=== PATIENT | female | born 1950 | race Caucasian/White ===

== ENCOUNTER 2017-09-07 11:28 | Inpatient (IN) ==
[2017-09-07 14:06] VITALS: BMI 48.9
--- NOTE | 2017-09-07 14:07 | History & Physical Report ---
History of Present Illness Date: 09/07/17 Chief complaint: Blood in stools HPI: Pt is a 67 yo female with blood in stool since 1 pm yest. Progressively worsened yesterday evening. No stools overnight or today. Started feeling dizzy /lightheaded yesterday. "I've been sick for 3-4 weeks. Coughing, sick on my stomach." Queasy stomach - thought it was r/t coumadin. Bright red blood noted with BM's - in toilet and with wiping and stools were black. Pain in mid to lower abd since yesterday. H/o PUD years ago. Thinks she may have had a colonoscopy >13 yrs ago, no EGD. Seen by PCP today, maroon colored blood on rectal exam, no Hemoccult performed in office. Hgb 20.0 (ave mid-upper teens) this am, CMP neg, INR 2.7. No NSAIDS. Last coumadin dose was yesterday. During ROS, pt admits to CP in the L side of her chest. States she gets it occasionally. Has never had it worked up. Uses a lidocaine patch and sometimes that helps. Not currently SOA or diaphoretic. Currently 35 days into a 90 day Rx of doxy. Pt reports she is on it b/c she has recurrent pneumonia. 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) Hx pulmonary embolism (Chronic) Chronic lumbosacral pain (Chronic) Obstructive sleep apnea hypopnea, severe AAA (abdominal aortic aneurysm) Anticoagulated on warfarin HTN (hypertension) Hiatal hernia Low back pain Obesity Surgical History: D&C for uterine bleeding 1974, Unilateral oophorectomy, Removal of bone chip in leg 1977, Tonsillectomy 1957, Family History: Family History Father , 62 Throat Cancer Mother , 92 Mental disability Sister , 72 AML (acute myeloid leukemia) Family History: As Above - Social History Smoking status: Current every day smoker (1ppd+(cigars)) Substance use type: does not use Alcohol intake frequency: holidays/special occasions only (for medicinal use) Housing: house Household members: none Current occupational status: retired 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 Coronel-PCP Medications Home Medications Medication Instructions Recorded Confirmed Type Ultram (Tramadol) 50 mg tablet 50 mg PO Q6H PRN #120 tab 10/07/16 09/07/17 Rx potassium chloride ER 10 mEq 10 meq PO BID PRN #30 tab 01/11/17 09/07/17 Rx tablet,extended release Voltaren (Diclofenac) 1 % topical 4 g TOP BID PRN #100 g 03/05/17 09/07/17 Rx gel doxycycline hyclate 100 mg capsule 100 mg PO BID #180 cap 05/10/17 09/07/17 Rx Neurontin (gabapentin) 600 mg 600 mg PO TID #90 tab 06/24/17 09/07/17 Rx tablet Claritin (Loratadine) 10 mg tablet 10 mg PO BID #60 tab 08/03/17 09/07/17 Rx Pulmicort (Budesonide) 0.5 mg/2 mL 2 ml INH Q12H #60 ml 08/03/17 09/07/17 Rx suspension for nebulization ipratropium-albuterol 0.5 mg-3 3 ml INH QID #180 ml 08/03/17 09/07/17 Rx mg(2.5 mg base)/3 mL nebulization soln warfarin 2 mg tablet 7 mg PO DAILY tab 08/03/17 09/07/17 History Allergies Allergy/AdvReac Type Severity Reaction Status Date / Time Iodinated Contrast- Oral and Allergy Intermediate Itching Verified 09/07/17 09: 49 IV Dye propoxyphene Allergy Mild GORE Verified 09/07/17 09:49 Penicillins Allergy Unknown RASH Verified 09/07/17 09:49 aspirin AdvReac Unknown FLU-LIKE SX Verified 09/07/17 09:49 nitroglycerin AdvReac Unknown HEADACHE/NECK Verified 09/07/17 09:49 PAIN acetaminophen [From Percocet] AdvReac Verified 09/07/17 09:49 clindamycin AdvReac Diarrhea Verified 09/07/17 09:49 oxycodone [From Percocet] AdvReac Verified 09/07/17 09:49 Exam - Constitutional Present: no acute distress, well nourished, well developed - Routine HEENT Exam Head: Present: normocephalic, atraumatic Eye: Present: EOMI, PERRL ENT: Present: mucous membranes moist, oropharynx clear Comments: facial erythema - Routine Neck Exam Present: supple. Absent: lymphadenopathy, thyromegaly - Routine Respiratory Exam Present: decreased breath sounds, CTA bilaterally. Absent: wheezes - Routine Cardiovascular Exam Present: RRR, murmur - Routine Abdominal Exam Present: soft, normoactive bowel sounds, tenderness (diffuse - mostly across lower abd). Absent: distended Comments: exam limited d/t obesity - Routine Rectal Exam Visual: Present: normal rectal tone. Absent: tenderness Digital: Present: external hemorrhoid (nonthrombosed), blood (dark blood noted around anus and on gloved finger following exam) - Routine Extremities Exam Present: edema, normal capillary refill Comments: LE's-chronic vascular changes, edema, b/l erythema - chronic - Routine Skin Exam Present: dry, warm Comments: healing boil L lateral buttock - Routine Neurological Exam Present: alert, oriented X3, CN II-XII intact - Routine Psychiatric Exam Present: normal affect, cooperative Results - Labs CBC & Chem 7: 09/07/17 15:38 Labs: Laboratory Tests 09/07/17 15:30 Stool Occult Blood Positive A Labs performed in [place] office WBC- 9.3, RBC 6.36, hemoglobin 20, hematocrit 59.3, platelet 179 CMP- sodium 142, potassium 4.2, chloride 106, CO2 25, BUN 12, creatinine 0.86, glucose 136, calcium 9.3, bilirubin 0.9, alkaline phosphatase 77, AST 16, ALT 13 , total protein 6.6, albumin 3.5, globulin 3.1 INR 2.7 Assessment and Plan (1) GI bleed Current visit: Yes Status: Acute Assessment and Plan: Assessment GI bleed Dizzy/lightheaded Abdominal pain - acute Chest pain -POA Aortic dissection -chronic Pedal edema -chronic COPD (chronic obstructive pulmonary disease) with chronic bronchitis Hx pulmonary embolism - warfarin (Goal 2-3) Chronic lumbosacral pain Abdominal aortic aneurysm- (follows with Dr. Villanueva) HTN Hiatal hernia Low back pain Morbid Obesity BMI 49.0 Obstructive sleep apnea, CPAP Plan Admit, IP. Stay will exceed 2 overnights to treat with Vit K to bring INR down so pt can by scoped to ID cause of bleeding. Consult Dr. Flynn. He will see pt tomorrow and hopes to scope on . Clear liquids for now. Protonix 40mg BID IV GI ppx and tx for GI bleed Hold coumadin. Vit K 5mg IV now. Repeat INR in am. Check EKG, CXR and Troponin given her chest pain. Repeat CBC now and again in am. Hemoccult positive. Check orthostatic pressures. IVF's NS at 100cc/hr. Tobacco cessation consult. Nicotine patch prn. Duonebs and Pulmicort for COPD - home meds. SCD's VTE ppx Nabila Momin MULCHER OPERATOR - PCP Full code. DVT Prophylaxis: SCD's GI Prophylaxis: Protonix Resuscitation Status: Full Code - Physician Narrative Physician: Enedina Russell MD Narrative: Date: 09/07/17 Time: 1899 I have independently evaluated and examined this patient. I reviewed the chart, the patient's history, and the MULCHER OPERATOR/PA's documented findings as above. We discussed and formulated the assessment and plan as above with additions as below: Mrs. Brown developed onset of rectal bleeding yesterday with black stools coated with bright red blood. Stools were semi-formed and associated with an upset stomach and spasms along the left lower quadrant laterally. She reports her stomach has been bothering her for about a week and she's been having reflux for several days. She describes heartburn which she attributes to dietary indiscretion. Maroon stool reported on office rectal exam today prompting hospitalization for further evaluation. History PE, remote history of peptic disease, recent diagnosis obstructive sleep apnea with initiation CPAP. NAD, alert Breath sounds diminished throughout anteriorly but no focal findings on pulmonary exam Regular rhythm, S1-S2 Abdomen soft, obese, nontender, bowel sounds present CMP unremarkable other than glucose 136 (obtained in the office today) Hemoccult positive Hemoglobin 20 this morning dropping to 19.6 this afternoon; 19.8 one year ago today. GI bleed-likely upper based on recent dyspeptic symptoms, PPI initiated, surgical consultation for EGD. Warfarin being reversed. Repeat hemoglobin at 9:00 tonight. Continued CPAP discussed with patient-she does not have her unit with her and does not believe anyone can bring it in; does not wish to use Hospital equipment and reports she can do without it for a few days. Discussed with Nabila Momin, discussed with Dr. Flynn. Hospital Course Summary Disclaimer: The visit summary below is not to be considered part of the above Progress Note. Hospital Course: 09/07/17 Admit, IP. Stay will exceed 2 overnights to treat with Vit K to bring INR down so pt can by scoped to ID cause of bleeding. Consult Dr. Flynn. He will see pt tomorrow and hopes to scope on . Clear liquids for now. Protonix 40mg BID IV GI ppx and tx for GI bleed Hold coumadin. Vit K 5mg IV now. Repeat INR in am. Check EKG, CXR and Troponin given her chest pain. Repeat CBC now and again in am. Hemoccult positive. Check orthostatic pressures. IVF's NS at 100cc/hr. Tobacco cessation consult. Nicotine patch prn. Duonebs and Pulmicort for COPD - home meds. SCD's VTE ppx Reid Momin, MULCHER OPERATOR - PCP Full cod
[2017-09-07] MEDS ORDERED: PHYTONADIONE (Adult) INJ 5 MG in NS 50 ML IV ONE (15:34)
[2017-09-07] MEDS: NS 1,000 ML IV SCH (15:51)
[2017-09-07] MEDS ORDERED: NICOTINE PATCH REMOVAL TD PRN (16:11)
[2017-09-07] MEDS: ALBUTEROL/IPRATROPIUM 2.5mg-0.5mg/3ml NEB AEROSOL SCH ×2 (16:57→20:17)
[2017-09-07] MEDS: BUDESONIDE INH.SOLN 0.5mg/2ml NEB AEROSOL SCH (20:17)
[2017-09-07] MEDS: GABAPENTIN 600 MG TABLET PO SCH (22:20)
[2017-09-07] MEDS: PANTOPRAZOLE 40 MG INJECTION IVP SCH (22:21)
[2017-09-08] MEDS: SALINE FLUSH 10ml SYRINGE IV PRN (02:19)
[2017-09-08] MEDS: NS 1,000 ML IV SCH ×2 (02:21→11:26)
[2017-09-08] MEDS: ACETAMINOPHEN 325 MG TABLET PO PRN ×2 (05:07→22:30)
[2017-09-08] MEDS: PANTOPRAZOLE 40 MG INJECTION IVP SCH ×2 (08:37→21:19)
[2017-09-08] MEDS: GABAPENTIN 600 MG TABLET PO SCH ×3 (08:37→21:19)
[2017-09-08] MEDS: BUDESONIDE INH.SOLN 0.5mg/2ml NEB AEROSOL SCH ×2 (08:46→20:24)
[2017-09-08] MEDS: ALBUTEROL/IPRATROPIUM 2.5mg-0.5mg/3ml NEB AEROSOL SCH ×3 (08:46→20:23)
--- NOTE | 2017-09-08 09:10 | XRay Report ---
Indication: chest pain Procedure: XR chest 2V: Encounter: Initial Comparison: 05/07/2017 Technique: PA and lateral radiographs of the chest were obtained. Findings: Lungs and airways: Normal lung volumes. Unchanged chronic increased interstitial markings within the lung bases. No other/new focal airspace consolidation appreciated. Normal pulmonary vasculature. Pleura: No pleural effusion or pneumothorax. Heart and mediastinum: Cardiomegaly. Aortic tortuosity. Osseous structures and soft tissues: No acute osseous abnormality is seen. Mild degenerative changes of the shoulders and thoracic spine. Impression: No acute cardiopulmonary process appreciated radiographically with grossly unchanged chronic bibasilar increased interstitial markings. .
--- NOTE | 2017-09-08 10:41 | Progress Note ---
- Date 09/08/17 Subjective: Sonya is seen this morning while resting in bed. She reports that she just took her morning dose of gabapentin and is now sleepy. She complains of her chronic back pain which she states is improving with the gabapentin. She denies any chest pain, increased shortness of breath, abdominal pain, nausea, vomiting or dysuria. She is tolerating clear liquids well. Labs today were unremarkable with the exception of her chronically elevated hemoglobin. INR 1.39. Fecal Hemoccult was positive but she denies any acute bleeding currently. Awaiting surgical evaluation by Dr. Flynn. Nursing reports plan to undergo endoscopy tomorrow, 09/09/17. Chest x-ray this morning showed no acute cardiopulmonary changes and unchanged chronic bibasilar scarring. Objective Vital signs: Temperature 97.5 F 09/08/17 07:50 Pulse Rate 70 09/08/17 08:00 Respiratory Rate 20 09/08/17 08:46 Blood Pressure 198/91 H 09/08/17 07:52 Pulse Oximetry 94 09/08/17 08:46 Rhythm: Normal Sinus Rhythm Height/Weight/BMI: Height 5 ft 2 in Weight 269 lb 13.533 oz Body Mass Index 48.9 Comments: Resting in bed. - Constitutional Present: no acute distress, well nourished, well developed, morbidly obese, cooperative Comments: appears tired after taking gabapentin. - Routine HEENT Exam Head: Present: normocephalic, atraumatic Eye: Present: PERRL. Absent: conjunctival icterus ENT: Present: mucous membranes moist, oropharynx clear - Routine Respiratory Exam Present: decreased breath sounds, prolonged expiratory phase, crackles ( bibasilar) Comments: No cough or conversational dyspnea. Breathing easily on 1L NC. - Routine Cardiovascular Exam Present: RRR, S1, S2 - Routine Abdominal Exam Present: soft, normoactive bowel sounds, non tender Comments: obese - Routine Extremities Exam Present: edema, pulses intact Comments: Bilateral darkening of lower extremities consistent with PVD. - Routine Back/Spine/Pelvis Exam Back/Spine: Present: full ROM. Absent: vertebral tenderness - Routine Musculoskeletal Exam Musculoskeletal: Present: moving extremities well - Routine Skin Exam Present: intact, dry, warm Comments: Afebrile. - Routine Neurological Exam Present: alert, moving all extremities, hearing grossly intact, normal speech - Routine Psychiatric Exam Present: cooperative Results - Labs CBC & Chem 7: 09/08/17 04:37 09/08/17 04:37 Assessment and Plan (1) GI bleed Current visit: Yes Status: Acute Assessment and Plan: Assessment GI bleed Dizzy/lightheaded Abdominal pain - acute Chest pain -POA Aortic dissection -chronic Pedal edema -chronic COPD (chronic obstructive pulmonary disease) with chronic bronchitis Hx pulmonary embolism - warfarin (Goal 2-3) Chronic lumbosacral pain Abdominal aortic aneurysm-(follows with Dr. Zuleyka Villanueva) HTN Hiatal hernia Low back pain Morbid Obesity BMI 49.0 Obstructive sleep apnea, CPAP Plan - 09/08/[address] Flynn. Plan for endoscopy on 09/09/17. Continue clear liquid diet today and NPO at midnight in anticipation of endoscopy. INR 1.39. SCDs for DVT prophylaxis. Continue to hold anticoagulation due to upcoming endoscopy. Vit K 5mg given on admission. Continue Protonix 40mg BID IV GI ppx and tx for GI bleed. CXR revealed no acute changes with unchanged chronic bibasilar scarring noted. Continue supplemental oxygen as needed to maintain SAO2 between 90-95%. Orthostatic vital signs stable with noted significant elevation in blood pressure upon standing at 198/91 prior to morning medications. Continue NS 75cc/hr for gentle hydration given limited oral intake with only clear liquids. Tobacco cessation consult. Nicotine patch prn. Duonebs and Pulmicort for COPD - home meds. Recheck labs in AM to monitor blood counts, electrolytes and renal function. Patient may benefit from routine phlebotomy given chronically elevated hemoglobin. DVT Prophylaxis: SCD's GI Prophylaxis: Protonix Resuscitation Status: Full Code - Time spent with patient Time with patient PN: 30 minutes - Physician Narrative Physician: Enedina Russell MD Narrative: Date: 09/08/17 Time: 1819 I have independently evaluated and examined this patient. I reviewed the chart, the patient's history, and the FACS TEACHER/PA's documented findings as above. We discussed and formulated the assessment and plan as above with additions as below: Mrs. Brown reports having only a smear of stool this morning which was slightly blood-tinged; she reports black stool with some associated red blood overnight but no liquid stool. Heartburn is better and she denied dyspnea or lightheadedness in excess of that she associates with use of gabapentin. NAD, alert; blood pressure increases standing Respirations nonlabored, good airflow Abdomen soft, nontender Minor drop in hemoglobin from 20 yesterday morning to 18.3 this morning; repeating hemoglobin now. INR 1.39 following vitamin K yesterday. Continue PPI Surgical consultation pending. Hospital Course Summary Disclaimer: The visit summary below is not to be considered part of the above Progress Note. Hospital Course: 09/07/17 Admit, IP. Stay will exceed 2 overnights to treat with Vit K to bring INR down so pt can by scoped to ID cause of bleeding. Consult Dr. Flynn. He will see pt tomorrow and hopes to scope on . Clear liquids for now. Protonix 40mg BID IV GI ppx and tx for GI bleed Hold coumadin. Vit K 5mg IV now. Repeat INR in am. Check EKG, CXR and Troponin given her chest pain. Repeat CBC now and again in am. Hemoccult positive. Check orthostatic pressures. IVF's NS at 100cc/hr. Tobacco cessation consult. Nicotine patch prn. Duonebs and Pulmicort for COPD - home meds. SCD's VTE ppx Reid Momin APRN - PCP Full cod Plan - 09/08/[address] Flynn. Plan for endoscopy on 09/09/17. Continue clear liquid diet today and NPO at midnight in anticipation of endoscopy. INR 1.39. SCDs for DVT prophylaxis. Continue to hold anticoagulation due to upcoming endoscopy. Vit K 5mg given on admission. Continue Protonix 40mg BID IV GI ppx and tx for GI bleed. CXR revealed no acute changes with unchanged chronic bibasilar scarring noted. Continue supplemental oxygen as needed to maintain SAO2 between 90-95%. Orthostatic vital signs stable with noted significant elevation in blood pressure upon standing at 198/91 prior to morning medications. Continue NS 75cc/hr for gentle hydration given limited oral intake with only clear liquids. Tobacco cessation consult. Nicotine patch prn. Duonebs and Pulmicort for COPD - home meds. Recheck labs in AM to monitor blood counts, electrolytes and renal function. Patient may benefit from routine phlebotomy given chronically elevated hemoglobin.
[2017-09-08] MEDS ORDERED: Bisacodyl EC TAB 5 MG TABLET PO ONE (17:16)
[2017-09-08] MEDS ORDERED: POLYETHYL. GLYCOL 3350 BOTTLE 238 GM PO ONE (18:30)
[2017-09-09] MEDS: NS 1,000 ML IV SCH ×2 (00:22→10:09)
[2017-09-09] MEDS: ALBUTEROL/IPRATROPIUM 2.5mg-0.5mg/3ml NEB AEROSOL SCH ×5 (06:16→20:20)
[2017-09-09] MEDS: BUDESONIDE INH.SOLN 0.5mg/2ml NEB AEROSOL SCH ×2 (07:13→20:21)
[2017-09-09] MEDS ORDERED: NITROGLYCERIN 0.4 MG SUBLINGUAL TABLET SL PRN (08:52)
[2017-09-09] MEDS: GABAPENTIN 600 MG TABLET PO SCH ×3 (09:17→21:49)
[2017-09-09] MEDS: PANTOPRAZOLE 40 MG INJECTION IVP SCH ×2 (09:17→21:49)
--- NOTE | 2017-09-09 09:19 | Progress Note ---
- Date 09/09/17 Subjective: The patient was seen this morning in her room. She is scheduled for EGD and colonoscopy around noon time. I was notified by her nurse that her blood pressure was elevated for 200 with sitting and standing this morning. Anesthesia was requesting cardiac clearance prior to procedures this afternoon. I asked the patient if she took any blood pressure medications at home and she stated that yes she did take a medication twice daily. Her home med rec did not have any antihypertensives listed. The nurse did call [facility] pharmacy and she is on metoprolol tartrate 25 mg twice daily. Patient states she has some left upper chest pain, and points to just below the clavicle. She states she thinks it's musculoskeletal and she puts a lidocaine patch on it at home. She states she has this pain "80% of the time" and has had it for years. She has history of aortic dissection for which she has , thus far, not required surgery. She sees Dr. Asim RALPH. She sees Dr. Mosley for cardiology care. She states she has not had a stent and she is uncertain if she has had heart catheter in the past. She states she has mild shortness of breath and this is chronic. She states she uses 2-2.5 L of oxygen at rest but doesn't use any oxygen with activity, but states that she probably should. She states that yesterday her stools were black but today after an enema, her stools are clear. She has minimal epigastric pain today, which she states is better. She's had no nausea or vomiting. She has been on doxycycline for 35 days for pneumonia. She is uncertain if she started feeling poorly after this was started or not, but states that she has not been feeling well for a long time. She Also describes chronic pruritus Objective Vital signs: Temperature 96.8 F 09/09/17 08:07 Pulse Rate 76 09/09/17 08:18 Respiratory Rate 20 09/09/17 08:07 Blood Pressure 228/109 H 09/09/17 08:18 Pulse Oximetry 92 09/09/17 08:07 Rhythm: Normal Sinus Rhythm Height/Weight/BMI: Height 1.57 m Weight 121.2 kg Body Mass Index 48.9 Comments: Temp 96 8, heart rate 76, respirations 20, O2 sat 92% on 1 L. Blood pressure lying is 160/92, sitting 213/106, standing 228/109 GEN-, oriented, no acute distress. Face is somewhat cornelius colored HEENT-sclera anicteric, pupils are equal, oropharynx is moist NECK-supple CV-regular rate and rhythm, no murmur CHEST-faint occasional wheeze, otherwise clear ABD-soft, obese, nontender with positive bowel sounds -no Rosas EXT-trace nonpitting edema, chronic venous stasis changes with purplish-red discoloration of the skin from the shins down to the feet NEURO-no focal deficits SKIN-as described above under extremities Results - Labs CBC & Chem 7: 09/09/17 03:59 09/09/17 03:59 - Impressions EKG today shows sinus rhythm with rate of 64, possible right ventricular conduction delay. Moderate voltage for LVH. Probably old anterior and inferior LA. No significant change on my read from 09/07/2016 Assessment and Plan (1) GI bleed Current visit: Yes Status: Acute Assessment and Plan: Assessment GI bleed Chronic anticoagulation with Coumadin -Coumadin on hold Dizzy/lightheaded Abdominal pain - acute Chest pain -POA-present 80% of the time per patient (musculoskeletal?) Aortic dissection -chronic -the patient has not required surgery thus far Pedal edema -chronic COPD (chronic obstructive pulmonary disease) with chronic bronchitis Hx pulmonary embolism - warfarin (Goal 2-3) Chronic lumbosacral pain Abdominal aortic aneurysm-(follows with Dr. Zuleyka Villanueva) HTN-on metoprolol 25 mg by mouth twice a day at home, this was not on her home med rec list. Med restarted 09/09/2017 Hiatal hernia Low back pain Morbid Obesity BMI 49.0 Obstructive sleep apnea, CPAP Chronic pruritus Polycythemia-uncertain if this has been evaluated Tobacco use Plan - 09/08/17 Plan for EGD and colonoscopy later today with Dr. Flynn. Blood pressure is quite elevated today, likely secondary to not receiving her usual metoprolol. Restart metoprolol now. Regarding the patient's underlying aortic dissection, poorly controlled blood pressure, and probable coronary artery disease will consult Dr. Mosley to evaluate the patient for cardiac clearance prior to endoscopies. INR 1.39 and 627. SCDs for DVT prophylaxis. Continue to hold anticoagulation due to upcoming endoscopy. Vit K 5mg given on admission. Continue Protonix 40mg BID IV GI ppx and tx for GI bleed. Continue supplemental oxygen as needed to maintain SAO2 between 90-95%-patient states he uses 2-2 and half liters at home chronically Hold IV fluids Continue DuoNeb and Pulmicort for COPD Tobacco cessation education Recheck CBC and renal panel tomorrow Discussed with patient's nurse, patient and with Dr. Mosley DVT Prophylaxis: SCD's GI Prophylaxis: Protonix Resuscitation Status: Full Code - Physician Narrative Narrative: Date: 09/09/17 Time: 09 Hospital Course Summary Disclaimer: The visit summary below is not to be considered part of the above Progress Note. Hospital Course: 09/07/17 Admit, IP. Stay will exceed 2 overnights to treat with Vit K to bring INR down so pt can by scoped to ID cause of bleeding. Consult Dr. Flynn. He will see pt tomorrow and hopes to scope on . Clear liquids for now. Protonix 40mg BID IV GI ppx and tx for GI bleed Hold coumadin. Vit K 5mg IV now. Repeat INR in am. Check EKG, CXR and Troponin given her chest pain. Repeat CBC now and again in am. Hemoccult positive. Check orthostatic pressures. IVF's NS at 100cc/hr. Tobacco cessation consult. Nicotine patch prn. Duonebs and Pulmicort for COPD - home meds. SCD's VTE ppx Reid Momin APRN - PCP Full cod Plan - 09/08/[address] Flynn. Plan for endoscopy on 09/09/17. Continue clear liquid diet today and NPO at midnight in anticipation of endoscopy. INR 1.39. SCDs for DVT prophylaxis. Continue to hold anticoagulation due to upcoming endoscopy. Vit K 5mg given on admission. Continue Protonix 40mg BID IV GI ppx and tx for GI bleed. CXR revealed no acute changes with unchanged chronic bibasilar scarring noted. Continue supplemental oxygen as needed to maintain SAO2 between 90-95%. Orthostatic vital signs stable with noted significant elevation in blood pressure upon standing at 198/91 prior to morning medications. Continue NS 75cc/hr for gentle hydration given limited oral intake with only clear liquids. Tobacco cessation consult. Nicotine patch prn. Duonebs and Pulmicort for COPD - home meds. Recheck labs in AM to monitor blood counts, electrolytes and renal function. Patient may benefit from routine phlebotomy given chronically elevated hemoglobin.
--- NOTE | 2017-09-09 10:30 | Cardiology Consult Note ---
<Tiffany Moss - Last Filed: 09/10/17 13:23> History of Present Illness Consult date: 09/09/17 Requesting physician: Carmina Payne Consult reason: pre-op evaluation Chief complaint: GI bleed History of present illness: Sonya is a 67 year old female who is well known to Dr. Mosley with a history of HTN, Aortic dissection and abdominal aneurysm followed by Dr. Asim Villanueva, pulmonary emboli, COPD and nicotine dependence who reported blood in her stool, started to feel dizzy/lightheaded, with pain in mid to lower abdomen. History of PUD years ago. She is scheduled for EGD and colonoscopy around noon today. Her BP was elevated in the 200s with sitting and standing this morning. Anesthesia was requesting cardiac clearance prior to procedures this afternoon so Dr. Mosley is consulted and we appreciate the consult. She is examined in her room on the Medical floor. She reports left upper chest pain, which she has "80% of the time" and has had it for years. It is reproducible to palpation. She reports chronic mild shortness of breath and uses 2-2.5 L of oxygen at home. She denies bloody stools today, no N/V, abdominal pain is minimal, She reportedly has been on doxycycline for 35 days for recurrent pneumonia. She continue to smoke cigarettes. Last Echo:10/30/16: NWMA, EF 55-60%, LVH, impaired relaxation, LA dilation, EDWARD, trace MR, Ao root, ascending AO and Ao arch are normal. Last Adenosine Stress: 11/05/16: EF 55%, Normal, AWMI, LAFB, RBBB. Review of Systems - Constitutional Constitutional: Absent: chills, fatigue, fever(s), weakness - EENMT Eyes: Absent: change in vision Balance: Absent: vertigo - Cardiovascular Cardiovascular: Present: chest pain, dyspnea on exertion, edema, heart murmur. Absent: palpitations, syncope Rhythm: Absent: abnormal rhythm Vascular: Present: pedal edema - Respiratory Respiratory: Present: as per HPI - Gastrointestinal Gastrointestinal: Present: as per HPI - Genitourinary Genitourinary: Present: urinary frequency, urinary incontinence. Absent: dysuria - Neurological Neurological: Present: as per HPI, dizziness - Endocrine Endocrine: Absent: palpitations PFSH Patient Stated Medical History Migraine Yes Peripheral Neuropathy Yes Transient Ischemic Attacks ( Yes TIA) Cataracts Yes: R eye Dysphagia Yes Other HEENT Yes: bleeding retina Angina Yes Congestive Heart Failure Yes Heart Murmur Yes Hypertension Yes Other Cardiology Yes: heart dislocated from wall tissue Bronchitis Yes Chronic Obstructive Pulmonary Yes Disease (COPD) Pneumonia Yes Pulmonary Embolism Yes Sleep Apnea Yes: just got a cpap machine in July, adjusting Gastrointestinal Bleeding Yes: over 20years ago Hiatal Hernia Yes Ulcer Yes Hx Urinary Tract Infection Yes MRSA Yes: groin Other Yes: full body itching Depression Yes Post Traumatic Stress Disorder Yes Abnormal Pap Yes: fungal infection Ovarian Cysts Yes Post Menopausal Yes Clinic Medical History (Last Updated 09/07/17 @ 19:03 by Enedina Russell MD) Aortic dissection (Chronic Medical) Pedal edema (Chronic Medical) COPD (chronic obstructive pulmonary disease) with chronic bronchitis (Chronic Medical) Hx pulmonary embolism (Chronic Medical) Chronic lumbosacral pain (Chronic Medical) Obstructive sleep apnea hypopnea, severe (Acute Medical) AAA (abdominal aortic aneurysm) (Chronic Medical) Anticoagulated on warfarin (Chronic Medical) HTN (hypertension) (Chronic Medical) Hiatal hernia (Chronic Medical) Low back pain (Chronic Medical) Obesity (Chronic Medical) Surgical History: D&C for uterine bleeding 1974,. Unilateral oophorectomy,. Removal of bone chip in leg 1977,. Tonsillectomy 1957, Family History: Father , 62 Cancer Mother , 92 CHF, Mental disability Sister , 72 AML (acute myeloid leukemia) Brother Unknown Heart condition - Social History Smoking status: Current every day smoker (1ppd+(cigars)) Substance use type: does not use Alcohol intake frequency: holidays/special occasions only (for medicinal use) Housing: house Household members: none Current occupational status: retired Current residence: Apartment/Private Home Medications Home Medications Medication Instructions Recorded Confirmed Type Ultram (Tramadol) 50 mg tablet 50 mg PO Q6H PRN #120 tab 10/07/16 09/07/17 Rx Voltaren (Diclofenac) 1 % topical 4 g TOP BID PRN #100 g 03/05/17 09/08/17 Rx gel doxycycline hyclate 100 mg capsule 100 mg PO BID #180 cap 05/10/17 09/08/17 Rx Neurontin (gabapentin) 600 mg 600 mg PO TID #90 tab 06/24/17 09/08/17 Rx tablet Claritin (Loratadine) 10 mg tablet 10 mg PO BID #60 tab 08/03/17 09/08/17 Rx Pulmicort (Budesonide) 0.5 mg/2 mL 2 ml INH Q12H #60 ml 08/03/17 09/08/17 Rx suspension for nebulization ipratropium-albuterol 0.5 mg-3 3 ml INH QID #180 ml 08/03/17 09/08/17 Rx mg(2.5 mg base)/3 mL nebulization soln Acetaminophen [Tylenol] 650 mg PO Q5H PRN tab 09/13/17 Rx Amlodipine [Norvasc] 5 mg PO DAILY #30 tab 09/13/17 Rx Labetalol [Normodyne] 100 mg PO BID #60 tab 09/13/17 Rx Lisinopril [Prinivil] 20 mg PO DAILY #30 tab 09/13/17 Rx Mag-Al + Sim Oral Liq [Maalox Plus] 30 ml PO Q3H PRN udc 09/13/17 Rx Nicotine Patch [Nicoderm] 21 mg TD DAILY #30 patch 09/13/17 Rx Omeprazole [Prilosec] 20 mg PO ACB #30 cap 09/13/17 Rx Allergies Allergy/AdvReac Type Severity Reaction Status Date / Time Iodinated Contrast- Oral and Allergy Intermediate Itching Verified 09/07/17 09: 49 IV Dye propoxyphene Allergy Mild GORE Verified 09/07/17 09:49 Penicillins Allergy Unknown RASH Verified 09/07/17 09:49 aspirin AdvReac Unknown FLU-LIKE SX Verified 09/07/17 09:49 nitroglycerin AdvReac Unknown HEADACHE/NECK Verified 09/07/17 09:49 PAIN acetaminophen [From Percocet] AdvReac Verified 09/07/17 09:49 clindamycin AdvReac Diarrhea Verified 09/07/17 09:49 oxycodone [From Percocet] AdvReac Verified 09/07/17 09:49 Exam Vital signs: Temperature 96.8 F 09/09/17 08:07 Pulse Rate 76 09/09/17 08:18 Respiratory Rate 20 09/09/17 08:07 Blood Pressure 188/89 H 09/09/17 09:19 Pulse Oximetry 92 09/09/17 08:07 - Constitutional no acute distress, morbidly obese, cooperative - Routine HEENT Exam Head: Present: normocephalic ENT: Present: mucous membranes moist - Routine Neck Exam Absent: JVD, carotid bruit - Routine Chest/Breast/Axilla Exam Chest wall: Present: tenderness (left chest) - Routine Respiratory Exam Present: diminished air movement. Absent: dyspnea, rales - Routine Cardiovascular Exam Present: RRR, murmur (II/) - Routine Abdominal Exam Present: soft, non tender - Routine Extremities Exam Present: edema (trace), pulses intact - Routine Skin Exam Present: intact, dry, warm - Routine Neurological Exam Present: alert, oriented X3 - Routine Psychiatric Exam Present: normal affect, normal thought process Results 09/10/17 01:30 09/10/17 01:30 CBC 09/08/17 09/09/17 Range/Units 18:42 03:59 WBC 10.3 (4.5-11.0) T/MM3 RBC 5.95 H (4.00-5.20) M/MM3 Hgb 18.3 H 17.7 H (12-16) GM/DL Hct 56.3 H 56.3 H (36-46) % Plt Count 157 (130-400) T/MM3 Neut # (Auto) 7.0 (1.8-7.7) T/MM3 Lymph # (Auto) 2.0 (1-4.8) T/MM3 [place] # (Auto) 0.8 (0-0.8) T/MM3 Eos # (Auto) 0.4 (0-0.5) T/MM3 Baso # (Auto) 0.1 (0-0.2) T/MM3 Comprehensive Metabolic Panel 09/09/17 Range/Units 03:59 Sodium 145 (136-146) MEQ/L Potassium 3.9 (3.6-5) MEQ/L Chloride 109 H (98-107) MEQ/L Carbon Dioxide 27 (22-30) MEQ/L BUN 7.0 D (7-17) MG/DL Creatinine 0.7 (0.7-1.2) mg/dL Glucose 88 (65-110) MG/DL Calcium 8.4 (8.4-10.2) MG/DL Intake and Output 09/08/17 09/09/17 09/09/17 22:59 06:59 14:59 Intake Total 956.667 / 956.667 643.333 / 643.333 732.5 / 732.5 Balance 956.667 / 956.667 643.333 / 643.333 732.5 / 732.5 Intake: IV 356.667 / 356.667 643.333 / 643.333 732.5 / 732.5 Ns 1,000 ml @ 75 mls/hr IV . 356.667 / 356.667 643.333 / 643.333 732.5 / 732.5 [id number] ELEAZAR Rx#:[id number] Oral 600 / 600 Other: Urine Appearance Clear Clear Urine Color Yellow Yellow Stool Color Brown Brown Stool Consistency Formed Loose Watery Size of Bowel Movement Moderate Moderate # Voids 1 # Incontinent Voids 1 # Bowel Movements 1 Weight 267 lb 3.204 oz Patient Weight 09/10/17 06:59 Weight 267 lb 3.204 oz - Imaging and Cardiology Imaging & Cardiology Narrative: Date of Exam: 09/07/17 Ordering Provider: Ann Hurtado Type of Exam(s): XR chest 2V Reason for Exam(s): chest pain Indication: chest pain Procedure: XR chest 2V: Encounter: Initial Comparison: 05/07/2017 Technique: PA and lateral radiographs of the chest were obtained. Findings: Lungs and airways: Normal lung volumes. Unchanged chronic increased interstitial markings within the lung bases. No other/new focal airspace consolidation appreciated. Normal pulmonary vasculature. Pleura: No pleural effusion or pneumothorax. Heart and mediastinum: Cardiomegaly. Aortic tortuosity. Osseous structures and soft tissues: No acute osseous abnormality is seen. Mild degenerative changes of the shoulders and thoracic spine. Impression: No acute cardiopulmonary process appreciated radiographically with grossly unchanged chronic bibasilar increased interstitial markings. . Date of Exam: 09/11/16 Ordering Provider: Nabila Momin APRN Type of Exam(s): CT angio chest/aorta wo/w con Reason for Exam(s): J41.1 Mucopurulent chronic bronchitis Indication: J41.1 Mucopurulent chronic bronchitis, aortic aneurysm with dissection PROCEDURE: CT angio chest/aorta wo/w con: Encounter: Initial Comparison: Chest x-ray dated September 07, [address] angiogram of the chest dated June 16, 2013 Technique: Axial CT angiographic imaging of the chest was performed before and after the administration of intravenous contrast. Coronal and sagittal MIP reconstructed images were created and reviewed. Three-dimensional surface shaded volume rendered imaging of the aorta and arterial vasculature was created by the technologist on a dedicated workstation under the direction of the interpreting radiologist and reviewed. Automated Exposure Control and Iterative Reconstruction dose reducing techniques were utilized. Contrast: 75 mL Omnipaque 350 Findings: Noncontrast images show no evidence of an intramural hematoma. Postcontrast images redemonstrate the extensive Wolfgang type B dissection of the thoracic aorta. This shows interval growth at the origin and enlargement of the descending thoracic aorta compared to the prior CT. Aortic arch diameter at the origin of the dissection on axial image #23 is now 5 cm compared to 4 cm on the prior CT. Descending thoracic aorta diameter is enlarged. For example on axial image #44 maximal diameter us 4.7 cm compared to 3.8 cm on the comparison study. Dissection continues into the abdomen with significant mural thrombus. There is narrowing of the true lumen in the lower thoracic section. The celiac, SMA and left renal artery arise from the true lumen while the right renal artery arises from the false lumen. The false lumen is brighter on this phase of contrast for some reason. The upper abdomen shows no acute findings. The lungs show mild emphysema without consolidative pneumonia. No pleural effusion or pneumothorax. The central airways are patent. Bone windows are unremarkable. 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 Overall diameter is approximately 1 cm larger than the 2014 comparison. Vascular surgical evaluation is suggested. . 09/09/17 11:04 EKG interpretations - EKG EKG results cardiology: sinus rhythm - Blocks, axis, hypertrophy, ST abn AV and intraventricular conduction: intraventricular conduction delay Chamber hypertrophy or enlargement: left ventricular hypertrophy or enlargement (LVE) - WV, pacemaker, normal Myocardial infarction: anterior WV (old age or indeterminate) Assessment and Plan - Assessment and Plan (1) GI bleed Status: Acute Patient had normal Adenosine stress test with no evidence of ischemia and stable Echo with the last 10 months. - The patient is aware of the risks and benefits and wishes to proceed. - The proposed procedure in general carries a low risk of cardiac complications , okay to proceed with EGD/ colonoscopy (2) Essential (primary) hypertension Status: Chronic Orthostatic BP: Lying, 160/92, sitting 213/106, standing 228/109 - Change metoprolol to Labetalol 100mg BID - Give Labetalol 10mg IV now - Renal duplex (3) Aortic dissection Status: Chronic CTA 08/2016: Aortic arch diameter at the origin of the dissection is now 5 cm compared to 4 cm on the prior CT. Extensive Wolfgang type B aortic dissection with gradual enlargement and development amount of aortic arch and descending aortic aneurysms. Overall diameter is approximately 1 cm larger than the 2014 comparison. Vascular surgical evaluation is suggested. - Patient was cleared by Dr. Mosley for repair by Dr. Villanueva. Patient reports CT planned for December. - Control BP with medical therapy to keep SBP<180 (4) Abdominal aortic aneurysm without rupture Status: Chronic (5) COPD (chronic obstructive pulmonary disease) with chronic bronchitis Status: Chronic PCP manages (6) Hx pulmonary embolism Status: Chronic Warfarin currently on home due to GI bleed (7) Tobacco use disorder Status: Chronic Continue to smoke cigarettes, instructed on cessation. - Assessment and Plan GI Bleed: Patient had normal Adenosine stress test with no evidence of ischemia and stable Echo with the last 10 months. - The patient is aware of the risks and benefits and wishes to proceed. - The proposed procedure in general carries a low risk of cardiac complications , okay to proceed with EGD/ colonoscopy HTN: Orthostatic BP: Lying, 160/92, sitting 213/106, standing 228/109 - Change metoprolol to Labetalol 100mg BID - Give Labetalol 10mg IV now - Renal duplex Aortic dissection: CTA 08/2016: Aortic arch diameter at the origin of the dissection is now 5 cm compared to 4 cm on the prior CT. Extensive [place] type B aortic dissection with gradual enlargement and development amount of aortic arch and descending aortic aneurysms. Overall diameter is approximately 1 cm larger than the 2014 comparison. Vascular surgical evaluation is suggested. - Patient was cleared by Dr. Mosley for repair by Dr. Villanueva. Patient reports CT planned for December. - Control BP with medical therapy to keep SBP<180 Abdominal aortic aneurysm: Routine monitoring COPD: Chronic, PCP manages Hx PE: Warfarin on hold due to GI bleed. Tobacco use: Continue to smoke cigarettes, instructed on cessation. Thank you for allowing us to participate in the care of this patient we will follow along with you. Hospital Course Summary Disclaimer: The visit summary below is not to be considered part of the above Progress Note. Hospital Course: 09/07/17 Admit, IP. Stay will exceed 2 overnights to treat with Vit K to bring INR down so pt can by scoped to ID cause of bleeding. Consult Dr. Flynn. He will see pt tomorrow and hopes to scope on . Clear liquids for now. Protonix 40mg BID IV GI ppx and tx for GI bleed Hold coumadin. Vit K 5mg IV now. Repeat INR in am. Check EKG, CXR and Troponin given her chest pain. Repeat CBC now and again in am. Hemoccult positive. Check orthostatic pressures. IVF's NS at 100cc/hr. Tobacco cessation consult. Nicotine patch prn. Duonebs and Pulmicort for COPD - home meds. SCD's VTE ppx Reid Momin APRN - PCP Full cod Plan - 09/08/[address] Flynn. Plan for endoscopy on 09/09/17. Continue clear liquid diet today and NPO at midnight in anticipation of endoscopy. INR 1.39. SCDs for DVT prophylaxis. Continue to hold anticoagulation due to upcoming endoscopy. Vit K 5mg given on admission. Continue Protonix 40mg BID IV GI ppx and tx for GI bleed. CXR revealed no acute changes with unchanged chronic bibasilar scarring noted. Continue supplemental oxygen as needed to maintain SAO2 between 90-95%. Orthostatic vital signs stable with noted significant elevation in blood pressure upon standing at 198/91 prior to morning medications. Continue NS 75cc/hr for gentle hydration given limited oral intake with only clear liquids. Tobacco cessation consult. Nicotine patch prn. Duonebs and Pulmicort for COPD - home meds. Recheck labs in AM to monitor blood counts, electrolytes and renal function. Patient may benefit from routine phlebotomy given chronically elevated hemoglobin. <Scotty Mosley - Last Filed: 09/16/17 13:37> [facility] Patient Stated Medical History Migraine Yes Peripheral Neuropathy Yes Transient Ischemic Attacks ( Yes TIA) Cataracts Yes: R eye Dysphagia Yes Other HEENT Yes: bleeding retina Angina Yes Congestive Heart Failure Yes Heart Murmur Yes Hypertension Yes Other Cardiology Yes: heart dislocated from wall tissue Bronchitis Yes Chronic Obstructive Pulmonary Yes Disease (COPD) Pneumonia Yes Pulmonary Embolism Yes Sleep Apnea Yes Gastroesophageal Reflux Yes: controlled with diet Disease Gastrointestinal Bleeding Yes: over 20years ago Hiatal Hernia Yes Ulcer Yes Hx Urinary Tract Infection Yes MRSA Yes: groin Other Yes: full body itching Depression Yes Post Traumatic Stress Disorder Yes Abnormal Pap Yes: fungal infection Ovarian Cysts Yes Post Menopausal Yes Clinic Medical History (Last Updated 09/07/17 @ 19:03 by Enedina Russell MD) Aortic dissection (Chronic Medical) Pedal edema (Chronic Medical) COPD (chronic obstructive pulmonary disease) with chronic bronchitis (Chronic Medical) Hx pulmonary embolism (Chronic Medical) Chronic lumbosacral pain (Chronic Medical) Obstructive sleep apnea hypopnea, severe (Acute Medical) AAA (abdominal aortic aneurysm) (Chronic Medical) Anticoagulated on warfarin (Chronic Medical) HTN (hypertension) (Chronic Medical) Hiatal hernia (Chronic Medical) Low back pain (Chronic Medical) Obesity (Chronic Medical) Family History: Family History (Last Reviewed 08/03/17 @ 15:10 by CAMPBELL Cage) Father , 62 Cancer Mother , 92 Mental disability Sister , 72 AML (acute myeloid leukemia) Exam Vital signs: Temperature 97.7 F 09/13/17 11:50 Pulse Rate 80 09/13/17 11:50 Respiratory Rate 19 09/13/17 11:50 Blood Pressure 128/72 09/13/17 11:50 Pulse Oximetry 94 09/13/17 11:50 Results 09/13/17 04:13 09/13/17 04:13 Assessment and Plan - Attestation Attestation Narrative: 09/16/17 13:37 Recommendation After examining the patient I agree with the above assessment. I am involved in the formulation of the patient's plan of care. - Assessment and Plan (1) Hx pulmonary embolism Status: Chronic (2) COPD (chronic obstructive pulmonary disease) with chronic bronchitis Status: Chronic (3) Aortic dissection Status: Chronic (4) Tobacco use disorder Status: Chronic (5) GI bleed Status: Acute (6) Essential (primary) hypertension Status: Chronic (7) Abdominal aortic aneurysm without rupture Status: Chronic (8) CAD (coronary artery disease), [place] coronary artery Status: Acute Hospital Course Summary Disclaimer: The visit summary below is not to be considered part of the above Progress Note.
[2017-09-09] MEDS ORDERED: LABETALOL 100mg/20ml INJECTION IVP ONE (11:01)
--- NOTE | 2017-09-09 11:35 | Anesthesia Preoperative Report ---
Anesthesia Preoperative Record - Date and Time Date: 09/09/17 Preoperative Diagnosis: GI Bleed NPO Since Date: 09/08/17 NPO Since Time: 17:00 Allergies/Adverse Reactions: Allergies Allergy/AdvReac Type Severity Reaction Status Date / Time Iodinated Contrast- Oral and Allergy Intermediate Itching Verified 09/07/17 09: 49 IV Dye propoxyphene Allergy Mild GORE Verified 09/07/17 09:49 Penicillins Allergy Unknown RASH Verified 09/07/17 09:49 aspirin AdvReac Unknown FLU-LIKE SX Verified 09/07/17 09:49 nitroglycerin AdvReac Unknown HEADACHE/NECK Verified 09/07/17 09:49 PAIN acetaminophen [From Percocet] AdvReac Verified 09/07/17 09:49 clindamycin AdvReac Diarrhea Verified 09/07/17 09:49 oxycodone [From Percocet] AdvReac Verified 09/07/17 09:49 - Vital Signs Vital Signs: Temperature 96.8 F 09/09/17 08:07 Pulse Rate 60 09/09/17 11:17 Respiratory Rate 20 09/09/17 08:07 Blood Pressure 168/85 H 09/09/17 11:17 Pulse Oximetry 92 09/09/17 08:07 Height and Weight: Height 1.57 m Weight 121.2 kg Body Mass Index 48.9 - Medications Inpatient Medications: Current Medications Acetaminophen (Tylenol) 325 - 650 mg PO Q5H PRN PRN Reason: Discomfort Last Admin: 09/08/17 22:30 Dose: 650 mg Albuterol/Ipratropium (Duoneb) 3 ml AEROSOL QID [facility] Last Admin: 09/09/17 11:19 Dose: 3 ml Budesonide (Pulmicort Inhalation) 0.5 mg AEROSOL Q12H [facility] Last Admin: 09/09/17 07:13 Dose: 0.5 mg Gabapentin (Neurontin) 600 mg PO TID [facility] Last Admin: 09/09/17 09:17 Dose: 600 mg Labetalol HCl (Normodyne) 100 mg PO BID [facility] Nicotine (Nicoderm) 21 mg TD DAILY PRN Nicotine (Nicotine Patch Removal) 1 removal TD DAILY PRN Nitroglycerin (Nitrostat) 0.4 mg SL Q5MIN3 PRN PRN Reason: Chest pain Pantoprazole Sodium (Protonix Iv) 40 mg IVP BID [facility] Last Admin: 09/09/17 09:17 Dose: 40 mg Sodium Chloride (Iv Flush) 10 - 80 ml IV PRN PRN PRN Reason: Flushing Last Admin: 09/08/17 02:19 Dose: 20 ml Tramadol HCl (Ultram) 50 mg PO Q6H PRN PRN Reason: pain Home Medications: Home Medications Medication Instructions Recorded Confirmed Type Ultram (Tramadol) 50 mg tablet 50 mg PO Q6H PRN #120 tab 10/07/16 09/07/17 Rx potassium chloride ER 10 mEq 10 meq PO BID PRN #30 tab 01/11/17 09/08/17 Rx tablet,extended release Voltaren (Diclofenac) 1 % topical 4 g TOP BID PRN #100 g 03/05/17 09/08/17 Rx gel doxycycline hyclate 100 mg capsule 100 mg PO BID #180 cap 05/10/17 09/08/17 Rx Neurontin (gabapentin) 600 mg 600 mg PO TID #90 tab 06/24/17 09/08/17 Rx tablet Claritin (Loratadine) 10 mg tablet 10 mg PO BID #60 tab 08/03/17 09/08/17 Rx Pulmicort (Budesonide) 0.5 mg/2 mL 2 ml INH Q12H #60 ml 08/03/17 09/08/17 Rx suspension for nebulization ipratropium-albuterol 0.5 mg-3 3 ml INH QID #180 ml 08/03/17 09/08/17 Rx mg(2.5 mg base)/3 mL nebulization soln warfarin 2 mg tablet 7 mg PO DAILY tab 08/03/17 09/08/17 History Is Patient on Beta Morena?: Yes Beta Morena Last Dose Date/Time: 09/09/17 - Medical History Respiratory: Reports: Bronchitis, Chronic Obstructive Pulmonary Disease (COPD), Pulmonary Embolism, Pneumonia, Sleep Apnea (franklin got a cpap machine in July,) Cardiovascular: Reports: Angina, Congestive Heart Failure, Heart Murmur, Hypertension, High Cholesterol, Other (heart dislocated from wall tissue) Gastrointestional: Reports: Gastroesophageal Reflux Disease (controlled with diet), Gastrointestinal Bleeding (over 20years ago), Hiatal Hernia, Ulcer, Morbid Obesity Neuro/Musculoskeletal: Reports: Back Problems, Depression, Headaches Renal/Endocrine: Reports: Thyroid Disease (hypothyroid) Other History: Reports: Other (full body itching) - Surgical History HEENT Surgeries: Reports: Nose Surgery (papaloma removed), Oral Surgery ( papaloma removed), Tonsillectomy, Other (MONO) Respiratory Surgery/Treatments: Reports: BiPAP Use, Oxygen Administration (when sleeping) GI Surgery/Treatments: Reports: Colonoscopy DENIES: Appendectomy, Cholecystectomy, Hernia Repair Musculoskeletal Surgery/Tx: Reports: Other (l leg fractured chip removed) Reproductive Surgery/Treatment: Reports: Hysterectomy (partial) DENIES: Mastectomy Anesthesia Reactions: None Hx Family Anesthesia Reaction: No History of Motion Sickness: No - Social History Smoking Status: Current every day smoker (1ppd+(cigars)) Packs per day: 1 Pack-years: 45 Hx Chewing Tobacco Use: No Second Hand Exposure: No Substance Use Type: does not use Alcohol Intake Frequency: holidays/special occasions only (for medicinal use) - Pertinent Findings Laboratory: CBC and BMP 09/09/17 03:59 09/09/17 03:59 BMP 09/09/17 03:59 Sodium 145 Potassium 3.9 Chloride 109 H Carbon Dioxide 27 BUN 7.0 D Creatinine 0.7 Glucose 88 Calcium 8.4 EKG: Sinus Rhythm - Physical Exam Respiratory Exam: Present: wheezing, rales, bilateral breath sounds equal Cardiovascular Exam: Present: regular rate and rhythm - Airway Assessment Mallampati Score: II TMD: 3 Fingerbreadths Neck Extension: poor Teeth: other (edentulous) Overall Assessment: may be difficult intubation - ASA ASA Score: 4 - Plan Anesthesia: General TIVA - Discussion Discussion: Discussed risks/options/alternatives of anesthesia and questions answered. Patient consents. Nursing pain assessment noted. Attestation Statement: Prior to the delivery of any anesthetic medication, I examined the patient, developed the plan, obtained the patient's consent and discussed the risk and benefits of the procedure with the patient/guardian. - Additional Information Seen by Anesthesia: Yes
[2017-09-09] MEDS ORDERED: PROPOFOL 500 MG/50 ML VIAL ONE (12:29)
[2017-09-09] MEDS ORDERED: ALFENTANIL 1000mcg/2ml INJECTION IVP ONE (12:29)
[2017-09-09] MEDS ORDERED: LIDOCAINE 2% (100mg/5ml) SYRINGE (PF) IVP ONE (12:29)
[2017-09-09] MEDS ORDERED: LIDOCAINE VISCOUS 2% ORAL LIQUID 15ml ONE (12:34)
[2017-09-09] MEDS ORDERED: PROPOFOL 20 ML ONE (13:43)
--- NOTE | 2017-09-09 14:05 | General Surgery Procedure Note ---
Date of Procedure: 09/09/17 Surgeon: Rina Anesthesia: General TIVA ASA Score: 4 Pre-op diagnosis: GI bleeding, abdominal pain. Postoperative Diagnosis: Mild duodenitis, mild gastritis, short segment of mucosal changes of distal esophagus. Severe patton diverticulosis, multiple colon polyps. Procedure: Esophagogastroduodenoscopy with biopsies Colonoscopy with hot biopsy forceps polypectomy x 10, hot snare polypectomy x2
--- NOTE | 2017-09-09 14:30 | Anesthesia Postoperative Note ---
- Date and Time Date: 09/09/17 Time: 14:30 - Status Patient Participated in Evaluation: Patient Participated in Person Vital Signs: Temperature 97.1 F 09/09/17 14:15 Pulse Rate 75 09/09/17 14:15 Respiratory Rate 23 09/09/17 14:15 Blood Pressure 159/65 H 09/09/17 14:15 Pulse Oximetry 93 09/09/17 14:15 Respiratory Function: Airway Patent, Regular Respirations Cardiovascular Function: Regular Pulse EKG: Sinus Rhythm Mental Status: Alert and Oriented Pain Intensity: 0 Hydration: IV Infusing Complications During Recover: None Apparent - Follow-Up Instructions Instructions: Per Surgeon
--- NOTE | 2017-09-09 16:02 | Ultrasound Report ---
Indication: HTN PROCEDURE: US renal doppler: Encounter: Initial Comparison: None. Findings: Scans of the kidneys demonstrate increased echogenicity of the renal parenchyma suggesting medical renal disease. The right kidney measures 12.9 cm in length. The left kidney measures 12.3 cm in length. There is no collecting system dilatation, contour deforming mass, nephrolithiasis, or abnormal perinephric fluid collection. Color Doppler imaging demonstrates normal vascularization. Duplex Doppler velocities are as follows: Right: Proximal renal artery: Not seen Mid renal artery: 124/29 cm/s - resistive index equals 0.77 Distal renal artery: 233/43 cm/s - resistive index equals 0.82 Left: Proximal renal artery: 88/20 cm/s - resistive index equals 0.77 Mid renal artery: 93/20 cm/s - resistive index equals 0.79 Distal renal artery: 122/31 cm/s - resistive index equals 0.75 Segmental velocities are as follows: Right: Superior: 30/10 - resistive index equals 0.65 Mid: 36/7 - resistive index equals 0.80 Inferior: 33/12 - resistive index equals 0.62 Left: Superior: 27/9 - resistive index equals 0.67 Mid: 41/13 - resistive index equals 629 Inferior: Not seen Resistive indices from the intrarenal arteries in the upper, middle, and lower portions of the right kidney are normal. Resistive indices from the intrarenal arteries in the upper and middle portions of the left kidney are normal. The arterial waveforms demonstrate a high resistance arterial waveform in the proximal renal arteries. The renal artery to aortic ratios are 1.7 on the right and 1.2 on the left. Impression: No evidence of hemodynamically significant renal arterial stenosis. Echogenic renal parenchyma suggesting medical renal disease. Normal ranges: Some advocate a cut off of upper limit of PSV for significant stenosis of greater than 180 cm/s Some advocate a RAR greater than 3 - 3.5 Some advocate for renal artery interlobar renal artery resistive index of greater than five. Some advocate for resistive index difference between the kidneys of greater than 5%. .
[2017-09-09] MEDS ORDERED: GI COCKTAIL 30 ML PO ONE (19:17)
[2017-09-09] MEDS: NICOTINE 21 MG PATCH TD PRN (21:49)
[2017-09-09] MEDS: LABETALOL 100 MG TABLET PO SCH (21:49)
[2017-09-09] MEDS: TRAMADOL 50 MG TABLET PO PRN (22:38)
[2017-09-10] MEDS: ACETAMINOPHEN 325 MG TABLET PO PRN (01:13)
[2017-09-10] MEDS ORDERED: ALBUTEROL 2.5mg/3ml (0.083%) NEB AEROSOL PRN (01:43)
[2017-09-10] MEDS: ALBUTEROL/IPRATROPIUM 2.5mg-0.5mg/3ml NEB AEROSOL SCH ×5 (01:47→21:28)
[2017-09-10] MEDS: TRAMADOL 50 MG TABLET PO PRN ×2 (07:44→19:50)
[2017-09-10] MEDS: BUDESONIDE INH.SOLN 0.5mg/2ml NEB AEROSOL SCH ×2 (08:05→21:28)
[2017-09-10] MEDS: SALINE FLUSH 10ml SYRINGE IV PRN ×2 (09:40→21:18)
[2017-09-10] MEDS: PANTOPRAZOLE 40 MG INJECTION IVP SCH ×2 (09:40→21:18)
[2017-09-10] MEDS: GABAPENTIN 600 MG TABLET PO SCH ×3 (09:40→23:07)
[2017-09-10] MEDS: LABETALOL 100 MG TABLET PO SCH ×2 (09:40→21:19)
--- NOTE | 2017-09-10 13:31 | Cardiology Progress Note ---
<Tiffany Moss M - Last Filed: 09/10/17 16:35> Subjective Principal diagnosis: GI bleed Interval history: Dariela is seen in follow up for HTN and pre-op clearance due to GI bleed. She had 43 beats of V Tach overnight which is concerning. Discussed the risks and benefits of cardiac catheterization with her and she agrees to proceed with Left heart cath later this afternoon. Exam Vital signs: Temperature 97.1 F 09/10/17 11:09 Pulse Rate 67 09/10/17 11:09 Respiratory Rate 22 09/10/17 11:13 Blood Pressure 150/80 H 09/10/17 11:09 Pulse Oximetry 94 09/10/17 11:13 Inpatient Medications: Generic Name Dose Route Start Last Admin Trade Name Freq PRN Reason Stop Dose Admin Acetaminophen 325 - 650 mg 09/08/17 05:05 09/10/17 01:13 Tylenol PO 650 mg Q5H PRN Administration Discomfort Albuterol Sulfate 2.5 mg 09/10/17 01:43 Proventil Neb (0.083%) AEROSOL RTQID PRN Albuterol/Ipratropium 3 ml 09/07/17 17:00 09/10/17 11:13 Duoneb AEROSOL 3 ml QID ELEAZAR Administration Budesonide 0.5 mg 09/07/17 21:00 09/10/17 08:05 Pulmicort Inhalation AEROSOL 0.5 mg Q12H ELEAZAR Administration Gabapentin 600 mg 09/07/17 21:00 09/10/17 09:40 Neurontin PO 600 mg TID ELEAZAR Administration Labetalol HCl 100 mg 09/09/17 21:00 09/10/17 09:40 Normodyne PO 100 mg BID ELEAZAR Administration Nicotine 21 mg 09/07/17 16:11 09/09/17 21:49 Nicoderm TD 21 mg DAILY PRN Administration Nicotine 1 removal 09/07/17 16:11 Nicotine Patch Removal TD DAILY PRN Nitroglycerin 0.4 mg 09/09/17 08:52 Nitrostat SL Q5MIN3 PRN Chest pain Pantoprazole Sodium 40 mg 09/07/17 21:00 09/10/17 09:40 Protonix Iv IVP 40 mg BID ELEAZAR Administration Sodium Chloride 10 - 80 ml 09/08/17 02:16 09/10/17 09:40 Iv Flush IV 10 ml PRN PRN Administration Flushing Tramadol HCl 50 mg 09/07/17 19:10 09/10/17 07:44 Ultram PO 50 mg Q6H PRN Administration pain Discontinued Medications Generic Name Dose Route Start Last Admin Trade Name Dk PRN Reason Stop Dose Admin Bisacodyl 20 mg 09/08/17 17:16 09/08/17 17:35 Dulcolax PO 09/08/17 17:17 20 mg O ONE Administration Sodium Chloride 1,000 mls @ 75 mls/hr 09/07/17 15:15 09/09/17 10:09 Normal Saline IV Not Given .[id number] ELEAZAR Phytonadione 5 mg/ Sodium 50.5 mls @ 150 mls/hr 09/07/17 15:34 09/07/17 17:01 Chloride IV 09/07/17 15:54 Infused O ONE Infusion Sodium Chloride 500 mls @ 30 mls/hr 09/09/17 11:40 09/09/17 14:34 Normal Saline IV 09/10/17 04:19 30 mls/hr .[id number] ONE Infusion Labetalol HCl 10 mg 09/09/17 11:01 09/09/17 11:12 Trandate IVP 09/09/17 11:02 10 mg O ONE Administration Metoprolol Tartrate 25 mg 09/09/17 09:07 09/09/17 09:17 Lopressor PO 25 mg BIDWM ELEAZAR Administration Pharmacy Profile Note 30 ml 09/09/17 19:17 Maalox Plus/Lidocaine Susp PO 09/09/17 19:18 O ONE Polyethylene Glycol 238 gm 09/08/17 18:30 09/08/17 18:30 Miralax PO 09/08/17 18:31 238 gm O ONE Administration - Constitutional no acute distress, morbidly obese, cooperative - Routine HEENT Exam Head: Present: normocephalic ENT: Present: mucous membranes moist - Routine Neck Exam Absent: JVD, carotid bruit - Routine Chest/Breast/Axilla Exam Chest wall: Present: tenderness - Routine Respiratory Exam Present: wheezes, diminished air movement. Absent: dyspnea - Routine Cardiovascular Exam Present: RRR, murmur (II/) - Routine Abdominal Exam Present: soft, non tender - Routine Extremities Exam Present: edema - Routine Skin Exam Present: intact, dry, warm - Routine Neurological Exam Present: alert, oriented X3 - Routine Psychiatric Exam Present: normal affect, normal thought process Results 09/10/17 01:30 09/10/17 01:30 Cardiac Enzymes 09/09/17 09/10/17 Range/Units 18:35 01:30 Troponin I 0.024 0.022 (0-0.12) ng/ml CBC 09/10/17 Range/Units 01:30 WBC 10.0 (4.5-11.0) T/MM3 RBC 5.87 H (4.00-5.20) M/MM3 Hgb 17.8 H (12-16) GM/DL Hct 55.1 H (36-46) % Plt Count 160 (130-400) T/MM3 Neut # (Auto) 6.9 (1.8-7.7) T/MM3 Lymph # (Auto) 1.9 (1-4.8) T/MM3 [place] # (Auto) 0.7 (0-0.8) T/MM3 Eos # (Auto) 0.4 (0-0.5) T/MM3 Baso # (Auto) 0.0 (0-0.2) T/MM3 Comprehensive Metabolic Panel 09/09/17 09/10/17 Range/Units 18:35 01:30 Sodium 146 143 (136-146) MEQ/L Potassium 4.3 4.1 (3.6-5) MEQ/L Chloride 109 H 109 H (98-107) MEQ/L Carbon Dioxide 26 26 (22-30) MEQ/L BUN 8.0 13.0 D (7-17) MG/DL Creatinine 0.8 0.8 (0.7-1.2) mg/dL Glucose 130 H 114 H (65-110) MG/DL Calcium 8.8 8.6 (8.4-10.2) MG/DL Albumin 4.1 3.4 L (3.5-5.0) g/dL Intake and Output 09/09/17 09/10/17 09/10/17 22:59 06:59 14:59 Intake Total 942 / 942 450 / 450 1287 / 1287 Balance 942 / 942 450 / 450 1287 / 1287 Intake: Oral 942 / 942 450 / 450 1287 / 1287 Other: Urine Appearance Clear Urine Color Pale Urine Odor Normal # Voids 1 Weight 268 lb 4.841 oz Patient Weight 09/11/17 06:59 Weight 268 lb 4.841 oz Assessment and Plan - Assessment and Plan (1) GI bleed Status: Acute (2) Essential (primary) hypertension Status: Chronic (3) Aortic dissection Status: Chronic (4) Abdominal aortic aneurysm without rupture Status: Chronic (5) COPD (chronic obstructive pulmonary disease) with chronic bronchitis Status: Chronic (6) Hx pulmonary embolism Status: Chronic (7) Tobacco use disorder Status: Chronic - Assessment and Plan 09/09/17 GI Bleed: Patient had normal Adenosine stress test with no evidence of ischemia and stable Echo with the last 10 months. - The patient is aware of the risks and benefits and wishes to proceed. - The proposed procedure in general carries a low risk of cardiac complications , okay to proceed with EGD/ colonoscopy HTN: Orthostatic BP: Lying, 160/92, sitting 213/106, standing 228/109 - Change metoprolol to Labetalol 100mg BID - Give Labetalol 10mg IV now - Renal duplex Aortic dissection: CTA 08/2016: Aortic arch diameter at the origin of the dissection is now 5 cm compared to 4 cm on the prior CT. Extensive [place] type B aortic dissection with gradual enlargement and development amount of aortic arch and descending aortic aneurysms. Overall diameter is approximately 1 cm larger than the 2014 comparison. Vascular surgical evaluation is suggested. - Patient was cleared by Dr. Mosley for repair by Dr. Villanueva. Patient reports CT planned for December. - Control BP with medical therapy to keep SBP<180 Abdominal aortic aneurysm: Routine monitoring COPD: Chronic, PCP manages Hx PE: Warfarin on hold due to GI bleed. Tobacco use: Continue to smoke cigarettes, instructed on cessation. Thank you for allowing us to participate in the care of this patient we will follow along with you. 09/10/17 She had 43 beats of V Tach overnight which is concerning for ischemia - Discussed the risks and benefits of cardiac catheterization with her and she agrees to proceed with Left heart cath later this afternoon. - No significant CAD found, no interventions. - Increase Labetalol to 150mg bid for better BP control and due to NSVT - Would stop Coumadin for now and continue to monitor Hospital Course Summary Disclaimer: The visit summary below is not to be considered part of the above Progress Note. Hospital Course: 6/26/18 Admit, IP. Stay will exceed 2 overnights to treat with Vit K to bring INR down so pt can by scoped to ID cause of bleeding. Consult Dr. Flynn. He will see pt tomorrow and hopes to scope on . Clear liquids for now. Protonix 40mg BID IV GI ppx and tx for GI bleed Hold coumadin. Vit K 5mg IV now. Repeat INR in am. Check EKG, CXR and Troponin given her chest pain. Repeat CBC now and again in am. Hemoccult positive. Check orthostatic pressures. IVF's NS at 100cc/hr. Tobacco cessation consult. Nicotine patch prn. Duonebs and Pulmicort for COPD - home meds. SCD's VTE ppx Reid Momin APRN - PCP Full cod Plan - 09/08/[address] Flynn. Plan for endoscopy on 09/09/17. Continue clear liquid diet today and NPO at midnight in anticipation of endoscopy. INR 1.39. SCDs for DVT prophylaxis. Continue to hold anticoagulation due to upcoming endoscopy. Vit K 5mg given on admission. Continue Protonix 40mg BID IV GI ppx and tx for GI bleed. CXR revealed no acute changes with unchanged chronic bibasilar scarring noted. Continue supplemental oxygen as needed to maintain SAO2 between 90-95%. Orthostatic vital signs stable with noted significant elevation in blood pressure upon standing at 198/91 prior to morning medications. Continue NS 75cc/hr for gentle hydration given limited oral intake with only clear liquids. Tobacco cessation consult. Nicotine patch prn. Duonebs and Pulmicort for COPD - home meds. Recheck labs in AM to monitor blood counts, electrolytes and renal function. Patient may benefit from routine phlebotomy given chronically elevated hemoglobin. <Scotty Mosley - Last Filed: 09/20/17 16:54> Exam Vital signs: Temperature 98.5 F 09/10/17 15:36 Pulse Rate 63 09/10/17 15:36 Respiratory Rate 22 09/10/17 15:36 Blood Pressure 174/80 H 09/10/17 15:36 Pulse Oximetry 94 09/10/17 15:36 Inpatient Medications: Generic Name Dose Route Start Last Admin Trade Name Freq PRN Reason Stop Dose Admin Acetaminophen 325 - 650 mg 09/08/17 05:05 06/29/18 01:13 Tylenol PO 650 mg Q5H PRN Administration Discomfort Albuterol Sulfate 2.5 mg 09/10/17 01:43 Proventil Neb (0.083%) AEROSOL RTQID PRN Albuterol/Ipratropium 3 ml 09/07/17 17:00 09/10/17 11:13 Duoneb AEROSOL 3 ml QID ELEAZAR Administration Budesonide 0.5 mg 09/07/17 21:00 09/10/17 08:05 Pulmicort Inhalation AEROSOL 0.5 mg Q12H ELEAZAR Administration Gabapentin 600 mg 09/07/17 21:00 09/10/17 09:40 Neurontin PO 600 mg TID ELEAZAR Administration Sodium Chloride 1,000 mls @ 75 mls/hr 09/10/17 14:30 09/10/17 14:50 Normal Saline IV 75 mls/hr .[id number] ELEAZAR Administration Labetalol HCl 100 mg 09/09/17 21:00 09/10/17 09:40 Normodyne PO 100 mg BID ELEAZAR Administration Nicotine 21 mg 09/07/17 16:11 09/09/17 21:49 Nicoderm TD 21 mg DAILY PRN Administration Nicotine 1 removal 09/07/17 16:11 Nicotine Patch Removal TD DAILY PRN Nitroglycerin 0.4 mg 09/09/17 08:52 Nitrostat SL Q5MIN3 PRN Chest pain Pantoprazole Sodium 40 mg 09/07/17 21:00 09/10/17 09:40 Protonix Iv IVP 40 mg BID ELEAZAR Administration Sodium Chloride 10 - 80 ml 09/08/17 02:16 09/10/17 09:40 Iv Flush IV 10 ml PRN PRN Administration Flushing Tramadol HCl 50 mg 09/07/17 19:10 09/10/17 07:44 Ultram PO 50 mg Q6H PRN Administration pain Discontinued Medications Generic Name Dose Route Start Last Admin Trade Name Freq PRN Reason Stop Dose Admin Bisacodyl 20 mg 09/08/17 17:16 09/08/17 17:35 Dulcolax PO 09/08/17 17:17 20 mg O ONE Administration Sodium Chloride 1,000 mls @ 75 mls/hr 09/07/17 15:15 09/09/17 10:09 Normal Saline IV Not Given .[id number] ELEAZAR Phytonadione 5 mg/ Sodium 50.5 mls @ 150 mls/hr 09/07/17 15:34 09/07/17 17:01 Chloride IV 09/07/17 15:54 Infused O ONE Infusion Sodium Chloride 500 mls @ 30 mls/hr 09/09/17 11:40 09/09/17 14:34 Normal Saline IV 09/10/17 04:19 30 mls/hr .[id number] ONE Infusion Labetalol HCl 10 mg 09/09/17 11:01 09/09/17 11:12 Trandate IVP 09/09/17 11:02 10 mg O ONE Administration Metoprolol Tartrate 25 mg 09/09/17 09:07 09/09/17 09:17 Lopressor PO 25 mg BIDWM ELEAZAR Administration Pharmacy Profile Note 30 ml 09/09/17 19:17 Maalox Plus/Lidocaine Susp PO 09/09/17 19:18 O ONE Polyethylene Glycol 238 gm 09/08/17 18:30 09/08/17 18:30 Miralax PO 09/08/17 18:31 238 gm O ONE Administration Results 09/13/17 04:13 09/13/17 04:13 Cardiac Enzymes 09/09/17 09/10/17 Range/Units 18:35 01:30 Troponin I 0.024 0.022 (0-0.12) ng/ml CBC 09/10/17 Range/Units 01:30 WBC 10.0 (4.5-11.0) T/MM3 RBC 5.87 H (4.00-5.20) M/MM3 Hgb 17.8 H (12-16) GM/DL Hct 55.1 H (36-46) % Plt Count 160 (130-400) T/MM3 Neut # (Auto) 6.9 (1.8-7.7) T/MM3 Lymph # (Auto) 1.9 (1-4.8) T/MM3 [place] # (Auto) 0.7 (0-0.8) T/MM3 Eos # (Auto) 0.4 (0-0.5) T/MM3 Baso # (Auto) 0.0 (0-0.2) T/MM3 Comprehensive Metabolic Panel 09/09/17 09/10/17 Range/Units 18:35 01:30 Sodium 146 143 (136-146) MEQ/L Potassium 4.3 4.1 (3.6-5) MEQ/L Chloride 109 H 109 H (98-107) MEQ/L Carbon Dioxide 26 26 (22-30) MEQ/L BUN 8.0 13.0 D (7-17) MG/DL Creatinine 0.8 0.8 (0.7-1.2) mg/dL Glucose 130 H 114 H (65-110) MG/DL Calcium 8.8 8.6 (8.4-10.2) MG/DL Albumin 4.1 3.4 L (3.5-5.0) g/dL Intake and Output 09/10/17 09/10/17 09/10/17 06:59 14:59 22:59 Intake Total 450 / 450 1287 / 1287 Balance 450 / 450 1287 / 1287 Intake: Oral 450 / 450 1287 / 1287 Other: Weight 121.7 kg Patient Weight 09/11/17 06:59 Weight 121.7 kg - Imaging and Cardiology Imaging & Cardiology Narrative: Date of Exam: 09/09/17 Ordering Provider: Tiffany Moss APRN Type of Exam(s): US renal doppler Reason for Exam(s): HTN Indication: HTN PROCEDURE: US renal doppler: Encounter: Initial Comparison: None. Findings: Scans of the kidneys demonstrate increased echogenicity of the renal parenchyma suggesting medical renal disease. The right kidney measures 12.9 cm in length. The left kidney measures 12.3 cm in length. There is no collecting system dilatation, contour deforming mass, nephrolithiasis, or abnormal perinephric fluid collection. Color Doppler imaging demonstrates normal vascularization. Duplex Doppler velocities are as follows: Right: Proximal renal artery: Not seen Mid renal artery: 124/29 cm/s - resistive index equals 0.77 Distal renal artery: 233/43 cm/s - resistive index equals 0.82 Left: Proximal renal artery: 88/20 cm/s - resistive index equals 0.77 Mid renal artery: 93/20 cm/s - resistive index equals 0.79 Distal renal artery: 122/31 cm/s - resistive index equals 0.75 Segmental velocities are as follows: Right: Superior: 30/10 - resistive index equals 0.65 Mid: 36/7 - resistive index equals 0.80 Inferior: 33/12 - resistive index equals 0.62 Left: Superior: 27/9 - resistive index equals 0.67 Mid: 41/13 - resistive index equals 629 Inferior: Not seen Resistive indices from the intrarenal arteries in the upper, middle, and lower portions of the right kidney are normal. Resistive indices from the intrarenal arteries in the upper and middle portions of the left kidney are normal. The arterial waveforms demonstrate a high resistance arterial waveform in the proximal renal arteries. The renal artery to aortic ratios are 1.7 on the right and 1.2 on the left. Impression: No evidence of hemodynamically significant renal arterial stenosis. Echogenic renal parenchyma suggesting medical renal disease. Normal ranges: Some advocate a cut off of upper limit of PSV for significant stenosis of greater than 180 cm/s Some advocate a RAR greater than 3 - 3.5 Some advocate for renal artery interlobar renal artery resistive index of greater than five. Some advocate for resistive index difference between the kidneys of greater than 5%. 09/10/17 16:13 Assessment and Plan - Assessment and Plan (1) Hx pulmonary embolism Status: Chronic (2) COPD (chronic obstructive pulmonary disease) with chronic bronchitis Status: Chronic (3) Aortic dissection Status: Chronic (4) Tobacco use disorder Status: Chronic (5) GI bleed Status: Acute (6) Essential (primary) hypertension Status: Chronic (7) Abdominal aortic aneurysm without rupture Status: Chronic - Attestation Attestation Narrative: 09/20/17 16:54 Recommendation After examining the patient I agree with the above assessment. I am involved in the formulation of the patient's plan of care. Hospital Course Summary Disclaimer: The visit summary below is not to be considered part of the above Progress Note.
--- NOTE | 2017-09-10 14:28 | Operative Note ---
DATE OF OPERATION 09/09/2017 SURGEON Beka Flynn MD PREOPERATIVE DIAGNOSES 1. GI bleeding. 2. Anticoagulation with warfarin - currently on hold. POSTOPERATIVE DIAGNOSES 1. Mild duodenitis of the duodenal bulb. 2. Mild antral gastritis. 3. Short segment of mucosal changes of the distal esophagus - possible Blackwell' s, pathology pending. 4. Severe pandiverticulosis - likely source of bleeding, no active bleeding. 5. 0.5 cm sessile polyp of the transverse colon. 6. Multiple 0.5 cm or less sessile polyps of the sigmoid colon - five polyps removed. 7. 0.7 cm sessile polyps of the rectum x 2. 8. Multiple 0.5 cm or less sessile polyps of the rectum - 4 removed. PROCEDURE 1. Esophagogastroduodenoscopy with antral biopsy for SCARLETT testing and biopsies of the duodenum, antrum, and GE junction for histology. 2. Colonoscopy with hot snare polypectomy x 2 and hot biopsy forceps polypectomy x 10. ANESTHESIA TIVA ASA CLASS 4 INDICATIONS The patient is a 67-year-old female with a history of severe lung disease who had developed some GI bleeding. She is chronically on warfarin due to a history of pulmonary embolus and also possibly due to her aortic dissection. She had had multiple stools with hematochezia that later became melanotic. It had been over 13 years since her colonoscopy. She also reported some upper abdominal symptoms and it was felt that esophagogastroduodenoscopy should also be performed. FINDINGS The stomach showed mild irritation but no source of bleeding. The duodenum was also mildly inflamed in the duodenal bulb. The GE junction showed a short segment of mucosal changes consistent with Blackwell's esophagus but pathology is pending. The colon showed extensive severe diverticulosis throughout the colon. This is most likely the source of her prior bleeding. She also had multiple polyps. The majority of her polyps were in the distal sigmoid colon and rectum. Since there were so many polyps, tour sales representative samples of the larger polyps were taken but some polyps remained in position. DESCRIPTION OF PROCEDURE After informed consent was obtained the patient was taken to the endoscopy suite and placed in left lateral decubitus position. IV anesthesia was administered by the anesthesia team. A bite block was inserted followed by an Olympus video gastroscope. The gastroscope was advanced down to the third portion of the duodenum under direct vision. The scope was slowly withdrawn examining the mucosa circumferentially. In the duodenal bulb there was mild irritation. The scope was withdrawn to the antrum and a biopsy was taken for SCARLETT testing. The scope was returned to the duodenal bulb and biopsies of the duodenum were taken and were sent to pathology. Additional biopsies were also taken of the antrum and these were sent to pathology as well. The scope was retroflexed to examine the cardiac and fundic portions of the stomach. The carbon dioxide insufflation was evacuated from the stomach and the scope was withdrawn into the distal esophagus. Biopsies of the areas of mucosal changes at the GE junction were taken. The insufflation was again evacuated from the stomach and the scope was withdrawn while examining the remainder of the esophagus. The patient was repositioned for colonoscopy. A digital rectal exam was performed and it was normal. An [employer] video colonoscope with an AmplifEYE device was inserted and was retroflexed to examine the distal rectum. The scope was returned to a neutral position. It was advanced to the level of cecum without difficulty. The cecum was identified by the appendiceal orifice and ileocecal valve. The bowel prep was good with some residual liquid contents of the colon in the region of the cecum and ascending colon. All of the contents were able to be irrigated and evacuated via the colonoscope. The scope was slowly withdrawn examining the mucosa circumferentially. In the transverse colon a small polyp was encountered. It was grasped with hot biopsy forceps and the mucosa was tented. Cautery was applied to destroy the base of the polyp and the polyp was removed. The polyp was sent to pathology for analysis. The scope was withdrawn to the sigmoid colon where more polyps were encountered. The five largest polyps in the area were removed with hot biopsy forceps polypectomy technique and were sent to pathology. The scope was withdrawn to the rectum where four of the 0.5 cm polyps were removed with the hot biopsy forceps polypectomy technique. These were also sent to pathology. There were two larger polyps that were amenable to snare polypectomy. Both of these were encircled with the polypectomy snare. The mucosa was tented and cautery was applied to divide the base of the polyp. The polyps were retrieved with biopsy forceps through the colonoscope and were sent to pathology. Some polyps did remain in position in the distal sigmoid colon and rectum. The carbon dioxide insufflation was evacuated and the scope was removed. RECOMMENDATIONS 1. Await pathology results to determine the appropriate time interval for repeat colonoscopy. 2. Consult with vascular surgery regarding need for anticoagulation given the aortic dissection. I would wait at least a week to try to prevent repeat GI bleeding since no clear etiology was discovered and treated. ANATOLIY
[2017-09-10] MEDS: NS 1,000 ML IV SCH (14:50)
[2017-09-10] MEDS ORDERED: LIDOCAINE 1% (10mg/ml) 30ml SDV INJ ONE (15:32)
[2017-09-10] MEDS ORDERED: HEPARIN 1,000 UNITS/500 ML PREMIX (*CVL ONLY*) IV ONE (15:32)
[2017-09-10] MEDS ORDERED: METHYLPREDNISOLONE SOD SUCC 125mg/2ml INJECTION ONE (16:08)
[2017-09-10] MEDS ORDERED: FentaNYL 100 MCG/2 ML INJECTION ONE (16:08)
[2017-09-10] MEDS ORDERED: DiphenhydrAMINE 50 MG/ML INJECTION ONE (16:08)
[2017-09-10] MEDS ORDERED: MIDAZOLAM 2mg/2ml INJECTION ONE (16:09)
[2017-09-10] MEDS ORDERED: IOHEXOL 350mg/ml 200ml BOTTLE ONE (16:09)
[2017-09-10] MEDS ORDERED: Verapamil 5 MG/2 ML VIAL ONE (16:19)
[2017-09-10] MEDS ORDERED: NITROGLYCERIN 50MG INJECTION IV ONE (16:19)
[2017-09-10] MEDS ORDERED: HEPARIN 1,000unit/ml INJECTION 10ml ONE (16:20)
[2017-09-10] MEDS ORDERED: ONDANSETRON 4 MG/2 ML INJECTION IVP PRN (16:28)
[2017-09-10] MEDS ORDERED: METOCLOPRAMIDE 10mg/2ml INJECTION IVP PRN (16:28)
[2017-09-10] MEDS ORDERED: ATROPINE 1 MG/ML INJECTION IVP PRN (16:28)
[2017-09-10] MEDS ORDERED: MAG-AL + SIM ORAL LIQUID 30ml PO PRN (16:28)
[2017-09-10] MEDS ORDERED: Bisacodyl EC TAB 5 MG TABLET PO PRN (16:28)
[2017-09-10] MEDS ORDERED: LORazepam 0.5 MG TABLET PO PRN (16:28)
[2017-09-10] MEDS ORDERED: PROMETHAZINE 25 MG INJECTION IVP PRN (16:28)
[2017-09-10] MEDS ORDERED: BISACODYL 10 MG SUPPOSITORY RECTALLY PRN (16:28)
[2017-09-10] MEDS ORDERED: FALL RISK - PHARMACY CONSULT MC ONE (16:45)
[2017-09-10] MEDS: AMLODIPINE 5 MG TABLET PO SCH (19:50)
--- NOTE | 2017-09-10 19:59 | Progress Note ---
- Date 09/10/17 Subjective: The patient was seen earlier today in her room. She stated she was feeling better. She had no further bowel movements. She was wearing her oxygen intermittently. She denied any chest pain. She denied any palpitations. She did have a 43 beat run of nonsustained V. tach yesterday. Dr. Mosley was consulted and recommended heart catheterization. The patient's Coumadin is currently on hold with recent GI bleed, thought to be secondary to a diverticular bleed which has stopped at this point. The patient was on Coumadin for history of PE several years ago. She had had no other DVT or PE. She had had 2 TIAs in the past. Objective Vital signs: Temperature 98.5 F 09/10/17 15:36 Pulse Rate 58 L 09/10/17 18:30 Respiratory Rate 22 09/10/17 18:30 Blood Pressure 179/96 H 09/10/17 18:31 Pulse Oximetry 96 09/10/17 18:30 Rhythm: Normal Sinus Rhythm Height/Weight/BMI: Height 1.57 m Weight 121.7 kg Body Mass Index 48.9 Comments: GEN-alert, oriented, no acute distress HEENT-sclera anicteric, oropharynx is moist NECK-supple CV-regular rate and rhythm CHEST-clear to auscultation bilaterally ABD-soft, nontender with positive bowel sounds -no Rosas EXT-no edema NEURO-no focal deficits SKIN-warm and dry, chronic purplish discoloration of the feet and lower legs bilaterally Results - Labs CBC & Chem 7: 09/10/17 01:30 09/10/17 01:30 Labs: Troponin normal 2 Microbiology Results: Microbiology 09/09/17 12:42 Gastric Biopsy Helicobacter pylori Rapid Urease - Final - negative Assessment and Plan (1) GI bleed Current visit: Yes Status: Acute Assessment and Plan: Assessment GI bleed-most likely diverticular, this has stopped Chronic anticoagulation with Coumadin -Coumadin on hold Dizzy/lightheaded Abdominal pain - acute Chest pain -POA-present 80% of the time per patient (musculoskeletal?) Aortic dissection -chronic -the patient has not required surgery thus far Pedal edema -chronic COPD (chronic obstructive pulmonary disease) with chronic bronchitis Hx pulmonary embolism - warfarin (Goal 2-3) Chronic lumbosacral pain Abdominal aortic aneurysm-(follows with Dr. Zuleyka Villanueva) HTN-on metoprolol 25 mg by mouth twice a day at home, this was not on her home med rec list. Med restarted 09/09/2017 Hiatal hernia Low back pain Morbid Obesity BMI 49.0 Obstructive sleep apnea, CPAP Chronic pruritus Elevated hemoglobin-uncertain if this has been evaluated-likely related to tobacco use and hypoxia Tobacco use Plan - 09/10/17 I discussed with the patient that with her recent GI bleed, likely secondary to a diverticular bleed, I would recommend that she stay off of Coumadin at this time. I am not aware of an indication for chronic anticoagulation since she is only had PE once and no history of DVT. She does not require anticoagulation for her aortic dissection. Dr. Mosley is okay with her being off of Coumadin for now. Regarding the patient's nonsustained V. tach, Dr. Mosley did recommend heart catheterization. This was performed today and the patient had mild to moderate disease and plan was for medical management. Labetalol was increased today for hypertension. Recommend continued oxygen as needed to keep saturations above 90%. Recommend smoking cessation, but the patient states she is not able to quit. She may need hematology consultation as an outpatient regarding elevated hemoglobin. Would recommend continuous use of oxygen and see if this will help improve her elevated hemoglobin. Discussed with patient's nurse, patient and with Dr. Mosley - Physician Narrative Narrative: Date: 09/10/17 Time: 1955 Hospital Course Summary Disclaimer: The visit summary below is not to be considered part of the above Progress Note. Hospital Course: 09/07/17 Admit, IP. Stay will exceed 2 overnights to treat with Vit K to bring INR down so pt can by scoped to ID cause of bleeding. Consult Dr. Flynn. He will see pt tomorrow and hopes to scope on . Clear liquids for now. Protonix 40mg BID IV GI ppx and tx for GI bleed Hold coumadin. Vit K 5mg IV now. Repeat INR in am. Check EKG, CXR and Troponin given her chest pain. Repeat CBC now and again in am. Hemoccult positive. Check orthostatic pressures. IVF's NS at 100cc/hr. Tobacco cessation consult. Nicotine patch prn. Duonebs and Pulmicort for COPD - home meds. SCD's VTE ppx KKarla Liliane, [employer] - PCP Full cod Plan - 09/08/[address] Flynn. Plan for endoscopy on 09/09/17. Continue clear liquid diet today and NPO at midnight in anticipation of endoscopy. INR 1.39. SCDs for DVT prophylaxis. Continue to hold anticoagulation due to upcoming endoscopy. Vit K 5mg given on admission. Continue Protonix 40mg BID IV GI ppx and tx for GI bleed. CXR revealed no acute changes with unchanged chronic bibasilar scarring noted. Continue supplemental oxygen as needed to maintain SAO2 between 90-95%. Orthostatic vital signs stable with noted significant elevation in blood pressure upon standing at 198/91 prior to morning medications. Continue NS 75cc/hr for gentle hydration given limited oral intake with only clear liquids. Tobacco cessation consult. Nicotine patch prn. Duonebs and Pulmicort for COPD - home meds. Recheck labs in AM to monitor blood counts, electrolytes and renal function. Patient may benefit from routine phlebotomy given chronically elevated hemoglobin. Plan - 09/09/17 Plan for EGD and colonoscopy later today with Dr. Flynn. Blood pressure is quite elevated today, likely secondary to not receiving her usual metoprolol. Restart metoprolol now. Regarding the patient's underlying aortic dissection, poorly controlled blood pressure, and probable coronary artery disease will consult Dr. Mosley to evaluate the patient for cardiac clearance prior to endoscopies. INR 1.39 and 627. SCDs for DVT prophylaxis. Continue to hold anticoagulation due to upcoming endoscopy. Vit K 5mg given on admission. Continue Protonix 40mg BID IV GI ppx and tx for GI bleed. Continue supplemental oxygen as needed to maintain SAO2 between 90-95%-patient states he uses 2-2 and half liters at home chronically Hold IV fluids Continue DuoNeb and Pulmicort for COPD Tobacco cessation education Recheck CBC and renal panel tomorrow Plan - 09/10/17 I discussed with the patient that with her recent GI bleed, likely secondary to a diverticular bleed, I would recommend that she stay off of Coumadin at this time. I am not aware of an indication for chronic anticoagulation since she is only had PE once and no history of DVT. She does not require anticoagulation for her aortic dissection. Dr. Mosley is okay with her being off of Coumadin for now. Regarding the patient's nonsustained V. tach, Dr. Mosley did recommend heart catheterization. This was performed today and the patient had mild to moderate disease and plan was for medical management. Labetalol was increased today for hypertension. Recommend continued oxygen as needed to keep saturations above 90%. Recommend smoking cessation, but the patient states she is not able to quit. She may need hematology consultation as an outpatient regarding elevated hemoglobin. Would recommend continuous use of oxygen and see if this will help improve her elevated hemoglobin.
[2017-09-11] MEDS: ACETAMINOPHEN 325 MG TABLET PO PRN (01:27)
[2017-09-11] MEDS: TRAMADOL 50 MG TABLET PO PRN ×4 (01:53→23:14)
[2017-09-11] MEDS: NS 1,000 ML IV SCH (07:30)
[2017-09-11] MEDS: LABETALOL 100 MG TABLET PO SCH (08:03)
[2017-09-11] MEDS: PANTOPRAZOLE 40 MG INJECTION IVP SCH (08:04)
[2017-09-11] MEDS: GABAPENTIN 600 MG TABLET PO SCH ×3 (08:04→21:01)
[2017-09-11] MEDS: AMLODIPINE 5 MG TABLET PO SCH (08:04)
--- NOTE | 2017-09-11 10:51 | Cardiology Progress Note ---
<Namita Pearson - Last Filed: 09/12/17 16:01> Subjective Principal diagnosis: GI bleed Interval history: Dariela is seen in follow up for HTN and cardiac cath follow up. Her right radial artery access site is intact. She denies chest pain or near syncope. She does experience mild dyspnea with activity. She has many questions regarding her cardiac cath results. Exam Vital signs: Temperature 97.6 F 09/11/17 07:18 Pulse Rate 71 09/11/17 08:22 Respiratory Rate 18 09/11/17 07:18 Blood Pressure 154/68 H 09/11/17 07:18 Pulse Oximetry 91 09/11/17 07:18 Inpatient Medications: Generic Name Dose Route Start Last Admin Trade Name Freq PRN Reason Stop Dose Admin Acetaminophen 325 - 650 mg 09/08/17 05:05 09/11/17 01:27 Tylenol PO 325 mg Q5H PRN Administration Discomfort Al Hydroxide/Mg Hydroxide 30 ml 09/10/17 16:28 Maalox Plus PO Q3H PRN Indigestion Albuterol Sulfate 2.5 mg 09/10/17 01:43 Proventil Neb (0.083%) AEROSOL RTQID PRN Albuterol/Ipratropium 3 ml 09/07/17 17:00 09/10/17 21:28 Duoneb AEROSOL 3 ml QID ELEAZAR Administration Amlodipine Besylate 5 mg 09/10/17 19:30 09/11/17 08:04 Norvasc PO 5 mg DAILY ELEAZAR Administration Atropine Sulfate 0.5 mg 09/10/17 16:28 Atropine IVP Q5M PRN Bradycardia Bisacodyl 5 - 10 mg 09/10/17 16:28 Dulcolax PO DAILY PRN Constipation Bisacodyl 10 mg 09/10/17 16:28 Dulcolax RECTALLY DAILY PRN Constipation Budesonide 0.5 mg 09/07/17 21:00 09/10/17 21:28 Pulmicort Inhalation AEROSOL 0.5 mg Q12H ELEAZAR Administration Gabapentin 600 mg 09/07/17 21:00 09/11/17 08:04 Neurontin PO 600 mg TID ELEAZAR Administration Labetalol HCl 150 mg 09/10/17 21:00 09/11/17 08:03 Normodyne PO 150 mg BID ELEAZAR Administration Labetalol HCl 200 mg 09/11/17 21:00 Normodyne PO BID ELEAZAR Lorazepam 0.5 - 1 mg 09/10/17 16:28 Ativan PO Q4H PRN Anxiety Lorazepam 0.5 - 1 mg 09/10/17 16:28 Ativan Inj IVP Q4H PRN Anxiety Magnesium Hydroxide 30 ml 09/10/17 16:28 Mom PO DAILY PRN Constipation Metoclopramide HCl 5 - 10 mg 09/10/17 16:28 Reglan IVP Q6H PRN Nausea &/or vomiting Nicotine 21 mg 09/07/17 16:11 09/09/17 21:49 Nicoderm TD 21 mg DAILY PRN Administration Nicotine 1 removal 09/07/17 16:11 Nicotine Patch Removal TD DAILY PRN Nitroglycerin 0.4 mg 09/09/17 08:52 Nitrostat SL Q5MIN3 PRN Chest pain Ondansetron HCl 4 mg 09/10/17 16:28 Zofran IVP Q6H PRN Nausea &/or vomiting Pantoprazole Sodium 40 mg 09/07/17 21:00 09/11/17 08:04 Protonix Iv IVP 40 mg BID ELEAZAR Administration Promethazine HCl 12.5 - 25 mg 09/10/17 16:28 Phenergan Inj IVP Q6HR PRN Nausea &/or vomiting Sodium Chloride 10 - 80 ml 09/08/17 02:16 09/10/17 21:18 Iv Flush IV 20 ml PRN PRN Administration Flushing Tramadol HCl 50 mg 09/07/17 19:10 09/11/17 01:53 Ultram PO 50 mg Q6H PRN Administration pain Discontinued Medications Generic Name Dose Route Start Last Admin Trade Name Freq PRN Reason Stop Dose Admin Bisacodyl 20 mg 09/08/17 17:16 09/08/17 17:35 Dulcolax PO 09/08/17 17:17 20 mg O ONE Administration Sodium Chloride 1,000 mls @ 75 mls/hr 09/07/17 15:15 09/09/17 10:09 Normal Saline IV Not Given .[id number] ELEAZAR Phytonadione 5 mg/ Sodium 50.5 mls @ 150 mls/hr 09/07/17 15:34 09/07/17 17:01 Chloride IV 09/07/17 15:54 Infused O ONE Infusion Sodium Chloride 500 mls @ 30 mls/hr 09/09/17 11:40 09/09/17 14:34 Normal Saline IV 09/10/17 04:19 30 mls/hr .[id number] ONE Infusion Sodium Chloride 1,000 mls @ 75 mls/hr 09/10/17 14:30 09/11/17 07:30 Normal Saline IV Not Given .[id number] ELEAZAR Labetalol HCl 100 mg 09/09/17 21:00 09/10/17 09:40 Normodyne PO 100 mg BID ELEAZAR Administration Labetalol HCl 10 mg 09/09/17 11:01 09/09/17 11:12 Trandate IVP 09/09/17 11:02 10 mg O ONE Administration Metoprolol Tartrate 25 mg 09/09/17 09:07 09/09/17 09:17 Lopressor PO 25 mg BIDWM ELEAZAR Administration Pharmacy Consult each 09/10/17 16:45 Pharmacy Consult - Fall Risk 09/10/17 16:46 ONE TIME ONE Pharmacy Profile Note 30 ml 09/09/17 19:17 09/10/17 16:35 Maalox Plus/Lidocaine Susp PO 09/09/17 19:18 Not Given O ONE Polyethylene Glycol 238 gm 09/08/17 18:30 09/08/17 18:30 Miralax PO 09/08/17 18:31 238 gm O ONE Administration - Constitutional no acute distress, morbidly obese, cooperative - Routine HEENT Exam Head: Present: normocephalic, atraumatic Eye: Present: PERRL ENT: Present: mucous membranes moist - Routine Neck Exam Absent: JVD, carotid bruit, thyromegaly - Routine Respiratory Exam Present: CTA bilaterally, diminished air movement - Routine Cardiovascular Exam Present: RRR, no murmur, bradycardia - Routine Skin Exam Present: intact - Routine Neurological Exam Present: alert - Routine Psychiatric Exam Present: normal affect, normal thought process Results 09/12/17 03:55 09/12/17 03:55 CBC 09/11/17 Range/Units 04:47 WBC 9.0 (4.5-11.0) T/MM3 RBC 5.83 H (4.00-5.20) M/MM3 Hgb 17.5 H (12-16) GM/DL Hct 54.2 H (36-46) % Plt Count 154 (130-400) T/MM3 Neut # (Auto) Not performed Lymph # (Auto) Not performed [place] # (Auto) Not performed Eos # (Auto) Not performed Baso # (Auto) Not performed Comprehensive Metabolic Panel 09/11/17 Range/Units 04:47 Sodium 141 (136-146) MEQ/L Potassium 4.5 (3.6-5) MEQ/L Chloride 104 (98-107) MEQ/L Carbon Dioxide 27 (22-30) MEQ/L BUN 14.0 (7-17) MG/DL Creatinine 0.7 (0.7-1.2) mg/dL Glucose 164 H (65-110) MG/DL Calcium 8.6 (8.4-10.2) MG/DL Intake and Output 09/10/17 09/11/17 09/11/17 22:59 06:59 14:59 Intake Total 933.75 / 933.75 400 / 400 1006.25 / 1006.25 Balance 933.75 / 933.75 400 / 400 1006.25 / 1006.25 Intake: IV 233.75 / 233.75 766.25 / 766.25 Ns 1,000 ml @ 75 mls/hr IV . 233.75 / 233.75 766.25 / 766.25 [id number] ELEAZAR Rx#:[id number] Oral 700 / 700 400 / 400 240 / 240 Other: # Voids 1 1 # Incontinent Voids 1 - Imaging and Cardiology Echo: report reviewed Cardiac cath: report reviewed Assessment and Plan - Assessment and Plan (1) CAD (coronary artery disease), [place] coronary artery Status: Acute (2) Essential (primary) hypertension Status: Chronic (3) Hx pulmonary embolism Status: Chronic (4) COPD (chronic obstructive pulmonary disease) with chronic bronchitis Status: Chronic (5) Aortic dissection Status: Chronic (6) Tobacco use disorder Status: Chronic (7) GI bleed Status: Acute (8) Abdominal aortic aneurysm without rupture Status: Chronic - Assessment and Plan 09/09/17 GI Bleed: Patient had normal Adenosine stress test with no evidence of ischemia and stable Echo with the last 10 months. - The patient is aware of the risks and benefits and wishes to proceed. - The proposed procedure in general carries a low risk of cardiac complications , okay to proceed with EGD/ colonoscopy HTN: Orthostatic BP: Lying, 160/92, sitting 213/106, standing 228/109 - Change metoprolol to Labetalol 100mg BID - Give Labetalol 10mg IV now - Renal duplex Aortic dissection: CTA 08/2016: Aortic arch diameter at the origin of the dissection is now 5 cm compared to 4 cm on the prior CT. Extensive Wolfgang type B aortic dissection with gradual enlargement and development amount of aortic arch and descending aortic aneurysms. Overall diameter is approximately 1 cm larger than the 2014 comparison. Vascular surgical evaluation is suggested. - Patient was cleared by Dr. Mosley for repair by Dr. Villanueva. Patient reports CT planned for December. - Control BP with medical therapy to keep SBP<180 Abdominal aortic aneurysm: Routine monitoring COPD: Chronic, PCP manages Hx PE: Warfarin on hold due to GI bleed. Tobacco use: Continue to smoke cigarettes, instructed on cessation. Thank you for allowing us to participate in the care of this patient we will follow along with you. 09/10/17 She had 43 beats of V Tach overnight which is concerning for ischemia - Discussed the risks and benefits of cardiac catheterization with her and she agrees to proceed with Left heart cath later this afternoon. - No significant CAD found, no interventions. - Increase Labetalol to 150mg bid for better BP control and due to NSVT - Would stop Coumadin for now and continue to monitor 09/11/17 - underwent cardiac cath yesterday afternoon, findings of mild CAD - bp continues to run hypertensive, increase labetolol to 200mg bid; continue norvasc 5mg that was started last evening. - continue to hold warfarin for GI bleed - Tele without further VT or arrhythmia Hospital Course Summary Disclaimer: The visit summary below is not to be considered part of the above Progress Note. Hospital Course: 09/07/17 Admit, IP. Stay will exceed 2 overnights to treat with Vit K to bring INR down so pt can by scoped to ID cause of bleeding. Consult Dr. Flynn. He will see pt tomorrow and hopes to scope on . Clear liquids for now. Protonix 40mg BID IV GI ppx and tx for GI bleed Hold coumadin. Vit K 5mg IV now. Repeat INR in am. Check EKG, CXR and Troponin given her chest pain. Repeat CBC now and again in am. Hemoccult positive. Check orthostatic pressures. IVF's NS at 100cc/hr. Tobacco cessation consult. Nicotine patch prn. Duonebs and Pulmicort for COPD - home meds. SCD's VTE ppx Reid Momin APRN - PCP Full cod Plan - 09/08/[address] Flynn. Plan for endoscopy on 09/09/17. Continue clear liquid diet today and NPO at midnight in anticipation of endoscopy. INR 1.39. SCDs for DVT prophylaxis. Continue to hold anticoagulation due to upcoming endoscopy. Vit K 5mg given on admission. Continue Protonix 40mg BID IV GI ppx and tx for GI bleed. CXR revealed no acute changes with unchanged chronic bibasilar scarring noted. Continue supplemental oxygen as needed to maintain SAO2 between 90-95%. Orthostatic vital signs stable with noted significant elevation in blood pressure upon standing at 198/91 prior to morning medications. Continue NS 75cc/hr for gentle hydration given limited oral intake with only clear liquids. Tobacco cessation consult. Nicotine patch prn. Duonebs and Pulmicort for COPD - home meds. Recheck labs in AM to monitor blood counts, electrolytes and renal function. Patient may benefit from routine phlebotomy given chronically elevated hemoglobin. Plan - 09/09/17 Plan for EGD and colonoscopy later today with Dr. Flynn. Blood pressure is quite elevated today, likely secondary to not receiving her usual metoprolol. Restart metoprolol now. Regarding the patient's underlying aortic dissection, poorly controlled blood pressure, and probable coronary artery disease will consult Dr. Mosley to evaluate the patient for cardiac clearance prior to endoscopies. INR 1.39 and 627. SCDs for DVT prophylaxis. Continue to hold anticoagulation due to upcoming endoscopy. Vit K 5mg given on admission. Continue Protonix 40mg BID IV GI ppx and tx for GI bleed. Continue supplemental oxygen as needed to maintain SAO2 between 90-95%-patient states he uses 2-2 and half liters at home chronically Hold IV fluids Continue DuoNeb and Pulmicort for COPD Tobacco cessation education Recheck CBC and renal panel tomorrow Plan - 09/10/17 I discussed with the patient that with her recent GI bleed, likely secondary to a diverticular bleed, I would recommend that she stay off of Coumadin at this time. I am not aware of an indication for chronic anticoagulation since she is only had PE once and no history of DVT. She does not require anticoagulation for her aortic dissection. Dr. Mosley is okay with her being off of Coumadin for now. Regarding the patient's nonsustained V. tach, Dr. Mosley did recommend heart catheterization. This was performed today and the patient had mild to moderate disease and plan was for medical management. Labetalol was increased today for hypertension. Recommend continued oxygen as needed to keep saturations above 90%. Recommend smoking cessation, but the patient states she is not able to quit. She may need hematology consultation as an outpatient regarding elevated hemoglobin. Would recommend continuous use of oxygen and see if this will help improve her elevated hemoglobin. <Scotty Mosley - Last Filed: 09/20/17 16:57> Exam Vital signs: Temperature 97.7 F 09/13/17 11:50 Pulse Rate 80 09/13/17 11:50 Respiratory Rate 19 09/13/17 11:50 Blood Pressure 128/72 09/13/17 11:50 Pulse Oximetry 94 09/13/17 11:50 Inpatient Medications: Discontinued Medications Generic Name Dose Route Start Last Admin Trade Name Freq PRN Reason Stop Dose Admin Acetaminophen 325 - 650 mg 09/08/17 05:05 09/13/17 06:41 Tylenol PO 650 mg Q5H PRN Administration Discomfort Al Hydroxide/Mg Hydroxide 30 ml 09/10/17 16:28 Maalox Plus PO Q3H PRN Indigestion Albuterol Sulfate 2.5 mg 09/10/17 01:43 Proventil Neb (0.083%) AEROSOL RTQID PRN Albuterol/Ipratropium 3 ml 09/07/17 17:00 09/13/17 15:32 Duoneb AEROSOL Not Given QID ELEAZAR Amlodipine Besylate 5 mg 09/10/17 19:30 09/13/17 08:10 Norvasc PO 5 mg DAILY ELEAZAR Administration Atropine Sulfate 0.5 mg 09/10/17 16:28 Atropine IVP Q5M PRN Bradycardia Bisacodyl 20 mg 09/08/17 17:16 09/08/17 17:35 Dulcolax PO 09/08/17 17:17 20 mg O ONE Administration Bisacodyl 5 - 10 mg 09/10/17 16:28 Dulcolax PO DAILY PRN Constipation Bisacodyl 10 mg 09/10/17 16:28 Dulcolax RECTALLY DAILY PRN Constipation Budesonide 0.5 mg 09/07/17 21:00 09/13/17 10:05 Pulmicort Inhalation AEROSOL 0.5 mg Q12H ELEAZAR Administration Gabapentin 600 mg 09/07/17 21:00 09/13/17 15:01 Neurontin PO 600 mg TID ELEAZAR Administration Sodium Chloride 1,000 mls @ 75 mls/hr 09/07/17 15:15 09/09/17 10:09 Normal Saline IV Not Given .[id number] ELEAZAR Phytonadione 5 mg/ Sodium 50.5 mls @ 150 mls/hr 09/07/17 15:34 09/07/17 17:01 Chloride IV 09/07/17 15:54 Infused O ONE Infusion Sodium Chloride 500 mls @ 30 mls/hr 09/09/17 11:40 09/09/17 14:34 Normal Saline IV 09/10/17 04:19 30 mls/hr .[id number] ONE Infusion Sodium Chloride 1,000 mls @ 75 mls/hr 09/10/17 14:30 09/11/17 07:30 Normal Saline IV Not Given .[id number] ELEAZAR Labetalol HCl 100 mg 09/09/17 21:00 09/10/17 09:40 Normodyne PO 100 mg BID ELEAZAR Administration Labetalol HCl 10 mg 09/09/17 11:01 09/09/17 11:12 Trandate IVP 09/09/17 11:02 10 mg O ONE Administration Labetalol HCl 150 mg 09/10/17 21:00 09/11/17 08:03 Normodyne PO 150 mg BID ELEAZAR Administration Labetalol HCl 200 mg 09/11/17 21:00 09/11/17 21:00 Normodyne PO 200 mg BID ELEAZAR Administration Labetalol HCl 50 mg 09/11/17 12:00 09/11/17 12:39 Normodyne PO 09/11/17 12:01 50 mg O ONE Administration Labetalol HCl 100 mg 09/12/17 09:00 09/13/17 08:10 Normodyne PO 100 mg BID ELEAZAR Administration Lisinopril 10 mg 09/12/17 09:00 09/13/17 08:10 Prinivil PO 10 mg DAILY ELEAZAR Administration Lorazepam 0.5 - 1 mg 09/10/17 16:28 Ativan PO Q4H PRN Anxiety Lorazepam 0.5 - 1 mg 09/10/17 16:28 Ativan Inj IVP Q4H PRN Anxiety Magnesium Hydroxide 30 ml 09/10/17 16:28 Mom PO DAILY PRN Constipation Metoclopramide HCl 5 - 10 mg 09/10/17 16:28 Reglan IVP Q6H PRN Nausea &/or vomiting Metoprolol Tartrate 25 mg 09/09/17 09:07 09/09/17 09:17 Lopressor PO 25 mg BIDWM ELEAZAR Administration Nicotine 21 mg 09/07/17 16:11 09/12/17 06:59 Nicoderm TD 21 mg DAILY PRN Administration Nicotine 1 removal 09/07/17 16:11 Nicotine Patch Removal TD DAILY PRN Nitroglycerin 0.4 mg 09/09/17 08:52 Nitrostat SL Q5MIN3 PRN Chest pain Omeprazole 20 mg 09/12/17 06:30 09/13/17 05:31 Prilosec PO 20 mg ACB ELEAZAR Administration Ondansetron HCl 4 mg 09/10/17 16:28 Zofran IVP Q6H PRN Nausea &/or vomiting Pantoprazole Sodium 40 mg 09/07/17 21:00 09/11/17 08:04 Protonix Iv IVP 40 mg BID ELEAZAR Administration Pharmacy Consult each 09/10/17 16:45 Pharmacy Consult - Fall Risk 09/10/17 16:46 ONE TIME ONE Pharmacy Profile Note 30 ml 09/09/17 19:17 09/10/17 16:35 Maalox Plus/Lidocaine Susp PO 09/09/17 19:18 Not Given O ONE Polyethylene Glycol 238 gm 09/08/17 18:30 09/08/17 18:30 Miralax PO 09/08/17 18:31 238 gm O ONE Administration Promethazine HCl 12.5 - 25 mg 09/10/17 16:28 Phenergan Inj IVP Q6HR PRN Nausea &/or vomiting Sodium Chloride 10 - 80 ml 09/08/17 02:16 09/10/17 21:18 Iv Flush IV 20 ml PRN PRN Administration Flushing Tramadol HCl 50 mg 09/07/17 19:10 09/13/17 10:19 Ultram PO 50 mg Q6H PRN Administration pain Results 09/13/17 04:13 09/13/17 04:13 Assessment and Plan - Assessment and Plan (1) Hx pulmonary embolism Status: Chronic (2) COPD (chronic obstructive pulmonary disease) with chronic bronchitis Status: Chronic (3) Aortic dissection Status: Chronic (4) Tobacco use disorder Status: Chronic (5) GI bleed Status: Acute (6) Essential (primary) hypertension Status: Chronic (7) Abdominal aortic aneurysm without rupture Status: Chronic - Attestation Attestation Narrative: 09/20/17 16:57 Recommendation After examining the patient I agree with the above assessment. I am involved in the formulation of the patient's plan of care. Hospital Course Summary Disclaimer: The visit summary below is not to be considered part of the above Progress Note.
[2017-09-11] MEDS: ALBUTEROL/IPRATROPIUM 2.5mg-0.5mg/3ml NEB AEROSOL SCH ×3 (10:58→19:11)
[2017-09-11] MEDS: BUDESONIDE INH.SOLN 0.5mg/2ml NEB AEROSOL SCH ×2 (10:58→19:12)
--- NOTE | 2017-09-11 11:26 | Cardiac Catheterization Report ---
DATE OF PROCEDURE September 10, 2017 The patient is a pleasant 67-year-old lady with run of nonsustained ventricular tachycardia and was referred for further evaluation by cardiac catheterization and possible intervention. Informed consent was obtained after explaining the procedure and the potential risks to the patient who agreed to proceed with the procedure. PROCEDURE 1. Left heart catheterization. 2. Coronary angiography. 3. Left ventriculography. TECHNIQUE The patient was prepped and draped in the usual sterile techniques. Conscious sedation was performed using Versed and fentanyl. 1% lidocaine was used for local anesthesia. Using modified Seldinger technique, arterial access was obtained into the right radial artery with placement of a 6-Micronesian arterial sheath. 3000 units of heparin, 300 mcg of nitroglycerin and 1 mg of verapamil were given through the arterial sheath. LEFT VENTRICULOGRAPHY Left ventriculography in single-plane BARNEY shallow projection showed normal LV systolic function with ejection fraction of about 65% with no mitral regurgitation or gradient across the aortic valve. LVEDP was about 20. CORONARY ANGIOGRAPHY Left main was free of significant lesions and bifurcated into left anterior descending and left circumflex arteries. The left anterior descending artery was a [id number] caliber vessel which had about 30%-40% stenosis just distal to the first diagonal. First diagonal was a medium-caliber vessel with no significant lesions. The other diagonals were [id number]-hc-[id number] caliber vessels with no significant lesions. Left circumflex artery had about 40% eccentric lesion distally at the junction of the second marginal. Right coronary artery had diffuse irregularities with no stenosis greater than 30%. The patient tolerated the procedure well with no complications. IMPRESSION 1. Normal LV systolic function with ejection fraction of 65%. 2. Mild coronary artery disease as described above. PLAN Medical management. ANATOLIY
[2017-09-11] MEDS ORDERED: LABETALOL 100 MG TABLET PO ONE (12:00)
--- NOTE | 2017-09-11 16:34 | Progress Note ---
- Date 09/11/17 Subjective: The patient was seen this afternoon in her room accompanied by her grandchildren and great-grandchildren. She states she's feeling okay. She denies any pain. She is breathing well. She underwent heart catheterization yesterday revealed mild coronary artery disease and ejection fraction of 65%. She is eating and drinking well. Objective Vital signs: Temperature 97.4 F 09/11/17 15:00 Pulse Rate 62 09/11/17 15:00 Respiratory Rate 20 09/11/17 15:00 Blood Pressure 157/74 H 09/11/17 15:00 Pulse Oximetry 93 09/11/17 15:00 Rhythm: Normal Sinus Rhythm Height/Weight/BMI: Height 1.57 m Weight 121.7 kg Body Mass Index 48.9 Comments: Afebrile, heart rate 62 blood pressure up to 208/100 yesterday, but this afternoon is down to 157/74. 2 sat is 93% on 1.5 L GEN-alert, oriented, no acute distress HEENT-oropharynx is moist NECK-supple CV-regular rate and rhythm CHEST-clear to auscultation bilaterally ABD-soft, nontender with positive bowel sounds -no Rosas EXT-trace edema NEURO-no focal deficits SKIN-chronic purplish discoloration of the feet and calves Results - Labs CBC & Chem 7: 09/11/17 04:47 09/11/17 04:47 Microbiology Results: Microbiology 09/09/17 12:42 Gastric Biopsy Helicobacter pylori Rapid Urease - Final- negative Assessment and Plan (1) GI bleed Current visit: Yes Status: Acute Assessment and Plan: Assessment GI bleed-most likely diverticular, this has stopped Chronic anticoagulation with Coumadin for remote history of PE x 1 -Coumadin on hold Dizzy/lightheaded-resolved Abdominal pain - acute-resolved Chest pain -POA-present 80% of the time per patient (musculoskeletal?) Aortic dissection -chronic -the patient has not required surgery thus far Pedal edema -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 Zuleyka Villanueva) HTN-on metoprolol 25 mg by mouth twice a day at home-meds adjusted this hospitalization Low back pain Morbid Obesity BMI 49.0 Obstructive sleep apnea, CPAP Chronic pruritus Elevated hemoglobin-uncertain if this has been evaluated-likely related to tobacco use and hypoxia Tobacco use-recommend nicotine replacement and complete tobacco cessation Coronary artery disease on heart catheterization 09/10/2017 Blackwell's esophagus seen on EGD Sigmoid diverticuli Multiple colonic hyperplastic polyps Nonsustained V. tach Plan - 09/10/17 I discussed with the patient that with her recent GI bleed, likely secondary to a diverticular bleed, I would recommend that she stay off of Coumadin at this time. I am not aware of an indication for chronic anticoagulation since she is only had PE once and no history of DVT. She does not require anticoagulation for her aortic dissection. Dr. Mosley is okay with her being off of Coumadin for now. I discussed these recommendations again today with the patient. Labetalol was increased again today for hypertension and Norvasc was also added. Recommend continued oxygen as needed to keep saturations above 90%.. Would recommend follow-up of hemoglobin as an outpatient. Regarding mild coronary artery disease, medical management per Dr. Gilbert. She may need Plavix and aspirin in the future. I will leave this session up to Dr. Gilbert. She need follow-up hemoglobin as an outpatient, and may need hematology consultation as an outpatient regarding elevated hemoglobin. Would recommend continuous use of oxygen and complete cessation of smoking. Command faithful use of CPAP at night Discontinue IV Protonix and start oral omeprazole for Blackwell's esophagus Monitor blood pressure. Possible discharge soon if blood pressure is better controlled and she is otherwise doing well. Check CBC and basic metabolic profile tomorrow. DVT Prophylaxis: SCD's GI Prophylaxis: Omeprazole Resuscitation Status: Full Code - Physician Narrative Narrative: Date: 09/11/17 Time: 1631 Hospital Course Summary Disclaimer: The visit summary below is not to be considered part of the above Progress Note. Hospital Course: 09/07/17 Admit, IP. Stay will exceed 2 overnights to treat with Vit K to bring INR down so pt can by scoped to ID cause of bleeding. Consult Dr. Flynn. He will see pt tomorrow and hopes to scope on . Clear liquids for now. Protonix 40mg BID IV GI ppx and tx for GI bleed Hold coumadin. Vit K 5mg IV now. Repeat INR in am. Check EKG, CXR and Troponin given her chest pain. Repeat CBC now and again in am. Hemoccult positive. Check orthostatic pressures. IVF's NS at 100cc/hr. Tobacco cessation consult. Nicotine patch prn. Duonebs and Pulmicort for COPD - home meds. SCD's VTE ppx Reid Momin APRN - PCP Full cod Plan - 09/08/[address] Flynn. Plan for endoscopy on 09/09/17. Continue clear liquid diet today and NPO at midnight in anticipation of endoscopy. INR 1.39. SCDs for DVT prophylaxis. Continue to hold anticoagulation due to upcoming endoscopy. Vit K 5mg given on admission. Continue Protonix 40mg BID IV GI ppx and tx for GI bleed. CXR revealed no acute changes with unchanged chronic bibasilar scarring noted. Continue supplemental oxygen as needed to maintain SAO2 between 90-95%. Orthostatic vital signs stable with noted significant elevation in blood pressure upon standing at 198/91 prior to morning medications. Continue NS 75cc/hr for gentle hydration given limited oral intake with only clear liquids. Tobacco cessation consult. Nicotine patch prn. Duonebs and Pulmicort for COPD - home meds. Recheck labs in AM to monitor blood counts, electrolytes and renal function. Patient may benefit from routine phlebotomy given chronically elevated hemoglobin. Plan - 09/09/17 Plan for EGD and colonoscopy later today with Dr. Flynn. Blood pressure is quite elevated today, likely secondary to not receiving her usual metoprolol. Restart metoprolol now. Regarding the patient's underlying aortic dissection, poorly controlled blood pressure, and probable coronary artery disease will consult Dr. Mosley to evaluate the patient for cardiac clearance prior to endoscopies. INR 1.39 and 627. SCDs for DVT prophylaxis. Continue to hold anticoagulation due to upcoming endoscopy. Vit K 5mg given on admission. Continue Protonix 40mg BID IV GI ppx and tx for GI bleed. Continue supplemental oxygen as needed to maintain SAO2 between 90-95%-patient states he uses 2-2 and half liters at home chronically Hold IV fluids Continue DuoNeb and Pulmicort for COPD Tobacco cessation education Recheck CBC and renal panel tomorrow Plan - 09/10/17 I discussed with the patient that with her recent GI bleed, likely secondary to a diverticular bleed, I would recommend that she stay off of Coumadin at this time. I am not aware of an indication for chronic anticoagulation since she is only had PE once and no history of DVT. She does not require anticoagulation for her aortic dissection. Dr. Mosley is okay with her being off of Coumadin for now. Regarding the patient's nonsustained V. tach, Dr. Mosley did recommend heart catheterization. This was performed today and the patient had mild to moderate disease and plan was for medical management. Labetalol was increased today for hypertension. Recommend continued oxygen as needed to keep saturations above 90%. Recommend smoking cessation, but the patient states she is not able to quit. She may need hematology consultation as an outpatient regarding elevated hemoglobin. Would recommend continuous use of oxygen and see if this will help improve her elevated hemoglobin.
[2017-09-11] MEDS ORDERED: LABETALOL 100 MG TABLET PO SCH (21:00)
[2017-09-12] MEDS: ALBUTEROL/IPRATROPIUM 2.5mg-0.5mg/3ml NEB AEROSOL SCH ×5 (00:19→19:53)
[2017-09-12] MEDS: ACETAMINOPHEN 325 MG TABLET PO PRN (02:25)
[2017-09-12] MEDS: OMEPRAZOLE 20 MG CAPSULE PO SCH (06:36)
[2017-09-12] MEDS: TRAMADOL 50 MG TABLET PO PRN ×2 (06:37→20:35)
[2017-09-12] MEDS: NICOTINE 21 MG PATCH TD PRN (06:59)
[2017-09-12] MEDS: BUDESONIDE INH.SOLN 0.5mg/2ml NEB AEROSOL SCH ×2 (07:13→19:53)
[2017-09-12] MEDS: AMLODIPINE 5 MG TABLET PO SCH (09:08)
[2017-09-12] MEDS: LISINOPRIL 10 MG TABLET PO SCH (09:08)
[2017-09-12] MEDS: LABETALOL 100 MG TABLET PO SCH ×2 (09:08→20:35)
[2017-09-12] MEDS: GABAPENTIN 600 MG TABLET PO SCH ×3 (09:08→20:35)
--- NOTE | 2017-09-12 11:56 | Progress Note ---
- Date 09/12/17 Subjective: The patient was seen this morning in her room. She was noted to have heart rate down into the 40s. Cardiology was notified and decreased her labetalol from 200 mg twice daily down to 100 mg twice daily. Cipro 10 mg once daily was started to help with blood pressure control. The patient states she's been having chronic back pain and the tramadol has been helpful. She had an episode of chest discomfort morning but it was short lasting. She denies any lightheadedness but states that the [place] makes her a little sleepy. She denied shortness of breath with walking to the bathroom today. She is chronically on oxygen at home but does not have a portable concentrator and states that it's hard to leave the house because the portable oxygen bottles are so cumbersome and short lasting. Objective Vital signs: Temperature 97.5 F 09/12/17 06:48 Pulse Rate 56 L 09/12/17 11:07 Respiratory Rate 17 09/12/17 07:23 Blood Pressure 181/87 H 09/12/17 11:07 Pulse Oximetry 95 09/12/17 07:23 Rhythm: Normal Sinus Rhythm Height/Weight/BMI: Height 1.57 m Weight 123.5 kg Body Mass Index 48.9 Comments: Heart rate in the 40s overnight, but currently up to 56. Blood pressure lying 127/74, sitting 152/81, standing 181/87. GEN-alert, oriented, no acute distress HEENT-clear anicteric, oropharynx is moist NECK-supple CV cardiac rate with irregular rhythm, occasional ectopy CHEST-clear to auscultation bilaterally ABD-soft, positive bowel sounds -no Rosas EXT-trace edema, feet and shins are cornelius but warm. Pedal pulses are palpable. Capillary refill in the toes is brisk. Legs and feet were more purplish and cyanotic appearing yesterday when she had her feet and legs dependent NEURO-no focal deficit SKIN-no rashes Results - Labs CBC & Chem 7: 09/12/17 03:55 09/12/17 03:55 Microbiology Results: Microbiology 09/09/17 12:42 Gastric Biopsy Helicobacter pylori Rapid Urease - Final Assessment and Plan (1) GI bleed Current visit: Yes Status: Acute Assessment and Plan: Assessment GI bleed-most likely diverticular, this has stopped Chronic anticoagulation with Coumadin for remote history of PE x 1 -Coumadin on hold, consider off of Coumadin indefinitely Dizzy/lightheaded-resolved Abdominal pain - acute-resolved Chest pain -POA-present 80% of the time per patient (musculoskeletal?)-Mild coronary artery disease seen on heart catheterization 09/10/2017 Aortic dissection -chronic -the patient has not required surgery thus far Pedal edema -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 Zuleyka Villanueva) HTN-on metoprolol 25 mg by mouth twice a day at home-meds adjusted this hospitalization Morbid Obesity BMI 49.0 Obstructive sleep apnea, CPAP Chronic pruritus Elevated hemoglobin and RBCs since 2012-uncertain if this has been evaluated- likely related to tobacco use and hypoxia-we'll check erythropoietin level Tobacco use-recommend nicotine replacement and complete tobacco cessation Coronary artery disease on heart catheterization 09/10/2017 Blackwell's esophagus seen on EGD Sigmoid diverticuli Multiple colonic hyperplastic polyps Nonsustained V. tach-no recurrence Plan - 09/11/17 No recurrence of GI bleed at this time Continue to monitor hemoglobin off of Coumadin Re: Chronically elevated hemoglobin, hematocrit, RBCs-recommend tobacco cessation, chronic oxygen use, erythropoietin level, she may benefit from hematology consultation as well. Regarding hypertension, she developed bradycardia with labetalol 200 mg by mouth twice a day. This was decreased back to 100 mg by mouth twice a day this morning. Lisinopril 10 mg once daily was added. Earlier this hospitalization, she was started on amlodipine 5 mg by mouth daily. Her home medication of metoprolol was discontinued. Regarding coronary artery disease, plan is for medical management. She may benefit from Plavix for coronary artery disease and elevated hemoglobin levels. We'll not initiate at this time because of recent GI bleed. Recommend faithful use of CPAP at night Continue oral omeprazole for Blackwell's esophagus A.m. lab- CBC regarding elevated hemoglobin and recent GI bleed and basic metabolic profile regarding initiation of lisinopril Erythropoietin level will be sent to [facility] -currently pending - Physician Narrative Narrative: Date: 09/12/17 Time: 1152 Hospital Course Summary Disclaimer: The visit summary below is not to be considered part of the above Progress Note. Hospital Course: 09/07/17 Admit, IP. Stay will exceed 2 overnights to treat with Vit K to bring INR down so pt can by scoped to ID cause of bleeding. Consult Dr. Flynn. He will see pt tomorrow and hopes to scope on . Clear liquids for now. Protonix 40mg BID IV GI ppx and tx for GI bleed Hold coumadin. Vit K 5mg IV now. Repeat INR in am. Check EKG, CXR and Troponin given her chest pain. Repeat CBC now and again in am. Hemoccult positive. Check orthostatic pressures. IVF's NS at 100cc/hr. Tobacco cessation consult. Nicotine patch prn. Duonebs and Pulmicort for COPD - home meds. SCD's VTE ppx Reid Momin APRN - PCP Full cod Plan - 09/08/[address] Flynn. Plan for endoscopy on 09/09/17. Continue clear liquid diet today and NPO at midnight in anticipation of endoscopy. INR 1.39. SCDs for DVT prophylaxis. Continue to hold anticoagulation due to upcoming endoscopy. Vit K 5mg given on admission. Continue Protonix 40mg BID IV GI ppx and tx for GI bleed. CXR revealed no acute changes with unchanged chronic bibasilar scarring noted. Continue supplemental oxygen as needed to maintain SAO2 between 90-95%. Orthostatic vital signs stable with noted significant elevation in blood pressure upon standing at 198/91 prior to morning medications. Continue NS 75cc/hr for gentle hydration given limited oral intake with only clear liquids. Tobacco cessation consult. Nicotine patch prn. Duonebs and Pulmicort for COPD - home meds. Recheck labs in AM to monitor blood counts, electrolytes and renal function. Patient may benefit from routine phlebotomy given chronically elevated hemoglobin. Plan - 09/09/17 Plan for EGD and colonoscopy later today with Dr. Flynn. Blood pressure is quite elevated today, likely secondary to not receiving her usual metoprolol. Restart metoprolol now. Regarding the patient's underlying aortic dissection, poorly controlled blood pressure, and probable coronary artery disease will consult Dr. Mosley to evaluate the patient for cardiac clearance prior to endoscopies. INR 1.39 and 627. SCDs for DVT prophylaxis. Continue to hold anticoagulation due to upcoming endoscopy. Vit K 5mg given on admission. Continue Protonix 40mg BID IV GI ppx and tx for GI bleed. Continue supplemental oxygen as needed to maintain SAO2 between 90-95%-patient states he uses 2-2 and half liters at home chronically Hold IV fluids Continue DuoNeb and Pulmicort for COPD Tobacco cessation education Recheck CBC and renal panel tomorrow Plan - 09/10/17 I discussed with the patient that with her recent GI bleed, likely secondary to a diverticular bleed, I would recommend that she stay off of Coumadin at this time. I am not aware of an indication for chronic anticoagulation since she is only had PE once and no history of DVT. She does not require anticoagulation for her aortic dissection. Dr. Mosley is okay with her being off of Coumadin for now. Regarding the patient's nonsustained V. tach, Dr. Mosley did recommend heart catheterization. This was performed today and the patient had mild to moderate disease and plan was for medical management. Labetalol was increased today for hypertension. Recommend continued oxygen as needed to keep saturations above 90%. Recommend smoking cessation, but the patient states she is not able to quit. She may need hematology consultation as an outpatient regarding elevated hemoglobin. Would recommend continuous use of oxygen and see if this will help improve her elevated hemoglobin. Plan - 09/11/17 I discussed with the patient that with her recent GI bleed, likely secondary to a diverticular bleed, I would recommend that she stay off of Coumadin at this time. I am not aware of an indication for chronic anticoagulation since she is only had PE once and no history of DVT. She does not require anticoagulation for her aortic dissection. Dr. Mosley is okay with her being off of Coumadin for now. I discussed these recommendations again today with the patient. Labetalol was increased again today for hypertension and Norvasc was also added. Recommend continued oxygen as needed to keep saturations above 90%.. Would recommend follow-up of hemoglobin as an outpatient. Regarding mild coronary artery disease, medical management per Dr. Gilbert. She may need Plavix and aspirin in the future. I will leave this session up to Dr. Gilbert. She need follow-up hemoglobin as an outpatient, and may need hematology consultation as an outpatient regarding elevated hemoglobin. Would recommend continuous use of oxygen and complete cessation of smoking. Recommend faithful use of CPAP at night Discontinue IV Protonix and start oral omeprazole for Blackwell's esophagus Monitor blood pressure. Possible discharge soon if blood pressure is better controlled and she is otherwise doing well. Check CBC and basic metabolic profile tomorrow.
--- NOTE | 2017-09-12 15:58 | Cardiology Progress Note ---
<Namita Pearson L - Last Filed: 09/12/17 16:07> Subjective Principal diagnosis: GI bleed Interval history: Dariela is seen in follow up for HTN and cardiac cath 09/10. Her bp is improved, she reports feeling well. Denies chest pain or near syncope. Exam Vital signs: Temperature 97.5 F 09/12/17 06:48 Pulse Rate 51 L 09/12/17 15:00 Respiratory Rate 16 09/12/17 15:00 Blood Pressure 120/66 09/12/17 15:00 Pulse Oximetry 93 09/12/17 15:00 Inpatient Medications: Generic Name Dose Route Start Last Admin Trade Name Freq PRN Reason Stop Dose Admin Acetaminophen 325 - 650 mg 09/08/17 05:05 09/12/17 02:25 Tylenol PO 650 mg Q5H PRN Administration Discomfort Al Hydroxide/Mg Hydroxide 30 ml 09/10/17 16:28 Maalox Plus PO Q3H PRN Indigestion Albuterol Sulfate 2.5 mg 09/10/17 01:43 Proventil Neb (0.083%) AEROSOL RTQID PRN Albuterol/Ipratropium 3 ml 09/07/17 17:00 09/12/17 12:44 Duoneb AEROSOL 3 ml QID ELEAZAR Administration Amlodipine Besylate 5 mg 09/10/17 19:30 09/12/17 09:08 Norvasc PO 5 mg DAILY ELEAZAR Administration Atropine Sulfate 0.5 mg 09/10/17 16:28 Atropine IVP Q5M PRN Bradycardia Bisacodyl 5 - 10 mg 09/10/17 16:28 Dulcolax PO DAILY PRN Constipation Bisacodyl 10 mg 09/10/17 16:28 Dulcolax RECTALLY DAILY PRN Constipation Budesonide 0.5 mg 09/07/17 21:00 09/12/17 07:13 Pulmicort Inhalation AEROSOL 0.5 mg Q12H ELEAZAR Administration Gabapentin 600 mg 09/07/17 21:00 09/12/17 15:15 Neurontin PO 600 mg TID ELEAZAR Administration Labetalol HCl 100 mg 09/12/17 09:00 09/12/17 09:08 Normodyne PO 100 mg BID ELEAZAR Administration Lisinopril 10 mg 09/12/17 09:00 09/12/17 09:08 Prinivil PO 10 mg DAILY ELEAZAR Administration Lorazepam 0.5 - 1 mg 09/10/17 16:28 Ativan PO Q4H PRN Anxiety Lorazepam 0.5 - 1 mg 09/10/17 16:28 Ativan Inj IVP Q4H PRN Anxiety Magnesium Hydroxide 30 ml 09/10/17 16:28 Mom PO DAILY PRN Constipation Metoclopramide HCl 5 - 10 mg 09/10/17 16:28 Reglan IVP Q6H PRN Nausea &/or vomiting Nicotine 21 mg 09/07/17 16:11 09/12/17 06:59 Nicoderm TD 21 mg DAILY PRN Administration Nicotine 1 removal 09/07/17 16:11 Nicotine Patch Removal TD DAILY PRN Nitroglycerin 0.4 mg 09/09/17 08:52 Nitrostat SL Q5MIN3 PRN Chest pain Omeprazole 20 mg 09/12/17 06:30 09/12/17 06:36 Prilosec PO 20 mg ACB ELEAZAR Administration Ondansetron HCl 4 mg 09/10/17 16:28 Zofran IVP Q6H PRN Nausea &/or vomiting Promethazine HCl 12.5 - 25 mg 09/10/17 16:28 Phenergan Inj IVP Q6HR PRN Nausea &/or vomiting Sodium Chloride 10 - 80 ml 09/08/17 02:16 09/10/17 21:18 Iv Flush IV 20 ml PRN PRN Administration Flushing Tramadol HCl 50 mg 09/07/17 19:10 09/12/17 06:37 Ultram PO 50 mg Q6H PRN Administration pain Discontinued Medications Generic Name Dose Route Start Last Admin Trade Name Navin PRN Reason Stop Dose Admin Bisacodyl 20 mg 09/08/17 17:16 09/08/17 17:35 Dulcolax PO 09/08/17 17:17 20 mg O ONE Administration Sodium Chloride 1,000 mls @ 75 mls/hr 09/07/17 15:15 09/09/17 10:09 Normal Saline IV Not Given .[id number] ELEAZAR Phytonadione 5 mg/ Sodium 50.5 mls @ 150 mls/hr 09/07/17 15:34 09/07/17 17:01 Chloride IV 09/07/17 15:54 Infused O ONE Infusion Sodium Chloride 500 mls @ 30 mls/hr 09/09/17 11:40 09/09/17 14:34 Normal Saline IV 09/10/17 04:19 30 mls/hr .[id number] ONE Infusion Sodium Chloride 1,000 mls @ 75 mls/hr 09/10/17 14:30 09/11/17 07:30 Normal Saline IV Not Given .[id number] ELEAZAR Labetalol HCl 100 mg 09/09/17 21:00 09/10/17 09:40 Normodyne PO 100 mg BID ELEAZAR Administration Labetalol HCl 10 mg 09/09/17 11:01 09/09/17 11:12 Trandate IVP 09/09/17 11:02 10 mg O ONE Administration Labetalol HCl 150 mg 09/10/17 21:00 09/11/17 08:03 Normodyne PO 150 mg BID ELEAZAR Administration Labetalol HCl 200 mg 09/11/17 21:00 09/11/17 21:00 Normodyne PO 200 mg BID ELEAZAR Administration Labetalol HCl 50 mg 09/11/17 12:00 09/11/17 12:39 Normodyne PO 09/11/17 12:01 50 mg O ONE Administration Metoprolol Tartrate 25 mg 09/09/17 09:07 09/09/17 09:17 Lopressor PO 25 mg BIDWM ELEAZAR Administration Pantoprazole Sodium 40 mg 09/07/17 21:00 09/11/17 08:04 Protonix Iv IVP 40 mg BID ELEAZAR Administration Pharmacy Consult each 09/10/17 16:45 Pharmacy Consult - Fall Risk 09/10/17 16:46 ONE TIME ONE Pharmacy Profile Note 30 ml 09/09/17 19:17 09/10/17 16:35 Maalox Plus/Lidocaine Susp PO 09/09/17 19:18 Not Given O ONE Polyethylene Glycol 238 gm 09/08/17 18:30 09/08/17 18:30 Miralax PO 09/08/17 18:31 238 gm O ONE Administration - Constitutional no acute distress - Routine HEENT Exam Head: Present: normocephalic Eye: Present: PERRL ENT: Present: mucous membranes moist - Routine Neck Exam Absent: JVD, carotid bruit - Routine Cardiovascular Exam Present: RRR, bradycardia - Routine Abdominal Exam Present: normoactive bowel sounds - Routine Extremities Exam Present: no edema - Routine Skin Exam Present: intact - Routine Neurological Exam Present: alert, oriented X3 - Routine Psychiatric Exam Present: normal affect Results 09/12/17 03:55 09/12/17 03:55 CBC 09/12/17 Range/Units 03:55 WBC 12.1 H (4.5-11.0) T/MM3 RBC 5.70 H (4.00-5.20) M/MM3 Hgb 16.8 H (12-16) GM/DL Hct 53.4 H (36-46) % Plt Count 164 (130-400) T/MM3 Comprehensive Metabolic Panel 09/12/17 Range/Units 03:55 Sodium 143 (136-146) MEQ/L Potassium 4.0 (3.6-5) MEQ/L Chloride 103 (98-107) MEQ/L Carbon Dioxide 31 H (22-30) MEQ/L BUN 16.0 (7-17) MG/DL Creatinine 0.7 (0.7-1.2) mg/dL Glucose 140 H (65-110) MG/DL Calcium 8.4 (8.4-10.2) MG/DL Intake and Output 09/12/17 09/12/17 09/12/17 06:59 14:59 22:59 Intake Total 1040 / 1040 Balance 1040 / 1040 Intake: Oral 1040 / 1040 Other: # Voids 1 1 Weight 123.5 kg Patient Weight 09/13/17 06:59 Weight 123.5 kg - Imaging and Cardiology Cardiac cath: report reviewed Imaging & Cardiology Narrative: 09/12/17 15:59 CORONARY ANGIOGRAPHY Left main was free of significant lesions and bifurcated into left anterior descending and left circumflex arteries. The left anterior descending artery was a [id number] caliber vessel which had about 30%-40% stenosis just distal to the first diagonal. First diagonal was a medium-caliber vessel with no significant lesions. The other diagonals were [id number] caliber vessels with no significant lesions. Left circumflex artery had about 40% eccentric lesion distally at the junction of the second marginal. Right coronary artery had diffuse irregularities with no stenosis greater than 30%. The patient tolerated the procedure well with no complications. IMPRESSION 1. Normal LV systolic function with ejection fraction of 65%. 2. Mild coronary artery disease as described above. PLAN Medical management. Assessment and Plan - Assessment and Plan (1) CAD (coronary artery disease), [place] coronary artery Status: Acute (2) Essential (primary) hypertension Status: Chronic (3) Hx pulmonary embolism Status: Chronic (4) COPD (chronic obstructive pulmonary disease) with chronic bronchitis Status: Chronic (5) Aortic dissection Status: Chronic (6) Tobacco use disorder Status: Chronic (7) GI bleed Status: Acute (8) Abdominal aortic aneurysm without rupture Status: Chronic - Assessment and Plan 09/09/17 GI Bleed: Patient had normal Adenosine stress test with no evidence of ischemia and stable Echo with the last 10 months. - The patient is aware of the risks and benefits and wishes to proceed. - The proposed procedure in general carries a low risk of cardiac complications , okay to proceed with EGD/ colonoscopy HTN: Orthostatic BP: Lying, 160/92, sitting 213/106, standing 228/109 - Change metoprolol to Labetalol 100mg BID - Give Labetalol 10mg IV now - Renal duplex Aortic dissection: CTA 08/2016: Aortic arch diameter at the origin of the dissection is now 5 cm compared to 4 cm on the prior CT. Extensive [place] type B aortic dissection with gradual enlargement and development amount of aortic arch and descending aortic aneurysms. Overall diameter is approximately 1 cm larger than the 2014 comparison. Vascular surgical evaluation is suggested. - Patient was cleared by Dr. Mosley for repair by Dr. Villanueva. Patient reports CT planned for December. - Control BP with medical therapy to keep SBP<180 Abdominal aortic aneurysm: Routine monitoring COPD: Chronic, PCP manages Hx PE: Warfarin on hold due to GI bleed. Tobacco use: Continue to smoke cigarettes, instructed on cessation. Thank you for allowing us to participate in the care of this patient we will follow along with you. 09/10/17 She had 43 beats of V Tach overnight which is concerning for ischemia - Discussed the risks and benefits of cardiac catheterization with her and she agrees to proceed with Left heart cath later this afternoon. - No significant CAD found, no interventions. - Increase Labetalol to 150mg bid for better BP control and due to NSVT - Would stop Coumadin for now and continue to monitor 09/11/17 - underwent cardiac cath yesterday afternoon, findings of mild CAD - bp continues to run hypertensive, increase labetolol to 200mg bid; continue norvasc 5mg that was started last evening. - continue to hold warfarin for GI bleed - Tele without further VT or arrhythmia 09/12/17 15:59 - Tele showed bradycardia into the 40's of labetolol 200mg bid, decreased down to 100mg bid - Remain on Norvasc 10mg and initiate lisinopril 10mg daily today - follow bmp tomorrow - Tele stable - Attestation Attestation Narrative: 09/12/17 16:08 Hospital Course Summary Disclaimer: The visit summary below is not to be considered part of the above Progress Note. Hospital Course: 09/07/17 Admit, IP. Stay will exceed 2 overnights to treat with Vit K to bring INR down so pt can by scoped to ID cause of bleeding. Consult Dr. Flynn. He will see pt tomorrow and hopes to scope on . Clear liquids for now. Protonix 40mg BID IV GI ppx and tx for GI bleed Hold coumadin. Vit K 5mg IV now. Repeat INR in am. Check EKG, CXR and Troponin given her chest pain. Repeat CBC now and again in am. Hemoccult positive. Check orthostatic pressures. IVF's NS at 100cc/hr. Tobacco cessation consult. Nicotine patch prn. Duonebs and Pulmicort for COPD - home meds. SCD's VTE ppx Reid Momin APRN - PCP Full cod Plan - 09/08/[address] Flynn. Plan for endoscopy on 09/09/17. Continue clear liquid diet today and NPO at midnight in anticipation of endoscopy. INR 1.39. SCDs for DVT prophylaxis. Continue to hold anticoagulation due to upcoming endoscopy. Vit K 5mg given on admission. Continue Protonix 40mg BID IV GI ppx and tx for GI bleed. CXR revealed no acute changes with unchanged chronic bibasilar scarring noted. Continue supplemental oxygen as needed to maintain SAO2 between 90-95%. Orthostatic vital signs stable with noted significant elevation in blood pressure upon standing at 198/91 prior to morning medications. Continue NS 75cc/hr for gentle hydration given limited oral intake with only clear liquids. Tobacco cessation consult. Nicotine patch prn. Duonebs and Pulmicort for COPD - home meds. Recheck labs in AM to monitor blood counts, electrolytes and renal function. Patient may benefit from routine phlebotomy given chronically elevated hemoglobin. Plan - 09/09/17 Plan for EGD and colonoscopy later today with Dr. Flynn. Blood pressure is quite elevated today, likely secondary to not receiving her usual metoprolol. Restart metoprolol now. Regarding the patient's underlying aortic dissection, poorly controlled blood pressure, and probable coronary artery disease will consult Dr. Mosley to evaluate the patient for cardiac clearance prior to endoscopies. INR 1.39 and 627. SCDs for DVT prophylaxis. Continue to hold anticoagulation due to upcoming endoscopy. Vit K 5mg given on admission. Continue Protonix 40mg BID IV GI ppx and tx for GI bleed. Continue supplemental oxygen as needed to maintain SAO2 between 90-95%-patient states he uses 2-2 and half liters at home chronically Hold IV fluids Continue DuoNeb and Pulmicort for COPD Tobacco cessation education Recheck CBC and renal panel tomorrow Plan - 09/10/17 I discussed with the patient that with her recent GI bleed, likely secondary to a diverticular bleed, I would recommend that she stay off of Coumadin at this time. I am not aware of an indication for chronic anticoagulation since she is only had PE once and no history of DVT. She does not require anticoagulation for her aortic dissection. Dr. Mosley is okay with her being off of Coumadin for now. Regarding the patient's nonsustained V. tach, Dr. Mosley did recommend heart catheterization. This was performed today and the patient had mild to moderate disease and plan was for medical management. Labetalol was increased today for hypertension. Recommend continued oxygen as needed to keep saturations above 90%. Recommend smoking cessation, but the patient states she is not able to quit. She may need hematology consultation as an outpatient regarding elevated hemoglobin. Would recommend continuous use of oxygen and see if this will help improve her elevated hemoglobin. Plan - 09/11/17 I discussed with the patient that with her recent GI bleed, likely secondary to a diverticular bleed, I would recommend that she stay off of Coumadin at this time. I am not aware of an indication for chronic anticoagulation since she is only had PE once and no history of DVT. She does not require anticoagulation for her aortic dissection. Dr. Mosley is okay with her being off of Coumadin for now. I discussed these recommendations again today with the patient. Labetalol was increased again today for hypertension and Norvasc was also added. Recommend continued oxygen as needed to keep saturations above 90%.. Would recommend follow-up of hemoglobin as an outpatient. Regarding mild coronary artery disease, medical management per Dr. Gilbert. She may need Plavix and aspirin in the future. I will leave this session up to Dr. Gilbert. She need follow-up hemoglobin as an outpatient, and may need hematology consultation as an outpatient regarding elevated hemoglobin. Would recommend continuous use of oxygen and complete cessation of smoking. Recommend faithful use of CPAP at night Discontinue IV Protonix and start oral omeprazole for Blackwell's esophagus Monitor blood pressure. Possible discharge soon if blood pressure is better controlled and she is otherwise doing well. Check CBC and basic metabolic profile tomorrow. <Scotty Mosley - Last Filed: 09/20/17 16:58> Exam Vital signs: Temperature 97.7 F 09/13/17 11:50 Pulse Rate 80 09/13/17 11:50 Respiratory Rate 19 09/13/17 11:50 Blood Pressure 128/72 09/13/17 11:50 Pulse Oximetry 94 09/13/17 11:50 Inpatient Medications: Discontinued Medications Generic Name Dose Route Start Last Admin Trade Name Freq PRN Reason Stop Dose Admin Acetaminophen 325 - 650 mg 09/08/17 05:05 09/13/17 06:41 Tylenol PO 650 mg Q5H PRN Administration Discomfort Al Hydroxide/Mg Hydroxide 30 ml 09/10/17 16:28 Maalox Plus PO Q3H PRN Indigestion Albuterol Sulfate 2.5 mg 09/10/17 01:43 Proventil Neb (0.083%) AEROSOL RTQID PRN Albuterol/Ipratropium 3 ml 09/07/17 17:00 09/13/17 15:32 Duoneb AEROSOL Not Given QID ELEAZAR Amlodipine Besylate 5 mg 09/10/17 19:30 09/13/17 08:10 Norvasc PO 5 mg DAILY ELEAZAR Administration Atropine Sulfate 0.5 mg 09/10/17 16:28 Atropine IVP Q5M PRN Bradycardia Bisacodyl 20 mg 09/08/17 17:16 09/08/17 17:35 Dulcolax PO 09/08/17 17:17 20 mg O ONE Administration Bisacodyl 5 - 10 mg 09/10/17 16:28 Dulcolax PO DAILY PRN Constipation Bisacodyl 10 mg 09/10/17 16:28 Dulcolax RECTALLY DAILY PRN Constipation Budesonide 0.5 mg 09/07/17 21:00 09/13/17 10:05 Pulmicort Inhalation AEROSOL 0.5 mg Q12H ELEAZAR Administration Gabapentin 600 mg 09/07/17 21:00 09/13/17 15:01 Neurontin PO 600 mg TID ELEAZAR Administration Sodium Chloride 1,000 mls @ 75 mls/hr 09/07/17 15:15 09/09/17 10:09 Normal Saline IV Not Given .[id number] ELEAZAR Phytonadione 5 mg/ Sodium 50.5 mls @ 150 mls/hr 09/07/17 15:34 09/07/17 17:01 Chloride IV 09/07/17 15:54 Infused O ONE Infusion Sodium Chloride 500 mls @ 30 mls/hr 09/09/17 11:40 09/09/17 14:34 Normal Saline IV 09/10/17 04:19 30 mls/hr .[id number] ONE Infusion Sodium Chloride 1,000 mls @ 75 mls/hr 09/10/17 14:30 09/11/17 07:30 Normal Saline IV Not Given .[id number] ELEAZAR Labetalol HCl 100 mg 09/09/17 21:00 09/10/17 09:40 Normodyne PO 100 mg BID ELEAZAR Administration Labetalol HCl 10 mg 09/09/17 11:01 09/09/17 11:12 Trandate IVP 09/09/17 11:02 10 mg O ONE Administration Labetalol HCl 150 mg 09/10/17 21:00 09/11/17 08:03 Normodyne PO 150 mg BID ELEAZAR Administration Labetalol HCl 200 mg 09/11/17 21:00 09/11/17 21:00 Normodyne PO 200 mg BID ELEAZAR Administration Labetalol HCl 50 mg 09/11/17 12:00 09/11/17 12:39 Normodyne PO 09/11/17 12:01 50 mg O ONE Administration Labetalol HCl 100 mg 09/12/17 09:00 09/13/17 08:10 Normodyne PO 100 mg BID ELEAZAR Administration Lisinopril 10 mg 09/12/17 09:00 09/13/17 08:10 Prinivil PO 10 mg DAILY ELEAZAR Administration Lorazepam 0.5 - 1 mg 09/10/17 16:28 Ativan PO Q4H PRN Anxiety Lorazepam 0.5 - 1 mg 09/10/17 16:28 Ativan Inj IVP Q4H PRN Anxiety Magnesium Hydroxide 30 ml 09/10/17 16:28 Mom PO DAILY PRN Constipation Metoclopramide HCl 5 - 10 mg 09/10/17 16:28 Reglan IVP Q6H PRN Nausea &/or vomiting Metoprolol Tartrate 25 mg 09/09/17 09:07 09/09/17 09:17 Lopressor PO 25 mg BIDWM ELEAZAR Administration Nicotine 21 mg 09/07/17 16:11 09/12/17 06:59 Nicoderm TD 21 mg DAILY PRN Administration Nicotine 1 removal 09/07/17 16:11 Nicotine Patch Removal TD DAILY PRN Nitroglycerin 0.4 mg 09/09/17 08:52 Nitrostat SL Q5MIN3 PRN Chest pain Omeprazole 20 mg 09/12/17 06:30 09/13/17 05:31 Prilosec PO 20 mg ACB ELEAZAR Administration Ondansetron HCl 4 mg 09/10/17 16:28 Zofran IVP Q6H PRN Nausea &/or vomiting Pantoprazole Sodium 40 mg 09/07/17 21:00 09/11/17 08:04 Protonix Iv IVP 40 mg BID ELEAZAR Administration Pharmacy Consult each 09/10/17 16:45 Pharmacy Consult - Fall Risk 09/10/17 16:46 ONE TIME ONE Pharmacy Profile Note 30 ml 09/09/17 19:17 09/10/17 16:35 Maalox Plus/Lidocaine Susp PO 09/09/17 19:18 Not Given O ONE Polyethylene Glycol 238 gm 09/08/17 18:30 09/08/17 18:30 Miralax PO 09/08/17 18:31 238 gm O ONE Administration Promethazine HCl 12.5 - 25 mg 09/10/17 16:28 Phenergan Inj IVP Q6HR PRN Nausea &/or vomiting Sodium Chloride 10 - 80 ml 09/08/17 02:16 09/10/17 21:18 Iv Flush IV 20 ml PRN PRN Administration Flushing Tramadol HCl 50 mg 09/07/17 19:10 09/13/17 10:19 Ultram PO 50 mg Q6H PRN Administration pain Results 09/13/17 04:13 09/13/17 04:13 Assessment and Plan - Assessment and Plan (1) Hx pulmonary embolism Status: Chronic (2) COPD (chronic obstructive pulmonary disease) with chronic bronchitis Status: Chronic (3) Aortic dissection Status: Chronic (4) Tobacco use disorder Status: Chronic (5) GI bleed Status: Acute (6) Essential (primary) hypertension Status: Chronic (7) Abdominal aortic aneurysm without rupture Status: Chronic - Attestation Attestation Narrative: Recommendation After examining the patient I agree with the above assessment. I am involved in the formulation of the patient's plan of care. 09/20/17 16:57 Hospital Course Summary Disclaimer: The visit summary below is not to be considered part of the above Progress Note.
[2017-09-13] MEDS: TRAMADOL 50 MG TABLET PO PRN ×2 (03:53→10:19)
[2017-09-13] MEDS: OMEPRAZOLE 20 MG CAPSULE PO SCH (05:31)
[2017-09-13] MEDS: ACETAMINOPHEN 325 MG TABLET PO PRN (06:41)
[2017-09-13] MEDS: GABAPENTIN 600 MG TABLET PO SCH ×2 (08:10→15:01)
[2017-09-13] MEDS: LABETALOL 100 MG TABLET PO SCH (08:10)
[2017-09-13] MEDS: AMLODIPINE 5 MG TABLET PO SCH (08:10)
[2017-09-13] MEDS: LISINOPRIL 10 MG TABLET PO SCH (08:10)
--- NOTE | 2017-09-13 09:03 | Progress Note ---
DATE OF VISIT 09/10/2017 REASON FOR VISIT Discuss endoscopy findings. MO Hassan has done well since her esophagogastroduodenoscopy and colonoscopy yesterday. She has not had any further bloody stools. OBJECTIVE VITALS: Afebrile with stable vitals on room air. GENERAL: The patient is awake and alert. She is seated on the side of the bed in no acute distress. ABDOMEN: Soft, obese, nontender. IMPRESSION 1. Mild duodenitis. 2. Mild antral gastritis. 3. Short segment of mucosal changes in the distal esophagus consistent with Blackwell's. 4. Severe pandiverticulosis - likely source of GI bleeding. 5. GI bleeding - resolved. 6. Multiple colon polyps with pending pathology. PLAN 1. Decision for restarting of blood thinners could be made by the hospitalist team. I would recommend delay of reinitiation of anticoagulation for at least two weeks given the recent bleeding. 2. Continue regular diet. 3. My office will contact her when pathology results are available. ANATOLIY
--- NOTE | 2017-09-13 10:03 | Consultation ---
DATE OF CONSULTATION 09/08/2017 CONSULTING PHYSICIAN Beka Flynn MD REQUESTING PROVIDER JUAN C Peoples REASON FOR CONSULTATION GI bleeding. IMPRESSION 1. GI bleeding with hematochezia. 2. Anticoagulation with warfarin - currently reversed and on hold. 3. COPD with chronic bronchitis an oxygen dependence. 4. History of pulmonary embolism. 5. Aortic dissection. PLAN 1. Continue to hold Coumadin. 2. I do think that Sonya is in need of a colonoscopy given that her last colonoscopy was over 10 years ago. 3. With the need to consider restarting her anticoagulation, I do think that an esophagogastroduodenoscopy should also be performed. She has a history of some upper abdominal symptoms. 4. Monitor hemoglobin. HISTORY OF PRESENT ILLNESS Dariela is a 67-year-old female with severe lung disease who was admitted to the hospital yesterday for GI bleeding. On 09/06/2017, she had developed bright red blood per rectum. Her stools are now tarry. Since her stools were ongoing at home and she had started feeling dizzy and lightheaded, she presented to the emergency department. Her hemoglobin is high due to her lung disease. She is on warfarin due to a history of pulmonary embolus and her aortic dissection. She does not use any chronic anticoagulation but uses antacids as needed. The patient reports abdominal pain for the last 5-6 months. She notices pain that is worse if she lies on her right side. She describes it as some left- sided spasms that she rates 3/10 in severity. She feels the symptoms have been bad in the upper abdomen lately (for the last two months). PAST MEDICAL HISTORY 1. Aortic dissection. 2. Pedal edema. 3. COPD with oxygen dependence and chronic bronchitis. 4. Pulmonary embolism. 5. Chronic lumbosacral pain. 6. Obstructive sleep apnea - severe. 7. Abdominal aortic aneurysm. 8. Chronic anticoagulation. 9. Hypertension. 10. Hiatal hernia. 11. Low back pain. 12. Obesity. PAST SURGICAL HISTORY 1. D&C for uterine bleeding - 1974. 2. Unilateral oophorectomy 3. Removal of bone chip in leg - 1977. 4. Tonsillectomy - 1957. 5. Colonoscopy prior to 2004. ALLERGIES Multiple - see EMR. MEDICATIONS The patient's home medications were reviewed. Her medication list includes warfarin. SOCIAL HISTORY The patient is a current smoker who smokes one pack per day of cigarettes plus cigars. She rarely drinks alcohol and does not use illicit drugs. FAMILY HISTORY Father () - throat cancer. Mother () - mental disability. Sister () - acute myeloid leukemia. REVIEW OF SYSTEMS 10-point review of systems was negative except for History of Present Illness and the following. GENERAL: She reports some low grade fever and chills. RESPIRATORY: She is on home oxygen via a concentrator at night. CARDIOVASCULAR: She reports some left-sided chest pain. She does have symptoms daily but it has been improving lately. GASTROINTESTINAL: She reports constipation that she relates to tramadol. MUSCULOSKELETAL: She reports back pain, neck pain and joint pain. HEMATOLOGIC: She does have a history of pulmonary embolism in the past. She is on chronic warfarin anticoagulation. PHYSICAL EXAMINATION VITAL SIGNS: Temperature 97.5, pulse 64, blood pressure 159/90, respiratory rate 16, oxygen saturation 93% on 1 liter nasal cannula. GENERAL: The patient is awake and alert. She is in no acute distress and is seated in bed. HEENT: Sclerae clear. Extraocular muscles intact. NECK: Supple with a midline trachea. No lymphadenopathy or thyromegaly are noted. HEART: Regular rate and rhythm. LUNGS: Clear to auscultation anteriorly. ABDOMEN: Soft, obese, nontender, nondistended. EXTREMITIES: No clubbing, cyanosis or edema. NEURO: Cranial nerves II-XII are grossly intact. PSYCHIATRIC: Normal mood and affect. LABORATORY DATA Hemoglobin was 19.6 on admission and was 18.3 this morning. PATIENT EDUCATION The details, risks and benefits of esophagogastroduodenoscopy and colonoscopy were discussed with the patient. Discussion included, but was not limited to, bleeding, perforation requiring surgical repair, complications of anesthesia, missed lesions, and aspiration. Following discussion of the procedures, she did wish to proceed with esophagogastroduodenoscopy and colonoscopy. ANATOLIY
[2017-09-13] MEDS: BUDESONIDE INH.SOLN 0.5mg/2ml NEB AEROSOL SCH (10:05)
[2017-09-13] MEDS: ALBUTEROL/IPRATROPIUM 2.5mg-0.5mg/3ml NEB AEROSOL SCH ×2 (10:05→15:32)
[2017-09-13 11:57] VITALS: BP 128/72; PULSE 80; RESP 19; TEMP 97.7; O2SAT 94
--- NOTE | 2017-09-13 12:06 | Discharge Summary ---
Discharge Information Date of admission: 09/07/17 14:13 Anticipated date of discharge: 09/13/17 Attending Physician: Carmina Payne MD Primary care physician: Nabila Momin APRN Consults: 09/07/17 15:35 Physician Consult [CONS] Consulting Provider: Beka Flynn Reason For Exam: GI bleeding 09/09/17 09:09 Physician Consult [CONS] Consulting Provider: Scotty Mosley Reason For Exam: aortic dissection, htn, CAD?/chest pain, clearance - Discharge Diagnosis (1) GI bleed Status: Acute GI bleed-most likely diverticular, this has stopped Chronic anticoagulation with Coumadin for remote history of PE x 1 -Coumadin on hold, consider off of Coumadin indefinitely Dizzy/lightheaded-resolved Abdominal pain - acute-resolved Chest pain -POA-present 80% of the time per patient (musculoskeletal?)-Mild coronary artery disease seen on heart catheterization 09/10/2017 Aortic dissection -chronic -the patient has not required surgery thus far Pedal edema -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 tach-no recurrence - Procedures Procedures: DATE OF OPERATION 09/09/2017 SURGEON Beka Flynn MD PREOPERATIVE DIAGNOSES 1. GI bleeding. 2. Anticoagulation with warfarin - currently on hold. POSTOPERATIVE DIAGNOSES 1. Mild duodenitis of the duodenal bulb. 2. Mild antral gastritis. 3. Short segment of mucosal changes of the distal esophagus - possible Blackwell' s, pathology pending. 4. Severe pandiverticulosis - likely source of bleeding, no active bleeding. 5. 0.5 cm sessile polyp of the transverse colon. 6. Multiple 0.5 cm or less sessile polyps of the sigmoid colon - five polyps removed. 7. 0.7 cm sessile polyps of the rectum x 2. 8. Multiple 0.5 cm or less sessile polyps of the rectum - 4 removed. PROCEDURE 1. Esophagogastroduodenoscopy with antral biopsy for SCARLETT testing and biopsies of the duodenum, antrum, and GE junction for histology. 2. Colonoscopy with hot snare polypectomy x 2 and hot biopsy forceps polypectomy x 10. ANESTHESIA TIVA ASA CLASS 4 INDICATIONS The patient is a 67-year-old female with a history of severe lung disease who had developed some GI bleeding. She is chronically on warfarin due to a history of pulmonary embolus and also possibly due to her aortic dissection. She had had multiple stools with hematochezia that later became melanotic. It had been over 13 years since her colonoscopy. She also reported some upper abdominal symptoms and it was felt that esophagogastroduodenoscopy should also be performed. FINDINGS The stomach showed mild irritation but no source of bleeding. The duodenum was also mildly inflamed in the duodenal bulb. The GE junction showed a short segment of mucosal changes consistent with Blackwell's esophagus but pathology is pending. The colon showed extensive severe diverticulosis throughout the colon. This is most likely the source of her prior bleeding. She also had multiple polyps. The majority of her polyps were in the distal sigmoid colon and rectum. Since there were so many polyps, authorization representative samples of the larger polyps were taken but some polyps remained in position. DESCRIPTION OF PROCEDURE After informed consent was obtained the patient was taken to the endoscopy suite and placed in left lateral decubitus position. IV anesthesia was administered by the anesthesia team. A bite block was inserted followed by an Olympus video gastroscope. The gastroscope was advanced down to the third portion of the duodenum under direct vision. The scope was slowly withdrawn examining the mucosa circumferentially. In the duodenal bulb there was mild irritation. The scope was withdrawn to the antrum and a biopsy was taken for SCARLETT testing. The scope was returned to the duodenal bulb and biopsies of the duodenum were taken and were sent to pathology. Additional biopsies were also taken of the antrum and these were sent to pathology as well. The scope was retroflexed to examine the cardiac and fundic portions of the stomach. The carbon dioxide insufflation was evacuated from the stomach and the scope was withdrawn into the distal esophagus. Biopsies of the areas of mucosal changes at the GE junction were taken. The insufflation was again evacuated from the stomach and the scope was withdrawn while examining the remainder of the esophagus. The patient was repositioned for colonoscopy. A digital rectal exam was performed and it was normal. An Olympus video colonoscope with an AmplifEYE device was inserted and was retroflexed to examine the distal rectum. The scope was returned to a neutral position. It was advanced to the level of cecum without difficulty. The cecum was identified by the appendiceal orifice and ileocecal valve. The bowel prep was good with some residual liquid contents of the colon in the region of the cecum and ascending colon. All of the contents were able to be irrigated and evacuated via the colonoscope. The scope was slowly withdrawn examining the mucosa circumferentially. In the transverse colon a small polyp was encountered. It was grasped with hot biopsy forceps and the mucosa was tented. Cautery was applied to destroy the base of the polyp and the polyp was removed. The polyp was sent to pathology for analysis. The scope was withdrawn to the sigmoid colon where more polyps were encountered. The five largest polyps in the area were removed with hot biopsy forceps polypectomy technique and were sent to pathology. The scope was withdrawn to the rectum where four of the 0.5 cm polyps were removed with the hot biopsy forceps polypectomy technique. These were also sent to pathology. There were two larger polyps that were amenable to snare polypectomy. Both of these were encircled with the polypectomy snare. The mucosa was tented and cautery was applied to divide the base of the polyp. The polyps were retrieved with biopsy forceps through the colonoscope and were sent to pathology. Some polyps did remain in position in the distal sigmoid colon and rectum. The carbon dioxide insufflation was evacuated and the scope was removed. RECOMMENDATIONS 1. Await pathology results to determine the appropriate time interval for repeat colonoscopy. 2. Consult with vascular surgery regarding need for anticoagulation given the aortic dissection. I would wait at least a week to try to prevent repeat GI bleeding since no clear etiology was discovered and treated. ------ Date of Exam: 09/10/17 Type of Exam(s): CA heart cath LT DATE OF PROCEDURE September 10, 2017 The patient is a pleasant 67-year-old lady with run of nonsustained ventricular tachycardia and was referred for further evaluation by cardiac catheterization and possible intervention. Informed consent was obtained after explaining the procedure and the potential risks to the patient who agreed to proceed with the procedure. PROCEDURE 1. Left heart catheterization. 2. Coronary angiography. 3. Left ventriculography. TECHNIQUE The patient was prepped and draped in the usual sterile techniques. Conscious sedation was performed using Versed and fentanyl. 1% lidocaine was used for local anesthesia. Using modified Seldinger technique, arterial access was obtained into the right radial artery with placement of a 6-Romanian arterial sheath. 3000 units of heparin, 300 mcg of nitroglycerin and 1 mg of verapamil were given through the arterial sheath. LEFT VENTRICULOGRAPHY Left ventriculography in single-plane BARNEY shallow projection showed normal LV systolic function with ejection fraction of about 65% with no mitral regurgitation or gradient across the aortic valve. LVEDP was about 20. CORONARY ANGIOGRAPHY Left main was free of significant lesions and bifurcated into left anterior descending and left circumflex arteries. The left anterior descending artery was a [id number] caliber vessel which had about 30%-40% stenosis just distal to the first diagonal. First diagonal was a medium-caliber vessel with no significant lesions. The other diagonals were kycrv-[id number]-ilqdai caliber vessels with no significant lesions. Left circumflex artery had about 40% eccentric lesion distally at the junction of the second marginal. Right coronary artery had diffuse irregularities with no stenosis greater than 30%. The patient tolerated the procedure well with no complications. IMPRESSION 1. Normal LV systolic function with ejection fraction of 65%. 2. Mild coronary artery disease as described above. PLAN Medical management. ------ - Laboratory Labs: 09/07/2017 09/08/2017 09/08/2017 09/08/2017 09/09/2017 09/09/2017 09/09/2017201709/10/2017 09/11/2017 09/12/2017 09/13/2017 15:29 21:24 4:37 18:42 3:59 18:35 18:35 1:30 1:30 4:47 3:55 4:13 WBC 11 9.5 10.3 10 9 12.1 H 10.5 RBC 6.33 H 6.03 H 5.95 H 5.87 H 5.83 H 5.70 H 5.84 H Hgb 19.6 H 19.6 H 18.3 H 18.3 H 17.7 H 17.8 H 17.5 H 16.8 H 17.5 H Hct 58.7 H 57.2 H 56.2 H 56.3 H 56.3 H 55.1 H 54.2 H 53.4 H 55.5 H MCV 92.7 93.2 94.6 93.9 93 93.7 95 MCH 31 30.3 29.7 30.3 30 29.5 30 MCHC 33.4 32.6 31.4 32.3 32.3 31.5 31.5 RDW Std Deviation 50.6 H 50.1 50.3 H 49.7 48.4 48.5 50.4 H Plt Count 170 157 157 160 154 164 150 MPV 10.8 10.8 10.8 10.3 11 11.3 11.6 Immature Gran % (Auto) 0.4 0.2 0.4 0.3 Not performed 0.2 Neut % (Auto) 73.6 H 65.5 68.0 H 69.0 H Not performed 69.4 H Lymph % (Auto) 16.2 L 23.4 19.9 L 19.4 L Not performed 17.2 L [place] % (Auto) 7.2 7.5 7.6 7.4 Not performed 8.9 Eos % (Auto) 2.1 2.9 3.5 3.5 Not performed 3.6 Baso % (Auto) 0.5 0.5 0.6 0.4 Not performed 0.7 Neut # (Auto) 8.1 H 6.2 7 6.9 Not performed 7.3 Lymph # (Auto) 1.8 2.2 2 1.9 Not performed 1.8 [place] # (Auto) 0.8 0.7 0.8 0.7 Not performed 0.9 H Eos # (Auto) 0.2 0.3 0.4 0.4 Not performed 0.4 Baso # (Auto) 0.1 0.1 0.1 0 Not performed 0.1 Abs Immat Gran (auto) 0.04 H 0.02 0.04 H 0.03 Not performed 0.02 Neutrophils % (Manual) 85.0 H Band Neutrophils % 3 Lymphocytes % (Manual) 11.0 L Basophils % (Manual) 1 Neutrophils # (Manual) 7.7 Band Neutrophils # 0.3 Lymphocytes # (Manual) 1 Basophils # (Manual) 0.1 RBC Morph Comment Normal INR 1.39 H Turbidity < 20 < 20 < 20 < 20 < 20 < 20 < 20 Sodium 144 145 146 143 141 143 143 Potassium 4.3 3.9 4.3 4.1 4.5 4 3.8 Chloride 107 109 H 109 H 109 H 104 103 101 Carbon Dioxide 31 H 27 26 26 27 31 H 35 H Anion Gap 6 9 11 8 10 9 7 BUN 13 7.0 D 8 13.0 D 14 16 16 Creatinine 0.8 0.7 0.8 0.8 0.7 0.7 0.7 GFR Calculation 72 83 72 72 83 83 83 BUN/Creatinine Ratio 16 10 10 16 20 23 23 Glucose 85 88 130 H 114 H 164 H 140 H 102 Calculated Osmolality 276 276 281 H 276 276 278 276 Calcium 8.3 L 8.4 8.8 8.6 8.6 8.4 8.9 Phosphorus 3.6 3.5 Magnesium 2.2 Icterus Index < 2 < 2 < 2 < 2 < 2 < 2 < 2 Troponin I 0.019 0.024 0.022 Albumin 4.1 3.4 L Specimen Hemolysis 39 H < 15 18 24 25 < 15 < 15 18 71 H < 15 Stool Occult Blood Positive A - Microbiology Microbiology 09/09/17 12:42 Gastric Biopsy Helicobacter pylori Rapid Urease - Final - Radiology Radiology: Date of Exam: 09/07/17 Type of Exam(s): XR chest 2V Reason for Exam(s): chest pain Findings: Lungs and airways: Normal lung volumes. Unchanged chronic increased interstitial markings within the lung bases. No other/new focal airspace consolidation appreciated. Normal pulmonary vasculature. Pleura: No pleural effusion or pneumothorax. Heart and mediastinum: Cardiomegaly. Aortic tortuosity. Osseous structures and soft tissues: No acute osseous abnormality is seen. Mild degenerative changes of the shoulders and thoracic spine. Impression: No acute cardiopulmonary process appreciated radiographically with grossly unchanged chronic bibasilar increased interstitial markings. Date of Exam: 09/09/17 Type of Exam(s): US renal doppler Reason for Exam(s): HTN Findings: Scans of the kidneys demonstrate increased echogenicity of the renal parenchyma suggesting medical renal disease. The right kidney measures 12.9 cm in length. The left kidney measures 12.3 cm in length. There is no collecting system dilatation, contour deforming mass, nephrolithiasis, or abnormal perinephric fluid collection. Color Doppler imaging demonstrates normal vascularization. Duplex Doppler velocities are as follows: Right: Proximal renal artery: Not seen Mid renal artery: 124/29 cm/s - resistive index equals 0.77 Distal renal artery: 233/43 cm/s - resistive index equals 0.82 Left: Proximal renal artery: 88/20 cm/s - resistive index equals 0.77 Mid renal artery: 93/20 cm/s - resistive index equals 0.79 Distal renal artery: 122/31 cm/s - resistive index equals 0.75 Segmental velocities are as follows: Right: Superior: 30/10 - resistive index equals 0.65 Mid: 36/7 - resistive index equals 0.80 Inferior: 33/12 - resistive index equals 0.62 Left: Superior: 27/9 - resistive index equals 0.67 Mid: 41/13 - resistive index equals 629 Inferior: Not seen Resistive indices from the intrarenal arteries in the upper, middle, and lower portions of the right kidney are normal. Resistive indices from the intrarenal arteries in the upper and middle portions of the left kidney are normal. The arterial waveforms demonstrate a high resistance arterial waveform in the proximal renal arteries. The renal artery to aortic ratios are 1.7 on the right and 1.2 on the left. Impression: No evidence of hemodynamically significant renal arterial stenosis. Echogenic renal parenchyma suggesting medical renal disease. Normal ranges: Some advocate a cut off of upper limit of PSV for significant stenosis of greater than 180 cm/s Some advocate a RAR greater than 3 - 3.5 Some advocate for renal artery interlobar renal artery resistive index of greater than five. Some advocate for resistive index difference between the kidneys of greater than 5%. --- - Pathology 09/09/17 - Diagnosis: A. Small bowel mucosa, biopsies (duodenal bulb): Intact villous architecture without significant intraepithelial lymphocytosis. Minimal nonspecific chronic mucosal inflammation wiht mild William's gland hyperplasia. No atrophia or neoplasm identified. No parasites identified. B. Gastric mucosa, biopsy (antrum): Minimal superficial chronic mucosal inflammation. No metaplasia, dysplasia or malignant neoplasm identified. Mild reactive features suggestive of mild reactive gastropathy. No Helicobacter organisms identified. C. Fragments of squamous and gastric mucosa, biopsies (GE junction): Mild chronic mucosal inflammation and mild reactive epithelial changes suggestive of gastroesophageal reflux disease. Focal intestinal metaplasia, compatible with Blackwell's type epithelium. No dysplasia or malignant neoplasm identified. No significant eosinophilic inflammatory infiltrates present. D. Colonic mucosa, biopsies and polypectomies, multiple Mildly hyperplastic colonic mucosa. History of Present Illness HPI: Pt is a 67 yo female with blood in stool since 1 pm yest. Progressively worsened yesterday evening. No stools overnight or today. Started feeling dizzy /lightheaded yesterday. "I've been sick for 3-4 weeks. Coughing, sick on my stomach." Queasy stomach - thought it was r/t coumadin. Bright red blood noted with BM's - in toilet and with wiping and stools were black. Pain in mid to lower abd since yesterday. H/o PUD years ago. Thinks she may have had a colonoscopy >13 yrs ago, no EGD. Seen by PCP today, maroon colored blood on rectal exam, no Hemoccult performed in office. Hgb 20.0 (ave mid-upper teens) this am, CMP neg, INR 2.7. No NSAIDS. Last coumadin dose was yesterday. During ROS, pt admits to CP in the L side of her chest. States she gets it occasionally. Has never had it worked up. Uses a lidocaine patch and sometimes that helps. Not currently SOA or diaphoretic. Currently 35 days into a 90 day Rx of doxy. Pt reports she is on it b/c she has recurrent pneumonia. Objective Vital signs: Temperature 97.7 F 09/13/17 11:50 Pulse Rate 80 09/13/17 11:50 Respiratory Rate 19 09/13/17 11:50 Blood Pressure 128/72 09/13/17 11:50 Pulse Oximetry 94 09/13/17 11:50 Rhythm: Sinus Bradycardia Height/Weight/BMI: Height 5 ft 2 in Weight 276 lb 14.409 oz Body Mass Index 48.9 Comments: Patient is seen while sitting on the edge of her bed, working on word search puzzles. Breathing easily on chronic oxygen. - Constitutional Present: no acute distress, well nourished, well developed, morbidly obese, cooperative - Routine HEENT Exam Head: Present: normocephalic, atraumatic Eye: Present: PERRL. Absent: conjunctival icterus ENT: Present: mucous membranes moist, oropharynx clear - Routine Respiratory Exam Present: decreased breath sounds, prolonged expiratory phase, wheezes, diminished air movement - Routine Cardiovascular Exam Present: S1, S2, bradycardia - Routine Abdominal Exam Present: soft, normoactive bowel sounds, non distended - Routine Extremities Exam Present: edema (trace) Comments: Feet and shins are cornelius but warm; Pedal pulses palpable. cap refill brisk bilaterally; legs and feet are more purplish and cyanotic appearing as she has had her feet and legs dependent. - Routine Back/Spine/Pelvis Exam Back/Spine: Present: full ROM. Absent: vertebral tenderness - Routine Musculoskeletal Exam Musculoskeletal: Present: moving extremities well - Routine Skin Exam Present: dry, warm Comments: Afebrile. - Routine Neurological Exam Present: alert, oriented X3, moving all extremities, hearing grossly intact, normal speech - Routine Lymphatic Exam Lymphatic: Absent: lymphedema - Routine Psychiatric Exam Present: cooperative Hospital Course This is a general summary of the patient's hospital course. For more details refer to the complete medical record. Hospital course: 09/07/17 Admit, IP. Stay will exceed 2 overnights to treat with Vit K to bring INR down so pt can by scoped to ID cause of bleeding. Consult Dr. Flynn. He will see pt tomorrow and hopes to scope on . Clear liquids for now. Protonix 40mg BID IV GI ppx and tx for GI bleed Hold coumadin. Vit K 5mg IV now. Repeat INR in am. Check EKG, CXR and Troponin given her chest pain. Repeat CBC now and again in am. Hemoccult positive. Check orthostatic pressures. IVF's NS at 100cc/hr. Tobacco cessation consult. Nicotine patch prn. Duonebs and Pulmicort for COPD - home meds. SCD's VTE ppx Repeat hemoglobin at 9:00 tonight. Continued CPAP-discussed with patient-she does not have her unit with her and does not believe anyone can bring it in; does not wish to use Hospital equipment and reports she can do without it for a few days. Plan - 09/08/[address] Flynn. Plan for endoscopy on 09/09/17. Continue clear liquid diet today and NPO at midnight in anticipation of endoscopy. INR 1.39. SCDs for DVT prophylaxis. Continue to hold anticoagulation due to upcoming endoscopy. Vit K 5mg given on admission. Continue Protonix 40mg BID IV GI ppx and tx for GI bleed. CXR revealed no acute changes with unchanged chronic bibasilar scarring noted. Continue supplemental oxygen as needed to maintain SAO2 between 90-95%. Orthostatic vital signs stable with noted significant elevation in blood pressure upon standing at 198/91 prior to morning medications. Continue NS 75cc/hr for gentle hydration given limited oral intake with only clear liquids. Tobacco cessation consult. Nicotine patch prn. Duonebs and Pulmicort for COPD - home meds. Recheck labs in AM to monitor blood counts, electrolytes and renal function. Patient may benefit from routine phlebotomy given chronically elevated hemoglobin. Minor drop in hemoglobin from 20 yesterday morning to 18.3 this morning; repeating hemoglobin now. INR 1.39 following vitamin K yesterday. Plan - 09/09/17 Blood pressure is quite elevated today, likely secondary to not receiving her usual metoprolol. Restart metoprolol now. Dr. Mosley consulted regarding the patient's underlying aortic dissection, poorly controlled blood pressure, and probable coronary artery disease. Cardiac clearance obtained prior to surgery. Per Dr. Mosley - changed metoprolol to labetalol 100mg BID and labetalol 10mg IV given. Renal ultrasound obtained and revealed echogenic renal parenchyma suggesting medical renal diseased and otherwise unremarkable. Endoscopies performed by Dr. Flynn - EGD showed some mild gastritis and diverticulitis-not thought to be a cause of bleeding. Colonoscopy showed patton diverticulosis and multiple hyperplastic appearing polyps. Approximately 10-12 polyps were removed without difficulty. Multiple polyps were left in place. Dr. Flynn felt that the cause of her GI bleed was likely secondary to a diverticular bleed which appears to have stopped. He recommended being off of Coumadin for at least 1 week if not longer[address] Dr. Asim Martinez was consulted regarding patients Coumadin and recent aortic dissection, stated she did not need to be on Coumadin and from his standpoint Coumadin could be discontinued. He stated that she was not a surgical candidate regarding her aortic dissection and he states that he has discussed this with her in the past, and she is aware. Patient had also been taking Coumadin for remote history of PE. Consider remaining off of Coumadin indefinitely if she has only had the one episode of PE and no other DVT and if okay with Dr. Mosley. INR 1.39 and 627. SCDs for DVT prophylaxis. Continue to hold anticoagulation due to upcoming endoscopy. Vit K 5mg given on admission. Continue Protonix 40mg BID IV GI ppx and tx for GI bleed. Continue supplemental oxygen as needed to maintain SAO2 between 90-95%-patient states he uses 2-2 and half liters at home chronically Hold IV fluids Continue DuoNeb and Pulmicort for COPD Tobacco cessation education Recheck CBC and renal panel tomorrow Per Dr. Mosley - Changed metoprolol to labetalol 100mg BID and labetalol 10mg IV given. Renal ultrasound obtained and revealed echogenic renal parenchyma suggesting medical renal diseased and otherwise unremarkable. CTA 08/2016: Aortic arch diameter at the origin of the dissection is now 5 cm compared to 4 cm on the prior CT. Extensive Wolfgagn type B aortic dissection with gradual enlargement and development amount of aortic arch and descending aortic aneurysms. Overall diameter is approximately 1 cm larger than the 2014 comparison. Vascular surgical evaluation is suggested. Patient was cleared by Dr. Mosley for repair by Dr. Villanueva. Patient reports CT planned for December. Control BP with medical therapy to keep SBP<180 Plan - 09/10/17 Patient underwent heart cath with Dr. Mosley after 43 beat V-tach. No significant CAD found with no interventions. I discussed with the patient that with her recent GI bleed, likely secondary to a diverticular bleed, I would recommend that she stay off of Coumadin at this time. I am not aware of an indication for chronic anticoagulation since she is only had PE once and no history of DVT. She does not require anticoagulation for her aortic dissection. Dr. Mosley is okay with her being off of Coumadin for now. Regarding the patient's nonsustained V. tach, Dr. Mosley did recommend heart catheterization. This was performed today and the patient had mild to moderate disease and plan was for medical management. Labetalol was increased today for hypertension. Recommend continued oxygen as needed to keep saturations above 90%. Recommend smoking cessation, but the patient states she is not able to quit. She may need hematology consultation as an outpatient regarding elevated hemoglobin. Would recommend continuous use of oxygen and see if this will help improve her elevated hemoglobin. Gastric Biopsy Helicobacter pylori Rapid Urease - Final -negative Per Dr. Mosley - She had 43 beats of V Tach overnight which is concerning for ischemia - Discussed the risks and benefits of cardiac catheterization with her and she agrees to proceed with Left heart cath later this afternoon. - No significant CAD found, no interventions. - Increase Labetalol to 150mg bid for better BP control and due to NSVT - Would stop Coumadin for now and continue to monitor Plan - 09/11/17 I discussed with the patient that with her recent GI bleed, likely secondary to a diverticular bleed, I would recommend that she stay off of Coumadin at this time. I am not aware of an indication for chronic anticoagulation since she is only had PE once and no history of DVT. She does not require anticoagulation for her aortic dissection. Dr. Mosley is okay with her being off of Coumadin for now. I discussed these recommendations again today with the patient. Labetalol was increased again today for hypertension and Norvasc was also added. Recommend continued oxygen as needed to keep saturations above 90%.. Would recommend follow-up of hemoglobin as an outpatient. Regarding mild coronary artery disease, medical management per Dr. Gilbret. She may need Plavix and aspirin in the future. I will leave this session up to Dr. Gilbert. She need follow-up hemoglobin as an outpatient, and may need hematology consultation as an outpatient regarding elevated hemoglobin. Would recommend continuous use of oxygen and complete cessation of smoking. Recommend faithful use of CPAP at night Discontinue IV Protonix and start oral omeprazole for Blackwell's esophagus Monitor blood pressure. Possible discharge soon if blood pressure is better controlled and she is otherwise doing well. Check CBC and basic metabolic profile tomorrow. Per Dr. Mosley - - Underwent cardiac cath yesterday afternoon, findings of mild CAD - bp continues to run hypertensive, increase labetolol to 200mg bid; continue norvasc 5mg that was started last evening. - continue to hold warfarin for GI bleed - Tele without further VT or arrhythmia Plan - 09/12/17 No recurrence of GI bleed at this time Continue to monitor hemoglobin off of Coumadin Re: Chronically elevated hemoglobin, hematocrit, RBCs-recommend tobacco cessation, chronic oxygen use, erythropoietin level, she may benefit from hematology consultation as well. Regarding hypertension, she developed bradycardia with labetalol 200 mg by mouth twice a day. This was decreased back to 100 mg by mouth twice a day this morning. Lisinopril 10 mg once daily was added. Earlier this hospitalization, she was started on amlodipine 5 mg by mouth daily. Her home medication of metoprolol was discontinued. Regarding coronary artery disease, plan is for medical management. We'll not initiate at this time because of recent GI bleed. Recommend faithful use of CPAP at night Continue oral omeprazole for Blackwell's esophagus A.m. lab- CBC regarding elevated hemoglobin and recent GI bleed and basic metabolic profile regarding initiation of lisinopril Erythropoietin level will be sent to [facility] -currently pending Per Dr. Mosley - - Tele showed bradycardia into the 40's of labetolol 200mg bid, decreased down to 100mg bid - Remain on Norvasc 10mg and initiate lisinopril 10mg daily today - follow bmp tomorrow - Tele stable Plan - 09/13/17 Overall, patient is feeling better and eager for discharge home. Case management to assist with patient obtaining and portable oxygen tank to increase her mobility out of the house. Telemetry continues to reveal bradycardia with heart rate between 48-90. Discussed with LAUREN Mcpherson with Dr. Mosley, who recommended maintaining the decreased dose of labetalol 100mg BID and increasing lisinopril to 20mg daily. Patient encouraged to follow up with Dr. Mosley next week for re- evaluation. Hemoglobin stable at 17.5. Erythropoietin level pending. - Dr. Haley recommended patient wearing oxygen at all times, stop smoking and set up an appointment to see him in clinic in 2-3 weeks to evaluate for possible phlebotomy. Normally, would recommend aspirin or Plavix for coronary artery disease, but the patient has had recent GI bleed, and also has intolerance to aspirin. 09/13/2017-3 PM-I examined the patient independently. I reviewed this chart, the patient history, and the TENTER FEEDER's/PA's documented findings as above. We discussed and formulated the assessment and plan as above with the additions below.-Dr. Payne The patient states she's feeling well and is ready for dismissal. She is tolerating adjustments in her blood pressure medication. She is stable up and walking. On exam she is alert and oriented and in no acute distress. Chest is clear to auscultation. Cardiovascular reveals a regular rate and rhythm. Abdomen is soft and nontender. Extremities reveal trace edema. She has chronic cyanotic appearing feet and lower legs. The feet and lower legs appear more cyanotic when her legs are dependent. She does have good pulses and good capillary refill. This may improve if her hemoglobin returns to normal level. At this time, I would recommend that she discontinue Coumadin. She was on this for a remote history of PE. She reports only one episode of PE and denies history of DVT. She had recent GI bleed likely secondary to diverticuli. Regarding hypoxia, she needs 2 L of oxygen at rest and 3 L of oxygen with activity. The case coordinator has talked with her oxygen company, and they will see if she qualifies for a portable oxygen concentrator. The patient is to restart her usual home dose of doxycycline for chronic suppression. The patient is to use her CPAP for sleep apnea Patient is strongly urged to discontinue tobacco use and this may help improve her hemoglobin level as well as decrease her risk for stroke and coronary artery disease. Patient needs follow-up with Dr. Haley in 2-3 weeks, she will follow-up with Dr. Gilbert in 1 week, and will follow-up with Nabila Momin in 1 week. Erythropoietin level was ordered regarding elevated hemoglobin. She has had an elevated hemoglobin for the past several years. Erythropoietin level is pending and will need to be followed up on as an outpatient. I will call and discussed hospital findings and discharge plans with Nabila Momin. Time spent with patient: greater than 35 minutes Resuscitation Status: Full Code Discharge Plan - Discharge Disposition Discharge Date: 09/13/17 Disposition: Discharged Home, Self-Care *Condition: Stable Reason For Visit (Visit label in EMR): GI Bleed - Discharge Medications Medication Comments: Home Medications Ultram (Tramadol) 50 mg tablet 50 mg PO Q6H PRN #120 tab Potassium chloride ER 10 mEq tablet,extended release 10 meq PO BID PRN #30 tab - DISCONTINUED Voltaren (Diclofenac) 1 % topical gel 4 g TOP BID PRN #100 g Doxycycline hyclate 100 mg capsule 100 mg PO BID #180 cap Neurontin (gabapentin) 600 mg tablet 600 mg PO TID #90 tab Claritin (Loratadine) 10 mg tablet 10 mg PO BID #60 tab Pulmicort (Budesonide) 0.5 mg/2 mL suspension for nebulization 2 ml INH Q12H # 60 ml Ipratropium-albuterol 0.5 mg-3 mg(2.5 mg base)/3 mL nebulization soln 3 ml INH QID #180 ml warfarin 2 mg tablet 7 mg PO DAILY tab - DISCONTINUED due to GI bleeding Metoprolol Tartrate [Lopressor] 25 mg PO BIDWM - DISCONTINUED due to bradycardia Current Hospital Medications Prior to Discharge Acetaminophen (Tylenol) 325 - 650 mg PO Q5H PRN Al Hydroxide/Mg Hydroxide (Maalox Plus) 30 ml PO Q3H PRN Albuterol Sulfate (Proventil Neb (0.083%)) 2.5 mg AEROSOL RTQID PRN Albuterol/Ipratropium (Duoneb) 3 ml AEROSOL QID ELEAZAR Atropine Sulfate (Atropine) 0.5 mg IVP Q5M PRN Bisacodyl (Dulcolax) 5 - 10 mg PO DAILY PRN Bisacodyl (Dulcolax) 10 mg RECTALLY DAILY PRN Budesonide (Pulmicort Inhalation) 0.5 mg AEROSOL Q12H ELEAZAR Lorazepam (Ativan) 0.5 - 1 mg PO Q4H PRN Lorazepam (Ativan Inj) 0.5 - 1 mg IVP Q4H PRN Magnesium Hydroxide (Mom) 30 ml PO DAILY PRN Metoclopramide HCl (Reglan) 5 - 10 mg IVP Q6H PRN Neurontin (gabapentin) 600 mg tablet 600 mg PO TID Nicotine (Nicoderm) 21 mg TD DAILY PRN Nicotine (Nicotine Patch Removal) 1 removal TD DAILY PRN Nitroglycerin (Nitrostat) 0.4 mg SL Q5MIN3 PRN Omeprazole (Prilosec) 20 mg PO ACB ELEAZAR Ondansetron HCl (Zofran) 4 mg IVP Q6H PRN Promethazine HCl (Phenergan Inj) 12.5 - 25 mg IVP Q6HR PRN Sodium Chloride (Iv Flush) 10 - 80 ml IV PRN PRN Tramadol HCl (Ultram) 50 mg PO Q6H PRN Amlodipine Besylate (Norvasc) 5 mg PO DAILY ELEAZAR - ADDED during hospitalization Labetalol HCl (Normodyne) 100 mg PO BID ELEAZAR - ADDED during hospitalization Lisinopril (Prinivil) 20 mg PO DAILY ELEAZAR - ADDED during hospitalization *Discharge Medications: New Mag-Al + Sim Oral Liq [Maalox Plus] 30 ml PO Q3H PRN udc PRN Reason: Indigestion Acetaminophen [Tylenol] 650 mg PO Q5H PRN tab PRN Reason: Discomfort Amlodipine [Norvasc] 5 mg PO DAILY #30 tab Labetalol [Normodyne] 100 mg PO BID #60 tab Lisinopril [Prinivil] 20 mg PO DAILY #30 tab Omeprazole [Prilosec] 20 mg PO ACB #30 cap Nicotine Patch [Nicoderm] 21 mg TD DAILY #30 patch Continue Voltaren (Diclofenac) 1 % topical gel 4 g TOP BID PRN #100 g PRN Reason: pain Neurontin (gabapentin) 600 mg tablet 600 mg PO TID #90 tab Pulmicort (Budesonide) 0.5 mg/2 mL suspension for nebulization 2 ml INH Q12H #60 ml ipratropium-albuterol 0.5 mg-3 mg(2.5 mg base)/3 mL nebulization soln 3 ml INH QID #180 ml Ultram (Tramadol) 50 mg tablet 50 mg PO Q6H PRN #120 tab PRN Reason: pain doxycycline hyclate 100 mg capsule 100 mg PO BID #180 cap Claritin (Loratadine) 10 mg tablet 10 mg PO BID #60 tab Discontinued Metoprolol Tartrate [Lopressor] 25 mg PO BIDWM warfarin 2 mg tablet 7 mg PO DAILY tab potassium chloride ER 10 mEq tablet,extended release 10 meq PO BID PRN #30 tab PRN Reason: lasix - Discharge Packet/Instructions *Diet: Resume heart healthy diet. *Activity: Limit activity for 2 days. No lifting more than 10 pounds, no pushing or pulling for [address], operate machinery or drink alcohol for 2 days. *Pain Management/Treatment: Over the counter pain medication if needed. *Wound Care: Remove dressing after 24 hours. Keep site clean and dry. No tub baths or swimming for 1 week. You may shower. Additional Instructions: Follow up with Dr. Mosley within the next week. Call the office to schedule an appoitment to address recent medication changes. You blood pressures medications have been adjusted during your hospitalization - see updated medication list above. Your metoprolol was discontinued and you were started on labetalol, amlodipine and lisinopril. Monitor blood pressure closely which should be below 180 systolic. Continue to work on smoking cessation. Follow up with Dr. Escobar (hematology) for further evaluation of your elevated hemoglobin in 2-3 weeks. Use your home oxygen continuously which may assist with improving your hemoglobin. Continue faithful use of CPAP at night. Erythropoietin level is pending at the time of discharge. Follow up with PCP for results. *Expected Signs/Symptoms: Bruising and tenderness at the site. *Notify Physician if: Site is bleeding, abnormal drainage, increased pain or fever of 101.5 or more. Notify your doctor if you have systolic blood pressure less than 100 (top number), or if your feeling lightheaded. *During Business Hours Contact: Call Dr. Mosley's office at [phone]. *After Business Hours Contact: Please call [phone] and have the board operator page the physician. *Pending Lab/Results: Follow up w/Provider (erythropoietin level is pending) - Referrals/Follow Up *Referrals/Follow Up: Scotty Mosley MD [Physician] - 1 Week (Follow up in 1 week. Call to schedule appointment to review medication changes and monitor blood pressure and heart rate.) Kash Haley MD [Physician] - 2 Weeks (Follow up to establish care regarding elevated hemoglobin and possible need for phlebotomy. Patient to call to schedule appointment.) Nabila Momin APRN [Primary Care Provider] - 1 Week (Patient to call and schedule appointment for post hospitalization evaluation and review of medication changes. Dr. Haley would recommend initation of aspirin 325mg daily for stroke prevention given her elevated hemoglobin. Initiation of aspirin was delayed at this time due to her recent GI bleed. Leave to the discretion of the investor relations specialist.) - Patient Handouts Patient Handouts: Gastrointestinal Bleeding (GEN) - Dismissal Complete Discharge Instructions are:: Complete Physician Narrative - Narrative Attestation Narrative: Date: 09/13/17 Time: 1201
== END 2017-09-13 16:20 | disposition home or self-care (01) | DRG 377 ==
LOC: MED → SUATTDRO 14:13 → SRG 09-10 16:45
PROVIDERS: ADMIT Internal Medicine; ATTEND Internal Medicine
PROC: END.EGD (2017-09-09 12:30)

== ENCOUNTER 2017-10-17 01:57 | Inpatient (IN) ==
[2017-10-17] MEDS ORDERED: ALBUTEROL/IPRATROPIUM 2.5mg-0.5mg/3ml NEB AEROSOL ONE (02:10)
[2017-10-17] MEDS ORDERED: NITROGLYCERIN 0.4 MG SUBLINGUAL TABLET SL PRN (02:12)
[2017-10-17] MEDS ORDERED: SALINE FLUSH 10ml SYRINGE IVF PRN (02:12)
--- NOTE | 2017-10-17 02:27 | Emergency Department Report ---
SOB HPI - General Chief Complaint: Shortness of Breath/Dyspnea Stated Complaint: cp,soa,coughing up blood Time Seen by Provider: 10/17/17 02:12 - History of Present Illness 67-year-old female presents with acute shortness of breath and chronic chest pain. She has had frequent chest pain left-sided, especially worse with deep breathing. She does have history of COPD due to cigarette smoking, CHF and hypoxemia. She was seen, admitted and discharged in early September with GI bleed and elevated INR. She was discharged home on 3 L oxygen, but has had to increase it to 5 L over the last 2 weeks. She presents at 87% on 5 L nasal cannula. She does continue to smoke, has had to decrease the smoking over the last few weeks and is now only smoking about 5 cigarettes a day as she is felt to sick to smoke anymore than that. She does not take Lasix as it makes her urinate "too much". Does not wear compression stockings as they're too uncomfortable. She did have an angiogram but states that there were no vascular issues. - Related Data Previous Rx's Medication Instructions Recorded Ultram (Tramadol) 50 mg tablet 50 mg PO Q6H PRN #120 tab 10/07/16 Voltaren (Diclofenac) 1 % topical 4 g TOP BID PRN #100 g 03/05/17 gel doxycycline hyclate 100 mg capsule 100 mg PO BID #180 cap 05/10/17 Neurontin (gabapentin) 600 mg 600 mg PO TID #90 tab 06/24/17 tablet Claritin (Loratadine) 10 mg tablet 10 mg PO BID #60 tab 08/03/17 Pulmicort (Budesonide) 0.5 mg/2 mL 2 ml INH Q12H #60 ml 08/03/17 suspension for nebulization ipratropium-albuterol 0.5 mg-3 3 ml INH QID #180 ml 08/03/17 mg(2.5 mg base)/3 mL nebulization soln Acetaminophen [Tylenol] 650 mg PO Q5H PRN tab 09/13/17 Amlodipine [Norvasc] 5 mg PO DAILY #30 tab 09/13/17 Labetalol [Normodyne] 100 mg PO BID #60 tab 09/13/17 Lisinopril [Prinivil] 20 mg PO DAILY #30 tab 09/13/17 Mag-Al + Sim Oral Liq [Maalox Plus] 30 ml PO Q3H PRN udc 09/13/17 Omeprazole [Prilosec] 20 mg PO ACB #30 cap 09/13/17 Allergies Allergy/AdvReac Type Severity Reaction Status Date / Time aspirin Allergy Verified 10/17/17 02:28 Iodinated Contrast- Oral and Allergy Verified 10/17/17 02:28 IV Dye oxycodone Allergy Verified 10/17/17 02:28 Penicillins Allergy Verified 10/17/17 02:28 propoxyphene [From Darvon] Allergy Verified 10/17/17 02:28 nitroglycerin AdvReac Intermediate Headache Verified 10/17/17 02:28 [From Nitro-Bid] Review of Systems All systems: reviewed and negative except as stated PFSH Patient Stated Medical History Migraine Yes Peripheral Neuropathy Yes Transient Ischemic Attacks ( Yes TIA) Cataracts Yes: R eye Dysphagia Yes Other HEENT Yes: bleeding retina Angina Yes Congestive Heart Failure Yes Heart Murmur Yes Hypertension Yes Other Cardiology Yes: heart dislocated from wall tissue Bronchitis Yes Chronic Obstructive Pulmonary Yes Disease (COPD) Pneumonia Yes Pulmonary Embolism Yes Sleep Apnea Yes Gastroesophageal Reflux Yes: controlled with diet Disease Gastrointestinal Bleeding Yes: over 20years ago Hiatal Hernia Yes Ulcer Yes Hx Urinary Tract Infection Yes MRSA Yes: groin Other Yes: full body itching Depression Yes Post Traumatic Stress Disorder Yes Abnormal Pap Yes: fungal infection Ovarian Cysts Yes Post Menopausal Yes Clinic Medical History (Last Updated 09/07/17 @ 19:03 by Enedina Russell MD) Aortic dissection (Chronic Medical) Pedal edema (Chronic Medical) COPD (chronic obstructive pulmonary disease) with chronic bronchitis (Chronic Medical) Hx pulmonary embolism (Chronic Medical) Chronic lumbosacral pain (Chronic Medical) Obstructive sleep apnea hypopnea, severe (Acute Medical) AAA (abdominal aortic aneurysm) (Chronic Medical) Anticoagulated on warfarin (Chronic Medical) HTN (hypertension) (Chronic Medical) Hiatal hernia (Chronic Medical) Low back pain (Chronic Medical) Obesity (Chronic Medical) Surgical History: D&C for uterine bleeding 1974,. Unilateral oophorectomy,. Removal of bone chip in leg 1977,. Tonsillectomy 1957, Family History: Family History (Last Reviewed 08/03/17 @ 15:10 by CAMPBELL Cage) Father , 62 Cancer Mother , 92 Mental disability Sister , 72 AML (acute myeloid leukemia) - Social History Smoking status: Current every day smoker Packs-years: 45 second hand exposure: No Substance use type: does not use Alcohol intake frequency: holidays/special occasions only Housing: house Household members: none Current occupational status: retired Does patient use chewing tobacco?: No Current residence: Apartment/Private Home Physical Exam - Limitations Limitations: no limitations - General General appearance: alert, anxious, in distress (SOA) - Normal Exams: Head:: Normocephalic without trauma Cardiovascular:: Regular rate and rhythm, without murmur or gallop, Pulses 2+ all extremities, capillary refill, <2 seconds all extremities Abdomen:: Bowel sounds positive, soft, non-tender, non-distended, no hepatosplenomegaly, masses or bruits noted (obese) Neurological:: Patient is alert, and oriented, cranial nerves, motor/sensory/ cerebellar, exams w/o gross deficits, to observation - Respiratory Respiratory exam: Present: wheezes (minimal), crackles (minimal) Course Vital Signs Pulse Rate 70 10/17/17 02:00 Respiratory Rate 22 10/17/17 02:00 Blood Pressure 138/78 10/17/17 02:00 Pulse Oximetry 92 10/17/17 02:00 Pulse Rate 70 10/17/17 02:00 Respiratory Rate 24 10/17/17 02:10 Blood Pressure 138/78 10/17/17 02:00 Pulse Oximetry 94 10/17/17 02:10 Shortness of Breath/Dyspnea - [facility] Narrative Medical decision making narrative: IV with NS 100ml/hr ordered. Duoneb x 1, lung sounds cleared but still requiring 5-6 L/min O2. Solumedrol 62.5mg IV x 1. Cardiac labs and cxr as well. IV contrast allergy, so DDImer ordered instead of CT PE. EKG shows prev RBBB. Trop elevated at .17 with elevated DDIMER [id number]. Chest x-ray shows pulmonary congestion. INR 1.18. Discussed with rhonda Bautista for Dr Mosley, pt will be admitted for obs with rpt trop in 2 hours. Planning for reeval in am , possible VQ if needed. Lovenox 1mg/kg. Currently Pain free. - Differential Diagnosis Likely: acute exacerbation of chronic obstructive airways disease, community acquired pneumonia, asthma with exacerbation, pulmonary embolism - Lab Data Result diagrams: 10/17/17 02:23 10/17/17 02:23 Lab Results 10/17/17 10/17/17 10/17/17 Range/Units 02:22 02:23 02:23 WBC 12.7 H (4.5-11.0) T/MM3 RBC 5.70 H (4.00-5.20) M/MM3 Hgb 17.1 H (12-16) GM/DL Hct 52.1 H (36-46) % MCV 91.4 (80-100) UM3 MCH 30.0 (26-34) UUG MCHC 32.8 (31-37) GM/DL RDW Std Deviation 47.0 (36.9-50.2) FL Plt Count 181 D (130-400) T/MM3 MPV 10.6 (9.4-12.4) UM3 Immature Gran % (Auto) 0.2 (0.0-0.5) % Neut % (Auto) 74.5 H (33-66) % Lymph % (Auto) 15.3 L (23-45) % Newberry % (Auto) 7.0 (0-9.0) % Eos % (Auto) 2.5 (0-4) % Baso % (Auto) 0.5 (0-2) % Neut # (Auto) 9.5 H (1.8-7.7) T/MM3 Lymph # (Auto) 1.9 (1-4.8) T/MM3 [place]berry # (Auto) 0.9 H (0-0.8) T/MM3 Eos # (Auto) 0.3 (0-0.5) T/MM3 Baso # (Auto) 0.1 (0-0.2) T/MM3 Abs Immat Gran (auto) 0.03 (0.00-0.03) T/MM3 INR (0.92-1.18) D-Dimer 3569 H (0-230) NG/ML Turbidity < 20 (0-20) Sodium 142 (136-146) MEQ/L Potassium 4.1 (3.6-5) MEQ/L Chloride 106 (98-107) MEQ/L Carbon Dioxide 27 (22-30) MEQ/L Anion Gap 9 (5-15) meq/L BUN 11.0 (7-17) MG/DL Creatinine 0.7 (0.7-1.2) mg/dL Estimated Creat Clear 71 (>50) mL/min GFR Calculation 83 (>60) mL/min BUN/Creatinine Ratio 16 (6-26) RATIO Glucose 145 H (65-110) MG/DL Calculated Osmolality 275 (261-280) MOSM/KG Calcium 9.1 (8.4-10.2) MG/DL Total Bilirubin 1.60 H (0.20-1.30) MG/DL Icterus Index < 2 (0-7) AST 36 (14-36) U/L ALT 21 (1-35) U/L Alkaline Phosphatase 66 (38-126) U/L Troponin I 0.174 H (0-0.12) ng/ml NT-Pro-B Natriuret Pep 5340 H (0-175) pg/mL Total Protein 6.9 (6.3-8.2) g/dL Albumin 3.7 (3.5-5.0) g/dL Globulin 3.2 (2.4-3.6) G/DL Albumin/Globulin Ratio 1.2 (1.1-2.2) RATIO Specimen Hemolysis < 15 (0-25) //18 Range/Units 02:23 WBC (4.5-11.0) T/MM3 RBC (4.00-5.20) M/MM3 Hgb (12-16) GM/DL Hct (36-46) % MCV (80-100) UM3 MCH (26-34) UUG MCHC (31-37) GM/DL RDW Std Deviation (36.9-50.2) FL Plt Count (130-400) T/MM3 MPV (9.4-12.4) UM3 Immature Gran % (Auto) (0.0-0.5) % Neut % (Auto) (33-66) % Lymph % (Auto) (23-45) % Newberry % (Auto) (0-9.0) % Eos % (Auto) (0-4) % Baso % (Auto) (0-2) % Neut # (Auto) (1.8-7.7) T/MM3 Lymph # (Auto) (1-4.8) T/MM3 Newberry # (Auto) (0-0.8) T/MM3 Eos # (Auto) (0-0.5) T/MM3 Baso # (Auto) (0-0.2) T/MM3 Abs Immat Gran (auto) (0.00-0.03) T/MM3 INR 1.18 (0.92-1.18) D-Dimer (0-230) NG/ML Turbidity (0-20) Sodium (136-146) MEQ/L Potassium (3.6-5) MEQ/L Chloride (98-107) MEQ/L Carbon Dioxide (22-30) MEQ/L Anion Gap (5-15) meq/L BUN (7-17) MG/DL Creatinine (0.7-1.2) mg/dL Estimated Creat Clear (>50) mL/min GFR Calculation (>60) mL/min BUN/Creatinine Ratio (6-26) RATIO Glucose (65-110) MG/DL Calculated Osmolality (261-280) MOSM/KG Calcium (8.4-10.2) MG/DL Total Bilirubin (0.20-1.30) MG/DL Icterus Index (0-7) AST (14-36) U/L ALT (1-35) U/L Alkaline Phosphatase (38-126) U/L Troponin I (0-0.12) ng/ml NT-Pro-B Natriuret Pep (0-175) pg/mL Total Protein (6.3-8.2) g/dL Albumin (3.5-5.0) g/dL Globulin (2.4-3.6) G/DL Albumin/Globulin Ratio (1.1-2.2) RATIO Specimen Hemolysis (0-25) - Radiology Data Attestation: I reviewed the patient's radiology results. - EKG Data EKG #1 EKG attestation: Yes: I reviewed and interpreted this EKG. EKG results narrative: Heart rate 83 bpm, right bundle branch block noted and is seen on previous EKG. Rate: normal Rhythm: junctional [place]/QRS: normal, RBBB Interpretation: no acute changes Disposition Clinical Impression: Congestive heart failure, Elevated troponin, Elevated d-dimer, COPD (chronic obstructive pulmonary disease) Disposition: 02 To OBS [facility] Condition: Stable Prescriptions: No Action Mag-Al + Sim Oral Liq [Maalox Plus] 30 ml PO Q3H PRN udc PRN Reason: Indigestion Acetaminophen [Tylenol] 650 mg PO Q5H PRN tab PRN Reason: Discomfort Amlodipine [Norvasc] 5 mg PO DAILY #30 tab Labetalol [Normodyne] 100 mg PO BID #60 tab Lisinopril [Prinivil] 20 mg PO DAILY #30 tab Omeprazole [Prilosec] 20 mg PO ACB #30 cap Voltaren (Diclofenac) 1 % topical gel 4 g TOP BID PRN #100 g PRN Reason: pain Neurontin (gabapentin) 600 mg tablet 600 mg PO TID #90 tab Pulmicort (Budesonide) 0.5 mg/2 mL suspension for nebulization 2 ml INH Q12H #60 ml ipratropium-albuterol 0.5 mg-3 mg(2.5 mg base)/3 mL nebulization soln 3 ml INH QID #180 ml Ultram (Tramadol) 50 mg tablet 50 mg PO Q6H PRN #120 tab PRN Reason: pain doxycycline hyclate 100 mg capsule 100 mg PO BID #180 cap Claritin (Loratadine) 10 mg tablet 10 mg PO BID #60 tab Referrals: Nabila Momin, LOW PRESSURE KETTLE OPERATOR [Primary Care Provider] - Time of Disposition: 03:43 - Seen By: physician
[2017-10-17] MEDS ORDERED: NS 1,000 ML IV SCH (02:30)
[2017-10-17] MEDS ORDERED: ENOXAPARIN 120 MG/0.8 ML INJECTION SQ ONE (03:23)
[2017-10-17] MEDS: METHYLPREDNISOLONE SOD SUCC 125mg/2ml INJECTION IVP SCH (03:52)
[2017-10-17] MEDS ORDERED: ONDANSETRON 4 MG/2 ML INJECTION IVP PRN (05:10)
[2017-10-17] MEDS ORDERED: MAG-AL + SIM ORAL LIQUID 30ml PO PRN (05:15)
[2017-10-17 05:18] VITALS: BMI 44.6
[2017-10-17] MEDS ORDERED: FALL RISK - PHARMACY CONSULT MC ONE (05:54)
[2017-10-17] MEDS: OMEPRAZOLE 20 MG CAPSULE PO SCH (05:55)
[2017-10-17] MEDS: ACETAMINOPHEN 325 MG TABLET PO PRN ×2 (05:55→19:23)
--- NOTE | 2017-10-17 06:37 | Cardiology History & Physical ---
History of Present Illness Chief complaint: Shortness of Breath and Elevated Troponin HPI: Pt is [id number] female well known to Dr. Mosley with PMH including CAD, HTN , Ventricular Tachycardia, chronic Pulmonary Embolism, COPD, Chronic Diastolic Heart Failure, Recurrent Pneumonia, Aortic Dissection, Recent GI Bleed,and Abdominal Aortic Aneurysm who presents with acute shortness of breath and chronic chest pain. She has had frequent chest pain left-sided, especially worse with deep breathing. She does have history of COPD due to cigarette smoking, CHF and hypoxemia. She was seen, admitted and discharged in early September with mild GI bleed and elevated INR. She was discharged home on 3 L oxygen and taken off of her Coumadiin, but has had to increase her oxygen use to 5 L over the last 2 weeks. She presents at 87% on 5 L nasal cannula. She does continue to smoke, has had to decrease the smoking over the last few weeks and is now only smoking about 5 cigarettes a day as she is felt to sick to smoke anymore than that. She does not take Lasix as it makes her urinate "too much". Does not wear compression stockings as they're too uncomfortable. She did have an angiogram but states that there were no vascular issues. In the ER, CXR reveals pulmonary congestion with a BNP of 5340, EKG with known BBB and no acute ischemia, Elevated d-dimer at 3569, and troponin of 0.17. CTA not completed in ER d/t patient reporting allergy to contrast dye. However, it is noted, patient has had previous CTA and recently underwent heart catheterization. Past Procedures/Diagnotics: 09/10/2017 Heart Cath: Left Ventriculography EF 65%, no mitral regurge or gradient across the aortic valve. LVEDP about 20 Coronary Angiography Left main was free of significant lesions and bifurcated into left anterior descending and left circumflex arteries. The left anterior descending artery was a ayyflm-[id number]-fqucn caliber vessel which had about 30-40% stenosis just distal to the first diagonal. First diagonal was a medium-caliber vessel with no significant lesions. The other diagonals were sizop-pr-ncvvcq caliber vessels with no significant lesions. Left circumflex artery had about 40% eccentric lesion distally at the junction of the second marginal. Right coronary artery had diffuse irregularities with no stenosis greater than 30%. 09/09/2017 Upper and Lower GI SURGEON Beka Flynn MD PREOPERATIVE DIAGNOSES 1. GI bleeding. 2. Anticoagulation with warfarin - currently on hold. POSTOPERATIVE DIAGNOSES 1. Mild duodenitis of the duodenal bulb. 2. Mild antral gastritis. 3. Short segment of mucosal changes of the distal esophagus - possible Blackwell' s, pathology pending. 4. Severe pandiverticulosis - likely source of bleeding, no active bleeding. 5. 0.5 cm sessile polyp of the transverse colon. 6. Multiple 0.5 cm or less sessile polyps of the sigmoid colon - five polyps removed. 7. 0.7 cm sessile polyps of the rectum x 2. 8. Multiple 0.5 cm or less sessile polyps of the rectum - 4 removed. PROCEDURE 1. Esophagogastroduodenoscopy with antral biopsy for SCARLETT testing and biopsies of the duodenum, antrum, and GE junction for histology. 2. Colonoscopy with hot snare polypectomy x 2 and hot biopsy forceps polypectomy x 10. 10/30/2016 Echo: * Moderate concentric LVH * EF 55-60% * Impaired relaxation * No WMA * Left atrium mildly dilated * right atrium mildly enlarged * Trace MR 09/11/16 CTA of chest Ordering Provider: Nabila Momin APRN Type of Exam(s): CT angio chest/aorta wo/w con Reason for Exam(s): J41.1 Mucopurulent chronic bronchitis Indication: J41.1 Mucopurulent chronic bronchitis, aortic aneurysm with dissection PROCEDURE: CT angio chest/aorta wo/w con: Encounter: Initial Comparison: Chest x-ray dated September 07, [address] angiogram of the chest dated June 16, 2013 Technique: Axial CT angiographic imaging of the chest was performed before and after the administration of intravenous contrast. Coronal and sagittal MIP reconstructed images were created and reviewed. Three-dimensional surface shaded volume rendered imaging of the aorta and arterial vasculature was created by the technologist on a dedicated workstation under the direction of the interpreting radiologist and reviewed. Automated Exposure Control and Iterative Reconstruction dose reducing techniques were utilized. Contrast: 75 mL Omnipaque 350 Findings: Noncontrast images show no evidence of an intramural hematoma. Postcontrast images redemonstrate the extensive Orrington type B dissection of the thoracic aorta. This shows interval growth at the origin and enlargement of the descending thoracic aorta compared to the prior CT. Aortic arch diameter at the origin of the dissection on axial image #23 is now 5 cm compared to 4 cm on the prior CT. Descending thoracic aorta diameter is enlarged. For example on axial image #44 maximal diameter us 4.7 cm compared to 3.8 cm on the comparison study. Dissection continues into the abdomen with significant mural thrombus. There is narrowing of the true lumen in the lower thoracic section. The celiac, SMA and left renal artery arise from the true lumen while the right renal artery arises from the false lumen. The false lumen is brighter on this phase of contrast for some reason. The upper abdomen shows no acute findings. The lungs show mild emphysema without consolidative pneumonia. No pleural effusion or pneumothorax. The central airways are patent. Bone windows are unremarkable. Impression: Extensive Orrington type B aortic dissection with gradual enlargement and development amount of aortic arch and descending aortic aneurysms. Overall diameter is approximately 1 cm larger than the 2014 comparison. Vascular surgical evaluation is suggested. . Review of Systems - Constitutional Constitutional: Present: daytime sleepiness, malaise - EENMT Balance: Absent: vertigo Mouth/Throat: Absent: sore throat - Cardiovascular Cardiovascular: Present: chest pain, dyspnea on exertion, edema, heart murmur. Absent: palpitations, syncope, orthopnea Vascular: Present: pedal edema, other (Dependent Ruboor) - Respiratory Respiratory: Present: cough, dyspnea, hemoptysis, dyspnea on exertion, excessive phlegm production. Absent: wheezing - Gastrointestinal Gastrointestinal: Present: dyspepsia, early satiety, nausea, vomiting. Absent: coffee ground emesis, hematemesis, hematochezia - Genitourinary Genitourinary: Absent: abnormal vaginal bleeding, dysuria, hematuria - Musculoskeletal Musculoskeletal: Absent: joint swelling, limited range of motion, muscle cramps - Integumentary/Breasts Integumentary: Absent: rash, jaundice - Neurological Neurological: Absent: abnormal gait, abnormal movements, abnormal speech, dizziness, numbness, vertigo - Psychiatric Psychiatric: Present: abnormal sleep pattern. Absent: homicidal ideation, suicidal ideation - Endocrine Endocrine: Absent: excessive sweating, palpitations, polyuria - Hematologic/Lymphatic Hematologic/Lymphatic: Absent: easy bleeding PFSH Patient Stated Medical History Migraine Yes Peripheral Neuropathy Yes Transient Ischemic Attacks ( Yes TIA) Cataracts Yes: R eye Dysphagia Yes Other HEENT Yes: bleeding retina Angina Yes Congestive Heart Failure Yes Heart Murmur Yes Hypertension Yes Other Cardiology Yes: heart dislocated from wall tissue Bronchitis Yes Chronic Obstructive Pulmonary Yes Disease (COPD) Pneumonia Yes Pulmonary Embolism Yes Sleep Apnea Yes Gastroesophageal Reflux Yes: controlled with diet Disease Gastrointestinal Bleeding Yes: over 20years ago Hiatal Hernia Yes Ulcer Yes Hx Urinary Tract Infection Yes MRSA Yes: groin Other Yes: full body itching Depression Yes Post Traumatic Stress Disorder Yes Abnormal Pap Yes: fungal infection Ovarian Cysts Yes Post Menopausal Yes Clinic Medical History (Last Updated 09/07/17 @ 19:03 by Enedina Russell MD) Aortic dissection (Chronic Medical) Pedal edema (Chronic Medical) COPD (chronic obstructive pulmonary disease) with chronic bronchitis (Chronic Medical) Hx pulmonary embolism (Chronic Medical) Chronic lumbosacral pain (Chronic Medical) Obstructive sleep apnea hypopnea, severe (Acute Medical) AAA (abdominal aortic aneurysm) (Chronic Medical) Anticoagulated on warfarin (Chronic Medical) HTN (hypertension) (Chronic Medical) Hiatal hernia (Chronic Medical) Low back pain (Chronic Medical) Obesity (Chronic Medical) Surgical History: D&C for uterine bleeding 1974,. Unilateral oophorectomy,. Removal of bone chip in leg 1977,. Tonsillectomy 1957, Family History: Family History (Last Reviewed 08/03/17 @ 15:10 by CAMPBELL Cage) Father , 62 Cancer Mother , 92 Mental disability Sister , 72 AML (acute myeloid leukemia) - Social History Smoking status: Current every day smoker Packs-years: 45 second hand exposure: No Substance use type: does not use Alcohol intake frequency: holidays/special occasions only Housing: house Household members: none Current occupational status: retired Does patient use chewing tobacco?: No Current residence: Apartment/Private Home Medications Home Medications Medication Instructions Recorded Confirmed Type Ultram (Tramadol) 50 mg tablet 50 mg PO Q6H PRN #120 tab 10/07/16 10/17/17 Rx Voltaren (Diclofenac) 1 % topical 4 g TOP BID PRN #100 g 03/05/17 10/17/17 Rx gel doxycycline hyclate 100 mg capsule 100 mg PO BID #180 cap 05/10/17 10/17/17 Rx Neurontin (gabapentin) 600 mg 600 mg PO TID #90 tab 06/24/17 10/17/17 Rx tablet Claritin (Loratadine) 10 mg tablet 10 mg PO BID #60 tab 08/03/17 10/17/17 Rx Pulmicort (Budesonide) 0.5 mg/2 mL 2 ml INH Q12H #60 ml 08/03/17 10/17/17 Rx suspension for nebulization ipratropium-albuterol 0.5 mg-3 3 ml INH QID #180 ml 08/03/17 10/17/17 Rx mg(2.5 mg base)/3 mL nebulization soln Acetaminophen [Tylenol] 650 mg PO Q5H PRN tab 09/13/17 10/17/17 Rx Labetalol [Normodyne] 100 mg PO BID #60 tab 09/13/17 10/17/17 Rx Lisinopril [Prinivil] 20 mg PO DAILY #30 tab 09/13/17 10/17/17 Rx Mag-Al + Sim Oral Liq [Maalox Plus] 30 ml PO Q3H PRN udc 09/13/17 10/17/17 Rx Furosemide [Lasix 40 mg Tab] 40 mg PO 0900,1700 #60 tab 10/22/17 Rx NIFEdipine [Nifedipine ER] 90 mg PO DAILY #30 tab.er.24 10/22/17 Rx Prilosec (Omeprazole) 20 mg 20 mg PO ACB #30 cap 10/22/17 Rx capsule,delayed release Rivaroxaban [Xarelto] 20 mg PO WS #30 tab 10/22/17 Rx Allergies Allergy/AdvReac Type Severity Reaction Status Date / Time aspirin Allergy Verified 10/17/17 02:28 Iodinated Contrast- Oral and Allergy Verified 10/17/17 02:28 IV Dye oxycodone Allergy Verified 10/17/17 02:28 Penicillins Allergy Verified 10/17/17 02:28 propoxyphene [From Darvon] Allergy Verified 10/17/17 02:28 nitroglycerin AdvReac Intermediate Headache Verified 10/17/17 02:28 [From Nitro-Bid] Exam Vital signs: Temperature 95.3 F L 10/17/17 04:50 Pulse Rate 74 10/17/17 04:50 Respiratory Rate 24 10/17/17 04:50 Blood Pressure 156/76 H 10/17/17 04:50 Pulse Oximetry 93 10/17/17 04:50 - Constitutional mild distress, morbidly obese - Routine HEENT Exam Head: Present: normocephalic, atraumatic Eye: Present: EOMI, PERRL ENT: Present: mucous membranes moist Nose: moist mucous membranes - Routine Neck Exam Present: supple, trachea midline. Absent: JVD - Routine Chest/Breast/Axilla Exam Chest wall: Absent: tenderness - Routine Respiratory Exam Present: dyspnea, crackles, diminished air movement - Routine Cardiovascular Exam Present: RRR, S1, S2, murmur. Absent: JVD - Routine Abdominal Exam Present: normoactive bowel sounds, distended, rigid. Absent: non tender, guarding - Routine Extremities Exam Present: edema, pulses intact. Absent: cyanosis, clubbing Comments: Stasis changes to BLE - Routine Skin Exam Present: dry, warm. Absent: jaundice, rash - Routine Neurological Exam Present: alert, oriented X3, CN II-XII intact, moving all extremities - Routine Psychiatric Exam Present: normal affect, cooperative. Absent: good insight Results 10/22/17 04:35 10/22/17 04:35 Cardiac Enzymes 10/17/17 10/17/17 10/17/17 Range/Units 02:23 04:36 04:36 AST 36 (14-36) U/L Troponin I 0.174 H 0.150 H Cancelled (0-0.12) ng/ml CBC 10/17/17 Range/Units 02:23 WBC 12.7 H (4.5-11.0) T/MM3 RBC 5.70 H (4.00-5.20) M/MM3 Hgb 17.1 H (12-16) GM/DL Hct 52.1 H (36-46) % Plt Count 181 D (130-400) T/MM3 Neut # (Auto) 9.5 H (1.8-7.7) T/MM3 Lymph # (Auto) 1.9 (1-4.8) T/MM3 Crane # (Auto) 0.9 H (0-0.8) T/MM3 Eos # (Auto) 0.3 (0-0.5) T/MM3 Baso # (Auto) 0.1 (0-0.2) T/MM3 Comprehensive Metabolic Panel 10/17/17 Range/Units 02:23 Sodium 142 (136-146) MEQ/L Potassium 4.1 (3.6-5) MEQ/L Chloride 106 (98-107) MEQ/L Carbon Dioxide 27 (22-30) MEQ/L BUN 11.0 (7-17) MG/DL Creatinine 0.7 (0.7-1.2) mg/dL Glucose 145 H (65-110) MG/DL Calcium 9.1 (8.4-10.2) MG/DL AST 36 (14-36) U/L ALT 21 (1-35) U/L Alkaline Phosphatase 66 (38-126) U/L Total Protein 6.9 (6.3-8.2) g/dL Albumin 3.7 (3.5-5.0) g/dL Intake and Output 10/16/17 10/16/17 10/17/17 14:59 22:59 06:59 Intake Total 326.667 / 326.667 Balance 326.667 / 326.667 Intake: IV 326.667 / 326.667 Ns 1,000 ml @ 100 mls/hr IV . 326.667 / 326.667 Q10H [facility] Rx#:[id number] Other: Weight 121.8 kg Patient Weight 10/17/17 06:59 Weight 121.8 kg - Imaging and Cardiology Echo: pending Cardiac cath: report reviewed EKG results: report reviewed - EKG Interpretation EKG: sinus rhythm, no acute changes EKG interpretations - EKG EKG results cardiology: interpreted by JACQUELINE, sinus rhythm Hospital Course This is a general summary of the patient's hospital course. For more details refer to the complete medical record. Resuscitation Status: Do Not Resuscitate Assessment and Plan - Attestation Attestation Narrative: 10/26/17 08:17 Recommendation After examining the patient I agree with the above assessment. I am involved in the formulation of the patient's plan of care. - Assessment and Plan (1) Dyspnea Status: Chronic (2) Chest pain Status: Resolved (3) NSTEMI (non-ST elevated myocardial infarction) Status: Acute (4) Elevated d-dimer Status: Acute (5) Acute on chronic diastolic (congestive) heart failure Status: Acute (6) Acute on chronic respiratory failure with hypoxemia Status: Acute (7) Chronic pulmonary embolism Status: Chronic (8) CAD (coronary artery disease), [id number] coronary artery Status: Chronic (9) Ventricular tachycardia Status: Chronic (10) Hypertension Status: Chronic (11) Abdominal aortic aneurysm without rupture Status: Chronic (12) Heart murmur Status: Chronic (13) COPD (chronic obstructive pulmonary disease) Status: Chronic (14) Obstructive sleep apnea Status: Chronic (15) GERD (gastroesophageal reflux disease) Status: Chronic (16) History of GI bleed Status: Resolved (17) History of TIA (transient ischemic attack) Status: Resolved (18) History of pneumonia Status: Resolved (19) Nicotine dependence Status: Chronic - Assessment and Plan Dyspnea Baseline 3 L O2 per NC Now requiring 5L O2 per NC to maintain sat >90% RCAT CXR: Pulmonary vascular congestion, persistant basilar opacities (may relate to mild edema) EKG: Junctional Rhythm with occasional ventricular premature complexes and occasional supraventricular complexes (pattern consistent with pulmonary disease ), RBBB, inferior NH or undetermined age, No acute ischemia +Cough +Hemoptysis Recently diagnosed with pneumonia CTA of chest pending Followed by Medicine Chest Pain Chronic in nature Allergic to nitro IV morphine prn CXR: Pulmonary vascular congestion, persistant basilar opacities (may relate to mild edema) EKG: Junctional Rhythm with occasional ventricular premature complexes and occasional supraventricular complexes (pattern consistent with pulmonary disease ), RBBB, inferior NH or undetermined age, No acute ischemia Troponin peaked at 0.17 and trended down 10/2016 Echo: EF 55-60%, LVH, Impaired diastolic dysfunction, trace MR, dilated LA, enlarged RA 08/2017 Heart Cath: Mild Coronary Artery Disease (30-40%) Current Echo Pending CTA of Chest pending Continue to monitor on tele NSTEMI - type II Likely related to impaired respiratory status and possible infection? CXR: Pulmonary vascular congestion, persistant basilar opacities (may relate to mild edema) EKG: Junctional Rhythm with occasional ventricular premature complexes and occasional supraventricular complexes (pattern consistent with pulmonary disease ), RBBB, inferior NH or undetermined age, No acute ischemia Troponin peaked at 0.17 and trended down 2016 Echo: EF 55-60%, LVH, Impaired diastolic dysfunction, trace MR, dilated LA , enlarged RA Current Echo Pending Allergic to aspirin Continue BB and MJ Continue to monitor on tele Acute on Chronic Diastolic Heart Failure 2016 Echo: EF 55-60%, LVH, Impaired diastolic dysfunction, trace MR, dilated LA , enlarged RA Patient non-compliant with home lasix Current Echo Pending Continue BB and MJ Lasix 40 mg IV BID Acute on Chronic Hypoxic Respiratory Failure Baseline 3 L O2 per NC Now requiring 5L O2 per NC to maintain sat >90% RCAT CXR: Pulmonary vascular congestion, persistant basilar opacities (may relate to mild edema) EKG: Junctional Rhythm with occasional ventricular premature complexes and occasional supraventricular complexes (pattern consistent with pulmonary disease ), RBBB, inferior NH or undetermined age, No acute ischemia +Cough +Hemoptysis Recently diagnosed with pneumonia CTA of chest pending Followed by Medicine Chronic Pulmonary Embolism Was previously treated with warfarin Warfarin was stopped approximately 1 month ago following hospitalization for GI Bleed Presented with tachycardia and tachypnea, reports hemoptysis INR 1.18 D-Dimer 3569 Received 125 mg of Lovenox in ER CTA of chest pending Followed by Medicine Coronary Artery Disease Allergic to aspirin, Continue BB and MJ-I EKG: Junctional Rhythm with occasional ventricular premature complexes and occasional supraventricular complexes (pattern consistent with pulmonary disease ), RBBB, inferior NH or undetermined age, No acute ischemia Troponin peaked at 0.17 and trended down 10/2016 Echo: EF 55-60%, LVH, Impaired diastolic dysfunction, trace MR, dilated LA, enlarged RA 08/2017 Heart Cath: Mild Coronary Artery Disease (30-40%) Current Echo Pending Continue Risk Management Ventricular Tachycardia Asymptomatic Tolerating Medical Therapy Continue BB Therapy Hypertension Resume home labetolol, lisinopril and Norvasc AAA without rupture 08/2016 CTA of the Chest: Impression: Extensive Wolfgang type B aortic dissection with gradual enlargement and development amount of aortic arch and descending aortic aneurysms. Overall diameter is approximately 1 cm larger than the 2014 comparison. Vascular surgical evaluation is suggested. Followed by Dr. Earl Villanueva, recently seen No intervention at this time Will continue to monitor routinely Patient to be considering stent vs. open repair COPD On Chronic O2 CXR: Pulmonary vascular congestion, persistant basilar opacities (may relate to mild edema) RCAT 1 dose of steroids in the ER Followed by Medicine BARBIE Severe On home CPAP RCAT On chronic O2 therapy GERD Continue home Prilosec History of GI Bleed Hospitalized in September of 2017 Taken off warfarin therapy 08/2017 Upper and Lower GI: Duodenitis of duodenal bulb, mild antral gastritis , possible Blackwell's esophagus, severe pandiverticulosis, 0.5 cm sessile polyp of transverse colon, multiple polyps of the sigmoid colon (5 removed), multiple polyps of the rectum (4 removed) Followed by Medicine History of TIA Recently taken off of Warfarin Allergic to aspirin Continue risk management Followed by medicine History of Pneumonia Pt reports recent treatments with multiple ABX therapy for ongoing pneumonia Currently on Doxycycline 100 mg PO BID Will continue per Dr. Russell Followed by medicine Nicotine Dependence Cessation Counseling Ppx: SQ Lovenox Famotidine
[2017-10-17] MEDS: ALBUTEROL/IPRATROPIUM 2.5mg-0.5mg/3ml NEB AEROSOL SCH ×3 (07:18→18:58)
[2017-10-17] MEDS: BUDESONIDE INH.SOLN 0.5mg/2ml NEB AEROSOL SCH ×2 (07:18→18:58)
[2017-10-17] MEDS ORDERED: PNEUMOCOCCAL 23 VACCINE 0.5ml INJECTION IM ONE (08:03)
[2017-10-17] MEDS: LISINOPRIL 20 MG TABLET PO SCH ×2 (08:11→21:18)
[2017-10-17] MEDS: AMLODIPINE 5 MG TABLET PO SCH (08:11)
[2017-10-17] MEDS: FUROSEMIDE 20 MG/2 ML INJECTION IVP SCH ×2 (08:11→21:18)
[2017-10-17] MEDS: GABAPENTIN 600 MG TABLET PO SCH ×3 (08:12→21:18)
[2017-10-17] MEDS: LABETALOL 100 MG TABLET PO SCH ×2 (08:12→21:18)
[2017-10-17] MEDS: LORATADINE 10 MG TABLET PO SCH ×2 (08:12→16:53)
[2017-10-17] MEDS: SALINE FLUSH 10ml SYRINGE IV PRN ×2 (08:13→21:17)
[2017-10-17] MEDS ORDERED: MORPHINE SULFATE 2mg INJECTION IVP ONE (10:26)
--- NOTE | 2017-10-17 12:08 | Consult Note ---
Consult Information - Data of Consult Consult date: 10/17/17 Requesting Physician: Scotty Mosley MD Primary Care Provider: Nabila Momin APRN - Consult Narrative Reason for consult: Elevated d-dimer History of present illness: Dariela Brown is a 67 year old woman seen in consultation from Dr. Bernabe for further evaluation and treatment of an elevated d-dimer, recent GI bleed ( hospitalized 09/07/17-09/13/17 for suspected diverticular bleed and Coumadin was discontinued - she was on that for a remote history of PE). Dariela states that ever since this time she's had nausea, stomach upset, belching, and diarrhea. Once, her hiatal hernia "acted up". She's felt weak and dizzy. She hasn't been eating well. She denies seeing any blood in her stools. Her chronic cough has changed however, as now she is coughing up specs of blood. 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 She said she went to the ED on 10/17/17 because "I couldn't breathe". She was readmitted to [facility] on 10/17/17 for dyspnea, worsened hypoxia (uses 3L home O2 but even after increasing to 5L at home her saturations were 87%). She also reports left-sided chest pain, which is often present and chronic - she thinks recently this is related to her belching. Her troponin was elevated at 0.17, D-dimer was 3569. BNP was also elevated at 5340 and CXR showed congestive changes. While her medical record reflects an allergy to contrast dye, she recalls having CT scans with contrast in the past, and the last time it was done she felt flushed and hot, as if she had a rash under her skin (similar to how she felt with PCN). 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 Heart catheterization 09/10/17 (Dr. Mosley): mild coronary artery disease, EF 65 %. D&C for uterine bleeding 1974. Unilateral oophorectomy. Removal of bone chip in leg 1977. 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 Does patient use chewing tobacco?: No Current residence: Apartment/Private Home Medications Home Medications Medication Instructions Recorded Confirmed Type Ultram (Tramadol) 50 mg tablet 50 mg PO Q6H PRN #120 tab 10/07/16 10/17/17 Rx Voltaren (Diclofenac) 1 % topical 4 g TOP BID PRN #100 g 03/05/17 10/17/17 Rx gel doxycycline hyclate 100 mg capsule 100 mg PO BID #180 cap 05/10/17 10/17/17 Rx Neurontin (gabapentin) 600 mg 600 mg PO TID #90 tab 06/24/17 10/17/17 Rx tablet Claritin (Loratadine) 10 mg tablet 10 mg PO BID #60 tab 08/03/17 10/17/17 Rx Pulmicort (Budesonide) 0.5 mg/2 mL 2 ml INH Q12H #60 ml 08/03/17 10/17/17 Rx suspension for nebulization ipratropium-albuterol 0.5 mg-3 3 ml INH QID #180 ml 08/03/17 10/17/17 Rx mg(2.5 mg base)/3 mL nebulization soln Acetaminophen [Tylenol] 650 mg PO Q5H PRN tab 07/02/18 08/05/18 Rx Amlodipine [Norvasc] 5 mg PO DAILY #30 tab 09/13/17 10/17/17 Rx Labetalol [Normodyne] 100 mg PO BID #60 tab 09/13/17 10/17/17 Rx Lisinopril [Prinivil] 20 mg PO DAILY #30 tab 09/13/17 10/17/17 Rx Mag-Al + Sim Oral Liq [Maalox Plus] 30 ml PO Q3H PRN udc 09/13/17 10/17/17 Rx Omeprazole [Prilosec] 20 mg PO ACB #30 cap 09/13/17 10/17/17 Rx Allergies Allergy/AdvReac Type Severity Reaction Status Date / Time aspirin Allergy Verified 10/17/17 02:28 Iodinated Contrast- Oral and Allergy Verified 10/17/17 02:28 IV Dye oxycodone Allergy Verified 10/17/17 02:28 Penicillins Allergy Verified 10/17/17 02:28 propoxyphene [From Darvon] Allergy Verified 10/17/17 02:28 nitroglycerin AdvReac Intermediate Headache Verified 10/17/17 02:28 [From Nitro-Bid] Exam Vital Signs: Temperature 97.7 F 10/17/17 08:00 Pulse Rate 78 10/17/17 08:00 Respiratory Rate 22 10/17/17 11:58 Blood Pressure 149/84 H 10/17/17 08:00 Pulse Oximetry 90 10/17/17 08:00 Height/Weight/BMI: Height 1.65 m Weight 121.8 kg Body Mass Index 44.6 - Constitutional Present: no acute distress, well nourished, well developed - Routine HEENT Exam Head: Present: normocephalic Eye: Present: PERRL. Absent: conjunctival icterus, scleral injection ENT: Present: mucous membranes dry - Routine Neck Exam Present: supple - Routine Respiratory Exam Present: decreased breath sounds, wheezes (faint expiratory), crackles (minimal) - Routine Cardiovascular Exam Present: RRR, S1, S2, murmur - Routine Abdominal Exam Present: soft, normoactive bowel sounds, non distended, non tender - Routine Extremities Exam Present: edema (1+ BLE). Absent: calf tenderness - Routine Skin Exam Present: intact, dry, warm Comments: chronic PVD skin changes to BLE - Routine Neurological Exam Present: alert, oriented X3, CN II-XII intact, moving all extremities, vision grossly intact, hearing grossly intact, normal speech. Absent: sensory deficit , motor deficit, altered mental status, facial asymmetry - Routine Psychiatric Exam Present: normal affect, normal thought process, cooperative Results - Labs CBC & Chem 7: 10/17/17 02:23 10/17/17 02:23 Assessment and Plan (1) Acute on chronic respiratory failure with hypoxemia Current visit: Yes Status: Acute Assessment and Plan: Assessment Acute on chronic hypoxia Bilateral pulmonary emboli Elevated troponin Leukocytosis, POA Hyperbilirubinemia, POA GI bleed in August,. Blackwell's esophagus seen on EGD Chronic anticoagulation with Coumadin for remote history of PE x 1 - Coumadin stopped after above GI bleed Chest pain -POA-Mild coronary artery disease seen on heart catheterization 09/10 COPD (chronic obstructive pulmonary disease) with chronic bronchitis Chronic hypoxic respiratory failure - on 3 L of oxygen at home Chronic lumbosacral pain -on gabapentin and Ultram Abdominal aortic aneurysm-(follows with Dr. Zuleyka Villanueva) Aortic dissection - chronic Elevated hgb, chronic HTN Morbid Obesity BMI 44.7 Obstructive sleep apnea, CPAP Chronic pruritus Tobacco use Nonsustained V. tach during last hospitalization in August Erythrocytosis, nl erythropoietin 09/13/17 Plan Cardiac workup per attending team. Being diuresed with Lasix 40 mg IV BID. Renal function is stable. Will obtain CTA to r/o PE and to evaluate aorta - premedicate with Benadryl and Solu-Medrol. Patient approved this plan. BLE venous doppler pending. Received Lovenox 120 mg x1 in the ED. Tobacco cessation ordered. Consider starting Prednisone to treat for possible COPD exacerbation. Agree with doxycycline, DuoNeb QID, and Pulmicort BID. Thank you for this consult. DVT Prophylaxis: Lovenox GI Prophylaxis: Omeprazole Resuscitation Status: Do Not Resuscitate - Physician Narrative Physician: Enedina Russell MD Narrative: Date: 10/17/17 Time: 1720 I have independently evaluated and examined this patient. I reviewed the chart, the patient's history, and the MEAT PACKAGER/PA's documented findings as above. We discussed and formulated the assessment and plan as above with additions as below: Mrs. Brown was seen earlier this afternoon almost immediately after returning to the floor from CTA. Study demonstrated bilateral pulmonary emboli involving both upper lobes, right middle lobe, lingula and branches of the mainstems bilaterally. Patchy infiltrates also described in addition to known aortic dissection and infrarenal AAA. Mrs. Brown describes feeling sick since she left the hospital early this month at which time she had been ill for 3-4 weeks prior to the hospitalization for GI bleed. 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 Exam notable for decreased airflow without wheezing, no rhonchi. Regular cardiac rhythm Abdomen soft, nontender Dusky feet (in dependent position) with +2 edema Hemoglobin 17.1 (has ranged from 16.8-20) over the past year, MCV 91.4. D-dimer 3569 and proBNP 5340. CTA reviewed by myself with proximal PEs evident and minor patchy infiltrate of unclear significance. Chest x-ray also reviewed by myself demonstrating prominence of the proximal aorta and bibasilar opacities with cardiac enlargement. Bilateral PEs-acute. History extensive PEs requiring thrombo-lysis May 2013 ( admission note from via [facility] placed on chart). Continue anticoagulation with Lovenox as initiated overnight. Patient reports that she did not have difficulty with GI blood loss when INR To 2 but when increased to 3 she experienced bleeding prompting admission last month. May benefit from changing to NOAC if insurance coverage available for direct agent. Erythrocytosis-appears to be chronic and probable cause of patient's reported pruritus. Erythropoietin obtained last admission was normal; patient referred to Dr. Haley for further evaluation. May be due to chronic hypoxia. Discussed with cardiology; notified of findings of PE. Agree with diuresis. Hospital Course Summary Disclaimer: The visit summary below is not to be considered part of the above Progress Note. Addendum entered and electronically signed by Ana Silva APRN 10/17/17 14: 49: Phone report from [facility]: Patient has bilateral pulmonary embolies; thoracic dissection observed as well. Discussed with Dr. Russell, she will contact cardiology to discuss anticoagulation options. Looking back at INR trends patient has been under 2 for the last several checks and may benefit from a NOAC if approved by cardiology.
[2017-10-17] MEDS ORDERED: METHYLPREDNISOLONE SOD SUCC 125mg/2ml INJECTION IVP ONE (12:22)
[2017-10-17] MEDS ORDERED: DiphenhydrAMINE 25 MG CAPSULE PO ONE (12:23)
--- NOTE | 2017-10-17 12:43 | XRay Report ---
INDICATION: soa PROCEDURE: CHEST 2-VIEWS UPRIGHT (PA & LAT) Encounter: Initial COMPARISON: September 07, 2017 FINDINGS: Persistent basilar opacities, similar to prior studies. Pulmonary vascular congestion is slightly improved. No pneumothorax or discrete pleural effusion. Cardiac silhouette remains enlarged. Large thoracic aortic aneurysm is redemonstrated with tortuosity. Central pulmonary arteries are prominent. Impression: Persistent basilar opacities may relate to some chronic mild edema. .
[2017-10-17] MEDS ORDERED: IOHEXOL 350mg/ml 100ml INJECTION ONE (13:23)
[2017-10-17] MEDS ORDERED: SALINE FLUSH 10ml SYRINGE ONE (13:24)
--- NOTE | 2017-10-17 14:15 | Ultrasound Report ---
Indication: CP PROCEDURE: US venous doppler LE BI: Encounter: Initial Comparison: None Technique: Color Doppler duplex and grayscale sonographic imaging of both lower extremities was performed. Findings: Nonocclusive deep vein thrombosis in the right popliteal vein. There is no evidence for acute deep venous thrombosis in the left thigh. Specifically, serial graded compression was performed from the inguinal ligament to the popliteal bifurcation, bilaterally, demonstrating appropriate compressibility of the remaining deep venous system. In addition, color and pulsed Doppler demonstrate appropriate spontaneous flow, variation with respiration, and augmentation with calf compression. At the ankle, normal flow is identified in the posterior tibial veins; these vessels are also normal in caliber. Impression: Nonocclusive right popliteal vein thrombosis. There is a preliminary report by virtual radi[facility]. .
[2017-10-17] MEDS: BENZONATATE 100 MG CAPSULE PO SCH ×2 (15:25→21:18)
[2017-10-17] MEDS: ENOXAPARIN 150 MG/ML INJECTION SQ SCH (16:53)
[2017-10-18] MEDS: SALINE FLUSH 10ml SYRINGE IV PRN (04:08)
[2017-10-18] MEDS: METHYLPREDNISOLONE SOD SUCC 125mg/2ml INJECTION IVP SCH (04:08)
[2017-10-18] MEDS: ENOXAPARIN 150 MG/ML INJECTION SQ SCH (04:10)
[2017-10-18] MEDS: OMEPRAZOLE 20 MG CAPSULE PO SCH (05:51)
[2017-10-18] MEDS: LORATADINE 10 MG TABLET PO SCH ×2 (05:51→17:23)
[2017-10-18] MEDS: TRAMADOL 50 MG TABLET PO PRN (05:51)
[2017-10-18] MEDS: DICLOFENAC 1% TOP GEL 100gm TP PRN ×2 (06:37→14:18)
[2017-10-18] MEDS: BUDESONIDE INH.SOLN 0.5mg/2ml NEB AEROSOL SCH ×2 (07:16→20:27)
[2017-10-18] MEDS: ALBUTEROL/IPRATROPIUM 2.5mg-0.5mg/3ml NEB AEROSOL SCH ×5 (07:17→20:27)
--- NOTE | 2017-10-18 08:19 | XRay Report ---
EXAM: XR chest 1V HISTORY: shortness of breath COMPARISON: Prior examination dated five 2017. FINDINGS: The heart is enlarged. The trachea is midline mediastinum is not widened. The pulmonary vascularity is not engorged. The lung schaefer are hypoventilated showing linear subsegmental atelectasis at the lung bases. No dense focal airspace consolidation is seen. No obvious pleural fluid collections are identified. The costophrenic angles are sharp. The bony thorax is stable. There is artifact from cardiac monitoring lead wires of the chest. IMPRESSION: 1. Cardiomegaly without overt congestive changes. 2. Lung schaefer are hypoventilated with bibasilar linear subsegmental atelectasis. 3. No definite acute focal infiltrates are identified. .
[2017-10-18] MEDS ORDERED: ENOXAPARIN 40 MG/0.4 ML INJECTION SQ SCH (09:00)
[2017-10-18] MEDS: LISINOPRIL 20 MG TABLET PO SCH ×2 (09:08→20:50)
[2017-10-18] MEDS: BENZONATATE 100 MG CAPSULE PO SCH ×3 (09:09→20:50)
[2017-10-18] MEDS: AMLODIPINE 5 MG TABLET PO SCH (09:09)
[2017-10-18] MEDS: GABAPENTIN 600 MG TABLET PO SCH ×3 (09:09→20:50)
[2017-10-18] MEDS: LABETALOL 100 MG TABLET PO SCH ×2 (09:09→20:50)
[2017-10-18] MEDS: FUROSEMIDE 20 MG/2 ML INJECTION IVP SCH ×2 (09:10→20:50)
--- NOTE | 2017-10-18 09:13 | CT Scan Report ---
Indication: elevated d-dimer, hx AAA PROCEDURE: CT angio pulm emboli / aorta: Encounter: Initial Technique: Axial CT angiography in the systemic arterial phase was performed through the chest, abdomen and pelvis with contrast. Noncontrast axial CT imaging through the chest, abdomen and pelvis was also performed. Coronal and sagittal MIP reconstructed images were created and reviewed. Three-dimensional surface shaded volume rendered imaging of the aorta and arterial vasculature was created by the technologist on a dedicated workstation under the direction of the interpreting radiologist and reviewed. Axial CT angiography through the chest was also performed in the pulmonary arterial phase with coronal and sagittal MIP reconstructed images created and reviewed. Automated Exposure Control and Iterative Reconstruction dose reducing techniques were utilized. Contrast: 72mL Omnipaque 350 Comparison: None Findings: CT angiogram of the chest for PE: Pulmonary arteries: Exam is diagnostic to the subsegmental pulmonary arterial level. There is a large amount of bilateral segmental and subsegmental emboli seen in all lobes. Other findings: No consolidative pneumonia. Minimal atelectasis or scarring in the lower lobes. No pleural effusion or pneumothorax. There is a new pulmonary nodule in the right middle lobe measuring 1.5 cm in diameter on axial image #34. No axillary or mediastinal lymphadenopathy. Heart size is normal. No pericardial effusion. Please see the upcoming CT angiogram of the aorta report for details of the systemic vasculature. There is right ventricular enlargement and reflux of contrast into the hepatic veins. Impression: 1. Large amount of bilateral pulmonary embolus with evidence of right heart strain. Emergent cardiology consultation is recommended. 2. New 1.5 cm right middle lobe pulmonary nodule suspicious for a primary lung malignancy. Recommend PET/CT or biopsy. CT angiogram of the chest for aorta: Please see the above report for extravascular details. There is redemonstration of the patient's chronic Wolfgang type B aortic dissection with aneurysm of the descending aorta up to 6.3 cm in diameter. There is compression of the true lumen by the false lumen which contains mural thrombus. Noncontrast images show no evidence of intramural hematoma. There is mild right ventricular enlargement. No evidence of pericardial effusion. 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 CT angiogram of the abdomen and pelvis for aorta: Thoracic aortic dissection continues through the entire abdominal aorta into the aortic bifurcation and right common iliac artery. There is a narrowed true lumen with celiac and SMA origin arising from it. There is stenosis at the celiac origin of moderate severity due to the false lumen. Arterial phase liver is unremarkable. Gallbladder is grossly normal. The spleen, pancreas, adrenal glands and kidneys show no acute findings. The left renal artery arises from the true lumen. Right renal artery arises from the false lumen. There may be fenestrations or communication between the true lumen and the false lumen. Aneurysmal dilatation of the abdominal aorta up to 4 cm in diameter, similar to the prior study. The visualized bowel loops show mild colonic diverticulosis but no acute findings. Evaluation is limited due to patient body habitus and beam hardening artifact. Impression: 4 cm abdominal aortic aneurysm with diffuse dissection. This is not significantly changed in the prior study. There is a preliminary report by [facility]. The preliminary report misidentified the true and false lumens. .
--- NOTE | 2017-10-18 10:45 | Progress Note ---
- Date 10/18/17 Subjective: Dariela isn't feeling any better today. She slept rather poorly last night also but states that she typically doesn't sleep more than 4 hours a night at baseline. She is still feeling SOA. Her son from [place] is present. Between the two of them, numerous questions/concerns were addressed. Objective Vital signs: Temperature 97.7 F 10/18/17 07:00 Pulse Rate 73 10/18/17 07:39 Respiratory Rate 24 10/18/17 07:19 Blood Pressure 155/83 H 10/18/17 07:00 Pulse Oximetry 93 10/18/17 07:19 Height/Weight/BMI: Height 1.65 m Weight 119 kg Body Mass Index 44.6 - Constitutional Present: no acute distress, well nourished, well developed - Routine HEENT Exam Head: Present: normocephalic Eye: Present: PERRL. Absent: conjunctival icterus, scleral injection - Routine Respiratory Exam Present: decreased breath sounds, wheezes - Routine Cardiovascular Exam Present: RRR, S1, S2, murmur - Routine Abdominal Exam Present: soft, normoactive bowel sounds, non distended, non tender - Routine Extremities Exam Present: edema (1+ BLE) - Routine Skin Exam Present: intact, dry, warm Comments: venous stasis BLE - Routine Neurological Exam Present: alert, oriented X3, CN II-XII intact, moving all extremities, vision grossly intact, hearing grossly intact, normal speech. Absent: sensory deficit , motor deficit, altered mental status, facial asymmetry - Routine Psychiatric Exam Present: normal affect, normal thought process, cooperative Results - Labs CBC & Chem 7: 10/18/17 04:59 10/18/17 04:59 Assessment and Plan Assessment and Plan: Assessment Acute on chronic hypoxia Bilateral pulmonary emboli DVT of right popliteal vein Elevated troponin Leukocytosis, POA Hyperbilirubinemia, POA GI bleed in August,. 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 Zuleyka Villanueva) Aortic dissection - chronic Elevated hgb, chronic; Erythrocytosis, normal erythropoietin 09/13/17 HTN Chronic pruritus Tobacco use Nonsustained V. tach during last hospitalization in August Nonsustained V TACH with this admission Right lung nodule Morbid Obesity BMI 44.7 Plan Requiring 6L O2. Could consider steroids. Continue DuoNebs, Pulmicort, and doxycycline. Suspect leukocytosis secondary to IV steroids given yesterday prior to contrast for CTA. Diuresis with Lasix 40 mg IV BID - Echo pending. Per cardiology. Anticoagulated with Lovenox BID. Dr. Kimbrough consulted for erythrocytosis (Dr. Haley is not here today). Will also ask him to review the CTA which showed a right pulmonary nodule. CTA impression: 1. Large amount of bilateral pulmonary embolus with evidence of right heart strain. Emergent cardiology consultation is recommended. 2. New 1.5 cm right middle lobe pulmonary nodule suspicious for a primary lung malignancy. Recommend PET/CT or biopsy. 3. Unchanged descending thoracic aortic aneurysm with dissection 4. 4 cm abdominal aortic aneurysm with diffuse dissection. This is not significantly changed in the prior study DVT Prophylaxis: Lovenox GI Prophylaxis: Omeprazole Resuscitation Status: Do Not Resuscitate - Time spent with patient Time with patient PN: 35 minutes - Physician Narrative Physician: Saleem Garcia MD Narrative: Date: 10/18/17 Time: 0 Have independently interviewed and examined pt. Chart reviewed. Case discussed with CM, cardiology, and my LATHING SUPERVISOR. Care plan developed with my supervision; agree with above. Resting in bed. Diffuse/chronic pain very bothersome-unrelenting, wearing her down. Mood very down from the chronic pain. Breathing still short. Discomfortable to breath, notes cough and congestion. One big concern she has is needing a better portable O2 canister--impossible for her to lug the large tanks around. Did discuss her acute and chronic problems for 35 minutes. Lungs: decreased CV: regular AB: soft Obese BS decreased MSE: awake alert, distraught Plan: Will check TSH secondary to fatigue and Obesity. Check B12 due to fatigue. Check Vit D as pt primarily indoors. Have CM check on possibility of better home portable unit--sounds as if she gets a 'run around' of 'will check on it.' Encourage CPAP use-can bring in home unit; until then, RT can set up CPAP with our machines. Continue Neb treatments and Doxycycline. Heme consult place. Active listening performed. Hospital Course Summary Disclaimer: The visit summary below is not to be considered part of the above Progress Note.
--- NOTE | 2017-10-18 10:53 | Cardiology Progress Note ---
<Ro Pang A - Last Filed: 10/18/17 13:49> Subjective Interval history: Today, patient states that she is so short of air that it is difficult for her to ambulate to the restroom She is tired and weak She understands that she will be seen my Hematology for her recurring PE, coagulopathy. Patient states that she feels better when her oxygen level is turned up. When they try to keep her oxygen saturations around 91 she becomes very symptomatic. She understands that she has multiple health concerns and wants to be comfortable if there is nothing that can be done from a medical standpoint. She admits that prior to this admit she was very SOA and does not want to live that way. Exam Vital signs: Temperature 97.7 F 10/18/17 07:00 Pulse Rate 73 10/18/17 07:39 Respiratory Rate 24 10/18/17 07:19 Blood Pressure 155/83 H 10/18/17 07:00 Pulse Oximetry 93 10/18/17 07:19 Inpatient Medications: Generic Name Dose Route Start Last Admin Trade Name Freq PRN Reason Stop Dose Admin Acetaminophen 650 mg 10/17/17 05:15 10/17/17 19:23 Tylenol PO 650 mg Q5H PRN Administration Discomfort Al Hydroxide/Mg Hydroxide 30 ml 10/17/17 05:15 Maalox Plus PO Q3H PRN Indigestion Albuterol/Ipratropium 3 ml 10/17/17 09:00 10/18/17 07:17 Duoneb AEROSOL 3 ml QID ELEAZAR Administration Amlodipine Besylate 5 mg 10/17/17 09:00 10/18/17 09:09 Norvasc PO 5 mg DAILY ELEAZAR Administration Benzonatate 100 mg 10/17/17 15:00 10/18/17 09:09 Tessalon Perles PO 100 mg TID ELEAZAR Administration Budesonide 0.5 mg 10/17/17 05:15 10/18/17 07:16 Pulmicort Inhalation AEROSOL 0.5 mg Q12H ELEAZAR Administration Diclofenac Sodium 1 applic 10/17/17 05:15 10/18/17 06:37 Voltaren TP 1 applic BID PRN Administration pain Doxycycline Hyclate 100 mg 10/17/17 08:00 10/18/17 09:09 Vibramycin PO 100 mg BIDWM ELEAZAR Administration Enoxaparin Sodium 120 mg 10/18/17 17:00 Lovenox 1 mg/kg (120 mg) SQ Q12H ELEAZAR Furosemide 40 mg 10/17/17 09:00 10/18/17 09:10 Lasix 20 Mg/2 Ml IVP 40 mg Q12HR ELEAZAR Administration Gabapentin 600 mg 10/17/17 09:00 10/18/17 09:09 Neurontin PO 600 mg TID ELEAZAR Administration Labetalol HCl 100 mg 10/17/17 09:00 10/18/17 09:09 Normodyne PO 100 mg BID ELEAZAR Administration Lisinopril 20 mg 10/17/17 09:00 10/18/17 09:08 Prinivil PO 20 mg BID ELEAZAR Administration Loratadine 10 mg 10/17/17 06:30 10/18/17 05:51 Claritin PO 10 mg ACBID ELEAZAR Administration Methylprednisolone Sodium Succinate 62.5 mg 10/17/17 03:45 10/18/17 04:08 Solu-Medrol IVP 62.5 mg O ELEAZAR Administration Nitroglycerin 0.4 mg 10/17/17 02:12 Nitrostat SL Q5MIN3 PRN Chest pain Omeprazole 20 mg 10/17/17 06:30 10/18/17 05:51 Prilosec PO 20 mg ACB ELEAZAR Administration Ondansetron HCl 4 mg 10/17/17 05:10 Zofran IVP Q6H PRN Nausea Sodium Chloride 10 - 80 ml 10/17/17 05:10 10/18/17 04:08 Iv Flush IV 10 ml PRN PRN Administration Flushing Tramadol HCl 50 mg 10/17/17 05:15 10/18/17 05:51 Ultram PO 50 mg Q6H PRN Administration pain Discontinued Medications Generic Name Dose Route Start Last Admin Trade Name Freq PRN Reason Stop Dose Admin Albuterol/Ipratropium 3 ml 10/17/17 02:10 10/17/17 02:10 Duoneb AEROSOL 10/17/17 02:11 3 ml O ONE Administration Diphenhydramine HCl 50 mg 10/17/17 12:23 10/17/17 13:06 Benadryl PO 10/17/17 12:24 50 mg O ONE Administration Enoxaparin Sodium 120 mg 10/17/17 03:23 08/05/18 04:33 Lovenox SQ 10/17/17 03:24 120 mg O ONE Administration Enoxaparin Sodium 40 mg 10/18/17 09:00 Lovenox SQ DAILY ELEAZAR Enoxaparin Sodium 120 mg 10/17/17 17:00 10/18/17 04:10 Lovenox 1 mg/kg (120 mg) 120 mg SQ Administration Q12H ELEAZAR Sodium Chloride 500 mls @ 500 mls/hr 10/17/17 02:12 10/17/17 09:31 Normal Saline IV 10/17/17 03:11 Not Given .Q1H ONE Sodium Chloride 1,000 mls @ 100 mls/hr 10/17/17 02:30 10/17/17 05:39 Normal Saline IV Infused .Q10H ELEAZAR Infusion Methylprednisolone Sodium Succinate 125 mg 10/17/17 12:22 10/17/17 13:05 Solu-Medrol IVP 10/17/17 12:23 125 mg O ONE Administration Morphine Sulfate 2 mg 10/17/17 10:26 10/17/17 11:02 Morphine Sulf 2 Mg Inj IVP 10/17/17 10:27 2 mg O ONE Administration Pharmacy Consult 1 each 10/17/17 05:54 10/17/17 09:31 Pharmacy Consult - Fall Risk 10/17/17 05:55 1 each ONE TIME ONE Administration Pneumococcal Polyvalent Vaccine 0.5 ml 10/17/17 08:03 10/17/17 11:05 Pneumovax 23 IM 10/17/17 08:04 0.5 ml .ONCE ONE Administration Sodium Chloride 10 - 80 ml 10/17/17 02:12 10/17/17 02:24 Iv Flush IVF 10 ml PRN PRN Administration Flushing - Constitutional mild distress, morbidly obese, cooperative - Routine HEENT Exam Head: Present: normocephalic, atraumatic. Absent: facial swelling Eye: Present: EOMI, PERRL, conjunctivae pink ENT: Present: mucous membranes moist Comments: dentures in place - Routine Neck Exam Present: trachea midline - Routine Respiratory Exam Present: accessory muscle use, prolonged expiratory phase, rhonchi, wheezes, crackles, distant breath sounds - Routine Cardiovascular Exam Present: RRR - Routine Abdominal Exam Present: normoactive bowel sounds, non distended - Routine Extremities Exam Comments: feet with dark purple discoloration bilat. She has 1+ palpable pedal pulses. Feet are warm bilt - Routine Neurological Exam Present: alert, oriented X3, normal speech, tremors - Routine Psychiatric Exam Present: cooperative Results 10/18/17 04:59 10/18/17 04:59 CBC 10/18/17 Range/Units 04:59 WBC 15.6 H (4.5-11.0) T/MM3 RBC 6.09 H (4.00-5.20) M/MM3 Hgb 18.1 H (12-16) GM/DL Hct 54.0 H (36-46) % Plt Count 191 (130-400) T/MM3 Comprehensive Metabolic Panel 10/18/17 Range/Units 04:59 Sodium 143 (136-146) MEQ/L Potassium 3.9 (3.6-5) MEQ/L Chloride 103 (98-107) MEQ/L Carbon Dioxide 28 (22-30) MEQ/L BUN 15.0 (7-17) MG/DL Creatinine 0.7 (0.7-1.2) mg/dL Glucose 172 H (65-110) MG/DL Calcium 9.1 (8.4-10.2) MG/DL Intake and Output 10/17/17 10/18/17 10/18/17 22:59 06:59 14:59 Intake Total 700 / 700 Output Total 800 / 800 200 / 200 Balance -100 / -100 -200 / -200 Intake: Oral 700 / 700 Output: Urine 600 / 600 200 / 200 Urine Amount (Catheter) 200 / 200 Other: Urine Appearance Clear Clear Urine Color Yellow Yellow Urine Odor Normal # Voids 1 Weight 119 kg Patient Weight 10/19/17 06:59 Weight 119 kg - Imaging and Cardiology Echo: report reviewed Assessment and Plan - Assessment and Plan (1) Abdominal aortic aneurysm without rupture Current visit: Yes Status: Chronic (2) CAD (coronary artery disease), [place] coronary artery Current visit: Yes Status: Chronic (3) Elevated d-dimer Current visit: Yes Status: Acute (4) COPD (chronic obstructive pulmonary disease) Current visit: Yes Status: Chronic (5) Hypertension Current visit: Yes Status: Chronic (6) Heart murmur Current visit: Yes Status: Chronic (7) Obstructive sleep apnea Current visit: Yes Status: Chronic (8) GERD (gastroesophageal reflux disease) Current visit: Yes Status: Acute (9) History of GI bleed Current visit: Yes Status: Chronic (10) Ventricular tachycardia Current visit: Yes Status: Chronic (11) Chronic pulmonary embolism Current visit: Yes Status: Chronic (12) Dyspnea Current visit: Yes Status: Acute (13) Chest pain Current visit: Yes Status: Acute (14) NSTEMI (non-ST elevated myocardial infarction) Current visit: Yes Status: Acute (15) Acute on chronic respiratory failure with hypoxemia Current visit: Yes Status: Acute (16) Acute on chronic diastolic (congestive) heart failure Current visit: Yes Status: Acute (17) Nicotine dependence Current visit: Yes Status: Chronic - Assessment and Plan Dyspnea multifactorial with CHF, PE, COPD exacerbation as contributing factors Baseline 3 L O2 per NC Now requiring 5L to 6L O2 per NC to maintain sat >90% CXR: Pulmonary vascular congestion, persistant basilar opacities (may relate to mild edema) +Cough, +Hemoptysis - Recently diagnosed with pneumonia - being followed by Medicine Chest Pain Chronic in nature Allergic to nitro and Asa IV morphine prn EKG: Junctional Rhythm with occasional ventricular premature complexes and occasional supraventricular complexes (pattern consistent with pulmonary disease ), RBBB, inferior VT or undetermined age, No acute ischemia 10/2016 Echo: EF 55-60%, LVH, Impaired diastolic dysfunction, trace MR, dilated LA, enlarged RA 08/2017 Heart Cath: Mild Coronary Artery Disease (30-40%) Elevated Troponin - most likely Demand Ischemia/Right heart strain Multifactorial Warfarin stopped prior to this admit due to GI Bleed but now tolerating therapeutic dosing of Lovenox Troponin peaked at 0.17 and trended down Continue BB and MJ Acute on Chronic Diastolic Heart Failure 2016 Echo: EF 55-60%, LVH, Impaired diastolic dysfunction, trace MR, dilated LA , enlarged RA Ordered 2 D-Echo this admit results pending Patient non-compliant with home lasix Lasix 40 mg IV BID Acute on Chronic Hypoxic Respiratory Failure - multifactorial due to COPD exacerbation, A/C Diastolic HF, PE Baseline 3 L O2 per NC Now requiring 5L O2 per NC to maintain sat >90% CXR: Pulmonary vascular congestion, persistant basilar opacities (may relate to mild edema) Chronic Pulmonary Embolism DVT Was previously treated with warfarin Warfarin was stopped approximately 1 month ago following hospitalization for GI Bleed Presented with tachycardia and tachypnea, reports hemoptysis INR 1.18 D-Dimer [id number] Currently, On Lovenox therapeutic dosing and tolerating well CTA of chest 10/17/17 revealing 1. Large amount of bilateral pulmonary embolus with evidence of right heart strain. Emergent cardiology consultation is recommended. 2. New 1.5 cm right middle lobe pulmonary nodule suspicious for a primary lung malignancy. Recommend PET/CT or biopsy. Will await recommendations by Hematology Coronary Artery Disease Allergic to aspirin, Continue BB and MJ-I 08/2017 Heart Cath: Mild Coronary Artery Disease (30-40%) Current Echo Pending Ventricular Tachycardia Asymptomatic Tolerating Medical Therapy Continue BB Therapy Hypertension Resume home labetolol, lisinopril and Norvasc Increase Norvasc to 10mg daily AAA with [place] Type B aortic dissection 08/2016 CTA of the Chest: Impression: Extensive Byron type B aortic dissection with gradual enlargement and development amount of aortic arch and descending aortic aneurysms. Overall diameter is approximately 1 cm larger than the 2014 comparison. Vascular surgical evaluation is suggested. Followed by Dr. Earl Villanueva, recently seen No intervention at this time Will continue to monitor routinely Patient to be considering stent vs. open repair Keep bood pressure controlled COPD On Chronic O2 at 3L by SD home doses Followed by Medicine - we appreciate recs Patient on BT/IV steroids BARBIE Severe On home CPAP RCAT On chronic O2 therapy GERD Continue home Prilosec History of GI Bleed Hospitalized in September of 2017 Taken off warfarin therapy 08/2017 Upper and Lower GI: Duodenitis of duodenal bulb, mild antral gastritis , possible Blackwell's esophagus, severe pandiverticulosis, 0.5 cm sessile polyp of transverse colon, multiple polyps of the sigmoid colon (5 removed), multiple polyps of the rectum (4 removed) Followed by Medicine History of TIA Recently taken off of Warfarin Allergic to aspirin Continue risk management Followed by medicine History of Pneumonia Pt reports recent treatments with multiple ABX therapy for ongoing pneumonia Currently on Doxycycline 100 mg PO BID Will continue per Dr. Russell Followed by medicine Nicotine Dependence Cessation Counseling Ppx: SQ Lovenox full dose Famotidine Hospital Course 10/17/17 Consulted Hospitalist for Hypoxia and hx of Pneumonia Has hx of Warfarin use for PE but recent GI bleed and was no longer on Warfarin upon this admit Oncology has been consulted for PE Patient placed on Full dose of Lovenox for PE and tolerating well CTA chest revealing Chronic Aortic dissection 10/18/17 Continued Lovenox awaiting Oncology recommendations Increased Norvasc to 10mg daily 10/18 Hospital Course Summary Disclaimer: The visit summary below is not to be considered part of the above Progress Note. <Scotty Mosley - Last Filed: 10/18/17 18:43> Exam Vital signs: Temperature 97.6 F 10/18/17 16:00 Pulse Rate 67 10/18/17 16:00 Respiratory Rate 22 10/18/17 15:45 Blood Pressure 156/74 H 10/18/17 15:06 Pulse Oximetry 96 10/18/17 15:45 Inpatient Medications: Generic Name Dose Route Start Last Admin Trade Name Freq PRN Reason Stop Dose Admin Acetaminophen 650 mg 10/17/17 05:15 10/17/17 19:23 Tylenol PO 650 mg Q5H PRN Administration Discomfort Al Hydroxide/Mg Hydroxide 30 ml 10/17/17 05:15 Maalox Plus PO Q3H PRN Indigestion Albuterol/Ipratropium 3 ml 10/17/17 09:00 10/18/17 15:44 Duoneb AEROSOL 3 ml QID ELEAZAR Administration Amlodipine Besylate 10 mg 10/18/17 14:00 10/18/17 14:11 Norvasc PO 10 mg DAILY ELEAZAR Administration Benzonatate 100 mg 10/17/17 15:00 10/18/17 14:11 Tessalon Perles PO 100 mg TID ELEAZAR Administration Budesonide 0.5 mg 10/17/17 05:15 10/18/17 07:16 Pulmicort Inhalation AEROSOL 0.5 mg Q12H ELEAZAR Administration Diclofenac Sodium 1 applic 10/17/17 05:15 10/18/17 14:18 Voltaren TP 1 applic BID PRN Administration pain Doxycycline Hyclate 100 mg 10/17/17 08:00 10/18/17 17:23 Vibramycin PO 100 mg BIDWM ELEAZAR Administration Enoxaparin Sodium 120 mg 10/18/17 17:00 10/18/17 17:23 Lovenox 1 mg/kg (120 mg) 120 mg SQ Administration Q12H ELEAZAR Furosemide 40 mg 10/17/17 09:00 10/18/17 09:10 Lasix 20 Mg/2 Ml IVP 40 mg Q12HR ELEAZAR Administration Gabapentin 600 mg 10/17/17 09:00 10/18/17 14:12 Neurontin PO 600 mg TID ELEAZAR Administration Labetalol HCl 100 mg 10/17/17 09:00 10/18/17 09:09 Normodyne PO 100 mg BID ELEAZAR Administration Lisinopril 20 mg 10/17/17 09:00 10/18/17 09:08 Prinivil PO 20 mg BID ELEAZAR Administration Loratadine 10 mg 10/17/17 06:30 10/18/17 17:23 Claritin PO 10 mg ACBID ELEAZAR Administration Methylprednisolone Sodium Succinate 62.5 mg 10/17/17 03:45 10/18/17 04:08 Solu-Medrol IVP 62.5 mg O ELEAZAR Administration Nicotine 14 mg 10/18/17 17:00 10/18/17 16:54 Nicoderm TD 14 mg DAILY [facility] Administration Nitroglycerin 0.4 mg 10/17/17 02:12 Nitrostat SL Q5MIN3 PRN Chest pain Omeprazole 20 mg 10/17/17 06:30 10/18/17 05:51 Prilosec PO 20 mg ACB ELEAZAR Administration Ondansetron HCl 4 mg 10/17/17 05:10 Zofran IVP Q6H PRN Nausea Sodium Chloride 10 - 80 ml 10/17/17 05:10 10/18/17 04:08 Iv Flush IV 10 ml PRN PRN Administration Flushing Tramadol HCl 50 mg 10/17/17 05:15 10/18/17 05:51 Ultram PO 50 mg Q6H PRN Administration pain Discontinued Medications Generic Name Dose Route Start Last Admin Trade Name Freq PRN Reason Stop Dose Admin Albuterol/Ipratropium 3 ml 10/17/17 02:10 10/17/17 02:10 Duoneb AEROSOL 10/17/17 02:11 3 ml O ONE Administration Amlodipine Besylate 5 mg 10/17/17 09:00 10/18/17 09:09 Norvasc PO 5 mg DAILY [facility] Administration Diphenhydramine HCl 50 mg 10/17/17 12:23 10/17/17 13:06 Benadryl PO 10/17/17 12:24 50 mg O ONE Administration Enoxaparin Sodium 120 mg 10/17/17 03:23 10/17/17 04:33 Lovenox SQ 10/17/17 03:24 120 mg O ONE Administration Enoxaparin Sodium 40 mg 10/18/17 09:00 Lovenox SQ DAILY ELEAZAR Enoxaparin Sodium 120 mg 10/17/17 17:00 10/18/17 04:10 Lovenox 1 mg/kg (120 mg) 120 mg SQ Administration Q12H ELEAZAR Sodium Chloride 500 mls @ 500 mls/hr 10/17/17 02:12 10/17/17 09:31 Normal Saline IV 10/17/17 03:11 Not Given .Q1H ONE Sodium Chloride 1,000 mls @ 100 mls/hr 10/17/17 02:30 10/17/17 05:39 Normal Saline IV Infused .Q10H ELEAZAR Infusion Methylprednisolone Sodium Succinate 125 mg 10/17/17 12:22 10/17/17 13:05 Solu-Medrol IVP 10/17/17 12:23 125 mg O ONE Administration Morphine Sulfate 2 mg 10/17/17 10:26 10/17/17 11:02 Morphine Sulf 2 Mg Inj IVP 10/17/17 10:27 2 mg O ONE Administration Pharmacy Consult 1 each 10/17/17 05:54 10/17/17 09:31 Pharmacy Consult - Fall Risk 10/17/17 05:55 1 each ONE TIME ONE Administration Pneumococcal Polyvalent Vaccine 0.5 ml 10/17/17 08:03 10/17/17 11:05 Pneumovax 23 IM 10/17/17 08:04 0.5 ml .ONCE ONE Administration Sodium Chloride 10 - 80 ml 10/17/17 02:12 10/17/17 02:24 Iv Flush IVF 10 ml PRN PRN Administration Flushing Results 10/18/17 04:59 10/18/17 04:59 CBC 10/18/17 Range/Units 04:59 WBC 15.6 H (4.5-11.0) T/MM3 RBC 6.09 H (4.00-5.20) M/MM3 Hgb 18.1 H (12-16) GM/DL Hct 54.0 H (36-46) % Plt Count 191 (130-400) T/MM3 Comprehensive Metabolic Panel 10/18/17 Range/Units 04:59 Sodium 143 (136-146) MEQ/L Potassium 3.9 (3.6-5) MEQ/L Chloride 103 (98-107) MEQ/L Carbon Dioxide 28 (22-30) MEQ/L BUN 15.0 (7-17) MG/DL Creatinine 0.7 (0.7-1.2) mg/dL Glucose 172 H (65-110) MG/DL Calcium 9.1 (8.4-10.2) MG/DL Intake and Output 10/18/17 10/18/17 10/18/17 06:59 14:59 22:59 Intake Total 540 / 540 Output Total 200 / 200 Balance -200 / -200 540 / 540 Intake: Oral 540 / 540 Output: Urine 200 / 200 Other: Urine Appearance Clear Urine Color Yellow Weight 119 kg Patient Weight 10/19/17 06:59 Weight 119 kg Assessment and Plan - Assessment and Plan (1) Abdominal aortic aneurysm without rupture Current visit: Yes Status: Chronic (2) CAD (coronary artery disease), [place] coronary artery Current visit: Yes Status: Chronic (3) Elevated d-dimer Current visit: Yes Status: Acute (4) COPD (chronic obstructive pulmonary disease) Current visit: Yes Status: Chronic (5) Hypertension Current visit: Yes Status: Chronic (6) Heart murmur Current visit: Yes Status: Chronic (7) Obstructive sleep apnea Current visit: Yes Status: Chronic (8) GERD (gastroesophageal reflux disease) Current visit: Yes Status: Acute (9) History of GI bleed Current visit: Yes Status: Chronic (10) Ventricular tachycardia Current visit: Yes Status: Chronic (11) Chronic pulmonary embolism Current visit: Yes Status: Chronic (12) Dyspnea Current visit: Yes Status: Acute (13) Chest pain Current visit: Yes Status: Acute (14) NSTEMI (non-ST elevated myocardial infarction) Current visit: Yes Status: Acute (15) Acute on chronic respiratory failure with hypoxemia Current visit: Yes Status: Acute (16) Acute on chronic diastolic (congestive) heart failure Current visit: Yes Status: Acute (17) Nicotine dependence Current visit: Yes Status: Chronic - Assessment and Plan I have seen and evaluated the patient today. I have reviewed existing records, radiology, Telemetry, EKG findings, etc. I have discussed with the patient that she is in need of an IVC filter given her hx of DVT/PE Patient and son ok with proceeding with IVC filter placement Will consider placing the IVC in 1 to 2 days - before discharge I will discuss my plans with and we will make a determination on best anticoagulation for her given her hx of GI Bleed We could consider NOAC as an alternative to Warfarin to keep her anticoagulation at a steady state - will discuss with Dr. Blancas. We appreciate all consultants assistance on this complex patient. Patient has abnormal CTA chest - will need follow up once discharged I have reviewed telemetry and EKG today revealing an episode of atrial fibrillation with aberrancy - continue same Hospital Course Summary Disclaimer: The visit summary below is not to be considered part of the above Progress Note.
[2017-10-18] MEDS: AMLODIPINE 10 MG TABLET PO SCH (14:11)
[2017-10-18] MEDS: NICOTINE 14 MG PATCH TD SCH (16:54)
[2017-10-18] MEDS: ENOXAPARIN 120 MG/0.8 ML INJECTION SQ SCH (17:23)
--- NOTE | 2017-10-18 17:29 | Consult Note ---
Oncology HPI - Data of Consult Patient: new to practice Consult date: 10/18/17 Requesting Physician: Scotty Mosley MD Primary Care Provider: Nabila Momin APRN Family Provider: Dr. Leahy - Consult Narrative Reason for consult: rule out hypercoagulable state, lung nodule, elevated hemoglobin History of present illness: Patient has had multiple medical problems with repeated hospitalizations over the last several months including both here and at [facility]. These problems include congestive heart failure, pulmonary embolism, GI bleed, hypoxemia with respiratory failure, she was admitted most recently on 10/16/17 with increasing shortness of breath and inability to catch her breath. 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 Absent: hoarseness - Cardiovascular Cardiovascular: Present: chest pain, dyspnea on exertion, orthopnea, edema - Respiratory Respiratory: Present: cough, dyspnea, hemoptysis (present approximately 4 days prior to admission) - Gastrointestinal Gastrointestinal: Present: diarrhea, melena (with hospitalization at the end of August), nausea, vomiting - Genitourinary Genitourinary: Present: genital pruritus, urinary incontinence. Absent: hematuria - Musculoskeletal Musculoskeletal: Present: back pain, myalgias, stiffness - Integumentary/Breasts Integumentary: Present: pruritus (generalized worsened by hot shower) - Neurological Neurological: Present: headache(s) - Hematologic/Lymphatic Hematologic/Lymphatic: Present: lymphadenopathy (swollen right submandibular gland) - Allergic/Immunologic Allergic/Immunologic: Present: urticaria PFSH Patient Stated Medical History Migraine Yes Peripheral Neuropathy Yes Transient Ischemic Attacks ( Yes TIA) Cataracts Yes: R eye Dysphagia Yes Other HEENT Yes: bleeding retina Angina Yes Congestive Heart Failure Yes Heart Murmur Yes Hypertension Yes Other Cardiology Yes: heart dislocated from wall tissue Bronchitis Yes Chronic Obstructive Pulmonary Yes Disease (COPD) Pneumonia Yes Pulmonary Embolism Yes Sleep Apnea Yes Gastroesophageal Reflux Yes: controlled with diet Disease Gastrointestinal Bleeding Yes: over 20years ago Hiatal Hernia Yes Ulcer Yes Hx Urinary Tract Infection Yes MRSA Yes: groin Other Yes: full body itching Depression Yes Post Traumatic Stress Disorder Yes Abnormal Pap Yes: fungal infection Ovarian Cysts Yes Post Menopausal Yes Clinic Medical History (Last Updated 10/17/17 @ 12:34 by Ana Silva APRN) Agree with below. GDN Aortic dissection (Chronic Medical) Pedal edema (Chronic Medical) COPD (chronic obstructive pulmonary disease) with chronic bronchitis (Chronic Medical) Hx pulmonary embolism (Chronic Medical) Chronic lumbosacral pain (Chronic Medical) Barretts esophagus (Acute Medical) Obstructive sleep apnea hypopnea, severe (Acute Medical) AAA (abdominal aortic aneurysm) (Chronic Medical) Anticoagulated on warfarin (Chronic Medical) HTN (hypertension) (Chronic Medical) Hiatal hernia (Chronic Medical) Low back pain (Chronic Medical) Obesity (Chronic Medical) Surgical History: EGD and colonoscopy 09/09/17 (Rina): mild duodenitis, mild antral gastritis, pandiverticulosis, pathology compatible with Blackwell's. Heart catheterization 09/10/17 (Dr. Mosley): mild coronary artery disease, EF 65 %. D&C for uterine bleeding 1974. Unilateral oophorectomy. Removal of bone chip in leg 1977. 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, 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 Does patient use chewing tobacco?: No Current residence: Apartment/Private Home Medications Home Medications Medication Instructions Recorded Confirmed Type Ultram (Tramadol) 50 mg tablet 50 mg PO Q6H PRN #120 tab 10/07/16 10/17/17 Rx Voltaren (Diclofenac) 1 % topical 4 g TOP BID PRN #100 g 03/05/17 10/17/17 Rx gel doxycycline hyclate 100 mg capsule 100 mg PO BID #180 cap 05/10/17 10/17/17 Rx Neurontin (gabapentin) 600 mg 600 mg PO TID #90 tab 06/24/17 10/17/17 Rx tablet Claritin (Loratadine) 10 mg tablet 10 mg PO BID #60 tab 08/03/17 10/17/17 Rx Pulmicort (Budesonide) 0.5 mg/2 mL 2 ml INH Q12H #60 ml 08/03/17 10/17/17 Rx suspension for nebulization ipratropium-albuterol 0.5 mg-3 3 ml INH QID #180 ml 08/03/17 10/17/17 Rx mg(2.5 mg base)/3 mL nebulization soln Acetaminophen [Tylenol] 650 mg PO Q5H PRN tab 09/13/17 10/17/17 Rx Labetalol [Normodyne] 100 mg PO BID #60 tab 09/13/17 10/17/17 Rx Lisinopril [Prinivil] 20 mg PO DAILY #30 tab 09/13/17 10/17/17 Rx Mag-Al + Sim Oral Liq [Maalox Plus] 30 ml PO Q3H PRN udc 09/13/17 10/17/17 Rx Furosemide [Lasix 40 mg Tab] 40 mg PO 0900,1700 #60 tab 10/22/17 Rx NIFEdipine [Nifedipine ER] 90 mg PO DAILY #30 tab.er.24 10/22/17 Rx Prilosec (Omeprazole) 20 mg 20 mg PO ACB #30 cap 10/22/17 Rx capsule,delayed release Rivaroxaban [Xarelto] 20 mg PO WS #30 tab 10/22/17 Rx Allergies Allergy/AdvReac Type Severity Reaction Status Date / Time aspirin Allergy Verified 10/17/17 02:28 Iodinated Contrast- Oral and Allergy Verified 10/17/17 02:28 IV Dye oxycodone Allergy Verified 10/17/17 02:28 Penicillins Allergy Verified 10/17/17 02:28 propoxyphene [From Darvon] Allergy Verified 10/17/17 02:28 nitroglycerin AdvReac Intermediate Headache Verified 10/17/17 02:28 [From Nitro-Bid] Exam Vital signs: Temperature 97.6 F 10/18/17 16:00 Pulse Rate 67 10/18/17 16:00 Respiratory Rate 22 10/18/17 15:45 Blood Pressure 156/74 H 10/18/17 15:06 Pulse Oximetry 96 10/18/17 15:45 - Constitutional mild distress, obese - Routine HEENT Exam Head: Present: normocephalic Eye: Present: EOMI, PERRL ENT: Present: mucous membranes moist - Routine Neck Exam Present: supple, lymphadenopathy (Right cervical) - Routine Respiratory Exam Present: decreased breath sounds, wheezes - Routine Cardiovascular Exam Present: RRR, murmur - Routine Abdominal Exam Present: soft, non distended. Absent: rebound - Routine Extremities Exam Present: edema (3+ with erythema) - Routine Skin Exam Present: dry, warm - Routine Neurological Exam Present: CN II-XII intact - Routine Psychiatric Exam Present: normal affect, normal thought process Oncology Results - Labs CBC & Chem 7: 10/22/17 04:35 10/22/17 04:35 Labs: Short CBC 10/18/17 Range/Units 04:59 WBC 15.6 H (4.5-11.0) T/MM3 Hgb 18.1 H (12-16) GM/DL Hct 54.0 H (36-46) % Plt Count 191 (130-400) T/MM3 [facility] 10/18/17 04:59 Sodium 143 Potassium 3.9 Chloride 103 Carbon Dioxide 28 BUN 15.0 Creatinine 0.7 Glucose 172 H Calcium 9.1 - Impressions Leukocytosis with elevated hemoglobin Assessment and Plan Assessment and Plan: 1. Recurrent pulmonary embolism rule out hypercoagulable state. Elevated hemoglobin raises concern for polycythemia rubra vera. She has itching after hot shower that also raises the concern of polycythemia rubra vera. Will obtain CAITLYN 2 mutation and erythropoietin level. In addition we will check for factor V Leiden, prothrombin 71466 A/Ggene mutation and anti-cardiolipin antibody IgG and IgM. Currently on anticoagulation with Lovenox 1 mg/kg. 2. Lung nodule on CT scan this is indeterminate finding would best be evaluated by PET scan when breathing status is improved. It is more central and biopsy would be difficult in the face of her anticoagulation. 3. Elevated hemoglobin with associated itching and leukocytosis this could be secondary to hypoxemia with excess erythropoietin production or from polycythemia rubra vera with her excessive itching after hot shower. It is associated with elevated white count that can be associated with polycythemia rubra vera can also be associated with chronic hypoxemia from her COPD and from tobacco use. 4. Neutrophilic leukocytosis with mild elevation of white blood cell count probably secondary to steroids. His results and emargination of the white blood cells causing the neutrophil count to be elevated 5. Right submandibular lymphadenopathy of uncertain etiology. No enlarged lymph nodes noticed on CT scan of the chest. Will consider further evaluation with PET scan and LDH. 6. Chronic obstructive pulmonary disease with acute on chronic respiratory failure 7. Congestive heart failure with elevated proBNP, chronic edema, dilated vessels 8. 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 Marked obesity 10. Tobacco use Recommendations Erythropoietin, JAK2 [id number] Anticardiolipin antibody IgG and IgM Factor V Leiden Prothrombin 23936 A/G mutation analysis LDH Consider PET scan as outpatient Consider CT of abdomen and pelvis with cervical lymph node
[2017-10-19] MEDS: DICLOFENAC 1% TOP GEL 100gm TP PRN (03:43)
[2017-10-19] MEDS: TRAMADOL 50 MG TABLET PO PRN (03:50)
[2017-10-19] MEDS: METHYLPREDNISOLONE SOD SUCC 125mg/2ml INJECTION IVP SCH (03:51)
[2017-10-19] MEDS: SALINE FLUSH 10ml SYRINGE IV PRN (03:54)
[2017-10-19] MEDS: ENOXAPARIN 120 MG/0.8 ML INJECTION SQ SCH ×2 (03:59→16:30)
[2017-10-19] MEDS: LORATADINE 10 MG TABLET PO SCH ×2 (06:26→16:31)
[2017-10-19] MEDS: OMEPRAZOLE 20 MG CAPSULE PO SCH (06:26)
[2017-10-19] MEDS: BUDESONIDE INH.SOLN 0.5mg/2ml NEB AEROSOL SCH ×2 (07:50→20:53)
[2017-10-19] MEDS: ALBUTEROL/IPRATROPIUM 2.5mg-0.5mg/3ml NEB AEROSOL SCH ×4 (07:50→20:54)
[2017-10-19] MEDS: LISINOPRIL 20 MG TABLET PO SCH ×2 (08:19→20:27)
[2017-10-19] MEDS: GABAPENTIN 600 MG TABLET PO SCH ×3 (08:19→20:26)
[2017-10-19] MEDS: AMLODIPINE 10 MG TABLET PO SCH (08:19)
[2017-10-19] MEDS: BENZONATATE 100 MG CAPSULE PO SCH ×3 (08:19→20:28)
[2017-10-19] MEDS: LABETALOL 100 MG TABLET PO SCH ×2 (08:19→20:26)
[2017-10-19] MEDS: FUROSEMIDE 20 MG/2 ML INJECTION IVP SCH ×2 (08:20→20:27)
[2017-10-19] MEDS: NICOTINE 14 MG PATCH TD SCH (08:21)
--- NOTE | 2017-10-19 09:11 | Progress Note ---
- Date 10/19/17 Subjective: Sonya was in the middle of a nebulized treatment. She was sitting on the side of the bed. She feels a little better this morning, but breathing is still short. She can't tolerate her oxygen flow rate going below 5L. She is pleased with the team of providers, and very complimentary. She denies abdominal pain or GI symptoms and has been eating well. Objective Vital signs: Temperature 96.0 F L 10/19/17 04:00 Pulse Rate 64 10/19/17 08:00 Respiratory Rate 20 10/19/17 08:00 Blood Pressure 151/82 H 10/19/17 08:00 Pulse Oximetry 94 10/19/17 08:00 Height/Weight/BMI: Height 1.65 m Weight 119 kg Body Mass Index 44.6 - Constitutional Present: no acute distress, well nourished, well developed, morbidly obese - Routine HEENT Exam Head: Present: normocephalic Eye: Present: PERRL. Absent: conjunctival icterus, scleral injection - Routine Respiratory Exam Present: decreased breath sounds, wheezes (scattered, very few) - Routine Cardiovascular Exam Present: RRR, S1, S2 - Routine Abdominal Exam Present: soft, normoactive bowel sounds, non distended, non tender - Routine Extremities Exam Present: edema (2+ B:E) - Routine Musculoskeletal Exam Musculoskeletal: Present: moving extremities well - Routine Skin Exam Present: intact, dry, warm Comments: venous stasis BLE - Routine Neurological Exam Present: alert, oriented X3, CN II-XII intact, moving all extremities - Routine Psychiatric Exam Present: normal affect, normal thought process, cooperative Results - Labs CBC & Chem 7: 10/19/17 04:36 10/19/17 04:37 Microbiology Results: Microbiology 10/18/17 17:39 Sputum, Expectorated Gram Stain - Final 10/18/17 17:39 Sputum, Expectorated Sputum Culture - Preliminary Early growth Assessment and Plan Assessment and Plan: Assessment Acute on chronic hypoxia Bilateral pulmonary emboli DVT of right popliteal vein Elevated troponin Leukocytosis, POA Hyperbilirubinemia, POA GI bleed in August,. 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 Zuleyka Villanueva) Aortic dissection - chronic Elevated hgb, chronic; Erythrocytosis, normal erythropoietin 09/13/17 HTN Chronic pruritus Tobacco use Nonsustained V. tach during last hospitalization in August Nonsustained V TACH with this admission Right lung nodule Morbid Obesity BMI 44.7 Plan On 5L O2. Continue DuoNebs, Pulmicort, and doxycycline (day #3). Dr. Kimbrough ordered labs to r/o hypercoagulable state; concerned for polycythemia rubra vera. Evaluate lung nodule when respiratory status improves, recommending PET scan. Biopsy would be difficult given location and anticoagulation. Continue Lovenox 1 mg/kg BID. Pt having runs of VT. Also had NSVT during previous admission. Cardiology aware. Diuresis with Lasix 40 mg IV BID - Echo pending. BUN increasing (24) & CO2 up to 31 -- consider reducing diuresis. Per cardiology. Jose RT to work on CPAP tonight-feel this is critical in light of her polycythemia. Continue with current respiratory medications and treatment. With no wheezing, feel can hold on steroids for now. Will place PT/OT eval/treat for Cardiopulmonary debility and OA/gait instability. Dr Haley has discussed at length with Dr Mosley about possible phlebotomy to help her pruritics-after extensive discussion plans to proceed. DVT Prophylaxis: Lovenox GI Prophylaxis: Omeprazole Resuscitation Status: Do Not Resuscitate - Time spent with patient Time with patient PN: 35 minutes - Physician Narrative Physician: Saleem Garcia MD Narrative: Date: 10/19/17 Time: 1614 Have independently interviewed and examined pt. Chart reviewed. Case discussed with Ying and my HOSPITAL WELLNESS COORDINATOR. Care plan developed with my supervision; agree with above. Doing about the same. Yesterday at my visit was a very emotionally draining day- -increased pain, increased frustration. Still with 'frustration' about many things, but dealing with them better. We discusses the emotional stresses she has been under for the past many years. Is open to trying our CPAP, as not able to get hers from home. Still SOA. Chronic pain about the same. Does feels is able to eat better. Bowels slow. Lungs: Decreased, no wheezes or rhonchi CV: distant, regular MSE: awake alert appropriate. Plan: Provided active listening for patient. RT to work on CPAP tonight-feel this is critical in light of her polycythemia. Continue with current respiratory medications and treatment. With no wheezing, feel can hold on steroids for now. Will place PT/OT eval/treat for Cardiopulmonary debility and OA/gait instability. Dr Haley has discussed at length with Dr Mosley about possible phlebotomy to help her pruritics-after extensive discussion plans to proceed. Hospital Course Summary Disclaimer: The visit summary below is not to be considered part of the above Progress Note.
[2017-10-19] MEDS: POLYETHYL GLYCOL 3350 17gm PACKET PO SCH (09:51)
--- NOTE | 2017-10-19 11:15 | Echocardiogram ---
DATE OF PROCEDURE: October 18, 2017 This is a two-dimensional echo with spectral Doppler, color-flow and M-mode. It was obtained in a patient with elevated troponin. Left atrial dimension is normal. Left ventricle end-diastolic dimension is normal. Left ventricular wall thickness increased with asymmetrical septal hypertrophy with septal thickness of 2.7 cm with posterior wall thickness of 1.4 cm. There is no outflow obstruction. LV systolic function is normal with ejection fraction of about 55%. Right atrium is dilated. Right ventricle is dilated. Aortic root dimension is normal. Mitral annulus is calcified. Mitral valve leaflets are normal with mild mitral regurgitation. Aortic valve shows fibrocalcific changes with no stenosis or insufficiency. Tricuspid valve shows mild tricuspid regurgitation with severe pulmonary hypertension with estimated pulmonary artery systolic pressure of 73. Pulmonary valve shows trace of pulmonary insufficiency. There is no pericardial effusion. IMPRESSION 1. Normal LV systolic function with ejection fraction of 55%. 2. Asymmetrical septal hypertrophy with no outflow obstruction. 3. Mitral annulus calcification with mild mitral regurgitation. 4. Aortic sclerosis. 5. Mild tricuspid regurgitation with severe pulmonary hypertension with estimated pulmonary artery systolic pressure of 73. 6. Trace of pulmonary insufficiency. 7. Right atrial dilation. 8. Right ventricular dilation. MTDD
[2017-10-19] MEDS: CYANOCOBALAMIN (B-12) 1,000mcg/ml INJECTION IM SCH (12:03)
--- NOTE | 2017-10-19 14:00 | Progress Note ---
<Vero Burch - Last Filed: 10/19/17 13:57> Oncology Subjective Sitting on bedside, alone in room. Alert and oriented. Answers questions appropriately. Chief complaint is shortness of air, feels breathing has improved in the past 24 hours. Denies pain currently. No nausea or vomiting, no diarrhea. States no BM for past 2 days; feels she may be getting constipated. General: No fever, no night sweats Eyes: No redness, no pain, no diplopia ENT: No mouth sores, no trouble swallowing Cardiac: No chest pain no palpitations Pulmonary: + cough, + shortness of breath, no wheezing Abdomen: No pain, no nausea vomiting, no diarrhea -no BM 2 days. : No urgency, frequency, dysuria, or hematuria Musculoskeletal: No arthritis, no myalgias Neurological: No headaches, no focal weakness Skin: No rash, no sores Psychiatric: No anxiety, no depression Exam Vital signs: Temperature 98.4 F 10/19/17 12:00 Pulse Rate 58 L 10/19/17 12:00 Respiratory Rate 18 10/19/17 12:00 Blood Pressure 139/73 10/19/17 12:00 Pulse Oximetry 93 10/19/17 12:00 Narrative: Generic Name Dose Route Start Last Admin Trade Name Freq PRN Reason Stop Dose Admin Acetaminophen 650 mg 10/17/17 05:15 10/17/17 19:23 Tylenol PO 650 mg Q5H PRN Administration Discomfort Al Hydroxide/Mg Hydroxide 30 ml 10/17/17 05:15 Maalox Plus PO Q3H PRN Indigestion Albuterol/Ipratropium 3 ml 10/17/17 09:00 10/19/17 11:05 Duoneb AEROSOL Not Given QID ELEAZAR Amlodipine Besylate 10 mg 10/18/17 14:00 10/19/17 08:19 Norvasc PO 10 mg DAILY ELEAZAR Administration Benzonatate 100 mg 10/17/17 15:00 10/19/17 08:19 Tessalon Perles PO 100 mg TID ELEAZAR Administration Budesonide 0.5 mg 10/17/17 05:15 10/19/17 07:50 Pulmicort Inhalation AEROSOL 0.5 mg Q12H ELEAZAR Administration Cholecalciferol 5,000 unit 10/19/17 10:15 08/07/18 12:03 Vit. D-3 PO 5,000 unit DAILY ELEAZAR Administration Cyanocobalamin 1,000 mcg 10/19/17 10:15 10/19/17 12:03 Vit. B-12 IM 1,000 mcg DAILY ELEAZAR Administration Diclofenac Sodium 1 applic 10/17/17 05:15 10/19/17 03:43 Voltaren TP 1 applic BID PRN Administration pain Doxycycline Hyclate 100 mg 10/17/17 08:00 10/19/17 08:18 Vibramycin PO 100 mg BIDWM ELEAZAR Administration Enoxaparin Sodium 120 mg 10/18/17 17:00 10/19/17 03:59 Lovenox 1 mg/kg (120 mg) 120 mg SQ Administration Q12H ELEAZAR Furosemide 40 mg 10/17/17 09:00 10/19/17 08:20 Lasix 20 Mg/2 Ml IVP 40 mg Q12HR ELEAZAR Administration Gabapentin 600 mg 10/17/17 09:00 10/19/17 08:19 Neurontin PO 600 mg TID [facility] Administration Labetalol HCl 100 mg 10/17/17 09:00 10/19/17 08:19 Normodyne PO 100 mg BID ELEAZAR Administration Lisinopril 20 mg 10/17/17 09:00 10/19/17 08:19 Prinivil PO 20 mg BID [facility] Administration Loratadine 10 mg 10/17/17 06:30 10/19/17 06:26 Claritin PO 10 mg ACBID [facility] Administration Magnesium Hydroxide 30 ml 10/19/17 09:13 Mom PO DAILY PRN Constipation Methylprednisolone Sodium Succinate 62.5 mg 10/17/17 03:45 10/19/17 03:51 Solu-Medrol IVP 62.5 mg O [facility] Administration Nicotine 14 mg 10/18/17 17:00 10/19/17 08:21 Nicoderm TD 14 mg DAILY [facility] Administration Nitroglycerin 0.4 mg 10/17/17 02:12 Nitrostat SL Q5MIN3 PRN Chest pain Omeprazole 20 mg 10/17/17 06:30 10/19/17 06:26 Prilosec PO 20 mg ACB [facility] Administration Ondansetron HCl 4 mg 10/17/17 05:10 Zofran IVP Q6H PRN Nausea Polyethylene Glycol 17 gm 10/19/17 09:15 10/19/17 09:51 Miralax PO Not Given DAILY ELEAZAR Senna/Docusate Sodium 1 tab 10/19/17 21:00 Senna Plus Tablet PO BID ELEAZAR Sodium Chloride 10 - 80 ml 10/17/17 05:10 10/19/17 03:54 Iv Flush IV 20 ml PRN PRN Administration Flushing Tramadol HCl 50 mg 10/17/17 05:15 10/19/17 03:50 Ultram PO 50 mg Q6H PRN Administration pain Discontinued Medications Generic Name Dose Route Start Last Admin Trade Name Dk PRN Reason Stop Dose Admin Albuterol/Ipratropium 3 ml 10/17/17 02:10 10/17/17 02:10 Duoneb AEROSOL 10/17/17 02:11 3 ml O ONE Administration Amlodipine Besylate 5 mg 10/17/17 09:00 10/18/17 09:09 Norvasc PO 5 mg DAILY ELEAZAR Administration Diphenhydramine HCl 50 mg 10/17/17 12:23 10/17/17 13:06 Benadryl PO 10/17/17 12:24 50 mg O ONE Administration Enoxaparin Sodium 120 mg 10/17/17 03:23 10/17/17 04:33 Lovenox SQ 10/17/17 03:24 120 mg O ONE Administration Enoxaparin Sodium 40 mg 10/18/17 09:00 Lovenox SQ DAILY ELEAZAR Enoxaparin Sodium 120 mg 10/17/17 17:00 10/18/17 04:10 Lovenox 1 mg/kg (120 mg) 120 mg SQ Administration Q12H [facility] Sodium Chloride 500 mls @ 500 mls/hr 10/17/17 02:12 10/17/17 09:31 Normal Saline IV 10/17/17 03:11 Not Given .Q1H ONE Sodium Chloride 1,000 mls @ 100 mls/hr 10/17/17 02:30 10/17/17 05:39 Normal Saline IV Infused .Q10H ELEAZAR Infusion Methylprednisolone Sodium Succinate 125 mg 10/17/17 12:22 10/17/17 13:05 Solu-Medrol IVP 10/17/17 12:23 125 mg O ONE Administration Morphine Sulfate 2 mg 10/17/17 10:26 10/17/17 11:02 Morphine Sulf 2 Mg Inj IVP 10/17/17 10:27 2 mg O ONE Administration Pharmacy Consult 1 each 10/17/17 05:54 10/17/17 09:31 Pharmacy Consult - Fall Risk 10/17/17 05:55 1 each ONE TIME ONE Administration Pneumococcal Polyvalent Vaccine 0.5 ml 10/17/17 08:03 10/17/17 11:05 Pneumovax 23 IM 10/17/17 08:04 0.5 ml .ONCE ONE Administration Sodium Chloride 10 - 80 ml 10/17/17 02:12 10/17/17 02:24 Iv Flush IVF 10 ml PRN PRN Administration Flushing - Constitutional no acute distress, obese, cooperative - Routine HEENT Exam Head: Present: normocephalic Eye: Present: EOMI ENT: Present: mucous membranes moist - Routine Neck Exam Present: supple. Absent: lymphadenopathy - Routine Respiratory Exam Present: decreased breath sounds. Absent: wheezes, crackles - Routine Cardiovascular Exam Present: RRR, no murmur - Routine Abdominal Exam Present: soft, non tender. Absent: mass (difficult to assess secondary to body habitus) - Routine Extremities Exam Present: cyanosis (bilateral feet dark red/cyanotic appearance), no edema, full ROM - Routine Back/Spine/Pelvis Exam Back/Spine: Absent: vertebral tenderness - Routine Skin Exam Present: intact, dry, warm - Routine Neurological Exam Present: alert, oriented X3 - Routine Psychiatric Exam Present: normal affect, cooperative Oncology Results - Labs CBC & Chem 7: 10/19/17 04:36 10/19/17 04:37 Labs: Short CBC 10/19/17 Range/Units 04:36 WBC 16.3 H (4.5-11.0) T/MM3 Hgb 17.0 H (12-16) GM/DL Hct 52.6 H (36-46) % Plt Count 203 (130-400) T/MM3 BMP 10/19/17 04:37 Sodium 144 Potassium 3.8 Chloride 102 Carbon Dioxide 31 H BUN 24.0 H D Creatinine 0.8 Glucose 115 H Calcium 8.9 Liver Function 10/19/17 Range/Units 04:37 Total Bilirubin 0.60 (0.20-1.30) MG/DL AST 26 (14-36) U/L ALT 25 (1-35) U/L Alkaline Phosphatase 74 (38-126) U/L Albumin 3.3 L (3.5-5.0) g/dL Urine 10/18/17 Range/Units 19:42 Urine Color Yellow (YELLOW) Urine Clarity Clear Urine pH 6.0 (5.0-8.0) Ur Specific [place] 1.025 (1.015-1.025) Urine Protein Negative (NEGATIVE) Urine Glucose (UA) Negative (NEGATIVE) Assessment and Plan Assessment and Plan: 1. Recurrent pulmonary embolism rule out hypercoagulable state. Elevated hemoglobin raises concern for polycythemia rubra vera. Currently on anticoagulation with Lovenox 1 mg/kg. planning IVC filter. 2. Lung nodule on CT scan this is indeterminate finding would best be evaluated by PET scan when breathing status is improved. It is more central and biopsy would be difficult in the face of anticoagulation. 3. Elevated hemoglobin with associated itching and leukocytosis this could be secondary to hypoxemia with excess erythropoietin production or from polycythemia rub[place]a with her excessive itching after hot shower. It is associated with elevated white count that can be associated with polycythemia rub[place] can also be associated with chronic hypoxemia from her COPD and from tobacco use. 4. Neutrophilic leukocytosis with mild elevation of white blood cell count probably secondary to steroids. 5. Right submandibular lymphadenopathy of uncertain etiology. No enlarged lymph nodes noticed on CT scan of the chest. Will consider further evaluation with PET scan and LDH. 6. Chronic obstructive pulmonary disease with acute on chronic respiratory failure 7. Congestive heart failure with elevated proBNP, chronic edema, dilated vessels 8. 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 Marked obesity 10. Tobacco use Plan Dr. Haley had long discussion with patient; concern with primary or secondary polycythemia rub[place]; this can contribute to ineffective circulation/ oxygenation. Discussed feel she would benefit from phlebotomy. Discussed quitting smoking. Patient thinks about it; does not have definite quit date. Reinforced benefits for improved breathing, reduce risk for heart attack and decreased cough. Accepts paper "You can quit smoking." Continue supportive care. Consider PET scan as outpatient Consider CT of abdomen and pelvis with cervical lymph node - Time Spent With Patient Total time spent is greater than 50% in coordination of care (as documented) at patient's floor/unit and/or counseling patient: 25 - 35 minutes <Kash Haley - Last Filed: 10/19/17 22:54> Exam Vital signs: Temperature 97.0 F 10/19/17 22:00 Pulse Rate 59 L 10/19/17 22:00 Respiratory Rate 22 10/19/17 22:00 Blood Pressure 162/79 H 10/19/17 22:00 Pulse Oximetry 96 10/19/17 22:00 Oncology Results - Labs CBC & Chem 7: 10/19/17 04:36 10/19/17 04:37 Labs: Short CBC 10/19/17 Range/Units 04:36 WBC 16.3 H (4.5-11.0) T/MM3 Hgb 17.0 H (12-16) GM/DL Hct 52.6 H (36-46) % Plt Count 203 (130-400) T/MM3 BMP 10/19/17 04:37 Sodium 144 Potassium 3.8 Chloride 102 Carbon Dioxide 31 H BUN 24.0 H D Creatinine 0.8 Glucose 115 H Calcium 8.9 Liver Function 10/19/17 Range/Units 04:37 Total Bilirubin 0.60 (0.20-1.30) MG/DL AST 26 (14-36) U/L ALT 25 (1-35) U/L Alkaline Phosphatase 74 (38-126) U/L Albumin 3.3 L (3.5-5.0) g/dL Assessment and Plan Assessment and Plan: I have interviewed and examined the patient with Ying Burch. I recommend for patient phlebotomy to lower hct. I discussed with Dr. Rowell the switch to DAOT and we agreed for IVC filter. - Time Spent With Patient Total time spent is greater than 50% in coordination of care (as documented) at patient's floor/unit and/or counseling patient:
[2017-10-19] MEDS: SENNA + DOCUSATE TABLET PO SCH (20:26)
[2017-10-20] MEDS: METHYLPREDNISOLONE SOD SUCC 125mg/2ml INJECTION IVP SCH (04:20)
[2017-10-20] MEDS: SALINE FLUSH 10ml SYRINGE IV PRN ×2 (04:20→21:31)
[2017-10-20] MEDS: TRAMADOL 50 MG TABLET PO PRN (04:26)
[2017-10-20] MEDS: ENOXAPARIN 120 MG/0.8 ML INJECTION SQ SCH ×2 (04:27→17:38)
[2017-10-20] MEDS: LORATADINE 10 MG TABLET PO SCH ×2 (05:42→17:38)
[2017-10-20] MEDS: OMEPRAZOLE 20 MG CAPSULE PO SCH (05:42)
[2017-10-20] MEDS: DICLOFENAC 1% TOP GEL 100gm TP PRN (05:42)
--- NOTE | 2017-10-20 06:05 | Cardiology Progress Note ---
<Namita Pearson - Last Filed: 10/20/17 06:09> Subjective Principal diagnosis: PE Interval history: Pt is up at bedside today, having hematology blood drawn. Her SOA is improved. Dr. Mosley and she discussed IVC filter placement likely in next 2 days, she agrees with plan. Melany and Rodger Aguayo discussed case over the phone. Exam Vital signs: Temperature 96.8 F 10/20/17 00:16 Pulse Rate 60 10/20/17 00:16 Respiratory Rate 20 10/20/17 00:16 Blood Pressure 160/78 H 10/20/17 00:16 Pulse Oximetry 94 10/20/17 00:16 Inpatient Medications: Generic Name Dose Route Start Last Admin Trade Name Freq PRN Reason Stop Dose Admin Acetaminophen 650 mg 10/17/17 05:15 10/17/17 19:23 Tylenol PO 650 mg Q5H PRN Administration Discomfort Al Hydroxide/Mg Hydroxide 30 ml 10/17/17 05:15 10/19/17 19:13 Maalox Plus PO 30 ml Q3H PRN Administration Indigestion Albuterol/Ipratropium 3 ml 10/17/17 09:00 10/19/17 20:54 Duoneb AEROSOL 3 ml QID [facility] Administration Amlodipine Besylate 10 mg 10/18/17 14:00 10/19/17 08:19 Norvasc PO 10 mg DAILY [facility] Administration Benzonatate 100 mg 10/17/17 15:00 10/19/17 20:28 Tessalon Perles PO 100 mg TID [facility] Administration Budesonide 0.5 mg 10/17/17 05:15 10/19/17 20:53 Pulmicort Inhalation AEROSOL 0.5 mg Q12H [facility] Administration Cholecalciferol 5,000 unit 10/19/17 10:15 10/19/17 12:03 Vit. D-3 PO 5,000 unit DAILY [facility] Administration Cyanocobalamin 1,000 mcg 10/19/17 10:15 10/19/17 12:03 Vit. B-12 IM 1,000 mcg DAILY [facility] Administration Diclofenac Sodium 1 applic 10/17/17 05:15 10/20/17 05:42 Voltaren TP 1 applic BID PRN Administration pain Doxycycline Hyclate 100 mg 10/17/17 08:00 10/19/17 16:30 Vibramycin PO 100 mg BIDWM [facility] Administration Enoxaparin Sodium 120 mg 10/18/17 17:00 10/20/17 04:27 Lovenox 1 mg/kg (120 mg) 120 mg SQ Administration Q12H [facility] Furosemide 40 mg 10/17/17 09:00 10/19/17 20:27 Lasix 20 Mg/2 Ml IVP 40 mg Q12HR [facility] Administration Gabapentin 600 mg 10/17/17 09:00 10/19/17 20:26 Neurontin PO 600 mg TID [facility] Administration Labetalol HCl 100 mg 10/17/17 09:00 10/19/17 20:26 Normodyne PO 100 mg BID [facility] Administration Lisinopril 20 mg 10/17/17 09:00 10/19/17 20:27 Prinivil PO 20 mg BID [facility] Administration Loratadine 10 mg 10/17/17 06:30 10/20/17 05:42 Claritin PO 10 mg ACBID [facility] Administration Magnesium Hydroxide 30 ml 10/19/17 09:13 Mom PO DAILY PRN Constipation Methylprednisolone Sodium Succinate 62.5 mg 10/17/17 03:45 10/20/17 04:20 Solu-Medrol IVP 62.5 mg O [facility] Administration Nicotine 14 mg 10/18/17 17:00 10/19/17 08:21 Nicoderm TD 14 mg DAILY [facility] Administration Nitroglycerin 0.4 mg 10/17/17 02:12 Nitrostat SL Q5MIN3 PRN Chest pain Omeprazole 20 mg 10/17/17 06:30 10/20/17 05:42 Prilosec PO 20 mg ACB [facility] Administration Ondansetron HCl 4 mg 10/17/17 05:10 Zofran IVP Q6H PRN Nausea Polyethylene Glycol 17 gm 10/19/17 09:15 10/19/17 09:51 Miralax PO Not Given DAILY [facility] Senna/Docusate Sodium 1 tab 10/19/17 21:00 10/19/17 20:26 Senna Plus Tablet PO 1 tab BID [facility] Administration Sodium Chloride 10 - 80 ml 10/17/17 05:10 10/20/17 04:20 Iv Flush IV 40 ml PRN PRN Administration Flushing Tramadol HCl 50 mg 10/17/17 05:15 10/20/17 04:26 Ultram PO 50 mg Q6H PRN Administration pain Discontinued Medications Generic Name Dose Route Start Last Admin Trade Name Dk PRN Reason Stop Dose Admin Albuterol/Ipratropium 3 ml 10/17/17 02:10 10/17/17 02:10 Duoneb AEROSOL 10/17/17 02:11 3 ml O ONE Administration Amlodipine Besylate 5 mg 10/17/17 09:00 10/18/17 09:09 Norvasc PO 5 mg DAILY [facility] Administration Diphenhydramine HCl 50 mg 10/17/17 12:23 10/17/17 13:06 Benadryl PO 10/17/17 12:24 50 mg O ONE Administration Enoxaparin Sodium 120 mg 10/17/17 03:23 10/17/17 04:33 Lovenox SQ 10/17/17 03:24 120 mg O ONE Administration Enoxaparin Sodium 40 mg 10/18/17 09:00 Lovenox SQ DAILY [facility] Enoxaparin Sodium 120 mg 10/17/17 17:00 10/18/17 04:10 Lovenox 1 mg/kg (120 mg) 120 mg SQ Administration Q12H [facility] Sodium Chloride 500 mls @ 500 mls/hr 10/17/17 02:12 10/17/17 09:31 Normal Saline IV 10/17/17 03:11 Not Given .Q1H ONE Sodium Chloride 1,000 mls @ 100 mls/hr 10/17/17 02:30 10/17/17 05:39 Normal Saline IV Infused .Q10H [facility] Infusion Methylprednisolone Sodium Succinate 125 mg 10/17/17 12:22 10/17/17 13:05 Solu-Medrol IVP 10/17/17 12:23 125 mg O ONE Administration Morphine Sulfate 2 mg 10/17/17 10:26 10/17/17 11:02 Morphine Sulf 2 Mg Inj IVP 10/17/17 10:27 2 mg O ONE Administration Pharmacy Consult 1 each 10/17/17 05:54 10/17/17 09:31 Pharmacy Consult - Fall Risk 10/17/17 05:55 1 each ONE TIME ONE Administration Pneumococcal Polyvalent Vaccine 0.5 ml 10/17/17 08:03 10/17/17 11:05 Pneumovax 23 IM 10/17/17 08:04 0.5 ml .ONCE ONE Administration Sodium Chloride 10 - 80 ml 10/17/17 02:12 10/17/17 02:24 Iv Flush IVF 10 ml PRN PRN Administration Flushing - Constitutional no acute distress, morbidly obese, cooperative - Routine HEENT Exam Head: Present: normocephalic Eye: Present: PERRL, conjunctivae pink ENT: Present: mucous membranes moist - Routine Neck Exam Absent: JVD, carotid bruit - Routine Respiratory Exam Present: decreased breath sounds - Routine Extremities Exam Present: edema - Routine Psychiatric Exam Present: normal affect, cooperative Results 10/20/17 03:56 10/20/17 03:56 10/19/17 10/19/17 10/20/17 04:37 04:37 03:56 WBC 14.5 H RBC 5.58 H Hgb 16.6 H Hct 51.2 H MCV 91.8 MCH 29.7 MCHC 32.4 RDW Std Deviation 46.7 Plt Count 177 MPV 11.0 Immature Gran % (Auto) 0.2 Neut % (Auto) 78.9 H Lymph % (Auto) 14.5 L Evangeline % (Auto) 6.1 Eos % (Auto) 0.3 Baso % (Auto) 0.0 Neut # (Auto) 11.5 H Lymph # (Auto) 2.1 Evangeline # (Auto) 0.9 H Eos # (Auto) 0.1 Baso # (Auto) 0.0 Abs Immat Gran (auto) 0.03 Neutrophils % (Manual) Band Neutrophils % Lymphocytes % (Manual) Monocytes % (Manual) Neutrophils # (Manual) Band Neutrophils # Lymphocytes # (Manual) Monocytes # (Manual) RBC Morph Comment Factor V Leiden Mutat Negative Factor V Mutat Interp - Turbidity Sodium Potassium Chloride Carbon Dioxide Anion Gap BUN Creatinine Estimated Creat Clear GFR Calculation BUN/Creatinine Ratio Glucose Calculated Osmolality Calcium Plasma Magnesium RBC Magnesium Icterus Index 25-OH Vitamin D Total < 12.8 L TSH 0.53 Specimen Hemolysis Prothrombin [id number] Mut Negative Prothrombin Mut Interp - Specimen Comment Tests Not Done Reason Tests Not Done 10/20/17 03:56 WBC RBC Hgb Hct MCV MCH MCHC RDW Std Deviation Plt Count MPV Immature Gran % (Auto) Neut % (Auto) Lymph % (Auto) Evangeline % (Auto) Eos % (Auto) Baso % (Auto) Neut # (Auto) Lymph # (Auto) Evangeline # (Auto) Eos # (Auto) Baso # (Auto) Abs Immat Gran (auto) Neutrophils % (Manual) Band Neutrophils % Lymphocytes % (Manual) Monocytes % (Manual) Neutrophils # (Manual) Band Neutrophils # Lymphocytes # (Manual) Monocytes # (Manual) RBC Morph Comment Factor V Leiden Mutat Factor V Mutat Interp Turbidity < 20 Sodium 142 Potassium 4.3 Chloride 97 L Carbon Dioxide 36 H Anion Gap 9 BUN 26.0 H Creatinine 0.7 Estimated Creat Clear 70 GFR Calculation 83 BUN/Creatinine Ratio 37 H Glucose 91 Calculated Osmolality 278 Calcium 9.1 Plasma Magnesium RBC Magnesium Icterus Index < 2 25-OH Vitamin D Total TSH Specimen Hemolysis 73 H Prothrombin [id number] Mut Prothrombin Mut Interp Specimen Comment Tests Not Done Reason Tests Not Done Assessment and Plan - Assessment and Plan (1) Abdominal aortic aneurysm without rupture Status: Chronic (2) CAD (coronary artery disease), [place] coronary artery Status: Chronic (3) Elevated d-dimer Status: Acute (4) COPD (chronic obstructive pulmonary disease) Status: Chronic (5) Hypertension Status: Chronic (6) Heart murmur Status: Chronic (7) Obstructive sleep apnea Status: Chronic (8) GERD (gastroesophageal reflux disease) Status: Acute (9) History of GI bleed Status: Chronic (10) Ventricular tachycardia Status: Chronic (11) Chronic pulmonary embolism Status: Chronic (12) Dyspnea Status: Acute (13) Chest pain Status: Acute (14) NSTEMI (non-ST elevated myocardial infarction) Status: Acute (15) Acute on chronic respiratory failure with hypoxemia Status: Acute (16) Acute on chronic diastolic (congestive) heart failure Status: Acute (17) Nicotine dependence Status: Chronic - Assessment and Plan 10/17/17 Consulted Hospitalist for Hypoxia and hx of Pneumonia Has hx of Warfarin use for PE but recent GI bleed and was no longer on Warfarin upon this admit Oncology has been consulted for PE Patient placed on Full dose of Lovenox for PE and tolerating well CTA chest revealing Chronic Aortic dissection 10/18/17 Continued Lovenox awaiting Oncology recommendations Increased Norvasc to 10mg daily 10/1810/19/17 bp control improved Hematology is working up for coagulation disorder Plan for IVC filter placement /wednesday of this week Remain on lovenox, will need oral anticoagulation after IVC placed Hospital Course Summary Disclaimer: The visit summary below is not to be considered part of the above Progress Note. <Amirani,Scotty - Last Filed: 10/28/17 13:47> Exam Vital signs: Temperature 97.3 F 10/22/17 16:00 Pulse Rate 59 L 10/22/17 16:00 Respiratory Rate 18 10/22/17 16:00 Blood Pressure 148/73 H 10/22/17 16:00 Pulse Oximetry 90 10/22/17 16:00 Inpatient Medications: Discontinued Medications Generic Name Dose Route Start Last Admin Trade Name Freq PRN Reason Stop Dose Admin Acetaminophen 650 mg 10/17/17 05:15 10/22/17 03:52 Tylenol PO 650 mg Q5H PRN Administration Discomfort Acetaminophen 325 - 650 mg 10/21/17 13:34 Tylenol PO Q5H PRN Pain Al Hydroxide/Mg Hydroxide 30 ml 10/17/17 05:15 10/19/17 19:13 Maalox Plus PO 30 ml Q3H PRN Administration Indigestion Al Hydroxide/Mg Hydroxide 30 ml 10/21/17 13:34 Maalox Plus PO Q3H PRN Indigestion Albuterol/Ipratropium 3 ml 10/17/17 02:10 10/17/17 02:10 Duoneb AEROSOL 10/17/17 02:11 3 ml O ONE Administration Albuterol/Ipratropium 3 ml 10/17/17 09:00 10/22/17 13:00 Duoneb AEROSOL 3 ml QID [facility] Administration Amlodipine Besylate 5 mg 10/17/17 09:00 10/18/17 09:09 Norvasc PO 5 mg DAILY [facility] Administration Amlodipine Besylate 10 mg 10/18/17 14:00 10/20/17 08:50 Norvasc PO 10 mg DAILY [facility] Administration Atropine Sulfate 0.5 mg 10/21/17 13:34 Atropine IVP Q5M PRN Bradycardia Benzonatate 100 mg 10/17/17 15:00 10/22/17 14:36 Tessalon Perles PO 100 mg TID [facility] Administration Bisacodyl 5 - 10 mg 10/21/17 13:34 Dulcolax PO DAILY PRN Constipation Bisacodyl 10 mg 10/21/17 13:34 Dulcolax RECTALLY DAILY PRN Constipation Budesonide 0.5 mg 10/17/17 05:15 10/22/17 07:13 Pulmicort Inhalation AEROSOL 0.5 mg Q12H [facility] Administration Cholecalciferol 5,000 unit 10/19/17 10:15 10/22/17 08:24 Vit. D-3 PO 5,000 unit DAILY [facility] Administration Cyanocobalamin 1,000 mcg 10/19/17 10:15 10/22/17 08:25 Vit. B-12 IM 1,000 mcg DAILY [facility] Administration Diclofenac Sodium 1 applic 10/17/17 05:15 10/21/17 08:06 Voltaren TP 1 applic BID PRN Administration pain Diphenhydramine HCl 50 mg 10/17/17 12:23 10/17/17 13:06 Benadryl PO 10/17/17 12:24 50 mg O ONE Administration Doxycycline Hyclate 100 mg 10/17/17 08:00 10/22/17 08:24 Vibramycin PO 100 mg BIDWM [facility] Administration Enoxaparin Sodium 120 mg 10/17/17 03:23 10/17/17 04:33 Lovenox SQ 10/17/17 03:24 120 mg O ONE Administration Enoxaparin Sodium 40 mg 10/18/17 09:00 Lovenox SQ DAILY [facility] Enoxaparin Sodium 120 mg 10/17/17 17:00 10/18/17 04:10 Lovenox 1 mg/kg (120 mg) 120 mg SQ Administration Q12H [facility] Enoxaparin Sodium 120 mg 10/18/17 17:00 10/20/17 17:38 Lovenox 1 mg/kg (120 mg) 120 mg SQ Administration Q12H [facility] Furosemide 40 mg 10/17/17 09:00 10/22/17 08:33 Lasix 20 Mg/2 Ml IVP 40 mg Q12HR [facility] Administration Furosemide 40 mg 10/22/17 17:00 Lasix 40 Mg Tab PO 0900,1700 [facility] Gabapentin 600 mg 10/17/17 09:00 10/22/17 14:36 Neurontin PO 600 mg TID [facility] Administration Sodium Chloride 500 mls @ 500 mls/hr 10/17/17 02:12 10/17/17 09:31 Normal Saline IV 10/17/17 03:11 Not Given .Q1H ONE Sodium Chloride 1,000 mls @ 100 mls/hr 10/17/17 02:30 10/17/17 05:39 Normal Saline IV Infused .Q10H [facility] Infusion Labetalol HCl 100 mg 10/17/17 09:00 10/22/17 08:24 Normodyne PO 100 mg BID [facility] Administration Lisinopril 20 mg 10/17/17 09:00 10/22/17 08:24 Prinivil PO 20 mg BID [facility] Administration Loratadine 10 mg 10/17/17 06:30 10/22/17 05:43 Claritin PO 10 mg ACBID [facility] Administration Lorazepam 0.5 - 1 mg 10/21/17 13:34 Ativan PO Q4H PRN Anxiety Lorazepam 0.5 - 1 mg 10/21/17 13:34 Ativan Inj IVP Q4H PRN Anxiety Magnesium Hydroxide 30 ml 10/19/17 09:13 Mom PO DAILY PRN Constipation Magnesium Hydroxide 30 ml 10/21/17 13:34 Mom PO DAILY PRN Constipation Methylprednisolone Sodium Succinate 62.5 mg 10/17/17 03:45 10/21/17 04:38 Solu-Medrol IVP 62.5 mg O [facility] Administration Methylprednisolone Sodium Succinate 125 mg 10/17/17 12:22 10/17/17 13:05 Solu-Medrol IVP 10/17/17 12:23 125 mg O ONE Administration Metoclopramide HCl 5 - 10 mg 10/21/17 13:34 Reglan IVP Q6H PRN Nausea &/or vomiting Morphine Sulfate 2 mg 10/17/17 10:26 10/17/17 11:02 Morphine Sulf 2 Mg Inj IVP 10/17/17 10:27 2 mg O ONE Administration Nicotine 14 mg 10/18/17 17:00 10/22/17 08:25 Nicoderm TD 14 mg DAILY [facility] Administration Nifedipine 60 mg 10/21/17 09:00 10/22/17 08:24 Procardia Xl PO 60 mg DAILY [facility] Administration Nifedipine 90 mg 10/23/17 09:00 Procardia Xl PO DAILY [facility] Nifedipine 30 mg 10/22/17 14:15 10/22/17 14:45 Procardia Xl PO 30 mg ONE TIME [facility] Administration Nitroglycerin 0.4 mg 10/17/17 02:12 10/21/17 14:48 Nitrostat SL 0.4 mg Q5MIN3 PRN Administration Chest pain Omeprazole 20 mg 10/17/17 06:30 10/22/17 05:43 Prilosec PO 20 mg ACB [facility] Administration Ondansetron HCl 4 mg 10/17/17 05:10 Zofran IVP Q6H PRN Nausea Ondansetron HCl 4 mg 10/21/17 13:34 Zofran IVP Q6H PRN Nausea &/or vomiting Pharmacy Consult 1 each 10/17/17 05:54 10/17/17 09:31 Pharmacy Consult - Fall Risk 10/17/17 05:55 1 each ONE TIME ONE Administration Pneumococcal Polyvalent Vaccine 0.5 ml 10/17/17 08:03 10/17/17 11:05 Pneumovax 23 IM 10/17/17 08:04 0.5 ml .ONCE ONE Administration Polyethylene Glycol 17 gm 10/19/17 09:15 10/22/17 08:25 Miralax PO 17 gm DAILY [facility] Administration Promethazine HCl 12.5 - 25 mg 10/21/17 13:34 Phenergan Inj IVP Q6H PRN Nausea &/or vomiting Rivaroxaban 15 mg 10/21/17 17:30 10/22/17 08:24 Xarelto PO 11/11/17 08:01 15 mg BIDWM [facility] Administration Rivaroxaban 20 mg 11/12/17 17:30 Xarelto PO WS [facility] Senna/Docusate Sodium 1 tab 10/19/17 21:00 10/22/17 08:24 Senna Plus Tablet PO 1 tab BID [facility] Administration Sodium Chloride 10 - 80 ml 10/17/17 02:12 10/17/17 02:24 Iv Flush IVF 10 ml PRN PRN Administration Flushing Sodium Chloride 10 - 80 ml 10/17/17 05:10 10/21/17 21:26 Iv Flush IV 10 ml PRN PRN Administration Flushing Tramadol HCl 50 mg 10/17/17 05:15 10/22/17 15:35 Ultram PO 50 mg Q6H PRN Administration pain Results 10/22/17 04:35 10/22/17 04:35 Assessment and Plan - Assessment and Plan (1) Dyspnea Status: Chronic (2) NSTEMI (non-ST elevated myocardial infarction) Status: Acute (3) Elevated d-dimer Status: Acute (4) Acute on chronic diastolic (congestive) heart failure Status: Acute (5) Acute on chronic respiratory failure with hypoxemia Status: Acute (6) Chronic pulmonary embolism Status: Chronic (7) CAD (coronary artery disease), [place] coronary artery Status: Chronic (8) Ventricular tachycardia Status: Chronic (9) Hypertension Status: Chronic (10) Abdominal aortic aneurysm without rupture Status: Chronic (11) Heart murmur Status: Chronic (12) COPD (chronic obstructive pulmonary disease) Status: Chronic (13) Obstructive sleep apnea Status: Chronic (14) GERD (gastroesophageal reflux disease) Status: Chronic (15) Nicotine dependence Status: Chronic - Attestation Attestation Narrative: 10/28/17 13:47 Recommendation After examining the patient I agree with the above assessment. I am involved in the formulation of the patient's plan of care. Hospital Course Summary Disclaimer: The visit summary below is not to be considered part of the above Progress Note.
[2017-10-20] MEDS: BUDESONIDE INH.SOLN 0.5mg/2ml NEB AEROSOL SCH ×2 (08:20→20:30)
[2017-10-20] MEDS: ALBUTEROL/IPRATROPIUM 2.5mg-0.5mg/3ml NEB AEROSOL SCH ×4 (08:20→20:30)
[2017-10-20] MEDS: CYANOCOBALAMIN (B-12) 1,000mcg/ml INJECTION IM SCH (08:50)
[2017-10-20] MEDS: SENNA + DOCUSATE TABLET PO SCH ×2 (08:50→20:13)
[2017-10-20] MEDS: BENZONATATE 100 MG CAPSULE PO SCH ×3 (08:50→20:13)
[2017-10-20] MEDS: FUROSEMIDE 20 MG/2 ML INJECTION IVP SCH ×2 (08:50→21:31)
[2017-10-20] MEDS: GABAPENTIN 600 MG TABLET PO SCH ×3 (08:50→20:13)
[2017-10-20] MEDS: LISINOPRIL 20 MG TABLET PO SCH ×2 (08:50→20:13)
[2017-10-20] MEDS: LABETALOL 100 MG TABLET PO SCH ×2 (08:50→20:12)
[2017-10-20] MEDS: AMLODIPINE 10 MG TABLET PO SCH (08:50)
[2017-10-20] MEDS: POLYETHYL GLYCOL 3350 17gm PACKET PO SCH (08:51)
[2017-10-20] MEDS: NICOTINE 14 MG PATCH TD SCH (08:51)
--- NOTE | 2017-10-20 10:16 | Cardiology Progress Note ---
<JessicaNakia K - Last Filed: 10/20/17 14:11> Subjective Principal diagnosis: PE Interval history: Pt is sitting up on side of bed working with RT, receiving nebulizer treatment. Pt states she is feeling better today. Denies any cardiac complaints and verbalizes readiness for placement of IVC which is planned for 12:30 tomorrow. Exam Vital signs: Temperature 97.8 F 10/20/17 08:00 Pulse Rate 59 L 10/20/17 08:00 Respiratory Rate 22 10/20/17 08:20 Blood Pressure 152/87 H 10/20/17 08:00 Pulse Oximetry 97 10/20/17 08:20 Inpatient Medications: Generic Name Dose Route Start Last Admin Trade Name Freq PRN Reason Stop Dose Admin Acetaminophen 650 mg 10/17/17 05:15 10/17/17 19:23 Tylenol PO 650 mg Q5H PRN Administration Discomfort Al Hydroxide/Mg Hydroxide 30 ml 10/17/17 05:15 10/19/17 19:13 Maalox Plus PO 30 ml Q3H PRN Administration Indigestion Albuterol/Ipratropium 3 ml 10/17/17 09:00 10/20/17 08:20 Duoneb AEROSOL 3 ml QID ELEAZAR Administration Benzonatate 100 mg 10/17/17 15:00 10/20/17 08:50 Tessalon Perles PO 100 mg TID ELEAZAR Administration Budesonide 0.5 mg 10/17/17 05:15 10/20/17 08:20 Pulmicort Inhalation AEROSOL 0.5 mg Q12H ELEAZAR Administration Cholecalciferol 5,000 unit 10/19/17 10:15 10/20/17 08:50 Vit. D-3 PO 5,000 unit DAILY ELEAZAR Administration Cyanocobalamin 1,000 mcg 10/19/17 10:15 10/20/17 08:50 Vit. B-12 IM 1,000 mcg DAILY ELEAZAR Administration Diclofenac Sodium 1 applic 10/17/17 05:15 10/20/17 05:42 Voltaren TP 1 applic BID PRN Administration pain Doxycycline Hyclate 100 mg 10/17/17 08:00 10/20/17 08:50 Vibramycin PO 100 mg BIDWM ELEAZAR Administration Enoxaparin Sodium 120 mg 10/18/17 17:00 10/20/17 04:27 Lovenox 1 mg/kg (120 mg) 120 mg SQ Administration Q12H ELEAZAR Furosemide 40 mg 10/17/17 09:00 10/20/17 08:50 Lasix 20 Mg/2 Ml IVP 40 mg Q12HR ELEAZAR Administration Gabapentin 600 mg 10/17/17 09:00 10/20/17 08:50 Neurontin PO 600 mg TID ELEAZAR Administration Labetalol HCl 100 mg 10/17/17 09:00 10/20/17 08:50 Normodyne PO 100 mg BID ELEAZAR Administration Lisinopril 20 mg 10/17/17 09:00 10/20/17 08:50 Prinivil PO 20 mg BID ELEAZAR Administration Loratadine 10 mg 10/17/17 06:30 10/20/17 05:42 Claritin PO 10 mg ACBID ELEAZAR Administration Magnesium Hydroxide 30 ml 10/19/17 09:13 Mom PO DAILY PRN Constipation Methylprednisolone Sodium Succinate 62.5 mg 10/17/17 03:45 10/20/17 04:20 Solu-Medrol IVP 62.5 mg O [facility] Administration Nicotine 14 mg 10/18/17 17:00 10/20/17 08:51 Nicoderm TD 14 mg DAILY [facility] Administration Nifedipine 60 mg 10/21/17 09:00 Procardia Xl PO DAILY [facility] Nitroglycerin 0.4 mg 10/17/17 02:12 Nitrostat SL Q5MIN3 PRN Chest pain Omeprazole 20 mg 10/17/17 06:30 10/20/17 05:42 Prilosec PO 20 mg ACB ELEAZAR Administration Ondansetron HCl 4 mg 10/17/17 05:10 Zofran IVP Q6H PRN Nausea Polyethylene Glycol 17 gm 10/19/17 09:15 10/20/17 08:51 Miralax PO 17 gm DAILY [facility] Administration Senna/Docusate Sodium 1 tab 10/19/17 21:00 10/20/17 08:50 Senna Plus Tablet PO 1 tab BID [facility] Administration Sodium Chloride 10 - 80 ml 10/17/17 05:10 10/20/17 04:20 Iv Flush IV 40 ml PRN PRN Administration Flushing Tramadol HCl 50 mg 10/17/17 05:15 10/20/17 04:26 Ultram PO 50 mg Q6H PRN Administration pain Discontinued Medications Generic Name Dose Route Start Last Admin Trade Name Freq PRN Reason Stop Dose Admin Albuterol/Ipratropium 3 ml 10/17/17 02:10 10/17/17 02:10 Duoneb AEROSOL 10/17/17 02:11 3 ml O ONE Administration Amlodipine Besylate 5 mg 10/17/17 09:00 10/18/17 09:09 Norvasc PO 5 mg DAILY ELEAZAR Administration Amlodipine Besylate 10 mg 10/18/17 14:00 10/20/17 08:50 Norvasc PO 10 mg DAILY ELEAZAR Administration Diphenhydramine HCl 50 mg 10/17/17 12:23 10/17/17 13:06 Benadryl PO 10/17/17 12:24 50 mg O ONE Administration Enoxaparin Sodium 120 mg 10/17/17 03:23 10/17/17 04:33 Lovenox SQ 10/17/17 03:24 120 mg O ONE Administration Enoxaparin Sodium 40 mg 10/18/17 09:00 Lovenox SQ DAILY ELEAZAR Enoxaparin Sodium 120 mg 10/17/17 17:00 10/18/17 04:10 Lovenox 1 mg/kg (120 mg) 120 mg SQ Administration Q12H [facility] Sodium Chloride 500 mls @ 500 mls/hr 10/17/17 02:12 10/17/17 09:31 Normal Saline IV 10/17/17 03:11 Not Given .Q1H ONE Sodium Chloride 1,000 mls @ 100 mls/hr 10/17/17 02:30 10/17/17 05:39 Normal Saline IV Infused .Q10H ELEAZAR Infusion Methylprednisolone Sodium Succinate 125 mg 10/17/17 12:22 10/17/17 13:05 Solu-Medrol IVP 10/17/17 12:23 125 mg O ONE Administration Morphine Sulfate 2 mg 10/17/17 10:26 10/17/17 11:02 Morphine Sulf 2 Mg Inj IVP 10/17/17 10:27 2 mg O ONE Administration Pharmacy Consult 1 each 10/17/17 05:54 10/17/17 09:31 Pharmacy Consult - Fall Risk 10/17/17 05:55 1 each ONE TIME ONE Administration Pneumococcal Polyvalent Vaccine 0.5 ml 10/17/17 08:03 10/17/17 11:05 Pneumovax 23 IM 10/17/17 08:04 0.5 ml .ONCE ONE Administration Sodium Chloride 10 - 80 ml 10/17/17 02:12 10/17/17 02:24 Iv Flush IVF 10 ml PRN PRN Administration Flushing - Constitutional no acute distress, morbidly obese, cooperative - Routine HEENT Exam Head: Present: normocephalic, atraumatic Eye: Present: EOMI, PERRL ENT: Present: mucous membranes moist - Routine Neck Exam Present: supple, trachea midline. Absent: JVD, carotid bruit - Routine Chest/Breast/Axilla Exam Chest wall: Absent: tenderness - Routine Respiratory Exam Present: accessory muscle use, CTA bilaterally. Absent: rhonchi, stridor, wheezes, crackles - Routine Cardiovascular Exam Present: RRR, S1, S2. Absent: no murmur, JVD - Routine Abdominal Exam Present: soft, normoactive bowel sounds, non tender, distended - Routine Extremities Exam Present: no edema, pulses intact, normal capillary refill. Absent: cyanosis, clubbing - Routine Skin Exam Present: intact, dry, warm. Absent: wounds, rash - Routine Neurological Exam Present: alert, oriented X3, CN II-XII intact, moving all extremities, normal speech - Routine Psychiatric Exam Present: normal affect, cooperative Results 10/20/17 03:56 10/20/17 03:56 CBC 10/20/17 Range/Units 03:56 WBC 14.5 H (4.5-11.0) T/MM3 RBC 5.58 H (4.00-5.20) M/MM3 Hgb 16.6 H (12-16) GM/DL Hct 51.2 H (36-46) % Plt Count 177 (130-400) T/MM3 Neut # (Auto) 11.5 H (1.8-7.7) T/MM3 Lymph # (Auto) 2.1 (1-4.8) T/MM3 [place] # (Auto) 0.9 H (0-0.8) T/MM3 Eos # (Auto) 0.1 (0-0.5) T/MM3 Baso # (Auto) 0.0 (0-0.2) T/MM3 Comprehensive Metabolic Panel 10/20/17 Range/Units 03:56 Sodium 142 (136-146) MEQ/L Potassium 4.3 (3.6-5) MEQ/L Chloride 97 L (98-107) MEQ/L Carbon Dioxide 36 H (22-30) MEQ/L BUN 26.0 H (7-17) MG/DL Creatinine 0.7 (0.7-1.2) mg/dL Glucose 91 (65-110) MG/DL Calcium 9.1 (8.4-10.2) MG/DL Intake and Output 10/19/17 10/20/17 10/20/17 22:59 06:59 14:59 Intake Total 100 / 100 100 / 100 Output Total 1400 / 1400 1350 / 1350 450 / 450 Balance -1300 / -1300 -1250 / -1250 -450 / -450 Intake: Oral 100 / 100 100 / 100 Output: Urine 1400 / 1400 1050 / 1050 450 / 450 Urine Amount (Catheter) 300 / 300 Other: Urine Appearance Clear Clear Clear Urine Color Pale Dark Yellow Dark Yellow Urine Odor Foul Foul Strong # Voids 1 1 Weight 118 kg Patient Weight 10/21/17 06:59 Weight 118 kg Assessment and Plan - Assessment and Plan (1) Abdominal aortic aneurysm without rupture Status: Chronic (2) CAD (coronary artery disease), [place] coronary artery Status: Chronic (3) Elevated d-dimer Status: Acute (4) COPD (chronic obstructive pulmonary disease) Status: Chronic (5) Hypertension Status: Chronic (6) Heart murmur Status: Chronic (7) Obstructive sleep apnea Status: Chronic (8) GERD (gastroesophageal reflux disease) Status: Chronic (9) History of GI bleed Status: Resolved (10) Ventricular tachycardia Status: Chronic (11) Chronic pulmonary embolism Status: Chronic (12) Dyspnea Status: Chronic (13) Chest pain Status: Resolved (14) NSTEMI (non-ST elevated myocardial infarction) Status: Acute (15) Acute on chronic respiratory failure with hypoxemia Status: Acute (16) Acute on chronic diastolic (congestive) heart failure Status: Acute (17) Nicotine dependence Status: Chronic - Assessment and Plan Dyspnea Baseline 3 L O2 per NC Now requiring 5L O2 per NC to maintain sat >90% RCAT Initial CXR: Pulmonary vascular congestion, persistant basilar opacities (may relate to mild edema) 10/18/2017 CXR: Cardiomegaly without overt congestive changes. Lung schaefer are hypoventilated with bibasilar linear subsegmental atelectasis. No definite acute focal infiltrates are identified. EKG: Junctional Rhythm with occasional ventricular premature complexes and occasional supraventricular complexes (pattern consistent with pulmonary disease ), RBBB, inferior MN or undetermined age, No acute ischemia +Cough +Hemoptysis Recently diagnosed with pneumonia CTA of chest as below Followed by Medicine Chest Pain Chronic in nature Allergic to nitro IV morphine prn CXR: Pulmonary vascular congestion, persistant basilar opacities (may relate to mild edema) EKG: Junctional Rhythm with occasional ventricular premature complexes and occasional supraventricular complexes (pattern consistent with pulmonary disease ), RBBB, inferior MN or undetermined age, No acute ischemia Troponin peaked at 0.17 and trended down 10/2016 Echo: EF 55-60%, LVH, Impaired diastolic dysfunction, trace MR, dilated LA, enlarged RA 08/2017 Heart Cath: Mild Coronary Artery Disease (30-40%) Current Echo Pending CTA of Chest as below Continue to monitor on tele NSTEMI - type II Likely related to impaired respiratory status and possible infection? CXR: Pulmonary vascular congestion, persistant basilar opacities (may relate to mild edema) EKG: Junctional Rhythm with occasional ventricular premature complexes and occasional supraventricular complexes (pattern consistent with pulmonary disease ), RBBB, inferior MN or undetermined age, No acute ischemia Troponin peaked at 0.17 and trended down 2016 Echo: EF 55-60%, LVH, Impaired diastolic dysfunction, trace MR, dilated LA , enlarged RA Current Echo Pending Allergic to aspirin Continue BB and MJ Continue to monitor on tele Acute on Chronic Diastolic Heart Failure 2016 Echo: EF 55-60%, LVH, Impaired diastolic dysfunction, trace MR, dilated LA , enlarged RA Patient non-compliant with home lasix Current Echo Pending Continue BB and MJ Lasix 40 mg IV BID Acute on Chronic Hypoxic Respiratory Failure Baseline 3 L O2 per NC Now requiring 5L O2 per NC to maintain sat >90% RCAT Initial CXR: Pulmonary vascular congestion, persistant basilar opacities (may relate to mild edema) 10/18/2017 CXR: Cardiomegaly without overt congestive changes. Lung schaefer are hypoventilated with bibasilar linear subsegmental atelectasis. No definite acute focal infiltrates are identified. EKG: Junctional Rhythm with occasional ventricular premature complexes and occasional supraventricular complexes (pattern consistent with pulmonary disease ), RBBB, inferior MN or undetermined age, No acute ischemia +Cough +Hemoptysis Recently diagnosed with pneumonia CTA of chest: Impression: 1. Large amount of bilateral pulmonary embolus with evidence of right heart strain. Emergent cardiology consultation is recommended. 2. New 1.5 cm right middle lobe pulmonary nodule suspicious for a primary lung malignancy. Recommend PET/CT or biopsy. CT angiogram of the chest for aorta: Please see the above report for extravascular details. 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 There is compression of the true lumen by the false lumen which contains mural thrombus. Noncontrast images show no evidence of intramural hematoma. There is mild right ventricular enlargement. No evidence of pericardial effusion. 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 CT angiogram of the abdomen and pelvis for aorta: Thoracic aortic dissection continues through the entire abdominal aorta into the aortic bifurcation and right common iliac artery. There is a narrowed true lumen with celiac and SMA origin arising from it. There is stenosis at the celiac origin of moderate severity due to the false lumen. Arterial phase liver is unremarkable. Gallbladder is grossly normal. The spleen, pancreas, adrenal glands and kidneys show no acute findings. The left renal artery arises from the true lumen. Right renal artery arises from the false lumen. There may be fenestrations or communication between the true lumen and the false lumen. Aneurysmal dilatation of the abdominal aorta up to 4 cm in diameter, similar to the prior study. The visualized bowel loops show mild colonic diverticulosis but no acute findings. Evaluation is limited due to patient body habitus and beam hardening artifact. Impression: 4 cm abdominal aortic aneurysm with diffuse dissection. This is not significantly changed in the prior study. 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 Treated with phlebotomy Coronary Artery Disease Allergic to aspirin, Continue BB and MJ-I EKG: Junctional Rhythm with occasional ventricular premature complexes and occasional supraventricular complexes (pattern consistent with pulmonary disease ), RBBB, inferior MN or undetermined age, No acute ischemia Troponin peaked at 0.17 and trended down 10/2016 Echo: EF 55-60%, LVH, Impaired diastolic dysfunction, trace MR, dilated LA, enlarged RA 08/2017 Heart Cath: Mild Coronary Artery Disease (30-40%) Echo: EF 55%, assymetrical septal hypertrophy without outflow obstruction, mild MR, aortic sclerosis, severe PAP (73 mm Hg), trace PI, R atrial and R ventricular dilation. Continue Risk Management Ventricular Tachycardia Asymptomatic Tolerating Medical Therapy Continue BB Therapy Hypertension Continue Labetalol 100 mg PO BID Continue lisinopril 20 BID Discontinue amlodipine Start nifedipine 60 mg daily AAA without rupture 08/2016 CTA of the Chest: Impression: Extensive Horse Branch type B aortic dissection with gradual enlargement and development amount of aortic arch and descending aortic aneurysms. Overall diameter is approximately 1 cm larger than the 2014 comparison. Vascular surgical evaluation is suggested. Followed by Dr. Earl Villanueva, recently seen No intervention at this time Will continue to monitor routinely Patient to be considering stent vs. open repair COPD On Chronic O2 Initial CXR: Pulmonary vascular congestion, persistant basilar opacities (may relate to mild edema) 10/18/2017 CXR: Cardiomegaly without overt congestive changes. Lung schaefer are hypoventilated with bibasilar linear subsegmental atelectasis. No definite acute focal infiltrates are identified. RCAT 1 dose of steroids in the ER Followed by Medicine BARBIE Severe Patient non-compliant with home CPAP RCAT On chronic O2 therapy GERD Continue home Prilosec History of GI Bleed Hospitalized in September of 2017 Taken off warfarin therapy 08/2017 Upper and Lower GI: Duodenitis of duodenal bulb, mild antral gastritis , possible Blackwell's esophagus, severe pandiverticulosis, 0.5 cm sessile polyp of transverse colon, multiple polyps of the sigmoid colon (5 removed), multiple polyps of the rectum (4 removed) Followed by Medicine History of TIA Recently taken off of Warfarin Allergic to aspirin Continue risk management Followed by medicine History of Pneumonia Pt reports recent treatments with multiple ABX therapy for ongoing pneumonia Currently on Doxycycline 100 mg PO BID Will continue per Dr. Russell Followed by medicine Nicotine Dependence Cessation Counseling Ppx: SQ Lovenox Famotidine Hospital Course Summary Disclaimer: The visit summary below is not to be considered part of the above Progress Note. <Scotty Mosley - Last Filed: 10/28/17 13:51> Exam Vital signs: Temperature 97.3 F 08/10/18 16:00 Pulse Rate 59 L 10/22/17 16:00 Respiratory Rate 18 10/22/17 16:00 Blood Pressure 148/73 H 10/22/17 16:00 Pulse Oximetry 90 10/22/17 16:00 Inpatient Medications: Discontinued Medications Generic Name Dose Route Start Last Admin Trade Name Freq PRN Reason Stop Dose Admin Acetaminophen 650 mg 10/17/17 05:15 10/22/17 03:52 Tylenol PO 650 mg Q5H PRN Administration Discomfort Acetaminophen 325 - 650 mg 10/21/17 13:34 Tylenol PO Q5H PRN Pain Al Hydroxide/Mg Hydroxide 30 ml 10/17/17 05:15 10/19/17 19:13 Maalox Plus PO 30 ml Q3H PRN Administration Indigestion Al Hydroxide/Mg Hydroxide 30 ml 10/21/17 13:34 Maalox Plus PO Q3H PRN Indigestion Albuterol/Ipratropium 3 ml 10/17/17 02:10 10/17/17 02:10 Duoneb AEROSOL 10/17/17 02:11 3 ml O ONE Administration Albuterol/Ipratropium 3 ml 10/17/17 09:00 10/22/17 13:00 Duoneb AEROSOL 3 ml QID ELEAZAR Administration Amlodipine Besylate 5 mg 10/17/17 09:00 10/18/17 09:09 Norvasc PO 5 mg DAILY ELEAZAR Administration Amlodipine Besylate 10 mg 10/18/17 14:00 10/20/17 08:50 Norvasc PO 10 mg DAILY ELEAZAR Administration Atropine Sulfate 0.5 mg 10/21/17 13:34 Atropine IVP Q5M PRN Bradycardia Benzonatate 100 mg 10/17/17 15:00 10/22/17 14:36 Tessalon Perles PO 100 mg TID ELEAZAR Administration Bisacodyl 5 - 10 mg 10/21/17 13:34 Dulcolax PO DAILY PRN Constipation Bisacodyl 10 mg 10/21/17 13:34 Dulcolax RECTALLY DAILY PRN Constipation Budesonide 0.5 mg 10/17/17 05:15 10/22/17 07:13 Pulmicort Inhalation AEROSOL 0.5 mg Q12H ELEAZAR Administration Cholecalciferol 5,000 unit 10/19/17 10:15 10/22/17 08:24 Vit. D-3 PO 5,000 unit DAILY ELEAZAR Administration Cyanocobalamin 1,000 mcg 10/19/17 10:15 10/22/17 08:25 Vit. B-12 IM 1,000 mcg DAILY ELEAZAR Administration Diclofenac Sodium 1 applic 10/17/17 05:15 10/21/17 08:06 Voltaren TP 1 applic BID PRN Administration pain Diphenhydramine HCl 50 mg 10/17/17 12:23 10/17/17 13:06 Benadryl PO 10/17/17 12:24 50 mg O ONE Administration Doxycycline Hyclate 100 mg 10/17/17 08:00 10/22/17 08:24 Vibramycin PO 100 mg BIDWM ELEAZAR Administration Enoxaparin Sodium 120 mg 10/17/17 03:23 10/17/17 04:33 Lovenox SQ 10/17/17 03:24 120 mg O ONE Administration Enoxaparin Sodium 40 mg 10/18/17 09:00 Lovenox SQ DAILY ELEAZAR Enoxaparin Sodium 120 mg 10/17/17 17:00 10/18/17 04:10 Lovenox 1 mg/kg (120 mg) 120 mg SQ Administration Q12H ELEAZAR Enoxaparin Sodium 120 mg 10/18/17 17:00 10/20/17 17:38 Lovenox 1 mg/kg (120 mg) 120 mg SQ Administration Q12H ELEAZAR Furosemide 40 mg 10/17/17 09:00 10/22/17 08:33 Lasix 20 Mg/2 Ml IVP 40 mg Q12HR ELEAZAR Administration Furosemide 40 mg 10/22/17 17:00 Lasix 40 Mg Tab PO 0900,1700 ELEAZAR Gabapentin 600 mg 10/17/17 09:00 10/22/17 14:36 Neurontin PO 600 mg TID ELEAZAR Administration Sodium Chloride 500 mls @ 500 mls/hr 10/17/17 02:12 10/17/17 09:31 Normal Saline IV 10/17/17 03:11 Not Given .Q1H ONE Sodium Chloride 1,000 mls @ 100 mls/hr 10/17/17 02:30 10/17/17 05:39 Normal Saline IV Infused .Q10H ELEAZAR Infusion Labetalol HCl 100 mg 10/17/17 09:00 08/10/18 08:24 Normodyne PO 100 mg BID ELEAZAR Administration Lisinopril 20 mg 10/17/17 09:00 10/22/17 08:24 Prinivil PO 20 mg BID ELEAZAR Administration Loratadine 10 mg 10/17/17 06:30 10/22/17 05:43 Claritin PO 10 mg ACBID ELEAZAR Administration Lorazepam 0.5 - 1 mg 10/21/17 13:34 Ativan PO Q4H PRN Anxiety Lorazepam 0.5 - 1 mg 10/21/17 13:34 Ativan Inj IVP Q4H PRN Anxiety Magnesium Hydroxide 30 ml 10/19/17 09:13 Mom PO DAILY PRN Constipation Magnesium Hydroxide 30 ml 10/21/17 13:34 Mom PO DAILY PRN Constipation Methylprednisolone Sodium Succinate 62.5 mg 10/17/17 03:45 10/21/17 04:38 Solu-Medrol IVP 62.5 mg O ELEAZAR Administration Methylprednisolone Sodium Succinate 125 mg 10/17/17 12:22 10/17/17 13:05 Solu-Medrol IVP 10/17/17 12:23 125 mg O ONE Administration Metoclopramide HCl 5 - 10 mg 10/21/17 13:34 Reglan IVP Q6H PRN Nausea &/or vomiting Morphine Sulfate 2 mg 10/17/17 10:26 10/17/17 11:02 Morphine Sulf 2 Mg Inj IVP 10/17/17 10:27 2 mg O ONE Administration Nicotine 14 mg 10/18/17 17:00 10/22/17 08:25 Nicoderm TD 14 mg DAILY ELEAZAR Administration Nifedipine 60 mg 10/21/17 09:00 10/22/17 08:24 Procardia Xl PO 60 mg DAILY ELEAZAR Administration Nifedipine 90 mg 10/23/17 09:00 Procardia Xl PO DAILY ELEAZAR Nifedipine 30 mg 10/22/17 14:15 10/22/17 14:45 Procardia Xl PO 30 mg ONE TIME ELEAZAR Administration Nitroglycerin 0.4 mg 10/17/17 02:12 10/21/17 14:48 Nitrostat SL 0.4 mg Q5MIN3 PRN Administration Chest pain Omeprazole 20 mg 10/17/17 06:30 10/22/17 05:43 Prilosec PO 20 mg ACB ELEAZAR Administration Ondansetron HCl 4 mg 10/17/17 05:10 Zofran IVP Q6H PRN Nausea Ondansetron HCl 4 mg 10/21/17 13:34 Zofran IVP Q6H PRN Nausea &/or vomiting Pharmacy Consult 1 each 10/17/17 05:54 10/17/17 09:31 Pharmacy Consult - Fall Risk 10/17/17 05:55 1 each ONE TIME ONE Administration Pneumococcal Polyvalent Vaccine 0.5 ml 10/17/17 08:03 10/17/17 11:05 Pneumovax 23 IM 10/17/17 08:04 0.5 ml .ONCE ONE Administration Polyethylene Glycol 17 gm 10/19/17 09:15 10/22/17 08:25 Miralax PO 17 gm DAILY ELEAZAR Administration Promethazine HCl 12.5 - 25 mg 10/21/17 13:34 Phenergan Inj IVP Q6H PRN Nausea &/or vomiting Rivaroxaban 15 mg 10/21/17 17:30 10/22/17 08:24 Xarelto PO 11/11/17 08:01 15 mg BIDWM ELEAZAR Administration Rivaroxaban 20 mg 11/12/17 17:30 Xarelto PO WS ELEAZAR Senna/Docusate Sodium 1 tab 10/19/17 21:00 10/22/17 08:24 Senna Plus Tablet PO 1 tab BID ELEAZAR Administration Sodium Chloride 10 - 80 ml 10/17/17 02:12 10/17/17 02:24 Iv Flush IVF 10 ml PRN PRN Administration Flushing Sodium Chloride 10 - 80 ml 10/17/17 05:10 10/21/17 21:26 Iv Flush IV 10 ml PRN PRN Administration Flushing Tramadol HCl 50 mg 10/17/17 05:15 10/22/17 15:35 Ultram PO 50 mg Q6H PRN Administration pain Results 10/22/17 04:35 10/22/17 04:35 Assessment and Plan - Assessment and Plan (1) Dyspnea Status: Chronic (2) NSTEMI (non-ST elevated myocardial infarction) Status: Acute (3) Elevated d-dimer Status: Acute (4) Acute on chronic diastolic (congestive) heart failure Status: Acute (5) Acute on chronic respiratory failure with hypoxemia Status: Acute (6) Chronic pulmonary embolism Status: Chronic (7) CAD (coronary artery disease), [place] coronary artery Status: Chronic (8) Ventricular tachycardia Status: Chronic (9) Hypertension Status: Chronic (10) Abdominal aortic aneurysm without rupture Status: Chronic (11) Heart murmur Status: Chronic (12) COPD (chronic obstructive pulmonary disease) Status: Chronic (13) Obstructive sleep apnea Status: Chronic (14) GERD (gastroesophageal reflux disease) Status: Chronic (15) Nicotine dependence Status: Chronic - Attestation Attestation Narrative: 10/28/17 13:51 Recommendation After examining the patient I agree with the above assessment. I am involved in the formulation of the patient's plan of care. Hospital Course Summary Disclaimer: The visit summary below is not to be considered part of the above Progress Note.
--- NOTE | 2017-10-20 18:46 | Progress Note ---
Oncology Subjective She is sitting at the site of the bed, feeling a lot better since the phlebotomy yesterday. She has no bleeding. Hematocrit is still 51%. All in all she is doing better. She is scheduled for IVC filter placement tomorrow by Dr. Mosley. Exam Vital signs: Temperature 96.5 F L 10/20/17 15:59 Pulse Rate 63 10/20/17 15:59 Respiratory Rate 20 10/20/17 16:30 Blood Pressure 138/84 10/20/17 15:59 Pulse Oximetry 94 10/20/17 16:30 - Constitutional no acute distress, cooperative - Routine Respiratory Exam Present: rhonchi. Absent: rales, stridor, wheezes, crackles - Routine Cardiovascular Exam Present: RRR, no murmur - Routine Abdominal Exam Present: soft - Routine Extremities Exam Present: edema, joint swelling, extremity cold to touch Oncology Results - Labs CBC & Chem 7: 10/20/17 03:56 10/20/17 03:56 Labs: Short CBC 10/20/17 Range/Units 03:56 WBC 14.5 H (4.5-11.0) T/MM3 Hgb 16.6 H (12-16) GM/DL Hct 51.2 H (36-46) % Plt Count 177 (130-400) T/MM3 BMP 10/20/17 03:56 Sodium 142 Potassium 4.3 Chloride 97 L Carbon Dioxide 36 H BUN 26.0 H Creatinine 0.7 Glucose 91 Calcium 9.1 Assessment and Plan Assessment and Plan: Assessment 1. Symptomatic polycythemia most likely secondary due to Hypoxemia due to chronic pulmonary and cardiovascular disease. However, I cannot rule out polycythemia vera. Symptoms improved with phlebotomy. 2. Recurrent pulmonary embolism on heparin. 3. History of GI bleed while on Coumadin. Recommendation and plan 1. Repeat phlebotomy to keep hematocrit between 45-50% until workup is complete. 2. Follow-up on the hematology workup ordered by Dr. Kimbrough. 3. The patient is scheduled for IVC filter tomorrow. 4. May start patient on DOAT upon discharge. - Time Spent With Patient Total time spent is greater than 50% in coordination of care (as documented) at patient's floor/unit and/or counseling patient: 25 - 35 minutes
[2017-10-20] MEDS: ACETAMINOPHEN 325 MG TABLET PO PRN (20:12)
[2017-10-21] MEDS: SALINE FLUSH 10ml SYRINGE IV PRN ×2 (04:38→21:26)
[2017-10-21] MEDS: METHYLPREDNISOLONE SOD SUCC 125mg/2ml INJECTION IVP SCH (04:38)
[2017-10-21] MEDS: OMEPRAZOLE 20 MG CAPSULE PO SCH (06:10)
[2017-10-21] MEDS: LORATADINE 10 MG TABLET PO SCH ×2 (06:10→17:06)
[2017-10-21] MEDS: FUROSEMIDE 20 MG/2 ML INJECTION IVP SCH ×2 (08:03→21:26)
[2017-10-21] MEDS: CYANOCOBALAMIN (B-12) 1,000mcg/ml INJECTION IM SCH (08:03)
[2017-10-21] MEDS: SENNA + DOCUSATE TABLET PO SCH ×2 (08:04→21:26)
[2017-10-21] MEDS: LISINOPRIL 20 MG TABLET PO SCH ×2 (08:04→21:26)
[2017-10-21] MEDS: GABAPENTIN 600 MG TABLET PO SCH ×3 (08:05→21:25)
[2017-10-21] MEDS: LABETALOL 100 MG TABLET PO SCH ×2 (08:05→21:25)
[2017-10-21] MEDS: DICLOFENAC 1% TOP GEL 100gm TP PRN (08:06)
[2017-10-21] MEDS: POLYETHYL GLYCOL 3350 17gm PACKET PO SCH (08:07)
[2017-10-21] MEDS: NICOTINE 14 MG PATCH TD SCH (08:07)
[2017-10-21] MEDS: BENZONATATE 100 MG CAPSULE PO SCH ×3 (08:09→21:26)
[2017-10-21] MEDS: ALBUTEROL/IPRATROPIUM 2.5mg-0.5mg/3ml NEB AEROSOL SCH ×4 (09:17→20:02)
[2017-10-21] MEDS: BUDESONIDE INH.SOLN 0.5mg/2ml NEB AEROSOL SCH ×2 (09:17→20:02)
[2017-10-21] MEDS: ACETAMINOPHEN 325 MG TABLET PO PRN (11:02)
[2017-10-21] MEDS ORDERED: HEPARIN 1,000 UNITS/500 ML PREMIX (*CVL ONLY*) IV ONE (11:15)
[2017-10-21] MEDS ORDERED: LIDOCAINE 1% (10mg/ml) 30ml SDV INJ ONE (11:15)
--- NOTE | 2017-10-21 11:44 | Cardiology Progress Note ---
Subjective Principal diagnosis: PE Interval history: Pt is sitting up on side of bed working with RT, receiving nebulizer treatment. Pt states she is feeling better today. Denies any cardiac complaints and verbalizes readiness for placement of IVC which is planned for 12:30 tomorrow. Exam Vital signs: Temperature 98.3 F 10/21/17 09:00 Pulse Rate 58 L 10/21/17 09:00 Respiratory Rate 18 10/21/17 09:19 Blood Pressure 148/67 H 10/21/17 09:00 Pulse Oximetry 94 10/21/17 09:19 Inpatient Medications: Generic Name Dose Route Start Last Admin Trade Name Freq PRN Reason Stop Dose Admin Acetaminophen 650 mg 10/17/17 05:15 10/21/17 11:02 Tylenol PO 650 mg Q5H PRN Administration Discomfort Al Hydroxide/Mg Hydroxide 30 ml 10/17/17 05:15 10/19/17 19:13 Maalox Plus PO 30 ml Q3H PRN Administration Indigestion Albuterol/Ipratropium 3 ml 10/17/17 09:00 10/21/17 09:17 Duoneb AEROSOL 3 ml QID ELEAZAR Administration Benzonatate 100 mg 10/17/17 15:00 10/21/17 08:09 Tessalon Perles PO 100 mg TID ELEAZAR Administration Budesonide 0.5 mg 10/17/17 05:15 10/21/17 09:17 Pulmicort Inhalation AEROSOL 0.5 mg Q12H ELEAZAR Administration Cholecalciferol 5,000 unit 10/19/17 10:15 10/21/17 08:04 Vit. D-3 PO 5,000 unit DAILY ELEAZAR Administration Cyanocobalamin 1,000 mcg 10/19/17 10:15 10/21/17 08:03 Vit. B-12 IM 1,000 mcg DAILY ELEAZAR Administration Diclofenac Sodium 1 applic 10/17/17 05:15 10/21/17 08:06 Voltaren TP 1 applic BID PRN Administration pain Doxycycline Hyclate 100 mg 10/17/17 08:00 10/21/17 08:09 Vibramycin PO 100 mg BIDWM ELEAZAR Administration Enoxaparin Sodium 120 mg 10/18/17 17:00 10/20/17 17:38 Lovenox 1 mg/kg (120 mg) 120 mg SQ Administration Q12H ELEAZAR Furosemide 40 mg 10/17/17 09:00 10/21/17 08:03 Lasix 20 Mg/2 Ml IVP 40 mg Q12HR ELEAZAR Administration Gabapentin 600 mg 10/17/17 09:00 10/21/17 08:05 Neurontin PO 600 mg TID ELEAZAR Administration Labetalol HCl 100 mg 10/17/17 09:00 10/21/17 08:05 Normodyne PO 100 mg BID ELEAZAR Administration Lisinopril 20 mg 10/17/17 09:00 10/21/17 08:04 Prinivil PO 20 mg BID ELEAZAR Administration Loratadine 10 mg 10/17/17 06:30 10/21/17 06:10 Claritin PO 10 mg ACBID [facility] Administration Magnesium Hydroxide 30 ml 10/19/17 09:13 Mom PO DAILY PRN Constipation Methylprednisolone Sodium Succinate 62.5 mg 10/17/17 03:45 10/21/17 04:38 Solu-Medrol IVP 62.5 mg O [facility] Administration Nicotine 14 mg 10/18/17 17:00 10/21/17 08:07 Nicoderm TD 14 mg DAILY [facility] Administration Nifedipine 60 mg 10/21/17 09:00 10/21/17 08:04 Procardia Xl PO 60 mg DAILY [facility] Administration Nitroglycerin 0.4 mg 10/17/17 02:12 Nitrostat SL Q5MIN3 PRN Chest pain Omeprazole 20 mg 10/17/17 06:30 10/21/17 06:10 Prilosec PO 20 mg ACB E[facility] Administration Ondansetron HCl 4 mg 10/17/17 05:10 Zofran IVP Q6H PRN Nausea Polyethylene Glycol 17 gm 10/19/17 09:15 10/21/17 08:07 Miralax PO Not Given DAILY [facility] Senna/Docusate Sodium 1 tab 10/19/17 21:00 10/21/17 08:04 Senna Plus Tablet PO 1 tab BID [facility] Administration Sodium Chloride 10 - 80 ml 10/17/17 05:10 10/21/17 04:38 Iv Flush IV 10 ml PRN PRN Administration Flushing Tramadol HCl 50 mg 10/17/17 05:15 10/20/17 04:26 Ultram PO 50 mg Q6H PRN Administration pain Discontinued Medications Generic Name Dose Route Start Last Admin Trade Name Freq PRN Reason Stop Dose Admin Albuterol/Ipratropium 3 ml 08/05/18 02:10 10/17/17 02:10 Duoneb AEROSOL 10/17/17 02:11 3 ml O ONE Administration Amlodipine Besylate 5 mg 10/17/17 09:00 10/18/17 09:09 Norvasc PO 5 mg DAILY E[facility] Administration Amlodipine Besylate 10 mg 10/18/17 14:00 10/20/17 08:50 Norvasc PO 10 mg DAILY [facility] Administration Diphenhydramine HCl 50 mg 10/17/17 12:23 10/17/17 13:06 Benadryl PO 10/17/17 12:24 50 mg O ONE Administration Enoxaparin Sodium 120 mg 10/17/17 03:23 10/17/17 04:33 Lovenox SQ 10/17/17 03:24 120 mg O ONE Administration Enoxaparin Sodium 40 mg 10/18/17 09:00 Lovenox SQ DAILY E[facility] Enoxaparin Sodium 120 mg 10/17/17 17:00 10/18/17 04:10 Lovenox 1 mg/kg (120 mg) 120 mg SQ Administration Q12H [facility] Sodium Chloride 500 mls @ 500 mls/hr 10/17/17 02:12 10/17/17 09:31 Normal Saline IV 10/17/17 03:11 Not Given .Q1H ONE Sodium Chloride 1,000 mls @ 100 mls/hr 10/17/17 02:30 10/17/17 05:39 Normal Saline IV Infused .Q10H ELEAZ[facility] Infusion Methylprednisolone Sodium Succinate 125 mg 10/17/17 12:22 10/17/17 13:05 Solu-Medrol IVP 10/17/17 12:23 125 mg O ONE Administration Morphine Sulfate 2 mg 10/17/17 10:26 10/17/17 11:02 Morphine Sulf 2 Mg Inj IVP 10/17/17 10:27 2 mg O ONE Administration Pharmacy Consult 1 each 10/17/17 05:54 10/17/17 09:31 Pharmacy Consult - Fall Risk 10/17/17 05:55 1 each ONE TIME ONE Administration Pneumococcal Polyvalent Vaccine 0.5 ml 10/17/17 08:03 10/17/17 11:05 Pneumovax 23 IM 10/17/17 08:04 0.5 ml .ONCE ONE Administration Sodium Chloride 10 - 80 ml 10/17/17 02:12 10/17/17 02:24 Iv Flush IVF 10 ml PRN PRN Administration Flushing Results 10/21/17 10:39 10/21/17 10:39 CBC 10/21/17 Range/Units 10:39 WBC 11.3 H (4.5-11.0) T/MM3 RBC 5.71 H (4.00-5.20) M/MM3 Hgb 16.9 H (12-16) GM/DL Hct 52.3 H (36-46) % Plt Count 199 (130-400) T/MM3 Neut # (Auto) Not performed Lymph # (Auto) Not performed Rogers # (Auto) Not performed Eos # (Auto) Not performed Baso # (Auto) Not performed Comprehensive Metabolic Panel 10/21/17 Range/Units 10:39 Sodium 141 (136-146) MEQ/L Potassium 4.1 (3.6-5) MEQ/L Chloride 97 L (98-107) MEQ/L Carbon Dioxide 33 H (22-30) MEQ/L BUN 30.0 H (7-17) MG/DL Creatinine 0.8 (0.7-1.2) mg/dL Glucose 180 H (65-110) MG/DL Calcium 8.9 (8.4-10.2) MG/DL Intake and Output 10/20/17 10/21/17 10/21/17 22:59 06:59 14:59 Intake Total 800 / 800 570 / 570 Output Total 700 / 700 600 / 600 1200 / 1200 Balance 100 / 100 -30 / -30 -1200 / -1200 Intake: Oral 800 / 800 570 / 570 Output: Urine 700 / 700 600 / 600 1200 / 1200 Other: Urine Appearance Clear Clear Clear Urine Color Yellow Yellow Yellow Urine Odor Normal Normal # Voids 1 Weight 121.5 kg Patient Weight 10/22/17 06:59 Weight 121.5 kg Assessment and Plan - Assessment and Plan (1) Abdominal aortic aneurysm without rupture Current visit: Yes Status: Chronic (2) CAD (coronary artery disease), [place] coronary artery Current visit: Yes Status: Chronic (3) Elevated d-dimer Current visit: Yes Status: Acute (4) COPD (chronic obstructive pulmonary disease) Current visit: Yes Status: Chronic (5) Hypertension Current visit: Yes Status: Chronic (6) Heart murmur Current visit: Yes Status: Chronic (7) Obstructive sleep apnea Current visit: Yes Status: Chronic (8) GERD (gastroesophageal reflux disease) Current visit: Yes Status: Chronic (9) History of GI bleed Current visit: No Status: Resolved (10) Ventricular tachycardia Current visit: Yes Status: Chronic (11) Chronic pulmonary embolism Current visit: Yes Status: Chronic (12) Dyspnea Current visit: Yes Status: Chronic (13) Chest pain Current visit: Yes Status: Resolved (14) NSTEMI (non-ST elevated myocardial infarction) Current visit: Yes Status: Acute (15) Acute on chronic respiratory failure with hypoxemia Current visit: Yes Status: Acute (16) Acute on chronic diastolic (congestive) heart failure Current visit: Yes Status: Acute (17) Nicotine dependence Current visit: Yes Status: Chronic - Assessment and Plan - Assessment and Plan Dyspnea Baseline 3 L O2 per NC Now requiring 5L O2 per NC to maintain sat >90% RCAT Initial CXR: Pulmonary vascular congestion, persistant basilar opacities (may relate to mild edema) 10/18/2017 CXR: Cardiomegaly without overt congestive changes. Lung schaefer are hypoventilated with bibasilar linear subsegmental atelectasis. No definite acute focal infiltrates are identified. EKG: Junctional Rhythm with occasional ventricular premature complexes and occasional supraventricular complexes (pattern consistent with pulmonary disease ), RBBB, inferior [place] or undetermined age, No acute ischemia +Cough +Hemoptysis Recently diagnosed with pneumonia CTA of chest as below Followed by Medicine Chest Pain Chronic in nature Allergic to nitro IV morphine prn CXR: Pulmonary vascular congestion, persistant basilar opacities (may relate to mild edema) EKG: Junctional Rhythm with occasional ventricular premature complexes and occasional supraventricular complexes (pattern consistent with pulmonary disease ), RBBB, inferior [place] or undetermined age, No acute ischemia Troponin peaked at 0.17 and trended down 10/2016 Echo: EF 55-60%, LVH, Impaired diastolic dysfunction, trace MR, dilated LA, enlarged RA 08/2017 Heart Cath: Mild Coronary Artery Disease (30-40%) Current Echo Pending CTA of Chest as below Continue to monitor on tele NSTEMI - type II Likely related to impaired respiratory status and possible infection? CXR: Pulmonary vascular congestion, persistant basilar opacities (may relate to mild edema) EKG: Junctional Rhythm with occasional ventricular premature complexes and occasional supraventricular complexes (pattern consistent with pulmonary disease ), RBBB, inferior [place] or undetermined age, No acute ischemia Troponin peaked at 0.17 and trended down 2016 Echo: EF 55-60%, LVH, Impaired diastolic dysfunction, trace MR, dilated LA , enlarged RA Current Echo Pending Allergic to aspirin Continue BB and MJ Continue to monitor on tele Acute on Chronic Diastolic Heart Failure 2016 Echo: EF 55-60%, LVH, Impaired diastolic dysfunction, trace MR, dilated LA , enlarged RA Patient non-compliant with home lasix Current Echo Pending Continue BB and MJ Lasix 40 mg IV BID Acute on Chronic Hypoxic Respiratory Failure Baseline 3 L O2 per NC Now requiring 5L O2 per NC to maintain sat >90% RCAT Initial CXR: Pulmonary vascular congestion, persistant basilar opacities (may relate to mild edema) 10/18/2017 CXR: Cardiomegaly without overt congestive changes. Lung schaefer are hypoventilated with bibasilar linear subsegmental atelectasis. No definite acute focal infiltrates are identified. EKG: Junctional Rhythm with occasional ventricular premature complexes and occasional supraventricular complexes (pattern consistent with pulmonary disease ), RBBB, inferior [place] or undetermined age, No acute ischemia +Cough +Hemoptysis Recently diagnosed with pneumonia CTA of chest: Impression: 1. Large amount of bilateral pulmonary embolus with evidence of right heart strain. Emergent cardiology consultation is recommended. 2. New 1.5 cm right middle lobe pulmonary nodule suspicious for a primary lung malignancy. Recommend PET/CT or biopsy. CT angiogram of the chest for aorta: Please see the above report for extravascular details. There is redemonstration of the patient's chronic [place] type B aortic dissection with aneurysm of the descending aorta up to 6.3 cm in diameter. There is compression of the true lumen by the false lumen which contains mural thrombus. Noncontrast images show no evidence of intramural hematoma. There is mild right ventricular enlargement. No evidence of pericardial effusion. 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 CT angiogram of the abdomen and pelvis for aorta: Thoracic aortic dissection continues through the entire abdominal aorta into the aortic bifurcation and right common iliac artery. There is a narrowed true lumen with celiac and SMA origin arising from it. There is stenosis at the celiac origin of moderate severity due to the false lumen. Arterial phase liver is unremarkable. Gallbladder is grossly normal. The spleen, pancreas, adrenal glands and kidneys show no acute findings. The left renal artery arises from the true lumen. Right renal artery arises from the false lumen. There may be fenestrations or communication between the true lumen and the false lumen. Aneurysmal dilatation of the abdominal aorta up to 4 cm in diameter, similar to the prior study. The visualized bowel loops show mild colonic diverticulosis but no acute findings. Evaluation is limited due to patient body habitus and beam hardening artifact. Impression: 4 cm abdominal aortic aneurysm with diffuse dissection. This is not significantly changed in the prior study. 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 Treated with phlebotomy Coronary Artery Disease Allergic to aspirin, Continue BB and MJ-I EKG: Junctional Rhythm with occasional ventricular premature complexes and occasional supraventricular complexes (pattern consistent with pulmonary disease ), RBBB, inferior [place] or undetermined age, No acute ischemia Troponin peaked at 0.17 and trended down 10/2016 Echo: EF 55-60%, LVH, Impaired diastolic dysfunction, trace MR, dilated LA, enlarged RA 08/2017 Heart Cath: Mild Coronary Artery Disease (30-40%) Echo: EF 55%, assymetrical septal hypertrophy without outflow obstruction, mild MR, aortic sclerosis, severe PAP (73 mm Hg), trace PI, R atrial and R ventricular dilation. Continue Risk Management Ventricular Tachycardia Asymptomatic Tolerating Medical Therapy Continue BB Therapy Hypertension Continue Labetalol 100 mg PO BID Continue lisinopril 20 BID Discontinue amlodipine Start nifedipine 60 mg daily AAA without rupture 08/2016 CTA of the Chest: Impression: Extensive [place] type B aortic dissection with gradual enlargement and development amount of aortic arch and descending aortic aneurysms. Overall diameter is approximately 1 cm larger than the 2014 comparison. Vascular surgical evaluation is suggested. Followed by Dr. Earl Villanueva, recently seen No intervention at this time Will continue to monitor routinely Patient to be considering stent vs. open repair COPD On Chronic O2 Initial CXR: Pulmonary vascular congestion, persistant basilar opacities (may relate to mild edema) 10/18/2017 CXR: Cardiomegaly without overt congestive changes. Lung schaefer are hypoventilated with bibasilar linear subsegmental atelectasis. No definite acute focal infiltrates are identified. RCAT 1 dose of steroids in the ER Followed by Medicine BARBIE Severe Patient non-compliant with home CPAP RCAT On chronic O2 therapy GERD Continue home Prilosec History of GI Bleed Hospitalized in September of 2017 Taken off warfarin therapy 08/2017 Upper and Lower GI: Duodenitis of duodenal bulb, mild antral gastritis , possible Blackwell's esophagus, severe pandiverticulosis, 0.5 cm sessile polyp of transverse colon, multiple polyps of the sigmoid colon (5 removed), multiple polyps of the rectum (4 removed) Followed by Medicine History of TIA Recently taken off of Warfarin Allergic to aspirin Continue risk management Followed by medicine History of Pneumonia Pt reports recent treatments with multiple ABX therapy for ongoing pneumonia Currently on Doxycycline 100 mg PO BID Will continue per Dr. Russell Followed by medicine Nicotine Dependence Cessation Counseling Ppx: SQ Lovenox Famotidine Hospital Course Summary Disclaimer: The visit summary below is not to be considered part of the above Progress Note.
[2017-10-21] MEDS ORDERED: FentaNYL 100 MCG/2 ML INJECTION ONE (12:49)
[2017-10-21] MEDS ORDERED: DiphenhydrAMINE 50 MG/ML INJECTION ONE (12:49)
[2017-10-21] MEDS ORDERED: METHYLPREDNISOLONE SOD SUCC 125mg/2ml INJECTION ONE (12:49)
[2017-10-21] MEDS ORDERED: MIDAZOLAM 2mg/2ml INJECTION ONE (12:50)
--- NOTE | 2017-10-21 13:03 | Progress Note ---
<Vero Burch L - Last Filed: 10/21/17 16:04> Oncology Subjective Alone in room. Alert and oriented. Denies fever, chills. Denies cough or shortness of air currently. Complains of anterior left chest wall pain, states this is chronic and is relieved at home with application of topical cream. Nursing notified and will obtain topical cream to apply. General: No fever, no night sweats Eyes: No redness, no pain, no diplopia ENT: No mouth sores, no trouble swallowing Cardiac: + chest pain no palpitations Pulmonary: No cough, + shortness of breath, no wheezing Abdomen: No pain, no nausea vomiting, no diarrhea or constipation : No urgency, frequency, dysuria, or hematuria Musculoskeletal: No arthritis, no myalgias Neurological: No headaches, no focal weakness Skin: No rash, no sores Psychiatric: No anxiety, no depression Exam Vital signs: Temperature 98.3 F 10/21/17 09:00 Pulse Rate 58 L 10/21/17 09:00 Respiratory Rate 18 10/21/17 09:19 Blood Pressure 148/67 H 10/21/17 09:00 Pulse Oximetry 94 10/21/17 09:19 Narrative: Generic Name Dose Route Start Last Admin Trade Name Freq PRN Reason Stop Dose Admin Acetaminophen 650 mg 10/17/17 05:15 10/21/17 11:02 Tylenol PO 650 mg Q5H PRN Administration Discomfort Acetaminophen 325 - 650 mg 10/21/17 13:34 Tylenol PO Q5H PRN Pain Al Hydroxide/Mg Hydroxide 30 ml 10/17/17 05:15 10/19/17 19:13 Maalox Plus PO 30 ml Q3H PRN Administration Indigestion Al Hydroxide/Mg Hydroxide 30 ml 10/21/17 13:34 Maalox Plus PO Q3H PRN Indigestion Albuterol/Ipratropium 3 ml 10/17/17 09:00 10/21/17 14:22 Duoneb AEROSOL Not Given QID ELEAZAR Atropine Sulfate 0.5 mg 10/21/17 13:34 Atropine IVP Q5M PRN Bradycardia Benzonatate 100 mg 10/17/17 15:00 10/21/17 15:41 Tessalon Perles PO 100 mg TID ELEAZAR Administration Bisacodyl 5 - 10 mg 08/09/18 13:34 Dulcolax PO DAILY PRN Constipation Bisacodyl 10 mg 10/21/17 13:34 Dulcolax RECTALLY DAILY PRN Constipation Budesonide 0.5 mg 10/17/17 05:15 10/21/17 09:17 Pulmicort Inhalation AEROSOL 0.5 mg Q12H ELEAZAR Administration Cholecalciferol 5,000 unit 10/19/17 10:15 10/21/17 08:04 Vit. D-3 PO 5,000 unit DAILY ELEAZAR Administration Cyanocobalamin 1,000 mcg 10/19/17 10:15 10/21/17 08:03 Vit. B-12 IM 1,000 mcg DAILY ELEAZAR Administration Diclofenac Sodium 1 applic 10/17/17 05:15 10/21/17 08:06 Voltaren TP 1 applic BID PRN Administration pain Doxycycline Hyclate 100 mg 10/17/17 08:00 10/21/17 08:09 Vibramycin PO 100 mg BIDWM ELEAZAR Administration Furosemide 40 mg 10/17/17 09:00 10/21/17 08:03 Lasix 20 Mg/2 Ml IVP 40 mg Q12HR ELEAZAR Administration Gabapentin 600 mg 10/17/17 09:00 10/21/17 15:41 Neurontin PO 600 mg TID ELEAZAR Administration Labetalol HCl 100 mg 10/17/17 09:00 10/21/17 08:05 Normodyne PO 100 mg BID ELEAZAR Administration Lisinopril 20 mg 10/17/17 09:00 10/21/17 08:04 Prinivil PO 20 mg BID ELEAZAR Administration Loratadine 10 mg 10/17/17 06:30 10/21/17 06:10 Claritin PO 10 mg ACBID ELEAZAR Administration Lorazepam 0.5 - 1 mg 10/21/17 13:34 Ativan PO Q4H PRN Anxiety Lorazepam 0.5 - 1 mg 10/21/17 13:34 Ativan Inj IVP Q4H PRN Anxiety Magnesium Hydroxide 30 ml 10/19/17 09:13 Mom PO DAILY PRN Constipation Magnesium Hydroxide 30 ml 10/21/17 13:34 Mom PO DAILY PRN Constipation Methylprednisolone Sodium Succinate 62.5 mg 10/17/17 03:45 10/21/17 04:38 Solu-Medrol IVP 62.5 mg O ELEAZAR Administration Metoclopramide HCl 5 - 10 mg 10/21/17 13:34 Reglan IVP Q6H PRN Nausea &/or vomiting Nicotine 14 mg 10/18/17 17:00 10/21/17 08:07 Nicoderm TD 14 mg DAILY ELEAZAR Administration Nifedipine 60 mg 10/21/17 09:00 10/21/17 08:04 Procardia Xl PO 60 mg DAILY ELEAZAR Administration Nitroglycerin 0.4 mg 10/17/17 02:12 10/21/17 14:48 Nitrostat SL 0.4 mg Q5MIN3 PRN Administration Chest pain Omeprazole 20 mg 10/17/17 06:30 10/21/17 06:10 Prilosec PO 20 mg ACB ELEAZAR Administration Ondansetron HCl 4 mg 10/17/17 05:10 Zofran IVP Q6H PRN Nausea Ondansetron HCl 4 mg 10/21/17 13:34 Zofran IVP Q6H PRN Nausea &/or vomiting Polyethylene Glycol 17 gm 10/19/17 09:15 10/21/17 08:07 Miralax PO Not Given DAILY [facility] Promethazine HCl 12.5 - 25 mg 10/21/17 13:34 Phenergan Inj IVP Q6H PRN Nausea &/or vomiting Rivaroxaban 15 mg 10/21/17 17:30 Xarelto PO 11/11/17 08:01 BIDWM ELEAZAR Rivaroxaban 20 mg 11/12/17 17:30 Xarelto PO WS [facility] Senna/Docusate Sodium 1 tab 10/19/17 21:00 10/21/17 08:04 Senna Plus Tablet PO 1 tab BID [facility] Administration Sodium Chloride 10 - 80 ml 10/17/17 05:10 10/21/17 04:38 Iv Flush IV 10 ml PRN PRN Administration Flushing Tramadol HCl 50 mg 10/17/17 05:15 10/21/17 15:40 Ultram PO 50 mg Q6H PRN Administration pain Discontinued Medications Generic Name Dose Route Start Last Admin Trade Name Freq PRN Reason Stop Dose Admin Albuterol/Ipratropium 3 ml 10/17/17 02:10 10/17/17 02:10 Duoneb AEROSOL 10/17/17 02:11 3 ml O ONE Administration Amlodipine Besylate 5 mg 10/17/17 09:00 08/06/18 09:09 Norvasc PO 5 mg DAILY ELEAZAR Administration Amlodipine Besylate 10 mg 10/18/17 14:00 10/20/17 08:50 Norvasc PO 10 mg DAILY ELEAZAR Administration Diphenhydramine HCl 50 mg 10/17/17 12:23 10/17/17 13:06 Benadryl PO 10/17/17 12:24 50 mg O ONE Administration Enoxaparin Sodium 120 mg 10/17/17 03:23 10/17/17 04:33 Lovenox SQ 10/17/17 03:24 120 mg O ONE Administration Enoxaparin Sodium 40 mg 10/18/17 09:00 Lovenox SQ DAILY ELEAZAR Enoxaparin Sodium 120 mg 10/17/17 17:00 10/18/17 04:10 Lovenox 1 mg/kg (120 mg) 120 mg SQ Administration Q12H [facility] Enoxaparin Sodium 120 mg 10/18/17 17:00 10/20/17 17:38 Lovenox 1 mg/kg (120 mg) 120 mg SQ Administration Q12H [facility] Sodium Chloride 500 mls @ 500 mls/hr 10/17/17 02:12 10/17/17 09:31 Normal Saline IV 10/17/17 03:11 Not Given .Q1H ONE Sodium Chloride 1,000 mls @ 100 mls/hr 10/17/17 02:30 10/17/17 05:39 Normal Saline IV Infused .Q10H ELEAZAR Infusion Methylprednisolone Sodium Succinate 125 mg 10/17/17 12:22 10/17/17 13:05 Solu-Medrol IVP 10/17/17 12:23 125 mg O ONE Administration Morphine Sulfate 2 mg 10/17/17 10:26 10/17/17 11:02 Morphine Sulf 2 Mg Inj IVP 10/17/17 10:27 2 mg O ONE Administration Pharmacy Consult 1 each 10/17/17 05:54 10/17/17 09:31 Pharmacy Consult - Fall Risk 10/17/17 05:55 1 each ONE TIME ONE Administration Pneumococcal Polyvalent Vaccine 0.5 ml 10/17/17 08:03 10/17/17 11:05 Pneumovax 23 IM 10/17/17 08:04 0.5 ml .ONCE ONE Administration Sodium Chloride 10 - 80 ml 10/17/17 02:12 10/17/17 02:24 Iv Flush IVF 10 ml PRN PRN Administration Flushing - Constitutional mild distress, morbidly obese - Routine HEENT Exam Head: Present: normocephalic Eye: Present: EOMI ENT: Present: mucous membranes moist - Routine Neck Exam Present: supple. Absent: lymphadenopathy - Routine Respiratory Exam Present: decreased breath sounds. Absent: wheezes, crackles - Routine Cardiovascular Exam Present: RRR, no murmur - Routine Abdominal Exam Present: soft. Absent: mass (no organomegaly/mass, but difficult to assess 2nd to body habitus) - Routine Extremities Exam Present: edema, extremity cold to touch (Diffuse/dark discoloration of bilateral lower extremities. This is chronic) - Routine Skin Exam Present: intact, dry - Routine Neurological Exam Present: alert, oriented X3 - Routine Psychiatric Exam Present: normal affect, cooperative Oncology Results - Labs CBC & Chem 7: 10/21/17 10:39 10/21/17 10:39 Labs: Short CBC 10/21/17 Range/Units 10:39 WBC 11.3 H (4.5-11.0) T/MM3 Hgb 16.9 H (12-16) GM/DL Hct 52.3 H (36-46) % Plt Count 199 (130-400) T/MM3 BMP 10/21/17 10:39 Sodium 141 Potassium 4.1 Chloride 97 L Carbon Dioxide 33 H BUN 30.0 H Creatinine 0.8 Glucose 180 H Calcium 8.9 Assessment and Plan Assessment and Plan: Assessment 1. Recurrent pulmonary embolism rule out hypercoagulable state. Elevated hemoglobin raises concern for polycythemia rubra vera. Currently on anticoagulation with Lovenox 1 mg/kg. IVC filter placed today 10/21/2017. History of GI bleed while on Coumadin. 2. Lung nodule on CT scan this is indeterminate finding would best be evaluated by PET scan when breathing status is improved. It is more central and biopsy would be difficult in the face of anticoagulation. 3. Elevated hemoglobin with associated itching and leukocytosis. This could be secondary to hypoxemia with excess erythropoietin production or from polycythemia rubra vera with her excessive itching after hot shower. Leukocytosis can also be associated with polycythemia rubra vera or can be associated with chronic hypoxemia from her COPD and tobacco use. 1unit phlebotomy ( 250 ml ) ordered by Dr. Haley/done 10/19/17. 4. Neutrophilic leukocytosis with mild elevation of white blood cell count probably secondary to steroids. 5. Right submandibular lymphadenopathy of uncertain etiology. No enlarged lymph nodes noticed on CT scan of the chest. Will consider further evaluation with PET scan and LDH. 6. Chronic obstructive pulmonary disease with acute on chronic respiratory failure 7. Congestive heart failure with elevated proBNP, chronic edema, dilated vessels 8. 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 Marked obesity 10. Tobacco use Plan Continue supportive care. Await hematology workup results. Will follow as outpatient with further workup of pulmonary nodule and right submandibular lymphadenopathy. Discussed with patient. At this time has no questions - Time Spent With Patient Total time spent is greater than 50% in coordination of care (as documented) at patient's floor/unit and/or counseling patient: 25 - 35 minutes <Vernon Kimbrough - Last Filed: 10/21/17 17:28> Exam Vital signs: Temperature 98.0 F 10/21/17 13:45 Pulse Rate 91 10/21/17 16:19 Respiratory Rate 18 10/21/17 14:30 Blood Pressure 136/67 10/21/17 16:19 Pulse Oximetry 95 10/21/17 16:19 Oncology Results - Labs CBC & Chem 7: 10/21/17 10:39 10/21/17 10:39 Labs: Short CBC 10/21/17 Range/Units 10:39 WBC 11.3 H (4.5-11.0) T/MM3 Hgb 16.9 H (12-16) GM/DL Hct 52.3 H (36-46) % Plt Count 199 (130-400) T/MM3 BMP 10/21/17 10:39 Sodium 141 Potassium 4.1 Chloride 97 L Carbon Dioxide 33 H BUN 30.0 H Creatinine 0.8 Glucose 180 H Calcium 8.9 Assessment and Plan Assessment and Plan: Patient examined, chart reviewed, I participated development of the plan of care with this patient. #1 recurrent pulmonary embolism negative for factor V Leiden and negative prothrombin [id number] A/G mutations. Anticardiolipin antibody is currently pending. IVC filter today. Lovenox is been stopped and she is currently on Xarelto 2. Lung nodule PET scan would be best to evaluate this. This will done as an outpatient. 3. Elevated hemoglobin ruling out polycythemia rubra vera. JAK2 [id number] currently pending. One unit phlebotomy done on 10/19/17. Hemoglobin dropped from 17-16.6 but is back up to 16.9 today.Hematocrit went from 54 and 52.6-51.2 and is currently 52.3. She is better today and the phlebotomy may have provided some benefit. We'll see her counts are in the morning and consider another phlebotomy tomorrow 4. Neutrophilic leukocytosis this could be secondary steroids or to polycythemia rubra vera. - Time Spent With Patient Total time spent is greater than 50% in coordination of care (as documented) at patient's floor/unit and/or counseling patient:
[2017-10-21] MEDS ORDERED: Bisacodyl EC TAB 5 MG TABLET PO PRN (13:34)
[2017-10-21] MEDS ORDERED: ATROPINE 1 MG/ML INJECTION IVP PRN (13:34)
[2017-10-21] MEDS ORDERED: ACETAMINOPHEN 325 MG TABLET PO PRN (13:34)
[2017-10-21] MEDS ORDERED: MAG-AL + SIM ORAL LIQUID 30ml PO PRN (13:34)
[2017-10-21] MEDS ORDERED: PROMETHAZINE 25 MG INJECTION IVP PRN (13:34)
[2017-10-21] MEDS ORDERED: METOCLOPRAMIDE 10mg/2ml INJECTION IVP PRN (13:34)
[2017-10-21] MEDS ORDERED: BISACODYL 10 MG SUPPOSITORY RECTALLY PRN (13:34)
[2017-10-21] MEDS ORDERED: LORazepam 0.5 MG TABLET PO PRN (13:34)
[2017-10-21] MEDS ORDERED: ONDANSETRON 4 MG/2 ML INJECTION IVP PRN (13:34)
--- NOTE | 2017-10-21 14:59 | Cardiology Report ---
DATE OF PROCEDURE October 21, 2017 REFERRING PHYSICIAN Saleem Garcia MD INDICATIONS The patient is a pleasant 67-year lady who was admitted with a pulmonary embolism, with history of pulmonary embolism in the past and also atrial fibrillation who was on anticoagulation in the past and due to GI bleed the anticoagulation was stopped about a month ago and now presents with recurrence of the pulmonary embolism. After discussion with the patient and Dr. Kash Haley, we decided to proceed with IVC filter placement to hopefully prevent further pulmonary embolisms in future since she is at a high risk of having recurrent pulmonary embolism in the future. We discussed with Dr. Haley and will use IVC filter as well as oral anticoagulation for better outcome. INFORMED CONSENT Informed consent was obtained after explaining the procedure and the potential risks to the patient who agreed to proceed with the procedure. PROCEDURE 1. IVC filter placement. 2. Inferior vena cavogram. TECHNIQUE She was prepped and draped in the usual sterile techniques. Conscious sedation was performed using Versed and fentanyl. 1% lidocaine was used for local anesthesia. Venous access was obtained into the right femoral vein with placement of a 6-Sudanese venous sheath. Inferior vena cavogram was performed to identify the origin of the renal veins. After identification of the renal veins a TRAPEASE inferior vena cava filter was advanced through the sheath and deployed just inferior to the origin of the renal veins. The patient tolerated the procedure well with no complications. IMPRESSION 1. Successful TRAPEASE inferior vena cava filter placement in inferior vena cava. [facility]
[2017-10-21] MEDS: TRAMADOL 50 MG TABLET PO PRN (15:40)
[2017-10-21] MEDS: RIVAROXABAN 15 MG TABLET PO SCH (17:06)
--- NOTE | 2017-10-21 20:00 | Progress Note ---
- Date 10/21/17 Subjective: F/U: Acute on chronic hypoxia, Bilateral pulmonary emboli Resting in bed this evening. Feels like she is making some improvements. Notes energy level better-feels it is the B12 shots. Breathing okay-still needing 5L to maintain saturations which is up from her baseline. Not surprising with PE burden. Did see therapy today. Objective Vital signs: Temperature 97.6 F 10/21/17 19:36 Pulse Rate 95 10/21/17 19:36 Respiratory Rate 20 10/21/17 19:36 Blood Pressure 133/74 10/21/17 19:36 Pulse Oximetry 89 L 10/21/17 19:36 Height/Weight/BMI: Height 1.65 m Weight 121.5 kg Body Mass Index 44.6 - Constitutional Present: well nourished, well developed, morbidly obese, cooperative - Routine HEENT Exam Head: Present: normocephalic, atraumatic Eye: Present: EOMI, PERRL ENT: Present: mucous membranes moist - Routine Respiratory Exam Present: decreased breath sounds. Absent: respiratory distress, wheezes, crackles - Routine Cardiovascular Exam Present: RRR - Routine Abdominal Exam Present: soft, non distended, non tender - Routine Extremities Exam Absent: cyanosis, clubbing - Routine Skin Exam Present: dry, warm - Routine Neurological Exam Present: alert, oriented X3, CN II-XII intact, moving all extremities, vision grossly intact, hearing grossly intact, normal speech. Absent: altered mental status - Routine Psychiatric Exam Present: normal affect, normal thought process Results - Labs CBC & Chem 7: 10/21/17 10:39 10/21/17 10:39 Microbiology Results: Microbiology 10/18/17 17:39 Sputum, Expectorated Gram Stain - Final 10/18/17 17:39 Sputum, Expectorated Sputum Culture - Final Normal Respiratory Vicki Assessment and Plan (1) Acute on chronic respiratory failure with hypoxemia Current visit: Yes Status: Acute Assessment and Plan: Assessment Acute on chronic hypoxia Bilateral pulmonary emboli DVT of right popliteal vein Elevated troponin Leukocytosis, POA Hyperbilirubinemia, POA GI bleed in August,. 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 Zuleyka Villanueva) Aortic dissection - chronic Elevated hgb, chronic; Erythrocytosis, normal erythropoietin 09/13/17 HTN Chronic pruritus Tobacco use Nonsustained V. tach during last hospitalization in August Nonsustained V TACH with this admission Right lung nodule Morbid Obesity BMI 44.7 Plan Had had Savage filter placed and transitioned to Xarelto for anticoagulation. Will recheck CXR in am to assess pulmonary status. Doxycycline Day 5 - depending on CXR may need for total 7 to 10 days. Continue Vit D, can change to oral B12 at discharge. Encourage activities. Clinically making improvements. Suspect discharge to home tomorrow. DVT Prophylaxis: Xarelto GI Prophylaxis: Omeprazole Resuscitation Status: Do Not Resuscitate - Time spent with patient Time with patient PN: 25 minutes - Physician Narrative Physician: Saleem Garcia MD Narrative: Date: 10/21/17 Time: 1956 Hospital Course Summary Disclaimer: The visit summary below is not to be considered part of the above Progress Note.
[2017-10-22] MEDS: TRAMADOL 50 MG TABLET PO PRN ×3 (01:57→15:35)
[2017-10-22] MEDS: ACETAMINOPHEN 325 MG TABLET PO PRN (03:52)
[2017-10-22] MEDS: LORATADINE 10 MG TABLET PO SCH (05:43)
[2017-10-22] MEDS: OMEPRAZOLE 20 MG CAPSULE PO SCH (05:43)
[2017-10-22] MEDS: BUDESONIDE INH.SOLN 0.5mg/2ml NEB AEROSOL SCH (07:13)
[2017-10-22] MEDS: ALBUTEROL/IPRATROPIUM 2.5mg-0.5mg/3ml NEB AEROSOL SCH ×2 (07:13→13:00)
--- NOTE | 2017-10-22 08:16 | XRay Report ---
INDICATION: F/U PROCEDURE: CHEST 2-VIEWS UPRIGHT (PA & LAT) Encounter: Initial COMPARISON: October 18, 2017 FINDINGS: Persistent lower lobe atelectasis with trace effusions. Upper lung schaefer are clear. No pneumothorax. Heart size and mediastinal contours are stable with a thoracic aortic aneurysm. Pulmonary vascularity is mildly prominent. Impression: Overall stable appearance of the chest with mild edema. .
[2017-10-22] MEDS: LISINOPRIL 20 MG TABLET PO SCH (08:24)
[2017-10-22] MEDS: RIVAROXABAN 15 MG TABLET PO SCH (08:24)
[2017-10-22] MEDS: GABAPENTIN 600 MG TABLET PO SCH ×2 (08:24→14:36)
[2017-10-22] MEDS: SENNA + DOCUSATE TABLET PO SCH (08:24)
[2017-10-22] MEDS: BENZONATATE 100 MG CAPSULE PO SCH ×2 (08:24→14:36)
[2017-10-22] MEDS: LABETALOL 100 MG TABLET PO SCH (08:24)
[2017-10-22] MEDS: POLYETHYL GLYCOL 3350 17gm PACKET PO SCH (08:25)
[2017-10-22] MEDS: CYANOCOBALAMIN (B-12) 1,000mcg/ml INJECTION IM SCH (08:25)
[2017-10-22] MEDS: NICOTINE 14 MG PATCH TD SCH (08:25)
[2017-10-22] MEDS: FUROSEMIDE 20 MG/2 ML INJECTION IVP SCH (08:33)
--- NOTE | 2017-10-22 12:26 | Progress Note ---
Oncology Subjective Sitting on bedside, alone in room. Denies fever, chills, night sweats. Continues with intermittent cough, shortness of air with exertion. Denies nausea, vomiting, no diarrhea or constipation. Denies dysuria/hematuria. Verbalizes had acute pelvic discomfort that lasted approximately an hour following her procedure yesterday. Pain has since resolved. General: No fever, no night sweats Eyes: No redness, no pain, no diplopia ENT: No mouth sores, no trouble swallowing Cardiac: No chest pain today Pulmonary: + cough, + shortness of breath, no wheezing Abdomen: No pain, no nausea vomiting, no diarrhea or constipation : No dysuria/hematuria Musculoskeletal: No arthritis, no myalgias Neurological: No headaches, no focal weakness Skin: No rash, no sores Psychiatric: No anxiety, no depression Exam Vital signs: Temperature 97.8 F 10/22/17 08:18 Pulse Rate 58 L 10/22/17 08:18 Respiratory Rate 16 10/22/17 08:18 Blood Pressure 175/79 H 10/22/17 08:18 Pulse Oximetry 92 10/22/17 08:18 Narrative: Generic Name Dose Route Start Last Admin Trade Name Freq PRN Reason Stop Dose Admin Acetaminophen 650 mg 10/17/17 05:15 10/22/17 03:52 Tylenol PO 650 mg Q5H PRN Administration Discomfort Acetaminophen 325 - 650 mg 10/21/17 13:34 Tylenol PO Q5H PRN Pain Al Hydroxide/Mg Hydroxide 30 ml 10/17/17 05:15 10/19/17 19:13 Maalox Plus PO 30 ml Q3H PRN Administration Indigestion Al Hydroxide/Mg Hydroxide 30 ml 10/21/17 13:34 Maalox Plus PO Q3H PRN Indigestion Albuterol/Ipratropium 3 ml 10/17/17 09:00 10/22/17 07:13 Duoneb AEROSOL 3 ml QID ELEAZAR Administration Atropine Sulfate 0.5 mg 10/21/17 13:34 Atropine IVP Q5M PRN Bradycardia Benzonatate 100 mg 10/17/17 15:00 10/22/17 08:24 Tessalon Perles PO 100 mg TID ELEAZAR Administration Bisacodyl 5 - 10 mg 10/21/17 13:34 Dulcolax PO DAILY PRN Constipation Bisacodyl 10 mg 10/21/17 13:34 Dulcolax RECTALLY DAILY PRN Constipation Budesonide 0.5 mg 10/17/17 05:15 10/22/17 07:13 Pulmicort Inhalation AEROSOL 0.5 mg Q12H ELEAZAR Administration Cholecalciferol 5,000 unit 10/19/17 10:15 10/22/17 08:24 Vit. D-3 PO 5,000 unit DAILY ELEAZAR Administration Cyanocobalamin 1,000 mcg 10/19/17 10:15 10/22/17 08:25 Vit. B-12 IM 1,000 mcg DAILY ELEAZAR Administration Diclofenac Sodium 1 applic 10/17/17 05:15 10/21/17 08:06 Voltaren TP 1 applic BID PRN Administration pain Doxycycline Hyclate 100 mg 10/17/17 08:00 10/22/17 08:24 Vibramycin PO 100 mg BIDWM ELEAZAR Administration Furosemide 40 mg 10/17/17 09:00 10/22/17 08:33 Lasix 20 Mg/2 Ml IVP 40 mg Q12HR ELEAZAR Administration Gabapentin 600 mg 10/17/17 09:00 10/22/17 08:24 Neurontin PO 600 mg TID ELEAZAR Administration Labetalol HCl 100 mg 10/17/17 09:00 10/22/17 08:24 Normodyne PO 100 mg BID ELEAZAR Administration Lisinopril 20 mg 10/17/17 09:00 10/22/17 08:24 Prinivil PO 20 mg BID ELEAZAR Administration Loratadine 10 mg 10/17/17 06:30 10/22/17 05:43 Claritin PO 10 mg ACBID ELEAZAR Administration Lorazepam 0.5 - 1 mg 10/21/17 13:34 Ativan PO Q4H PRN Anxiety Lorazepam 0.5 - 1 mg 10/21/17 13:34 Ativan Inj IVP Q4H PRN Anxiety Magnesium Hydroxide 30 ml 10/19/17 09:13 Mom PO DAILY PRN Constipation Magnesium Hydroxide 30 ml 10/21/17 13:34 Mom PO DAILY PRN Constipation Metoclopramide HCl 5 - 10 mg 10/21/17 13:34 Reglan IVP Q6H PRN Nausea &/or vomiting Nicotine 14 mg 10/18/17 17:00 10/22/17 08:25 Nicoderm TD 14 mg DAILY ELEAZAR Administration Nifedipine 60 mg 10/21/17 09:00 10/22/17 08:24 Procardia Xl PO 60 mg DAILY ELEAZAR Administration Nitroglycerin 0.4 mg 10/17/17 02:12 10/21/17 14:48 Nitrostat SL 0.4 mg Q5MIN3 PRN Administration Chest pain Omeprazole 20 mg 10/17/17 06:30 10/22/17 05:43 Prilosec PO 20 mg ACB ELEAZAR Administration Ondansetron HCl 4 mg 10/17/17 05:10 Zofran IVP Q6H PRN Nausea Ondansetron HCl 4 mg 10/21/17 13:34 Zofran IVP Q6H PRN Nausea &/or vomiting Polyethylene Glycol 17 gm 10/19/17 09:15 10/22/17 08:25 Miralax PO 17 gm DAILY ELEAZAR Administration Promethazine HCl 12.5 - 25 mg 10/21/17 13:34 Phenergan Inj IVP Q6H PRN Nausea &/or vomiting Rivaroxaban 15 mg 10/21/17 17:30 10/22/17 08:24 Xarelto PO 11/11/17 08:01 15 mg BIDWM ELEAZAR Administration Rivaroxaban 20 mg 11/12/17 17:30 Xarelto PO [facility] Senna/Docusate Sodium 1 tab 10/19/17 21:00 10/22/17 08:24 Senna Plus Tablet PO 1 tab BID ELEAZAR Administration Sodium Chloride 10 - 80 ml 10/17/17 05:10 10/21/17 21:26 Iv Flush IV 10 ml PRN PRN Administration Flushing Tramadol HCl 50 mg 10/17/17 05:15 10/22/17 08:55 Ultram PO 50 mg Q6H PRN Administration pain Discontinued Medications Generic Name Dose Route Start Last Admin Trade Name Freq PRN Reason Stop Dose Admin Albuterol/Ipratropium 3 ml 10/17/17 02:10 10/17/17 02:10 Duoneb AEROSOL 10/17/17 02:11 3 ml O ONE Administration Amlodipine Besylate 5 mg 10/17/17 09:00 10/18/17 09:09 Norvasc PO 5 mg DAILY ELEAZAR Administration Amlodipine Besylate 10 mg 10/18/17 14:00 10/20/17 08:50 Norvasc PO 10 mg DAILY ELEAZAR Administration Diphenhydramine HCl 50 mg 10/17/17 12:23 10/17/17 13:06 Benadryl PO 10/17/17 12:24 50 mg O ONE Administration Enoxaparin Sodium 120 mg 10/17/17 03:23 10/17/17 04:33 Lovenox SQ 10/17/17 03:24 120 mg O ONE Administration Enoxaparin Sodium 40 mg 10/18/17 09:00 Lovenox SQ DAILY ELEAZAR Enoxaparin Sodium 120 mg 10/17/17 17:00 10/18/17 04:10 Lovenox 1 mg/kg (120 mg) 120 mg SQ Administration Q12H ELEAZAR Enoxaparin Sodium 120 mg 10/18/17 17:00 10/20/17 17:38 Lovenox 1 mg/kg (120 mg) 120 mg SQ Administration Q12H ELEAZAR Sodium Chloride 500 mls @ 500 mls/hr 10/17/17 02:12 10/17/17 09:31 Normal Saline IV 10/17/17 03:11 Not Given .Q1H ONE Sodium Chloride 1,000 mls @ 100 mls/hr 10/17/17 02:30 10/17/17 05:39 Normal Saline IV Infused .Q10H ELEAZAR Infusion Methylprednisolone Sodium Succinate 62.5 mg 10/17/17 03:45 10/21/17 04:38 Solu-Medrol IVP 62.5 mg O ELEAZAR Administration Methylprednisolone Sodium Succinate 125 mg 10/17/17 12:22 10/17/17 13:05 Solu-Medrol IVP 10/17/17 12:23 125 mg O ONE Administration Morphine Sulfate 2 mg 10/17/17 10:26 10/17/17 11:02 Morphine Sulf 2 Mg Inj IVP 10/17/17 10:27 2 mg O ONE Administration Pharmacy Consult 1 each 10/17/17 05:54 10/17/17 09:31 Pharmacy Consult - Fall Risk 10/17/17 05:55 1 each ONE TIME ONE Administration Pneumococcal Polyvalent Vaccine 0.5 ml 10/17/17 08:03 10/17/17 11:05 Pneumovax 23 IM 10/17/17 08:04 0.5 ml .ONCE ONE Administration Sodium Chloride 10 - 80 ml 10/17/17 02:12 10/17/17 02:24 Iv Flush IVF 10 ml PRN PRN Administration Flushing - Constitutional no acute distress, obese, cooperative - Routine HEENT Exam Head: Present: normocephalic Eye: Present: EOMI ENT: Present: mucous membranes moist - Routine Neck Exam Present: supple. Absent: lymphadenopathy - Routine Respiratory Exam Present: decreased breath sounds. Absent: wheezes, crackles - Routine Cardiovascular Exam Present: RRR. Absent: no murmur - Routine Abdominal Exam Present: soft, non tender (No mass/organomegaly appreciated, but dificult to assess 2nd to body habitus) - Routine Extremities Exam Present: cyanosis, edema - Routine Skin Exam Present: erythema (sobia. lower extremities), dry, warm. Absent: petechiae - Routine Neurological Exam Present: alert, oriented X3 - Routine Psychiatric Exam Present: normal affect, cooperative, anxious Oncology Results - Labs CBC & Chem 7: 10/22/17 04:35 10/22/17 04:35 Labs: Short CBC 10/22/17 Range/Units 04:35 WBC 14.8 H (4.5-11.0) T/MM3 Hgb 16.7 H (12-16) GM/DL Hct 51.1 H (36-46) % Plt Count 207 (130-400) T/MM3 BMP 10/22/17 04:35 Sodium 141 Potassium 3.8 Chloride 96 L Carbon Dioxide 34 H BUN 39.0 H Creatinine 0.9 Glucose 181 H Calcium 8.7 - Impressions Date of Exam: 10/22/17 Ordering Provider: Saleem Garcia MD Type of Exam(s): XR chest 2V Reason for Exam(s): F/U INDICATION: F/U PROCEDURE: CHEST 2-VIEWS UPRIGHT (PA & LAT) Encounter: Initial COMPARISON: October 18, 2017 FINDINGS: Persistent lower lobe atelectasis with trace effusions. Upper lung schaefer are clear. No pneumothorax. Heart size and mediastinal contours are stable with a thoracic aortic aneurysm. Pulmonary vascularity is mildly prominent. Impression: Overall stable appearance of the chest with mild edema. . Assessment and Plan Assessment and Plan: 1 Recurrent pulmonary embolism. Negative for factor V Leiden and negative prothrombin 75329 A/G mutations. Anticardiolipin antibody is currently pending. IVC filter placed 10/21/17. Now on Xarelto. 2. Lung nodule PET scan would be best to evaluate this. This will done as an outpatient. 3. Elevated hemoglobin ruling out polycythemia rubra vera. JAK2 V617F currently pending. One unit phlebotomy done on 10/19/17. Hemoglobin dropped from 17-16.6; is 16.9 on 10/21/17 and 16.7 today.Hematocrit went from 54 and 52.6-51.2, 52.3 on 10/21/17 and is 51.1 today; no phlebotomy today. 4.Right submandibular lymphadenopathy of uncertain etiology. No enlarged lymph nodes noticed on CT scan of the chest. Will consider further evaluation with PET scan and LDH. 5. Chronic obstructive pulmonary disease with acute on chronic respiratory failure 6. Congestive heart failure with elevated proBNP, chronic edema, dilated vessels 7. Atherosclerotic peripheral vascular disease with aneurysm of the thoracic and abdominal aorta 8. Marked obesity 9. Tobacco use. Plan Oncology okay with dismissal and will follow as outpatient 11/05/17 with labs prior to appointment; patient has appointment card with date/time of follow-up. Asked patient if she will remain abstinent from smoking, replies " I am going to try." Encouraged in quit attempt. Discussed use of nicotine products, relaxation methods, i.e. deep breathing, other measures to help with stress. Encouraged to contact the quit line. - Time Spent With Patient Total time spent is greater than 50% in coordination of care (as documented) at patient's floor/unit and/or counseling patient: 25 - 35 minutes
--- NOTE | 2017-10-22 13:00 | Progress Note ---
<Natali Solomon R - Last Filed: 10/22/17 12:54> Oncology Subjective Patient alone in room, sitting on bed. Reports shortness of breath and continued need for 5L oxygen. After discharge, patient will follow up with labs and appointment with Dr. Kimbrough on 11/05/17. Patient will have PET scan prior to this appointment. General: No fever, no night sweats Eyes: No redness, no pain, no diplopia ENT: No mouth sores, no trouble swallowing Cardiac: No chest pain, no palpitations Pulmonary: Reports shortness of breath - improved on 5L oxygen, No cough Abdomen: reports last BM yesterday, no pain, no nausea or vomiting, no diarrhea or constipation : No urgency, dysuria, or hematuria Musculoskeletal: No arthritis, no myalgias Neurological: No headaches, no focal weakness Skin: No rash, no sores Psychiatric: No anxiety, no depression Exam Vital signs: Temperature 97.7 F 10/22/17 12:25 Pulse Rate 57 L 10/22/17 12:25 Respiratory Rate 20 10/22/17 12:25 Blood Pressure 148/72 H 10/22/17 12:25 Pulse Oximetry 91 10/22/17 12:25 - Constitutional no acute distress, morbidly obese - Routine HEENT Exam Head: Present: normocephalic, atraumatic Eye: Present: EOMI ENT: Present: mucous membranes moist - Routine Neck Exam Present: lymphadenopathy (right cervical) - Routine Chest/Breast/Axilla Exam Axillae: Absent: lymphadenopathy, tenderness - Routine Respiratory Exam Present: wheezes (expiratory). Absent: rales, rhonchi, stridor - Routine Cardiovascular Exam Present: RRR - Routine Abdominal Exam Present: soft, non tender - Routine Extremities Exam Present: edema (diffuse/dark discoloration of bilateral lower extremities) - Routine Skin Exam Present: intact, dry - Routine Neurological Exam Present: alert, oriented X3 - Routine Psychiatric Exam Absent: depressed, anxious Oncology Results - Labs CBC & Chem 7: 10/22/17 04:35 10/22/17 04:35 Labs: Short CBC 10/22/17 Range/Units 04:35 WBC 14.8 H (4.5-11.0) T/MM3 Hgb 16.7 H (12-16) GM/DL Hct 51.1 H (36-46) % Plt Count 207 (130-400) T/MM3 [facility] 10/22/17 04:35 Sodium 141 Potassium 3.8 Chloride 96 L Carbon Dioxide 34 H BUN 39.0 H Creatinine 0.9 Glucose 181 H Calcium 8.7 Assessment and Plan Assessment and Plan: Patient examined, chart reviewed, I participated development of the plan of care with this patient. 1. Recurrent pulmonary embolism negative for factor V Leiden and negative prothrombin 51339 A/G mutations. Anticardiolipin antibody is currently pending. IVC filter yesterday. Lovenox is been stopped and she is currently on Xarelto 2. Lung nodule PET scan would be best to evaluate this. This will done as an outpatient prior to her appointment with Dr. Kimbrough on 11/05/17. 3. Elevated hemoglobin ruling out polycythemia rubra vera. JAK2 V617F currently pending. One unit phlebotomy done on 10/19/17. Hemoglobin dropped from 17-16.6, 16.7 today. Hematocrit went from 54 and 52.6-51.2 and is currently 51.1. She is better today and the phlebotomy may have provided some benefit. Patient will follow up with Dr. Kimbrough on 11/05/17 - CBC, CMP, Mg, LDH prior to appointment. 4. Neutrophilic leukocytosis this could be secondary steroids or to polycythemia rubra vera. - Time Spent With Patient Total time spent is greater than 50% in coordination of care (as documented) at patient's floor/unit and/or counseling patient: 25 - 35 minutes <Vernon Kimbrough - Last Filed: 10/22/17 22:05> Exam Vital signs: Temperature 97.3 F 10/22/17 16:00 Pulse Rate 59 L 10/22/17 16:00 Respiratory Rate 18 10/22/17 16:00 Blood Pressure 148/73 H 10/22/17 16:00 Pulse Oximetry 90 10/22/17 16:00 Oncology Results - Labs CBC & Chem 7: 10/22/17 04:35 10/22/17 04:35 Labs: Short CBC 10/22/17 Range/Units 04:35 WBC 14.8 H (4.5-11.0) T/MM3 Hgb 16.7 H (12-16) GM/DL Hct 51.1 H (36-46) % Plt Count 207 (130-400) T/MM3 [facility] 10/22/17 04:35 Sodium 141 Potassium 3.8 Chloride 96 L Carbon Dioxide 34 H BUN 39.0 H Creatinine 0.9 Glucose 181 H Calcium 8.7 Assessment and Plan Assessment and Plan: Patient examined Chart reivewed. CAITLYN 2 V 617 F mutation negative that decreases possibility of PRV. Will see as out patient to get PET to evaluate lung nodule and lymph nodes. Will see in 2 weeks. Agree with documentation of Natali Solomon. I participated in the development of the plan of care of this patient. - Time Spent With Patient Total time spent is greater than 50% in coordination of care (as documented) at patient's floor/unit and/or counseling patient:
--- NOTE | 2017-10-22 14:40 | Discharge Summary ---
Discharge Information Date of admission: 10/18/17 09:45 Anticipated date of discharge: 10/22/17 Attending Physician: Scotty Mosley MD Primary care physician: Nabila Momin APRN Consults: 10/17/17 10:59 Physician Consult [CONS] Routine Consulting Provider: Enedina Russell Reason For Exam: Elevated D-Dimer, hemoptysis Ordering Provider has Notified Filling Hand: Yes 10/18/17 08:14 Physician Consult [CONS] Routine Consulting Provider: Vernon Kimbrough Reason For Exam: erythrocytosis Ordering Provider has Notified Filling Hand: Yes - Discharge Diagnosis (1) Abdominal aortic aneurysm without rupture Status: Chronic (2) CAD (coronary artery disease), [place] coronary artery Status: Chronic (3) Elevated d-dimer Status: Acute (4) COPD (chronic obstructive pulmonary disease) Status: Chronic (5) Hypertension Status: Chronic (6) Heart murmur Status: Chronic (7) Obstructive sleep apnea Status: Chronic (8) GERD (gastroesophageal reflux disease) Status: Chronic (9) History of GI bleed Status: Resolved (10) Ventricular tachycardia Status: Chronic (11) Chronic pulmonary embolism Status: Chronic (12) Dyspnea Status: Chronic (13) Chest pain Status: Resolved (14) NSTEMI (non-ST elevated myocardial infarction) Status: Acute (15) Acute on chronic respiratory failure with hypoxemia Status: Acute (16) Acute on chronic diastolic (congestive) heart failure Status: Acute (17) Nicotine dependence Status: Chronic - Laboratory Labs: 10/22/17 04:35 10/22/17 04:35 - Microbiology Microbiology 10/18/17 17:39 Sputum, Expectorated Gram Stain - Final 10/18/17 17:39 Sputum, Expectorated Sputum Culture - Final Normal Respiratory Vicki History of Present Illness HPI: Pt is [id number] female well known to Dr. Mosley with PMH including CAD, HTN , Ventricular Tachycardia, chronic Pulmonary Embolism, COPD, Chronic Diastolic Heart Failure, Recurrent Pneumonia, Aortic Dissection, Recent GI Bleed,and Abdominal Aortic Aneurysm who presents with acute shortness of breath and chronic chest pain. She has had frequent chest pain left-sided, especially worse with deep breathing. She does have history of COPD due to cigarette smoking, CHF and hypoxemia. She was seen, admitted and discharged in early September with mild GI bleed and elevated INR. She was discharged home on 3 L oxygen and taken off of her Coumadiin, but has had to increase her oxygen use to 5 L over the last 2 weeks. She presents at 87% on 5 L nasal cannula. She does continue to smoke, has had to decrease the smoking over the last few weeks and is now only smoking about 5 cigarettes a day as she is felt to sick to smoke anymore than that. She does not take Lasix as it makes her urinate "too much". Does not wear compression stockings as they're too uncomfortable. She did have an angiogram but states that there were no vascular issues. In the ER, CXR reveals pulmonary congestion with a BNP of 5340, EKG with known BBB and no acute ischemia, Elevated d-dimer at 3569, and troponin of 0.17. CTA not completed in ER d/t patient reporting allergy to contrast dye. However, it is noted, patient has had previous CTA and recently underwent heart catheterization. Past Procedures/Diagnotics: 09/10/2017 Heart Cath: Left Ventriculography EF 65%, no mitral regurge or gradient across the aortic valve. LVEDP about 20 Coronary Angiography Left main was free of significant lesions and bifurcated into left anterior descending and left circumflex arteries. The left anterior descending artery was a koyqqf-xj-aqslw caliber vessel which had about 30-40% stenosis just distal to the first diagonal. First diagonal was a medium-caliber vessel with no significant lesions. The other diagonals were hnlsq-kb-[id number] caliber vessels with no significant lesions. Left circumflex artery had about 40% eccentric lesion distally at the junction of the second marginal. Right coronary artery had diffuse irregularities with no stenosis greater than 30%. 09/09/2017 Upper and Lower GI SURGEON Beka Flynn MD PREOPERATIVE DIAGNOSES 1. GI bleeding. 2. Anticoagulation with warfarin - currently on hold. POSTOPERATIVE DIAGNOSES 1. Mild duodenitis of the duodenal bulb. 2. Mild antral gastritis. 3. Short segment of mucosal changes of the distal esophagus - possible Blackwell' s, pathology pending. 4. Severe pandiverticulosis - likely source of bleeding, no active bleeding. 5. 0.5 cm sessile polyp of the transverse colon. 6. Multiple 0.5 cm or less sessile polyps of the sigmoid colon - five polyps removed. 7. 0.7 cm sessile polyps of the rectum x 2. 8. Multiple 0.5 cm or less sessile polyps of the rectum - 4 removed. PROCEDURE 1. Esophagogastroduodenoscopy with antral biopsy for SCARLETT testing and biopsies of the duodenum, antrum, and GE junction for histology. 2. Colonoscopy with hot snare polypectomy x 2 and hot biopsy forceps polypectomy x 10. 10/30/2016 Echo: * Moderate concentric LVH * EF 55-60% * Impaired relaxation * No WMA * Left atrium mildly dilated * right atrium mildly enlarged * Trace MR 09/11/16 CTA of chest Ordering Provider: Nabila Momin APRN Type of Exam(s): CT angio chest/aorta wo/w con Reason for Exam(s): J41.1 Mucopurulent chronic bronchitis Indication: J41.1 Mucopurulent chronic bronchitis, aortic aneurysm with dissection PROCEDURE: CT angio chest/aorta wo/w con: Encounter: Initial Comparison: Chest x-ray dated September 07, [address] angiogram of the chest dated June 16, 2013 Technique: Axial CT angiographic imaging of the chest was performed before and after the administration of intravenous contrast. Coronal and sagittal MIP reconstructed images were created and reviewed. Three-dimensional surface shaded volume rendered imaging of the aorta and arterial vasculature was created by the technologist on a dedicated workstation under the direction of the interpreting radiologist and reviewed. Automated Exposure Control and Iterative Reconstruction dose reducing techniques were utilized. Contrast: 75 mL Omnipaque 350 Findings: Noncontrast images show no evidence of an intramural hematoma. Postcontrast images redemonstrate the extensive Wolfgang type B dissection of the thoracic aorta. This shows interval growth at the origin and enlargement of the descending thoracic aorta compared to the prior CT. Aortic arch diameter at the origin of the dissection on axial image #23 is now 5 cm compared to 4 cm on the prior CT. Descending thoracic aorta diameter is enlarged. For example on axial image #44 maximal diameter us 4.7 cm compared to 3.8 cm on the comparison study. Dissection continues into the abdomen with significant mural thrombus. There is narrowing of the true lumen in the lower thoracic section. The celiac, SMA and left renal artery arise from the true lumen while the right renal artery arises from the false lumen. The false lumen is brighter on this phase of contrast for some reason. The upper abdomen shows no acute findings. The lungs show mild emphysema without consolidative pneumonia. No pleural effusion or pneumothorax. The central airways are patent. Bone windows are unremarkable. 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 Overall diameter is approximately 1 cm larger than the 2014 comparison. Vascular surgical evaluation is suggested. . Hospital Course This is a general summary of the patient's hospital course. For more details refer to the complete medical record. Exam Vital signs: Temperature 97.7 F 10/22/17 12:25 Pulse Rate 57 L 10/22/17 12:25 Respiratory Rate 16 10/22/17 13:00 Blood Pressure 148/72 H 10/22/17 12:25 Pulse Oximetry 91 10/22/17 13:00 Results 10/22/17 04:35 10/22/17 04:35 CBC 10/22/17 Range/Units 04:35 WBC 14.8 H (4.5-11.0) T/MM3 RBC 5.60 H (4.00-5.20) M/MM3 Hgb 16.7 H (12-16) GM/DL Hct 51.1 H (36-46) % Plt Count 207 (130-400) T/MM3 Neut # (Auto) Not performed Lymph # (Auto) Not performed [place] # (Auto) Not performed Eos # (Auto) Not performed Baso # (Auto) Not performed Comprehensive Metabolic Panel 10/22/17 Range/Units 04:35 Sodium 141 (136-146) MEQ/L Potassium 3.8 (3.6-5) MEQ/L Chloride 96 L (98-107) MEQ/L Carbon Dioxide 34 H (22-30) MEQ/L BUN 39.0 H (7-17) MG/DL Creatinine 0.9 (0.7-1.2) mg/dL Glucose 181 H (65-110) MG/DL Calcium 8.7 (8.4-10.2) MG/DL Intake and Output 10/21/17 10/22/17 10/22/17 22:59 06:59 14:59 Intake Total 410 / 410 1100 / 1100 Output Total 820 / 820 350 / 350 Balance 410 / 410 280 / 280 -350 / -350 Intake: Oral 410 / 410 1100 / 1100 Output: Urine 820 / 820 350 / 350 Other: Urine Appearance Clear Clear Urine Color Dark Yellow Dark Yellow Urine Odor Strong Foul Stool Color Brown Stool Consistency Formed Size of Bowel Movement Moderate # Voids 1 1 # Bowel Movements 1 Discharge Plan - Med Rec/Dispo [place] Instructions: Chest Pain (GEN) Prescriptions: New NIFEdipine [Nifedipine ER] 90 mg PO DAILY #30 tab.er.24 Rivaroxaban [Xarelto] 20 mg PO WS #30 tab Furosemide [Lasix 40 mg Tab] 40 mg PO 0900,1700 #60 tab Continue Mag-Al + Sim Oral Liq [Maalox Plus] 30 ml PO Q3H PRN udc PRN Reason: Indigestion Acetaminophen [Tylenol] 650 mg PO Q5H PRN tab PRN Reason: Discomfort Labetalol [Normodyne] 100 mg PO BID #60 tab Lisinopril [Prinivil] 20 mg PO DAILY #30 tab Omeprazole [Prilosec] 20 mg PO ACB #30 cap Voltaren (Diclofenac) 1 % topical gel 4 g TOP BID PRN #100 g PRN Reason: pain Neurontin (gabapentin) 600 mg tablet 600 mg PO TID #90 tab Pulmicort (Budesonide) 0.5 mg/2 mL suspension for nebulization 2 ml INH Q12H #60 ml ipratropium-albuterol 0.5 mg-3 mg(2.5 mg base)/3 mL nebulization soln 3 ml INH QID #180 ml doxycycline hyclate 100 mg capsule 100 mg PO BID #180 cap Claritin (Loratadine) 10 mg tablet 10 mg PO BID #60 tab Discontinued Amlodipine [Norvasc] 5 mg PO DAILY #30 tab No Action Ultram (Tramadol) 50 mg tablet 50 mg PO Q6H PRN #120 tab PRN Reason: pain
[2017-10-22 16:07] VITALS: BP 148/73; PULSE 59; RESP 18; TEMP 97.3; O2SAT 90
[2017-10-22] MEDS ORDERED: FUROSEMIDE 40 MG TABLET PO SCH (17:00)
[2017-11-12] MEDS ORDERED: RIVAROXABAN 20 MG TABLET PO SCH (17:30)
== END 2017-10-22 17:15 | disposition home or self-care (01) | DRG 166 ==
LOC: ED 01:57 → EDHOLD 01:57 → MED 04:42 → SRG 10-21 13:53
PROVIDERS: ADMIT Internal Medicine Cardiovascular Disease; ATTEND Internal Medicine Cardiovascular Disease